=== PATIENT | female | born 1950 | race Caucasian/White ===

== ENCOUNTER 2016-05-31 10:38 | Inpatient (IN) | payer MEDICARE ==
[~2016-05-31] VITALS: Ht 167.6 cm; Wt 62.7 kg
[~2016-05-31 10:38] MED LIST: /ASCO250TA PO; /HALO5TAB PO; /MOM400 PO; /PANT40TA PO; /QUET10TA PO; ACET50TA PO; ATIV2TAB PO; BACT800T5 PO; BENZ1TA PO; CATA0.1T PO; DEPA250T2 PO; HALD5INJ2 IM; INVE6TAB2 PO; IRON325T3 PO; LORA2TA IM; MAAL600C PO; MAALSUS16 PO; MILKSUS5 PO; NO HOME MEDS; RISP4TAB33 PO; RISP4TAB35 PO; SERO200T PO; ZYVO100T PO; no home meds
[2016-05-31 11:05] LABS: MEAN CORPUSCULAR HEMOGLOBIN 31.7 pg (27.0-33.0); MEAN CORPUSCULAR HGB CONC 31.8 g/dl (32.0-36.5); MEAN CORPUSCULAR VOLUME 99.6 fl (80.0-96.0); RED CELL DISTRIBUTION WIDTH 13.7 % (11.5-14.5); WHITE BLOOD COUNT 8.6 K/mm3 (4.0-10.0)
[2016-05-31 11:35] LABS: ALBUMIN 3.2 GM/DL (3.2-5.2); ALBUMIN/GLOBULIN RATIO 0.89 (1.00-1.93); ALKALINE PHOSPHATASE 80 U/L (45-117); ALT/SGPT 18 U/L (12-78); ANION GAP 10 MEQ/L (8-16); AST/SGOT 14 U/L (15-37); BILIRUBIN,DIRECT < 0.1 MG/DL (0.0-0.2); BILIRUBIN,TOTAL 0.2 MG/DL (0.2-1.0); BLOOD UREA NITROGEN 16 MG/DL (7-18); CALCIUM LEVEL 8.1 MG/DL (8.8-10.2); CARBON DIOXIDE LEVEL 27 MEQ/L (21-32); CHLORIDE LEVEL 104 MEQ/L (98-107); CREATININE FOR GFR 0.69 MG/DL (0.55-1.02); GLOMERULAR FILTRATION RATE > 60.0 (>45); GLUCOSE, FASTING 145 MG/DL (80-110); POTASSIUM SERUM 3.8 MEQ/L (3.5-5.1); SODIUM LEVEL 141 MEQ/L (136-145); TOTAL PROTEIN 6.8 GM/DL (6.4-8.2)
[2016-05-31 13:34] LABS: METHADONE URINE NEGATIVE (NEGATIVE)
[2016-05-31 15:14] VITALS: BP 102/55
[2016-05-31] MEDS ORDERED: MOM 30ML SUSPENSION UDC PO PRN (17:00)
[2016-05-31] MEDS ORDERED: traZODone 50 MG TAB PO PRN (17:00)
[2016-05-31] MEDS ORDERED: ACETAMINOPHEN TAB 650MG DOSE (2X325MG) PO PRN (17:00)
[2016-05-31] MEDS ORDERED: MAALOX 30 ML SUSP *UDC PO PRN (17:00)
[2016-06-01 06:41] VITALS: BP 117/61
[2016-06-01] MEDS: PALIPERIDONE 3 MG ER TAB (INVEGA) PO SCH ×2 (09:00→15:01)
[2016-06-01 09:38] LABS: THYROXINE (T4) 8.2 UG/DL (4.5-12.0)
[2016-06-01 18:00] VITALS: BP 126/63
[2016-06-01] MEDS ORDERED: risperiDONE 2 MG TAB PO SCH (21:00)
[2016-06-01 21:07] VITALS: BP 126/63
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
[2016-06-02 06:41] VITALS: BP 123/75
--- NOTE | 2016-06-02 07:12 | HPE ---
DATE OF ADMISSION: 06/01/2016 Please refer to psychiatric history and evaluation for further details on this admission. This examination and history is intended for medical issues, which may need treatment, followup with consult on this 65-year-old female. SOCIAL HISTORY: She is . She has a boyfriend. ETOH none. Smokes, none. Recreational drug use, denies any. ALLERGIES: Latex. PRIMARY CARE PROVIDER: She states she currently does not have one. PAST MEDICAL HISTORY: 1. History of anemia of chronic disease. 2. History of chronic lower extremity leg ulcer. PAST SURGICAL HISTORY: 1. Skin graft to left lower leg ulcer times two. 2. Left breast biopsy, benign per patient. HOME MEDICATIONS: None. Other than her left lower leg wound she had no complaints. OBJECTIVE: VITAL SIGNS: Stable. Height 66 inches, weight 54.5 kg. Blood pressure 126/63, pulse 83, respirations 16, temperature 98.76, Oxygen saturation 98% on room air. GENERAL: The patient is awake, alert and oriented times three. HEENT: Pupils equal, round, reactive to light. Extraocular muscles intact. Cornea and sclerae clear. Conjunctiva is normal. No facial asymmetry. Pharynx, tongue and gum is pink and moist. Tongue is midline. NECK: Neck is supple without lymphadenopathy. No thyromegaly. No goiter. Carotids 2+ without bruit. CHEST: Clear to auscultation without wheeze or retraction. HEART: Heart is regular. ABDOMEN: Benign. Bowel sounds positive. GENITOURINARY ()/Rectal: Not done. EXTREMITIES: No Zyprexa. Pedal pulses palpable bilaterally. Radial pulses palpable bilaterally. Left outer lower leg has a stage II-III chronic ulcer. Venous stasis changes appreciated in the lower legs bilaterally. IMPRESSION AND PLAN: 1. Psychiatric plan per psychiatric. 2. EKG on file. 3. Anemia of chronic illness. 4. Lower left extremity ulcer. Will get wound consult and culture. The patient will need an attempt to establish a primary care physician (PCP) for discharge.
[2016-06-02] MEDS: PALIPERIDONE 3 MG ER TAB (INVEGA) PO SCH (08:50)
--- NOTE | 2016-06-02 13:43 | IPNPDOC ---
Subjective Date Seen The patient was seen on 06/02/16. Subjective Chief Complaint/HPI The patient is a 65-year-old female admitted with a reason for visit of Shizoaffective Disorder. Events since last encounter Requested to evaluate Pt LLE wounds. Pt is unable to provide much history but states they have been there a long time. Reviewing records, they date back to 2013. Pt with h/o 2 prior skin grafts to the LLE. Objective Physical Examination General Exam: Positive: Alert Eye Exam: Positive: PERRLA ENT Exam: Positive: Atraumatic Chest Exam: Positive: Clear to auscultation, Normal air movement Heart Exam: Positive: Normal S1, Normal S2, Rate Normal, Regular Rhythm, Negative: Murmurs, Rubs Skin Exam: Positive: Other skin issue (venous skin changes noted LEs. There are 4 ulcerations, Stage II-III skin ulcerations LLE. ) Assessment /Plan Problems (1) Skin ulceration Status: Chronic Problem Text: * wound culture pending * Request Wound Care Clt. * Pt afebrile, WBC WNL, no increased erythema/warmth. No antibiotics at this time. * Monitor/dressing changes. (2) Venous stasis Status: Chronic Plan/VTE VTE Prophylaxis Ordered?: No (ambulatory) VS, I&O, 24H, Fishbone Vital Signs/I&O Vital Signs Date Time Temp Pulse Resp B/P Pulse Ox O2 Delivery O2 Flow Rate FiO2 06/02/16 06:41 98.2 71 22 123/75 06/01/16 21:07 98 Room Air Laboratory Data Microbiology Microbiology 05/31/16 Urine Culture - Final, Complete 06/02/16 Gram Stain - Final, Resulted 06/02/16 Wound Culture, Resulted Pending Summer Renee Jun 02, 2016 13:43
[2016-06-02 18:00] VITALS: BP 142/76
--- NOTE | 2016-06-02 18:30 | IPNPDOC ---
[facility] Progress Note Progress Note DATE OF SERVICE: 06/02/16 HISTORY: The patient is met with today shortly. She initially was found in her room shaving her legs with electric razor. After introducing this literary writer asked if he could inquire as to how she came to the inpatient [facility]. She appeared to first amenable to answering questions but quickly became quite paranoid. She then accused this literary writer of imprisoning her in the psych [facility]. She then promptly ended interview appearing quite angry and distressed. VITAL SIGNS: See below. NEW TEST RESULTS: None. CURRENT MEDICATIONS: See below. MENTAL STATUS EXAMINATION: Patient is a 65-year old female, who is guarded, suspicious with poor hygiene . Speech: Is pressured and disorganized. Language skills are intact. Thought processes including: Tangential. Thought content: Perseverates on severe paranoia of staff members on the COUNTS INCLUDE 234 BEDS AT THE [facility]. Abstract reasoning, and computation: Impaired. Description of associations: Loose. Description of abnormal or psychotic thoughts: Makes no threats towards herself or others. Does not appear to be overtly responding to internal stimuli. Judgment: Limited. Insight: Limited. Orientation to appears to be alert and orientated 3. Recent and remote memory: Appears grossly intact. Attention span and concentration: Fair. Language: Normal. Fund of knowledge: Adequate. Mood: "You did this to me". Affect: Irritable and angry with a labile affect. DIAGNOSES: 1. Unspecified psychotic disorder. ASSESSMENT: A 65-year-old woman with a long history of schizophrenia who presents in a paranoid and disorganized state. She has been admitted previously in the staff is quite familiar with her previous behavior. She done quite well after an admission in May 2014 where she was treated with some Invega. However , after speaking with social media developer more familiar with her post admission follow -up revealed that she is likely noncompliant with her medications as an outpatient. MANAGEMENT PLAN: 1. Continue Invega 3 mg at night. 2. Continue when necessary agitation medications 3. Continue inpatient stay as the patient so grossly psychotic and paranoid. In her current state she poses a danger to herself as she is gravely disabled from her current condition. She will likely require at least a few more days of inpatient treatment should she continue to consent to taking her in Invega. However, if she continues to refuse her in Invega as she is done on previous admissions her inpatient stay could span quite a bit longer TIME SPENT: 15 minutes. Vital Signs Vital Signs Date Time Temp Pulse Resp B/P Pulse Ox O2 Delivery O2 Flow Rate FiO2 06/02/16 06:41 98.2 71 22 123/75 06/01/16 21:07 98 Room Air Current Medications Current Medications Acetaminophen (Tylenol Tab) 650 mg Q6HP PRN PO HEADACHE or DISCOMFORT; Start at 17:00; Stop 06/30/16 at 16:59 Al Hydrox/Mg Hydrox/Simethicone (Mylanta) 30 ml Q4HP PRN PO HEARTBURN/ INDIGESTION; Start 05/31/16 at 17:00; Stop 06/30/16 at 16:59 Home Med (Med Rec Complete!) ASDIRECTED XX ; Start 05/31/16 at 14:15; Stop at 14:15; Status DC Magnesium Hydroxide (Milk Of Magnesia) 30 ml DAILYPRN PRN PO CONSTIPATION; Start 05/31/16 at 17:00; Stop 06/30/16 at 16:59 Paliperidone (Invega) 3 mg QAM PO Last administered on 06/02/16t 08:50; Start 06/01/16 at 09:00; Stop 07/01/16 at 08:59 Risperidone (RisperDAL) 2 mg QHS PO ; Start 06/01/16 at 21:00; Stop 06/02/16 at 14:10; Status DC Trazodone HCl (Desyrel) 50 mg QHSP PRN PO INSOMNIA; Start 05/31/16 at 17:00; Stop 06/30/16 at 16:59 Allergies Coded Allergies: Latex (Unverified Allergy, Mild, Rash, 05/28/13) GME ATTESTATION My preceptor for this patient encounter was physically present in the building during the encounter and was fully available. As needed, all aspects of the patient interview, examination, medical decision making process, and medical care plan development were reviewed and approved by the preceptor. Preceptor is aware and concurs with the plan as stated in the body of this note and will attest to such by his/her cosignature. MICHAEL LATIF DO Jun 02, 2016 18:30
[2016-06-03 06:35] VITALS: BP 135/65
[2016-06-03] MEDS: PALIPERIDONE 3 MG ER TAB (INVEGA) PO SCH (08:17)
[2016-06-03 18:00] VITALS: BP 133/74
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
[2016-06-04] MEDS: PALIPERIDONE 3 MG ER TAB (INVEGA) PO SCH (08:14)
--- NOTE | 2016-06-04 15:35 | IPNPDOC ---
Subjective Date Seen The patient was seen on 06/04/16. Subjective Chief Complaint/HPI The patient is a 65-year-old female admitted with a reason for visit of Shizoaffective Disorder. Events since last encounter pt with no complaints. Pt states there has been no change with LLE. Objective Physical Examination General Exam: Positive: Alert Eye Exam: Positive: PERRLA ENT Exam: Positive: Atraumatic Chest Exam: Positive: Clear to auscultation, Normal air movement Heart Exam: Positive: Normal S1, Normal S2, Rate Normal, Regular Rhythm, Negative: Murmurs, Rubs Skin Exam: Positive: Other skin issue (venous skin changes noted LEs. There are 4 ulcerations, Stage II-III skin ulcerations LLE. ) Assessment /Plan Problems (1) Skin ulceration Status: Chronic Problem Text: * wound culture pending, discussed preliminary with Dr Stack. * Pt afebrile * no changes in wounds. * WBC WNL. * No abx at this time * Arrange outpt evaluation with wound care- Dr Prakash. * PT Wound Care Clt completed, dressing changes requested. (2) Venous stasis Status: Chronic Plan/VTE VTE Prophylaxis Ordered?: No (ambulatory) VS, I&O, 24H, Fishbone Vital Signs/I&O Vital Signs Date Time Temp Pulse Resp B/P Pulse Ox O2 Delivery O2 Flow Rate FiO2 06/03/16 18:00 98.8 93 16 133/74 06/01/16 21:07 98 Room Air Laboratory Data Microbiology Microbiology 05/31/16 Urine Culture - Final, Complete 06/02/16 Gram Stain - Final, Resulted 06/02/16 Wound Culture - Preliminary, Resulted Enterobacter Cloacae Complex Staphylococcus Aureus Strep Agalactiae Group B Corynebacterium Species Summer Renee Jun 04, 2016 15:35
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
[2016-06-04 18:33] VITALS: BP 138/73
[2016-06-05 06:41] VITALS: BP 143/75
[2016-06-05] MEDS: PALIPERIDONE 3 MG ER TAB (INVEGA) PO SCH (08:14)
[2016-06-05 08:22] LABS: MEAN CORPUSCULAR HEMOGLOBIN 31.2 pg (27.0-33.0); MEAN CORPUSCULAR HGB CONC 32.1 g/dl (32.0-36.5); MEAN CORPUSCULAR VOLUME 97.1 fl (80.0-96.0); RED CELL DISTRIBUTION WIDTH 13.4 % (11.5-14.5); WHITE BLOOD COUNT 7.6 K/mm3 (4.0-10.0)
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
[2016-06-05 18:00] VITALS: BP 130/71
--- NOTE | 2016-06-05 22:01 | ECGEPIP ---
Stationary ECG Study [facility] Test Date: 2016-06-04 Pat Name: KRAIG TRAYLOR Department: Room: [place] [address] Gender: F Suggestion Clerk: GUERA : 1950 Requested By: Summer Renee Order Number: [id number] Reading MD: Sohan Perera Measurements Intervals [place] Rate: 80 P: 66 WI: 141 QRS: 51 QRSD: 89 T: 34 QT: 380 QTc: 439 Interpretive Statements SINUS RHYTHM POSSIBLE LEFT ATRIAL ENLARGEMENT SIMILAR 06/04/14 Electronically Signed On 06-05-2016 22:01:16 EDT by Sohan Perera
[2016-06-06 06:24] VITALS: BP 139/65
[2016-06-06] MEDS: PALIPERIDONE 3 MG ER TAB (INVEGA) PO SCH (08:25)
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
[2016-06-06 18:00] VITALS: BP 122/64
[2016-06-07 06:41] VITALS: BP 141/70
[2016-06-07] MEDS: PALIPERIDONE 3 MG ER TAB (INVEGA) PO SCH (08:53)
[2016-06-07 18:00] VITALS: BP 137/74
[2016-06-08] MEDS: PALIPERIDONE 3 MG ER TAB (INVEGA) PO SCH (08:51)
[2016-06-08 18:00] VITALS: BP 138/71
[2016-06-09 06:20] VITALS: BP 128/64
[2016-06-09] MEDS: PALIPERIDONE 3 MG ER TAB (INVEGA) PO SCH (08:22)
[2016-06-09 18:00] VITALS: BP 113/68
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
[2016-06-10 06:00] VITALS: BP 141/78
[2016-06-10] MEDS: PALIPERIDONE 3 MG ER TAB (INVEGA) PO SCH (08:07)
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
[2016-06-10] MEDS ORDERED: PALI1TAB2 PO (14:27)
[2016-06-10] MEDS ORDERED: PALI1TAB3 PO (16:14)
[2016-06-10] MEDS ORDERED: INVE6TAB2 PO (16:20)
== END 2016-06-10 15:00 | disposition home or self-care (01) | DRG 885 ==
LOC: M ED 11:35 → M ED INP 14:18 → M PSY 15:05
PROVIDERS: ADMIT Psychiatry & Neurology Child & Adolescent Psychiatry; ATTEND Psychiatry & Neurology Child & Adolescent Psychiatry
DX: F25.9 Schizoaffective disorder, unspecified (principal); L97.929 Non-pressure chronic ulcer of unspecified part of left lower leg with unspecified severity; Z79.899 Other long term (current) drug therapy; Z91.040 Latex allergy status; D64.9 Anemia, unspecified; I87.8 Other specified disorders of veins

== ENCOUNTER 2017-03-12 19:12 | Inpatient (IN) | payer OTHER, MEDICARE ==
[2017-03-12 20:24] LABS: MEAN CORPUSCULAR HEMOGLOBIN 18.5 pg (27.0-33.0); MEAN CORPUSCULAR HGB CONC 27.1 g/dl (32.0-36.5); PLATELET COUNT, AUTOMATED 488 10^3/uL (150-450); WHITE BLOOD COUNT 7.4 10^3/uL (4.0-10.0)
[2017-03-12 20:53] LABS: ALBUMIN 3.6 GM/DL (3.2-5.2); ALBUMIN/GLOBULIN RATIO 1.03 (1.00-1.93); ALKALINE PHOSPHATASE 87 U/L (45-117); ALT/SGPT 23 U/L (12-78); ANION GAP 8 MEQ/L (8-16); AST/SGOT 22 U/L (7-37); BILIRUBIN,DIRECT 0.1 MG/DL (0.0-0.2); BILIRUBIN,TOTAL 0.3 MG/DL (0.2-1.0); BLOOD UREA NITROGEN 16 MG/DL (7-18); CALCIUM LEVEL 8.4 MG/DL (8.8-10.2); CARBON DIOXIDE LEVEL 27 MEQ/L (21-32); CHLORIDE LEVEL 104 MEQ/L (98-107); GLOMERULAR FILTRATION RATE > 60.0 (>45); GLUCOSE, FASTING 138 MG/DL (80-110); POTASSIUM SERUM 4.3 MEQ/L (3.5-5.1); SODIUM LEVEL 139 MEQ/L (136-145); TOTAL PROTEIN 7.1 GM/DL (6.4-8.2)
[2017-03-12 21:28] LABS: FERRITIN 5 NG/ML (8-252); PERCENT SATURATION 1.9 % (13.2-45.0); TOTAL IRON BINDING CAPACITY 515 UG/DL (250-450)
[2017-03-12 21:35] LABS: FOLATE 11.2 NG/ML (>5.4); VITAMIN B12 LEVEL 760 PG/ML (247-911)
[2017-03-12 22:56] LABS: METHADONE URINE NEGATIVE (NEGATIVE)
[2017-03-12] MEDS ORDERED: MOM 30ML SUSPENSION UDC PO (23:45)
[2017-03-12] MEDS ORDERED: traZODone 50 MG TAB PO (23:45)
[2017-03-12] MEDS ORDERED: OLANZapine ORAL DISINTEGRATING TAB 5MG PO (23:45)
[2017-03-12] MEDS ORDERED: ACETAMINOPHEN TAB 650MG DOSE (2X325MG) PO (23:45)
[2017-03-12] MEDS ORDERED: MAALOX 30 ML SUSP *UDC PO (23:45)
[2017-03-13 09:19] LABS: BASO # 0.1 10^3/uL (0.0-0.2); BASO % 1.6 % (0.0-1.0); EOS # 0.4 10^3/uL (0.0-0.50); EOS % 5.4 % (0.0-3.0); IMMATURE GRANULOCYTE % 0.4 % (0-0); LYMPH # 1.7 10^3/uL (1.5-4.5); LYMPH % 23.9 % (24.0-44.0); MEAN CORPUSCULAR HEMOGLOBIN 18.5 pg (27.0-33.0); MEAN CORPUSCULAR HGB CONC 26.9 g/dl (32.0-36.5); MEAN CORPUSCULAR VOLUME 68.8 fl (80.0-96.0); MONO # 0.6 10^3/uL (0.0-0.8); NEUTROPHILS # 4.1 10^3/uL (1.8-7.7); NEUTROPHILS % 59.7 % (36.0-66.0); PLATELET COUNT, AUTOMATED 441 10^3/uL (150-450); RED CELL DISTRIBUTION WIDTH 20.9 % (11.5-14.5); WHITE BLOOD COUNT 6.9 10^3/uL (4.0-10.0)
[2017-03-13 09:25] LABS: REASON FOR REVIEW COMPREHENSIVE REVIEW; SOURCE PERIPHERAL SMEAR
[2017-03-13 09:26] LABS: SLIDE REVIEW Report
[2017-03-13 09:42] LABS: ALBUMIN 3.5 GM/DL (3.2-5.2); ALKALINE PHOSPHATASE 80 U/L (45-117); ALT/SGPT 20 U/L (12-78); ANION GAP 7 MEQ/L (8-16); AST/SGOT 19 U/L (7-37); BILIRUBIN,TOTAL 0.4 MG/DL (0.2-1.0); BLOOD UREA NITROGEN 14 MG/DL (7-18); CALCIUM LEVEL 8.7 MG/DL (8.8-10.2); CARBON DIOXIDE LEVEL 29 MEQ/L (21-32); CHLORIDE LEVEL 106 MEQ/L (98-107); CREATININE FOR GFR 0.64 MG/DL (0.55-1.02); FERRITIN 7 NG/ML (8-252); GLOMERULAR FILTRATION RATE > 60.0 (>45); GLUCOSE, FASTING 167 MG/DL (80-110); PERCENT SATURATION 3.6 % (13.2-45.0); POTASSIUM SERUM 4.7 MEQ/L (3.5-5.1); SODIUM LEVEL 142 MEQ/L (136-145); T UPTAKE 31 % (30-39); THYROXINE (T4) 7.8 UG/DL (4.5-12.0); TOTAL IRON BINDING CAPACITY 500 UG/DL (250-450)
[2017-03-13 09:59] LABS: VITAMIN B12 LEVEL 750 PG/ML (247-911)
[2017-03-13 10:24] LABS: FOLATE 9.3 NG/ML (>5.4)
== END 2017-03-13 13:00 | disposition short-term general hospital (02) | DRG 750 ==
LOC: M ED 19:12 → M ED INP 21:56 → M PSY 22:51
DX: F25.0 Schizoaffective disorder, bipolar type (principal); L97.929 Non-pressure chronic ulcer of unspecified part of left lower leg with unspecified severity; Z91.14 Patient's other noncompliance with medication regimen; D64.9 Anemia, unspecified; R94.6 Abnormal results of thyroid function studies; Z91.040 Latex allergy status; Z79.899 Other long term (current) drug therapy

== ENCOUNTER 2017-03-13 13:06 | Observation (INO) | payer MEDICARE, OTHER ==
[2017-03-13] MEDS: FERROUS SULFATE 325MG TAB PO ×4 (09:00→21:49)
[~2017-03-13 13:06] MED LIST changes: -/ASCO250TA PO; -/HALO5TAB PO; -/MOM400 PO; -/PANT40TA PO; -/QUET10TA PO; -ACET50TA PO; -ATIV2TAB PO; -BACT800T5 PO; -BENZ1TA PO; -CATA0.1T PO; -DEPA250T2 PO; -HALD5INJ2 IM; -INVE6TAB2 PO; -IRON325T3 PO; -LORA2TA IM; -MAAL600C PO; -MAALSUS16 PO; -MILKSUS5 PO; -NO HOME MEDS; +ONDANSETRON 4 MG TAB (S0181) PO; -RISP4TAB33 PO; -RISP4TAB35 PO; -SERO200T PO; -ZYVO100T PO; -no home meds
[2017-03-13] MEDS ORDERED: HALOPERIDOL 5 MG TAB PO ×2 (14:15)
[2017-03-13] MEDS ORDERED: diphenhydrAMINE 50 MG CAP PO ×2 (14:15)
[2017-03-13] MEDS: PANTOPRAZOLE 40MG INJ (PROTONIX) (C9113) IV ×2 (16:07)
[2017-03-13] MEDS: ACETAMINOPHEN TAB 650MG DOSE (2X325MG) PO ×2 (17:45)
[2017-03-13] MEDS: PALIPERIDONE 3 MG ER TAB (INVEGA) PO ×4 (21:00→21:49)
[2017-03-13 22:15] LABS: IMMEDIATE SPIN CROSSMATCH 1 2
[2017-03-14 06:06] LABS: ANION GAP 7 MEQ/L (8-16); BLOOD UREA NITROGEN 18 MG/DL (7-18); CALCIUM LEVEL 8.1 MG/DL (8.8-10.2); CARBON DIOXIDE LEVEL 24 MEQ/L (21-32); CHLORIDE LEVEL 109 MEQ/L (98-107); CREATININE FOR GFR 0.53 MG/DL (0.55-1.02); GLOMERULAR FILTRATION RATE > 60.0 (>45); GLUCOSE, FASTING 88 MG/DL (80-110); POTASSIUM SERUM 4.5 MEQ/L (3.5-5.1); SODIUM LEVEL 140 MEQ/L (136-145)
[2017-03-14 06:08] LABS: HEMATOCRIT 27.2 % (36.0-47.0); HEMOGLOBIN 7.9 g/dl (12.0-16.0); MEAN CORPUSCULAR HEMOGLOBIN 20.6 pg (27.0-33.0); PLATELET COUNT, AUTOMATED 360 10^3/uL (150-450); RED BLOOD COUNT 3.83 10^6/uL (4.00-5.40); RED CELL DISTRIBUTION WIDTH 21.3 % (11.5-14.5); WHITE BLOOD COUNT 6.5 10^3/uL (4.0-10.0)
[2017-03-14] MEDS: INFLUENZA QUADRIVALENT PF VACCINE 0.5ML SYRINGE (90686) IM ×2 (09:00)
[2017-03-14] MEDS: FERROUS SULFATE 325MG TAB PO ×4 (10:41→22:27)
[2017-03-14 12:55] LABS: HEMATOCRIT 26.6 % (36.0-47.0); HEMOGLOBIN 7.9 g/dl (12.0-16.0); RETIC HEMOGLOBIN EQUIVALENT 17.4 pg (24-36); RETICULOCYTE # 33.8 10^9/L (17-77); RETICULOCYTE % 0.9 % (0.5-1.5)
[2017-03-14] MEDS: PANTOPRAZOLE 40MG INJ (PROTONIX) (C9113) IV ×2 (13:25)
[2017-03-14] MEDS: LORazepam 2 MG TAB PO ×2 (22:26)
[2017-03-14] MEDS: ACETAMINOPHEN TAB 650MG DOSE (2X325MG) PO ×2 (22:27)
[2017-03-14] MEDS: IRON SUCROSE 500 MG in NS 250 ML IV (22:27)
[2017-03-14] MEDS: PALIPERIDONE 3 MG ER TAB (INVEGA) PO ×2 (22:27)
[2017-03-15 06:08] LABS: HEMATOCRIT 28.4 % (36.0-47.0); HEMOGLOBIN 8.1 g/dl (12.0-16.0); MEAN CORPUSCULAR HEMOGLOBIN 20.5 pg (27.0-33.0); MEAN CORPUSCULAR HGB CONC 28.5 g/dl (32.0-36.5); MEAN CORPUSCULAR VOLUME 71.7 fl (80.0-96.0); PLATELET COUNT, AUTOMATED 317 10^3/uL (150-450); RED BLOOD COUNT 3.96 10^6/uL (4.00-5.40)
[2017-03-15 06:40] LABS: ALBUMIN 2.8 GM/DL (3.2-5.2); ALBUMIN/GLOBULIN RATIO 0.88 (1.00-1.93); ALKALINE PHOSPHATASE 64 U/L (45-117); ALT/SGPT 18 U/L (12-78); ANION GAP 9 MEQ/L (8-16); AST/SGOT 15 U/L (7-37); BILIRUBIN,TOTAL 0.3 MG/DL (0.2-1.0); BLOOD UREA NITROGEN 13 MG/DL (7-18); CARBON DIOXIDE LEVEL 26 MEQ/L (21-32); CHLORIDE LEVEL 109 MEQ/L (98-107); CREATININE FOR GFR 0.51 MG/DL (0.55-1.02); GLOMERULAR FILTRATION RATE > 60.0 (>45); GLUCOSE, FASTING 86 MG/DL (80-110); POTASSIUM SERUM 4.4 MEQ/L (3.5-5.1); SODIUM LEVEL 144 MEQ/L (136-145)
[2017-03-15] MEDS: FERROUS SULFATE 325MG TAB PO ×2 (09:00)
== END 2017-03-15 14:06 ==
LOC: M MSPAV 13:06
DX: D50.9 Iron deficiency anemia, unspecified (principal); F25.0 Schizoaffective disorder, bipolar type; F23 Brief psychotic disorder; L97.928 Non-pressure chronic ulcer of unspecified part of left lower leg with other specified severity; B35.1 Tinea unguium; Z79.899 Other long term (current) drug therapy; M79.671 Pain in right foot; Z91.040 Latex allergy status; M79.672 Pain in left foot
CPT/HCPCS: 90471

== ENCOUNTER 2017-04-03 21:08 | Inpatient (IN) | payer OTHER, MEDICARE ==
[2017-04-03 22:57] LABS: AMPHETAMINES LEVEL URINE NEGATIVE (NEGATIVE); BARBITURATES URINE NEGATIVE (NEGATIVE); BENZODIAZEPINES URINE NEGATIVE (NEGATIVE); CANNABINOIDS URINE NEGATIVE (NEGATIVE); COCAINE METABOLITE URINE NEGATIVE (NEGATIVE); METHADONE URINE NEGATIVE (NEGATIVE); OPIATES URINE NEGATIVE (NEGATIVE); PHENCYCLIDINE URINE NEGATIVE (NEGATIVE)
[2017-04-04 00:46] LABS: HEMATOCRIT 36.8 % (36.0-47.0); HEMOGLOBIN 11.1 g/dl (12.0-16.0); MEAN CORPUSCULAR HEMOGLOBIN 25.8 pg (27.0-33.0); MEAN CORPUSCULAR HGB CONC 30.2 g/dl (32.0-36.5); MEAN CORPUSCULAR VOLUME 85.4 fl (80.0-96.0); PLATELET COUNT, AUTOMATED 274 10^3/uL (150-450); RED BLOOD COUNT 4.31 10^6/uL (4.00-5.40); WHITE BLOOD COUNT 5.6 10^3/uL (4.0-10.0)
[2017-04-04 01:04] LABS: ACETAMINOPHEN LEVEL < 2.0 UG/ML (10.0-30.0); ALBUMIN 3.3 GM/DL (3.2-5.2); ALBUMIN/GLOBULIN RATIO 1.03 (1.00-1.93); ALKALINE PHOSPHATASE 62 U/L (45-117); ALT/SGPT 21 U/L (12-78); ANION GAP 7 MEQ/L (8-16); AST/SGOT 19 U/L (7-37); BILIRUBIN,DIRECT 0.1 MG/DL (0.0-0.2); BILIRUBIN,TOTAL 0.4 MG/DL (0.2-1.0); BLOOD UREA NITROGEN 15 MG/DL (7-18); CALCIUM LEVEL 8.7 MG/DL (8.8-10.2); CARBON DIOXIDE LEVEL 30 MEQ/L (21-32); CHLORIDE LEVEL 105 MEQ/L (98-107); CREATININE FOR GFR 0.64 MG/DL (0.55-1.02); GLOMERULAR FILTRATION RATE > 60.0 (>45); GLUCOSE, FASTING 149 MG/DL (80-110); POTASSIUM SERUM 3.7 MEQ/L (3.5-5.1); SALICYLATE LEVEL < 1.7 MG/DL (5.0-30.0); SODIUM LEVEL 142 MEQ/L (136-145); TOTAL PROTEIN 6.5 GM/DL (6.4-8.2)
[2017-04-04 01:08] LABS: ETHYL ALCOHOL (ETHANOL) < 0.003 % (0.000-0.010)
[2017-04-04 01:25] LABS: POSITIVE MORPH POS FLAG
[2017-04-04] MEDS ORDERED: MOM 30ML SUSPENSION UDC PO (02:15)
[2017-04-04] MEDS ORDERED: MAALOX 30 ML SUSP *UDC PO (02:15)
[2017-04-04] MEDS ORDERED: traZODone 50 MG TAB PO (02:15)
[2017-04-04] MEDS ORDERED: OLANZapine ORAL DISINTEGRATING TAB 5MG PO (02:15)
[2017-04-04] MEDS: ACETAMINOPHEN TAB 650MG DOSE (2X325MG) PO (22:20)
[2017-04-05] MEDS: BACTRIM 80MG/400MG TAB PO (21:00)
[2017-04-05] MEDS: CLINDAMYCIN 150 MG CAP PO (22:09)
[2017-04-05] MEDS: ACETAMINOPHEN TAB 650MG DOSE (2X325MG) PO (22:11)
[2017-04-06] MEDS: BACTRIM 80MG/400MG TAB PO ×2 (08:10→20:58)
[2017-04-06] MEDS: ACETAMINOPHEN TAB 650MG DOSE (2X325MG) PO ×2 (08:11→14:29)
[2017-04-07] MEDS: ACETAMINOPHEN TAB 650MG DOSE (2X325MG) PO ×2 (06:52→13:57)
[2017-04-07] MEDS: BACTRIM 80MG/400MG TAB PO (08:31)
== END 2017-04-07 14:30 | disposition home or self-care (01) | DRG 753 ==
LOC: M ED 21:08 → M ED INP 04-04 02:02 → M PSY 04-04 03:50
DX: F31.2 Bipolar disorder, current episode manic severe with psychotic features (principal); L03.116 Cellulitis of left lower limb; Z91.19 Patient's noncompliance with other medical treatment and regimen; Z59.0 Homelessness; Z91.040 Latex allergy status; Z79.899 Other long term (current) drug therapy

== ENCOUNTER 2017-04-16 15:03 | Observation (INO) | payer MEDICARE, OTHER ==
[2017-04-16] MEDS ORDERED: HALOPERIDOL 5 MG/ML VIAL (J1630) IM ×2 (15:30)
[2017-04-16] MEDS ORDERED: LORazepam 2 MG/ML VIAL (J2060) IM ×2 (15:30)
[2017-04-16] MEDS ORDERED: diphenhydrAMINE INJ 50MG/ML VIAL (J1200) IM ×2 (15:30)
[2017-04-16 15:58] LABS: HEMATOCRIT 42.4 % (36.0-47.0); HEMOGLOBIN 13.2 g/dl (12.0-16.0); MEAN CORPUSCULAR HGB CONC 31.1 g/dl (32.0-36.5); MEAN CORPUSCULAR VOLUME 86.7 fl (80.0-96.0); PLATELET COUNT, AUTOMATED 227 10^3/uL (150-450); RED BLOOD COUNT 4.89 10^6/uL (4.00-5.40); WHITE BLOOD COUNT 6.8 10^3/uL (4.0-10.0)
[2017-04-16 16:27] LABS: ALBUMIN 3.8 GM/DL (3.2-5.2); ALKALINE PHOSPHATASE 76 U/L (45-117); ALT/SGPT 15 U/L (12-78); ANION GAP 8 MEQ/L (8-16); AST/SGOT 14 U/L (7-37); BILIRUBIN,DIRECT 0.1 MG/DL (0.0-0.2); BILIRUBIN,TOTAL 0.4 MG/DL (0.2-1.0); BLOOD UREA NITROGEN 13 MG/DL (7-18); CALCIUM LEVEL 9.1 MG/DL (8.8-10.2); CARBON DIOXIDE LEVEL 28 MEQ/L (21-32); CHLORIDE LEVEL 111 MEQ/L (98-107); CREATININE FOR GFR 0.72 MG/DL (0.55-1.30); GLOMERULAR FILTRATION RATE > 60.0 (>45); GLUCOSE, FASTING 103 MG/DL (70-100); POTASSIUM SERUM 3.9 MEQ/L (3.5-5.1); SALICYLATE LEVEL 2.4 MG/DL (5.0-30.0); SODIUM LEVEL 147 MEQ/L (136-145); TOTAL PROTEIN 7.6 GM/DL (6.4-8.2)
[2017-04-16 16:31] LABS: ACETAMINOPHEN LEVEL < 2.0 UG/ML (10.0-30.0); ETHYL ALCOHOL (ETHANOL) < 0.003 % (0.000-0.010)
[2017-04-16 16:48] LABS: POSITIVE MORPH POS FLAG
[2017-04-16 19:01] LABS: AMPHETAMINES LEVEL URINE NEGATIVE (NEGATIVE); BARBITURATES URINE NEGATIVE (NEGATIVE); BENZODIAZEPINES URINE NEGATIVE (NEGATIVE); CANNABINOIDS URINE NEGATIVE (NEGATIVE); COCAINE METABOLITE URINE NEGATIVE (NEGATIVE); METHADONE URINE NEGATIVE (NEGATIVE); OPIATES URINE NEGATIVE (NEGATIVE); PHENCYCLIDINE URINE NEGATIVE (NEGATIVE)
[2017-04-16] MEDS ORDERED: ACETAMINOPHEN TAB 650MG DOSE (2X325MG) PO ×2 (20:45)
[2017-04-16] MEDS ORDERED: BISACODYL 5 MG TAB PO ×2 (20:45)
[2017-04-17] MEDS: ENOXAPARIN 40 MG/0.4 ML SYRINGE (J1650) SC ×2 (08:58)
== END 2017-04-17 16:34 | disposition home or self-care (01) ==
LOC: M MS4PR 23:50 → M ED 15:03 → M ED INP 15:04
DX: F25.0 Schizoaffective disorder, bipolar type (principal); L97.821 Non-pressure chronic ulcer of other part of left lower leg limited to breakdown of skin; Z59.0 Homelessness; Z91.040 Latex allergy status; F17.210 Nicotine dependence, cigarettes, uncomplicated
CPT/HCPCS: G0480

== ENCOUNTER 2017-09-10 23:33 | Inpatient (IN) | payer MEDICARE ==
[2017-09-11 01:08] LABS: BASO # 0.1 10^3/uL (0.0-0.2); BASO % 0.5 % (0.0-1.0); EOS % 0.2 % (0.0-3.0); HEMATOCRIT 42.3 % (36.0-47.0); HEMOGLOBIN 13.8 g/dl (12.0-15.5); IMMATURE GRANULOCYTE % 0.3 % (0-3.0); LYMPH # 0.6 10^3/uL (1.5-4.5); LYMPH % 6.4 % (24.0-44.0); MEAN CORPUSCULAR HEMOGLOBIN 30.5 pg (27.0-33.0); MEAN CORPUSCULAR HGB CONC 32.6 g/dl (32.0-36.5); MEAN CORPUSCULAR VOLUME 93.6 fl (80.0-96.0); MONO # 0.4 10^3/uL (0.0-0.8); MONO % 4.8 % (0.0-5.0); NEUTROPHILS % 87.8 % (36.0-66.0); PLATELET COUNT, AUTOMATED 367 10^3/uL (150-450); RED BLOOD COUNT 4.52 10^6/uL (4.00-5.40); RED CELL DISTRIBUTION WIDTH 14.3 % (11.5-14.5); WHITE BLOOD COUNT 9.1 10^3/uL (4.0-10.0)
[2017-09-11 01:26] LABS: ERYTHROCYTE SEDIMENTATION RATE 43 mm/hr (0-30)
[2017-09-11 01:40] LABS: ALBUMIN 3.5 GM/DL (3.2-5.2); ALBUMIN/GLOBULIN RATIO 0.78 (1.00-1.93); ALKALINE PHOSPHATASE 91 U/L (45-117); ALT/SGPT 20 U/L (12-78); ANION GAP 9 MEQ/L (8-16); AST/SGOT 25 U/L (7-37); BILIRUBIN,DIRECT 0.1 MG/DL (0.0-0.2); BILIRUBIN,TOTAL 0.6 MG/DL (0.2-1.0); BLOOD UREA NITROGEN 18 MG/DL (7-18); C REACTIVE PROTEIN QUANTITATIV 0.59 MG/DL (0.00-0.30); CALCIUM LEVEL 8.8 MG/DL (8.8-10.2); CARBON DIOXIDE LEVEL 27 MEQ/L (21-32); CHLORIDE LEVEL 102 MEQ/L (98-107); CREATININE FOR GFR 1.08 MG/DL (0.55-1.30); GLOMERULAR FILTRATION RATE 54.2 (>45); GLUCOSE, FASTING 316 MG/DL (70-100); SODIUM LEVEL 138 MEQ/L (136-145)
[2017-09-11 01:49] LABS: LACTIC ACID SEPSIS PROTOCOL 2.1 MMOL/L (0.4-2.0)
[2017-09-11] MEDS: ACETAMINOPHEN TAB 650MG DOSE (2X325MG) PO (02:18)
[2017-09-11] MEDS: NS 1,000 ML IV (02:18)
[2017-09-11] MEDS ORDERED: DEXTROSE 50% 50 ML SYRINGE IV (03:15)
[2017-09-11] MEDS ORDERED: GLUCAGON FOR INJ 1 MG VIAL (J1610) SC (03:15)
[2017-09-11] MEDS ORDERED: GLUCOSE 4 GM CHEW TABLET PO (03:15)
[2017-09-11 04:05] LABS: ESTIMATED AVERAGE GLUCOSE 123 MG/DL (60-110); HEMOGLOBIN A1c 5.9 %
[2017-09-11 07:18] LABS: BEDSIDE GLUCOSE 225 MG/DL (80-115)
[2017-09-11] MEDS: HumaLOG INSULIN (NovoLOG) PER UNIT SC ×4 (07:26→21:00)
[2017-09-11 12:45] LABS: BEDSIDE GLUCOSE 161 MG/DL (80-115)
[2017-09-11 16:27] LABS: BEDSIDE GLUCOSE 177 MG/DL (80-115)
[2017-09-11 20:37] LABS: BEDSIDE GLUCOSE 84 MG/DL (80-115)
[2017-09-12 05:58] LABS: BASO # 0.1 10^3/uL (0.0-0.2); BASO % 0.7 % (0.0-1.0); EOS # 0.4 10^3/uL (0.0-0.50); EOS % 5.2 % (0.0-3.0); HEMATOCRIT 36.6 % (36.0-47.0); HEMOGLOBIN 11.9 g/dl (12.0-15.5); IMMATURE GRANULOCYTE % 0.3 % (0-3.0); LYMPH # 1.7 10^3/uL (1.5-4.5); LYMPH % 25.7 % (24.0-44.0); MEAN CORPUSCULAR HEMOGLOBIN 30.5 pg (27.0-33.0); MEAN CORPUSCULAR HGB CONC 32.5 g/dl (32.0-36.5); MEAN CORPUSCULAR VOLUME 93.8 fl (80.0-96.0); MONO # 0.7 10^3/uL (0.0-0.8); NEUTROPHILS # 3.9 10^3/uL (1.8-7.7); NEUTROPHILS % 57.1 % (36.0-66.0); PLATELET COUNT, AUTOMATED 341 10^3/uL (150-450); RED CELL DISTRIBUTION WIDTH 14.5 % (11.5-14.5); WHITE BLOOD COUNT 6.7 10^3/uL (4.0-10.0)
[2017-09-12 06:16] LABS: ANION GAP 8 MEQ/L (8-16); BLOOD UREA NITROGEN 11 MG/DL (7-18); CALCIUM LEVEL 8.4 MG/DL (8.8-10.2); CARBON DIOXIDE LEVEL 28 MEQ/L (21-32); CHLORIDE LEVEL 109 MEQ/L (98-107); CREATININE FOR GFR 0.65 MG/DL (0.55-1.30); GLOMERULAR FILTRATION RATE > 60.0 (>45); GLUCOSE, FASTING 146 MG/DL (70-100); POTASSIUM SERUM 4.2 MEQ/L (3.5-5.1); SODIUM LEVEL 145 MEQ/L (136-145)
[2017-09-12] MEDS: HumaLOG INSULIN (NovoLOG) PER UNIT SC ×4 (08:37→22:10)
[2017-09-12] MEDS: ACETAMINOPHEN TAB 650MG DOSE (2X325MG) PO (08:38)
[2017-09-12 11:31] LABS: BEDSIDE GLUCOSE 132 MG/DL (80-115)
[2017-09-12] MEDS: VANCOMYCIN HCL 1,000 MG, VIAL MATE ADAPTER 1 EACH in D5W 250 ML IV ×2 (11:59→21:50)
[2017-09-12 12:01] LABS: LACTIC ACID SEPSIS PROTOCOL 1.8 MMOL/L (0.4-2.0)
[2017-09-12 16:54] LABS: BEDSIDE GLUCOSE 101 MG/DL (80-115)
[2017-09-12 21:34] LABS: BEDSIDE GLUCOSE 107 MG/DL (80-115)
[2017-09-13 09:02] LABS: BEDSIDE GLUCOSE 208 MG/DL (80-115)
[2017-09-13] MEDS: VANCOMYCIN HCL 1,000 MG, VIAL MATE ADAPTER 1 EACH in D5W 250 ML IV ×2 (09:13→21:15)
[2017-09-13] MEDS: HumaLOG INSULIN (NovoLOG) PER UNIT SC ×4 (09:14→21:31)
[2017-09-13 11:47] LABS: BEDSIDE GLUCOSE 106 MG/DL (80-115)
[2017-09-13] MEDS: LevoFLOXacin 500 MG TABLET PO (13:03)
[2017-09-13 17:02] LABS: BEDSIDE GLUCOSE 127 MG/DL (80-115)
[2017-09-13 20:15] LABS: BEDSIDE GLUCOSE 115 MG/DL (80-115)
[2017-09-14] MEDS: LevoFLOXacin 500 MG TABLET PO (05:37)
[2017-09-14 06:14] LABS: BASO # 0.1 10^3/uL (0.0-0.2); BASO % 1.6 % (0.0-1.0); EOS # 0.4 10^3/uL (0.0-0.50); EOS % 6.6 % (0.0-3.0); HEMATOCRIT 40.3 % (36.0-47.0); HEMOGLOBIN 12.7 g/dl (12.0-15.5); IMMATURE GRANULOCYTE % 0.4 % (0-3.0); LYMPH # 1.8 10^3/uL (1.5-4.5); LYMPH % 32.1 % (24.0-44.0); MEAN CORPUSCULAR HEMOGLOBIN 30.2 pg (27.0-33.0); MEAN CORPUSCULAR HGB CONC 31.5 g/dl (32.0-36.5); MONO # 0.6 10^3/uL (0.0-0.8); MONO % 10.6 % (0.0-5.0); NEUTROPHILS # 2.7 10^3/uL (1.8-7.7); NEUTROPHILS % 48.7 % (36.0-66.0); PLATELET COUNT, AUTOMATED 296 10^3/uL (150-450); RED CELL DISTRIBUTION WIDTH 14.4 % (11.5-14.5); WHITE BLOOD COUNT 5.5 10^3/uL (4.0-10.0)
[2017-09-14 06:35] LABS: ANION GAP 4 MEQ/L (8-16); BLOOD UREA NITROGEN 12 MG/DL (7-18); CALCIUM LEVEL 8.9 MG/DL (8.8-10.2); CARBON DIOXIDE LEVEL 31 MEQ/L (21-32); CHLORIDE LEVEL 108 MEQ/L (98-107); CREATININE FOR GFR 0.65 MG/DL (0.55-1.30); GLOMERULAR FILTRATION RATE > 60.0 (>45); GLUCOSE, FASTING 89 MG/DL (70-100); POTASSIUM SERUM 4.4 MEQ/L (3.5-5.1); SODIUM LEVEL 143 MEQ/L (136-145)
[2017-09-14] MEDS: HumaLOG INSULIN (NovoLOG) PER UNIT SC ×4 (07:30→20:59)
[2017-09-14 09:10] LABS: VANCOMYCIN LEVEL TROUGH 10.2 UG/ML (10.0-20.0)
[2017-09-14] MEDS: VANCOMYCIN HCL 1,000 MG, VIAL MATE ADAPTER 1 EACH in D5W 250 ML IV (09:17)
[2017-09-14 11:31] LABS: BEDSIDE GLUCOSE 100 MG/DL (80-115)
[2017-09-14 19:52] LABS: BEDSIDE GLUCOSE 142 MG/DL (80-115)
[2017-09-14] MEDS: ACETAMINOPHEN TAB 650MG DOSE (2X325MG) PO (21:12)
[2017-09-15] MEDS: ACETAMINOPHEN TAB 650MG DOSE (2X325MG) PO (02:26)
[2017-09-15] MEDS: LevoFLOXacin 500 MG TABLET PO (06:00)
[2017-09-15 06:21] LABS: BASO # 0.1 10^3/uL (0.0-0.2); BASO % 0.9 % (0.0-1.0); EOS # 0.4 10^3/uL (0.0-0.50); EOS % 7.6 % (0.0-3.0); HEMATOCRIT 36.4 % (36.0-47.0); HEMOGLOBIN 11.7 g/dl (12.0-15.5); IMMATURE GRANULOCYTE % 0.4 % (0-3.0); LYMPH # 1.9 10^3/uL (1.5-4.5); MEAN CORPUSCULAR HEMOGLOBIN 30.5 pg (27.0-33.0); MEAN CORPUSCULAR HGB CONC 32.1 g/dl (32.0-36.5); MONO # 0.5 10^3/uL (0.0-0.8); MONO % 8.3 % (0.0-5.0); NEUTROPHILS # 2.6 10^3/uL (1.8-7.7); NEUTROPHILS % 47.8 % (36.0-66.0); PLATELET COUNT, AUTOMATED 283 10^3/uL (150-450); RED BLOOD COUNT 3.83 10^6/uL (4.00-5.40); RED CELL DISTRIBUTION WIDTH 14.3 % (11.5-14.5); WHITE BLOOD COUNT 5.5 10^3/uL (4.0-10.0)
[2017-09-15 06:38] LABS: ANION GAP 8 MEQ/L (8-16); BLOOD UREA NITROGEN 15 MG/DL (7-18); CALCIUM LEVEL 8.3 MG/DL (8.8-10.2); CARBON DIOXIDE LEVEL 28 MEQ/L (21-32); CHLORIDE LEVEL 107 MEQ/L (98-107); CREATININE FOR GFR 0.56 MG/DL (0.55-1.30); GLOMERULAR FILTRATION RATE > 60.0 (>45); GLUCOSE, FASTING 87 MG/DL (70-100); POTASSIUM SERUM 4.2 MEQ/L (3.5-5.1); SODIUM LEVEL 143 MEQ/L (136-145)
[2017-09-15] MEDS: HumaLOG INSULIN (NovoLOG) PER UNIT SC ×2 (07:44→12:17)
[2017-09-15 11:26] LABS: BEDSIDE GLUCOSE 117 MG/DL (80-115)
[2017-09-17 12:28] LABS: BEDSIDE GLUCOSE 112 MG/DL (80-115)
== END 2017-09-15 13:46 | disposition home or self-care (01) | DRG 300 ==
LOC: M ED 23:33 → M ED INP 23:34 → M MSPAV 09-11 13:06
DX: I87.2 Venous insufficiency (chronic) (peripheral) (principal); L03.116 Cellulitis of left lower limb; F31.9 Bipolar disorder, unspecified; B96.5 Pseudomonas (aeruginosa) (mallei) (pseudomallei) as the cause of diseases classified elsewhere; B95.7 Other staphylococcus as the cause of diseases classified elsewhere; F17.210 Nicotine dependence, cigarettes, uncomplicated

== ENCOUNTER 2017-09-27 22:55 | Emergency (ER) | payer MEDICARE ==
[2017-09-28] MEDS: ONDANSETRON 4 MG ORAL DISINTEGRATING TAB (Q0162 PER 1MG) PO (01:56)
== END 2017-09-28 04:45 | disposition home or self-care (01) ==
LOC: M ED 22:55
DX: R11.0 Nausea (principal); F99 Mental disorder, not otherwise specified; F17.210 Nicotine dependence, cigarettes, uncomplicated; Z91.040 Latex allergy status
CPT/HCPCS: Q0162

== ENCOUNTER 2017-10-07 13:01 | Inpatient (IN) | payer MEDICARE ==
[2017-10-07 15:26] LABS: HEMATOCRIT 41.5 % (36.0-47.0); HEMOGLOBIN 13.1 g/dl (12.0-15.5); MEAN CORPUSCULAR HEMOGLOBIN 29.9 pg (27.0-33.0); MEAN CORPUSCULAR HGB CONC 31.6 g/dl (32.0-36.5); MEAN CORPUSCULAR VOLUME 94.7 fl (80.0-96.0); PLATELET COUNT, AUTOMATED 289 10^3/uL (150-450); RED BLOOD COUNT 4.38 10^6/uL (4.00-5.40); RED CELL DISTRIBUTION WIDTH 14.6 % (11.5-14.5); WHITE BLOOD COUNT 6.1 10^3/uL (4.0-10.0)
[2017-10-07 15:55] LABS: ALBUMIN 3.3 GM/DL (3.2-5.2); ALBUMIN/GLOBULIN RATIO 0.92 (1.00-1.93); ALKALINE PHOSPHATASE 83 U/L (45-117); ALT/SGPT 20 U/L (12-78); ANION GAP 7 MEQ/L (8-16); AST/SGOT 19 U/L (7-37); BILIRUBIN,DIRECT < 0.1 MG/DL (0.0-0.2); BILIRUBIN,TOTAL 0.2 MG/DL (0.2-1.0); BLOOD UREA NITROGEN 8 MG/DL (7-18); CALCIUM LEVEL 8.4 MG/DL (8.8-10.2); CARBON DIOXIDE LEVEL 31 MEQ/L (21-32); CHLORIDE LEVEL 109 MEQ/L (98-107); CREATININE FOR GFR 0.86 MG/DL (0.55-1.30); ETHYL ALCOHOL (ETHANOL) < 0.003 % (0.000-0.010); GLOMERULAR FILTRATION RATE > 60.0 (>45); GLUCOSE, FASTING 88 MG/DL (70-100); POTASSIUM SERUM 3.2 MEQ/L (3.5-5.1); SODIUM LEVEL 147 MEQ/L (136-145); TOTAL PROTEIN 6.9 GM/DL (6.4-8.2)
[2017-10-07 15:56] LABS: ACETAMINOPHEN LEVEL < 2.0 UG/ML (10.0-30.0)
[2017-10-07 18:17] LABS: AMPHETAMINES LEVEL URINE NEGATIVE (NEGATIVE); BARBITURATES URINE NEGATIVE (NEGATIVE); BENZODIAZEPINES URINE NEGATIVE (NEGATIVE); CANNABINOIDS URINE NEGATIVE (NEGATIVE); COCAINE METABOLITE URINE NEGATIVE (NEGATIVE); METHADONE URINE NEGATIVE (NEGATIVE); OPIATES URINE NEGATIVE (NEGATIVE); PHENCYCLIDINE URINE NEGATIVE (NEGATIVE)
[2017-10-07] MEDS: POTASSIUM CHLORIDE 10 MEQ SR TABLET PO ×2 (18:30→18:35)
[2017-10-07] MEDS ORDERED: OLANZapine ORAL DISINTEGRATING TAB 5MG PO (19:15)
[2017-10-07] MEDS ORDERED: traZODone 50 MG TAB PO (19:15)
[2017-10-07] MEDS ORDERED: MOM 30ML SUSPENSION UDC PO (19:15)
[2017-10-07] MEDS ORDERED: diphenhydrAMINE 25 MG CAP PO (19:15)
[2017-10-07] MEDS ORDERED: LORazepam 1 MG TAB PO (19:15)
[2017-10-07] MEDS ORDERED: MAALOX 30 ML SUSP *UDC PO (19:15)
[2017-10-08] MEDS: risperiDONE 1 MG M-TAB PO ×2 (09:00→21:00)
[2017-10-08 10:05] LABS: KETONE, URINE AUTO RFX NEGATIVE (NEGATIVE); LEUKOCYTE ESTERASE UR AUTO RFX NEGATIVE (NEGATIVE); NITRITE, URINE AUTO RFX NEGATIVE (NEGATIVE); RBC, URINE AUTO RFX 0 /HPF (0-3); SPECIFIC GRAVITY UR AUTO RFX 1.001 (1.002-1.035); SQUAM EPITHELIAL CELL UR AURFX 0 /HPF (0-6); WBC, URINE AUTO RFX 1 /HPF (0-3)
[2017-10-08 11:17] LABS: BASO # 0.1 10^3/uL (0.0-0.2); BASO % 0.7 % (0.0-1.0); EOS # 0.4 10^3/uL (0.0-0.50); HEMATOCRIT 36.3 % (36.0-47.0); HEMOGLOBIN 11.6 g/dl (12.0-15.5); IMMATURE GRANULOCYTE % 0.4 % (0-3.0); LYMPH # 1.4 10^3/uL (1.5-4.5); MEAN CORPUSCULAR HEMOGLOBIN 30.3 pg (27.0-33.0); MEAN CORPUSCULAR VOLUME 94.8 fl (80.0-96.0); MONO # 0.6 10^3/uL (0.0-0.8); NEUTROPHILS # 4.5 10^3/uL (1.8-7.7); NEUTROPHILS % 64.9 % (36.0-66.0); PLATELET COUNT, AUTOMATED 269 10^3/uL (150-450); RED BLOOD COUNT 3.83 10^6/uL (4.00-5.40); RED CELL DISTRIBUTION WIDTH 14.7 % (11.5-14.5)
[2017-10-08] MEDS: LevoFLOXacin 500 MG TABLET PO (11:30)
[2017-10-08 11:41] LABS: ERYTHROCYTE SEDIMENTATION RATE 37 mm/hr (0-30)
[2017-10-08 11:56] LABS: ALBUMIN 3.3 GM/DL (3.2-5.2); ALBUMIN/GLOBULIN RATIO 0.97 (1.00-1.93); ALKALINE PHOSPHATASE 78 U/L (45-117); ALT/SGPT 20 U/L (12-78); ANION GAP 6 MEQ/L (8-16); AST/SGOT 18 U/L (7-37); BILIRUBIN,TOTAL 0.3 MG/DL (0.2-1.0); BLOOD UREA NITROGEN 10 MG/DL (7-18); C REACTIVE PROTEIN QUANTITATIV < 0.30 MG/DL (0.00-0.30); CALCIUM LEVEL 8.8 MG/DL (8.8-10.2); CARBON DIOXIDE LEVEL 32 MEQ/L (21-32); CHLORIDE LEVEL 104 MEQ/L (98-107); CREATININE FOR GFR 0.92 MG/DL (0.55-1.30); GLOMERULAR FILTRATION RATE > 60.0 (>45); GLUCOSE, FASTING 95 MG/DL (70-100); POTASSIUM SERUM 4.3 MEQ/L (3.5-5.1); SODIUM LEVEL 142 MEQ/L (136-145); TOTAL PROTEIN 6.7 GM/DL (6.4-8.2)
[2017-10-09] MEDS: LevoFLOXacin 500 MG TABLET PO (06:07)
[2017-10-09] MEDS: risperiDONE 1 MG M-TAB PO ×2 (08:15→21:00)
[2017-10-10] MEDS: LevoFLOXacin 500 MG TABLET PO (05:11)
[2017-10-10] MEDS: risperiDONE 1 MG M-TAB PO ×2 (09:00→20:52)
[2017-10-11] MEDS: LevoFLOXacin 500 MG TABLET PO (06:01)
[2017-10-11] MEDS: risperiDONE 1 MG M-TAB PO ×2 (08:54→21:00)
[2017-10-11] MEDS: ACETAMINOPHEN TAB 650MG DOSE (2X325MG) PO ×2 (11:05→23:03)
[2017-10-12] MEDS: LevoFLOXacin 500 MG TABLET PO (06:03)
[2017-10-12] MEDS: risperiDONE 1 MG M-TAB PO (08:35)
[2017-10-12] MEDS: LACTOBACILLUS ACIDOPHILUS CAP (BACID) PO (09:29)
[2017-10-12] MEDS: DOXYCYCLINE HYCLATE 100 MG TAB PO (09:37)
== END 2017-10-12 11:20 | disposition home or self-care (01) | DRG 885 ==
LOC: M ED 13:01 → M ED INP 19:11 → M PSY 20:00
DX: F25.0 Schizoaffective disorder, bipolar type (principal); L97.929 Non-pressure chronic ulcer of unspecified part of left lower leg with unspecified severity; E87.0 Hyperosmolality and hypernatremia; Z91.14 Patient's other noncompliance with medication regimen; D50.9 Iron deficiency anemia, unspecified; E87.6 Hypokalemia; Z91.040 Latex allergy status; B95.61 Methicillin susceptible Staphylococcus aureus infection as the cause of diseases classified elsewhere; B96.5 Pseudomonas (aeruginosa) (mallei) (pseudomallei) as the cause of diseases classified elsewhere

== ENCOUNTER → 2017-10-27 | Outpatient (CLI) | payer MEDICARE | LOC: M RAD 09:22 | DX: Z12.31 Encounter for screening mammogram for malignant neoplasm of breast (principal) | CPT/HCPCS: 77067 ==

== ENCOUNTER 2017-12-21 11:36 | Emergency (ER) | payer MEDICARE | END 2017-12-21 14:32 | disposition home or self-care (01) | LOC: M ED 11:36 | DX: S20.229A Contusion of unspecified back wall of thorax, initial encounter (principal); S80.12XA Contusion of left lower leg, initial encounter; W19.XXXA Unspecified fall, initial encounter; Y92.89 Other specified places as the place of occurrence of the external cause; R45.5 Hostility; F25.9 Schizoaffective disorder, unspecified; F39 Unspecified mood [affective] disorder; L97.909 Non-pressure chronic ulcer of unspecified part of unspecified lower leg with unspecified severity; F17.200 Nicotine dependence, unspecified, uncomplicated; Z91.040 Latex allergy status | CPT/HCPCS: 72072 ==

== ENCOUNTER 2018-01-12 14:41 | Emergency (ER) | payer MEDICARE ==
[2018-01-12 15:32] LABS: HEMATOCRIT 36.9 % (36.0-47.0); HEMOGLOBIN 11.4 g/dl (12.0-15.5); MEAN CORPUSCULAR HEMOGLOBIN 28.4 pg (27.0-33.0); MEAN CORPUSCULAR HGB CONC 30.9 g/dl (32.0-36.5); MEAN CORPUSCULAR VOLUME 91.8 fl (80.0-96.0); PLATELET COUNT, AUTOMATED 260 10^3/uL (150-450); RED BLOOD COUNT 4.02 10^6/uL (4.00-5.40); RED CELL DISTRIBUTION WIDTH 18.7 % (11.5-14.5); WHITE BLOOD COUNT 8.5 10^3/uL (4.0-10.0)
[2018-01-12 16:09] LABS: ACETAMINOPHEN LEVEL < 2.0 UG/ML (10.0-30.0); ALBUMIN 3.1 GM/DL (3.2-5.2); ALBUMIN/GLOBULIN RATIO 0.86 (1.00-1.93); ALKALINE PHOSPHATASE 81 U/L (45-117); ALT/SGPT 16 U/L (12-78); ANION GAP 9 MEQ/L (8-16); AST/SGOT 15 U/L (7-37); BILIRUBIN,DIRECT < 0.1 MG/DL (0.0-0.2); BILIRUBIN,TOTAL 0.4 MG/DL (0.2-1.0); BLOOD UREA NITROGEN 16 MG/DL (7-18); CALCIUM LEVEL 8.3 MG/DL (8.8-10.2); CARBON DIOXIDE LEVEL 26 MEQ/L (21-32); CHLORIDE LEVEL 107 MEQ/L (98-107); CREATININE FOR GFR 0.74 MG/DL (0.55-1.30); ETHYL ALCOHOL (ETHANOL) < 0.003 % (0.000-0.010); GLOMERULAR FILTRATION RATE > 60.0 (>45); GLUCOSE, FASTING 140 MG/DL (70-100); POTASSIUM SERUM 3.9 MEQ/L (3.5-5.1); SALICYLATE LEVEL 3.9 MG/DL (5.0-30.0); SODIUM LEVEL 142 MEQ/L (136-145); TOTAL PROTEIN 6.7 GM/DL (6.4-8.2)
[2018-01-12 18:45] LABS: AMPHETAMINES LEVEL URINE NEGATIVE (NEGATIVE); BARBITURATES URINE NEGATIVE (NEGATIVE); BENZODIAZEPINES URINE NEGATIVE (NEGATIVE); CANNABINOIDS URINE NEGATIVE (NEGATIVE); COCAINE METABOLITE URINE NEGATIVE (NEGATIVE); METHADONE URINE NEGATIVE (NEGATIVE); OPIATES URINE NEGATIVE (NEGATIVE); PHENCYCLIDINE URINE NEGATIVE (NEGATIVE)
== END 2018-01-13 00:19 ==
LOC: M ED 01-13 00:19
DX: F20.3 Undifferentiated schizophrenia (principal); L97.909 Non-pressure chronic ulcer of unspecified part of unspecified lower leg with unspecified severity; Z91.040 Latex allergy status; F17.200 Nicotine dependence, unspecified, uncomplicated
CPT/HCPCS: 93005

== ENCOUNTER 2018-03-05 21:33 | Emergency (ER) | payer MEDICARE ==
[~2018-03-05] VITALS: Ht 167.6 cm; Wt 55.0 kg
[~2018-03-05 21:33] MED LIST changes: +/ASCO250TA PO; +/HALO5TAB PO; +/MOM400 PO; +/PANT40TA PO; +/QUET10TA PO; +ACET50TA PO; +ATIV2TAB PO; +BACT800T5 PO; +BENZ1TA PO; +CATA0.1T PO; +DEPA250T2 PO; +FERR1TAB8 PO; +FERR325T3 PO; +HALD5INJ2 IM; +INVE6TAB3 PO; +IRON325T3 PO; +LEVA1TAB2 PO; +LORA2TA IM; +MAAL600C PO; +MAALSUS16 PO; +MILKSUS5 PO; +NO HOME MEDS; -ONDANSETRON 4 MG TAB (S0181) PO; +PALI1TAB2 PO; +PALI1TAB3 PO; +RISP4TAB33 PO; +RISP4TAB35 PO; +SERO200T PO; +SULF1TAB72 PO; +ZYVO1TAB PO; +no home meds
[2018-03-05] MEDS ORDERED: KETOROLAC 30 MG/ML VIAL (J1885) IV ONE (22:00)
[2018-03-05] MEDS ORDERED: ONDANSETRON 4MG/2ML VIAL (J2405) IV ONE (22:00)
[2018-03-05 22:30] LABS: BASO # 0.1 10^3/uL (0.0-0.2); BASO % 0.8 % (0.0-1.0); EOS # 0.3 10^3/uL (0.0-0.50); EOS % 4.8 % (0.0-3.0); HEMATOCRIT 38.8 % (36.0-47.0); HEMOGLOBIN 12.3 g/dl (12.0-15.5); LYMPH # 1.3 10^3/uL (1.5-4.5); LYMPH % 19.3 % (24.0-44.0); MEAN CORPUSCULAR HEMOGLOBIN 29.1 pg (27.0-33.0); MEAN CORPUSCULAR HGB CONC 31.7 g/dl (32.0-36.5); MEAN CORPUSCULAR VOLUME 91.7 fl (80.0-96.0); MONO # 0.7 10^3/uL (0.0-0.8); NEUTROPHILS # 4.3 10^3/uL (1.8-7.7); NEUTROPHILS % 64.9 % (36.0-66.0); PLATELET COUNT, AUTOMATED 301 10^3/uL (150-450); RED BLOOD COUNT 4.23 10^6/uL (4.00-5.40); WHITE BLOOD COUNT 6.6 10^3/uL (4.0-10.0)
[2018-03-05 22:49] LABS: INR 0.97
[2018-03-05 22:50] LABS: PARTIAL THROMBOPLASTIN TIME 43.9 SECONDS (25.4-37.6)
[2018-03-05 23:03] LABS: ALBUMIN 3.1 GM/DL (3.2-5.2); ALT/SGPT 21 U/L (12-78); BILIRUBIN,DIRECT < 0.1 MG/DL (0.0-0.2); BILIRUBIN,TOTAL 0.2 MG/DL (0.2-1.0); BLOOD UREA NITROGEN 18 MG/DL (7-18); CALCIUM LEVEL 8.2 MG/DL (8.8-10.2); CARBON DIOXIDE LEVEL 30 MEQ/L (21-32); CHLORIDE LEVEL 104 MEQ/L (98-107); CREATININE FOR GFR 0.75 MG/DL (0.55-1.30); GLOMERULAR FILTRATION RATE > 60.0 (>45); GLUCOSE, FASTING 77 MG/DL (70-100); LIPASE 178 U/L (73-393); POTASSIUM SERUM 3.7 MEQ/L (3.5-5.1); SODIUM LEVEL 143 MEQ/L (136-145); TOTAL PROTEIN 6.9 GM/DL (6.4-8.2)
[2018-03-06 00:24] VITALS: BP 106/60
== END 2018-03-06 00:26 | disposition home or self-care (01) ==
LOC: M ED 21:33
DX: A05.9 Bacterial foodborne intoxication, unspecified (principal); F20.9 Schizophrenia, unspecified; Z72.0 Tobacco use; Z91.040 Latex allergy status
CPT/HCPCS: 80048; 80076; 83690; 85025; 85610; 85730; 96374; 96375; 99284; J1885; J2405

== ENCOUNTER 2018-04-09 10:28 | Emergency (ER) | payer MEDICARE ==
[2018-04-09 13:01] VITALS: BP 131/69
== END 2018-04-09 13:04 | disposition home or self-care (01) ==
LOC: M ED 10:28 → EDBD 10:28 → M ED 13:04
DX: F20.9 Schizophrenia, unspecified (principal); R68.83 Chills (without fever); X31.XXXA Exposure to excessive natural cold, initial encounter; Y92.89 Other specified places as the place of occurrence of the external cause; Z91.040 Latex allergy status

== ENCOUNTER 2018-04-15 11:55 | Inpatient (IN) | payer MEDICARE ==
[~2018-04-15] VITALS: Ht 165.1 cm; Wt 59.1 kg
[2018-04-15] MEDS ORDERED: PIPERACILLIN/TAZOBACTAM SOD 3.375 GM in D5W MINI-BAG PLUS 50 ML IV ONE (15:30)
[2018-04-15] MEDS ORDERED: UNIS50CA PO (16:03)
[2018-04-15] MEDS ORDERED: ALEV220T26 PO (16:03)
[2018-04-15] MEDS ORDERED: VITACHTA PO (16:03)
[2018-04-15] MEDS ORDERED: [UNRECOGNIZED DRUG - CODE] TOP (16:03)
[2018-04-15] MEDS ORDERED: VISI0.054 OU (16:03)
--- NOTE | 2018-04-15 16:04 | REP ---
Left tibia-fibula four views: Comparison is 09/11/2017. There is diffuse demineralization. This is unchanged. There are surgical clips adjacent to the mid shaft of the tibia medially/posteriorly, this is unchanged. There is no fracture or dislocation. There are no lytic, blastic or destructive skeletal changes. There are calcaneal Achilles and plantar spurs. These are unchanged. Impression: There is no interval change. Electronically Signed by Mikael Mcfarland MD 04/15/2018 03:56 P
[2018-04-15 16:31] LABS: BASO % 0.5 % (0.0-1.0); EOS # 0.1 10^3/uL (0.0-0.50); HEMATOCRIT 40.7 % (36.0-47.0); HEMOGLOBIN 13.3 g/dl (12.0-15.5); LYMPH % 12.9 % (24.0-44.0); MEAN CORPUSCULAR HEMOGLOBIN 29.4 pg (27.0-33.0); MEAN CORPUSCULAR HGB CONC 32.7 g/dl (32.0-36.5); MEAN CORPUSCULAR VOLUME 89.8 fl (80.0-96.0); MONO # 0.5 10^3/uL (0.0-0.8); MONO % 6.1 % (0.0-5.0); NEUTROPHILS # 6.1 10^3/uL (1.8-7.7); NEUTROPHILS % 79.2 % (36.0-66.0); PLATELET COUNT, AUTOMATED 327 10^3/uL (150-450); RED BLOOD COUNT 4.53 10^6/uL (4.00-5.40); WHITE BLOOD COUNT 7.7 10^3/uL (4.0-10.0)
[2018-04-15 16:44] LABS: C REACTIVE PROTEIN QUANTITATIV 1.11 MG/DL (0.00-0.30); CALCIUM LEVEL 8.9 MG/DL (8.8-10.2); GLOMERULAR FILTRATION RATE 59.2 (>45); POTASSIUM SERUM 3.7 MEQ/L (3.5-5.1)
[2018-04-15] MEDS ORDERED: NS 1,000 ML IV ONE (17:15)
[2018-04-15] MEDS ORDERED: NS 500 ML IV ONE (17:15)
[2018-04-15] MEDS ORDERED: TETRAHYDROZOLINE OPHTH 0.05% 15 ML BTL OU PRN (17:30)
[2018-04-15 18:05] LABS: ERYTHROCYTE SEDIMENTATION RATE 49 mm/hr (0-30)
--- NOTE | 2018-04-15 18:16 | HPE ---
DATE OF ADMISSION: 04/15/2018 A 67-year-old female with a past medical history of chronic left leg ulceration with venous stasis, history of schizophrenia with psychosis, presents to the emergency room due to her heater not working and a fear of frostbite. When she came to the fast track, the patient was incidentally found to have what appeared to be infected leg ulcers. She said that those hurt her, and she does not do any wound changes with it. She is noncompliant to her medications. She did agree for admission for intravenous (IV) antibiotics and treatment of her infected left leg ulcer. She denies any subjective feeling of fever, aches, or chills. She will be admitted for further management. PAST MEDICAL HISTORY: Schizophrenia with psychosis. History of chronic left leg ulceration with venous stasis. Iron deficiency anemia. PAST SURGICAL HISTORY: Skin graft to the left lower leg ulcer times two. History of left breast biopsy. ALLERGIES: No known drug allergies. FAMILY HISTORY: Noncontributory. SOCIAL HISTORY: The patient smokes a pack a day for many years. Denies alcohol or illicit drugs. MEDICATIONS: She takes at home are as follows: - multivitamin one tablet orally daily - naproxen 220 mg orally as needed - tetrahydrozoline one drop to both eyes as needed - Unisom 50 mg orally at bedtime as needed REVIEW OF SYSTEMS: Negative all ten major systems except what is mentioned in the history of the present illness. Vital Signs: Blood pressure is 129/72, heart rate is 71, regular, respiratory rate 14, temperature 98.4, oxygen saturation is 97% on room air. Head is atraumatic, normocephalic. Neck supple. No jugular venous distention (JVD). Lungs are clear to auscultation. S1, S2 audible, No murmurs appreciated. Abdomen: Soft, positive bowel sounds. No pedal edema. Skin Examination: Three large left lower extremity ulcers noted. No evidence of necrosis but definitely evidence of cellulitic changes around the borders of the ulcers. Dorsalis pedis (DP) pulses are present. Neurologic Examination: Patient awake, alert, oriented times three. LABORATORY: WBC is 7.7, hemoglobin 13.3, hematocrit 40.7, platelets are 327,000. Sodium 140, potassium 3.7, chloride 103, CO2 29, BUN 23, creatinine 1, glucose 174, lactic acid 5.8, C-reactive protein is 1.11. X-ray of the left leg shows no evidence of osteomyelitis. IMPRESSION: Cellulitis of the left leg. PLAN: The patient will be admitted to medical-surgical floor. Will start the patient on IV Zosyn and do wet-to-dry dressings to those affected wounds. I will continue her preadmission medications and continue her care on the medical-surgical floor.
[2018-04-15] MEDS: NS 1,000 ML IV SCH (21:22)
[2018-04-15] MEDS: ENOXAPARIN 40 MG/0.4 ML SYRINGE (J1650) SC SCH (21:22)
[2018-04-15 22:00] VITALS: BP 109/61
[2018-04-15] MEDS: PIPERACILLIN/TAZOBACTAM SOD 3.375 GM in D5W MINI-BAG PLUS 50 ML IV SCH (22:58)
[2018-04-16] MEDS: MORPHINE 4 MG/ML 1ML VIAL/SYRINGE (J2270) IV PRN ×2 (00:43→20:35)
[2018-04-16] MEDS: NS 1,000 ML IV SCH ×3 (04:36→21:20)
[2018-04-16] MEDS: PIPERACILLIN/TAZOBACTAM SOD 3.375 GM in D5W MINI-BAG PLUS 50 ML IV SCH ×4 (04:36→23:42)
[2018-04-16 06:00] VITALS: BP 93/52
[2018-04-16 06:02] LABS: BASO # 0.1 10^3/uL (0.0-0.2); BASO % 0.6 % (0.0-1.0); EOS # 0.3 10^3/uL (0.0-0.50); EOS % 3.2 % (0.0-3.0); HEMATOCRIT 36.7 % (36.0-47.0); HEMOGLOBIN 11.4 g/dl (12.0-15.5); LYMPH # 2.1 10^3/uL (1.5-4.5); LYMPH % 25.3 % (24.0-44.0); MEAN CORPUSCULAR HEMOGLOBIN 29.4 pg (27.0-33.0); MEAN CORPUSCULAR HGB CONC 31.1 g/dl (32.0-36.5); MEAN CORPUSCULAR VOLUME 94.6 fl (80.0-96.0); MONO # 0.8 10^3/uL (0.0-0.8); MONO % 10.1 % (0.0-5.0); NEUTROPHILS # 4.9 10^3/uL (1.8-7.7); NEUTROPHILS % 60.3 % (36.0-66.0); PLATELET COUNT, AUTOMATED 287 10^3/uL (150-450); RED BLOOD COUNT 3.88 10^6/uL (4.00-5.40); WHITE BLOOD COUNT 8.2 10^3/uL (4.0-10.0)
[2018-04-16 06:21] LABS: BLOOD UREA NITROGEN 17 MG/DL (7-18); CARBON DIOXIDE LEVEL 29 MEQ/L (21-32); CHLORIDE LEVEL 106 MEQ/L (98-107); CREATININE FOR GFR 0.63 MG/DL (0.55-1.30); GLOMERULAR FILTRATION RATE > 60.0 (>45); GLUCOSE, FASTING 87 MG/DL (70-100); POTASSIUM SERUM 4.2 MEQ/L (3.5-5.1); SODIUM LEVEL 142 MEQ/L (136-145)
[2018-04-16] MEDS: MULTIVITAMINS CHILDREN'S CHEWABLE TABLET PO SCH (09:33)
[2018-04-16] MEDS: DIAPER RELIEF PASTE (DESITIN) 60GM TOP SCH (11:00)
[2018-04-16 14:00] VITALS: BP 124/63
--- NOTE | 2018-04-16 15:02 | MHCRPDOC ---
[facility] Consultation Consultation DATE OF CONSULTATION: 04/16/18 CONSULTATION REQUESTED BY: Dr. Solis REASON FOR CONSULTATION: AH RELEVANT HISTORY: A 67-year-old female with a past medical history of chronic left leg ulceration with venous stasis, history of schizophrenia with psychosis, presents to the emergency room due to her heater not working and a fear of frostbite and found to have infected leg ulcer so she was admitted to medical floor for IV antibiotic treatment. She on her outpatient noncompliant to her medications. Consulted for pt experiencing AH and not on a current antipsychotic. Pt seen today and told me she wasn't talking b/c "you're bring up the past and I don't want to talk about it" when I asked her if she was hearing voices or talking to herself. Pt angry and refusing to speak. Per nurse pt, endorsing AH told her she was talking with a boy in the room. Pt known to me and this is her normal status and behavior. She denies SI/HI. She doesn't appear overtly psychotic. PAST PSYCHIATRIC HISTORY: admitted [facility] in October 2017 for paranoia and AH and discharged on no antipsychotic medication (never been on antipsychotic medication as she has a history of refusing and is not known to be delusional or overtly psychotic) Has a history of baseline AH that are noncommand in nature. No other psychotic symptoms. She has a history of emotional reactivity and irritability. She has no history of violence or SI/SA. She is same in the community w/o medication. PAST MEDICAL HISTORY: cellulitis chronic left leg ulceration with venous stasis FAMILY HISTORY: noncontributory PERSONAL AND SOCIAL HISTORY: The patient was born and raised in [place]. 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 MENTAL STATUS EXAMINATION: Patient is a 65-year old female, who is in bed resting having IV replaced, angry after I introduced to myself Speech is reg rate/rhythm/volume Language skills are good. Thought processes including: linear, concret Thought content: unable to assess Abstract reasoning, and computation: unable to assess Description of associations:unable to assess Description of abnormal or psychotic thoughts:non-command AH; per nurse talking to a boy Judgment: limited Insight: limited. Orientation to x3 Recent and remote memory: unable to assess Attention span and concentration: limited Language: good Fund of knowledge: unable to assess Mood: euthymic, reactive, irritable Affect: "I'm not talking to you." DIAGNOSIS: 1. Schizophrenia PLAN: 1. Pt at baseline status and not overtly psychotic, never on antipsychotic medication in the past so therefor would not recommend starting antipsychotic medication now. Pt safe to go home once medically stable. Vital Signs Vital Signs Date Time Temp Pulse Resp B/P (MAP) Pulse Ox O2 Delivery O2 Flow Rate FiO2 04/16/18 06:00 99.7 64 20 93/52 (66) 96 04/15/18 20:47 Room Air Laboratory Data 24H Labs Laboratory Tests 2 04/15/18 16:16: Immature Granulocyte % (Auto) 0.3, White Blood Count 7.7, Red Blood Count 4.53, Hemoglobin 13.3, Hematocrit 40.7, Mean Corpuscular Volume 89.8, Mean Corpuscular Hemoglobin 29.4, Mean Corpuscular Hemoglobin Concent 32.7, Red Cell Distribution Width 16.3H, Platelet Count 327, Neutrophils (%) (Auto) 79.2H, Lymphocytes (%) (Auto) 12.9L, Monocytes (%) (Auto) 6.1H, Eosinophils (%) (Auto) 1.0, Basophils (%) (Auto) 0.5, Neutrophils # (Auto) 6.1, Lymphocytes # (Auto) 1.0L, Monocytes # (Auto) 0.5, Eosinophils # (Auto) 0.1, Basophils # (Auto) 0.0, Nucleated Red Blood Cells % (auto) 0.0, Erythrocyte Sedimentation Rate 49H, Lactic Acid Level 5.8*H 04/15/18 16:17: Anion Gap 8, Glomerular Filtration Rate 59.2, Blood Urea Nitrogen 23H, Creatinine 1.00, Sodium Level 140, Potassium Level 3.7, Chloride Level 103, Carbon Dioxide Level 29, Calcium Level 8.9, C-Reactive Protein, Quantitative 1.11H 04/15/18 20:33: Lactic Acid Followup at 4 Hours 4.2*H 04/16/18 05:36: Immature Granulocyte % (Auto) 0.5, White Blood Count 8.2, Red Blood Count 3.88L, Hemoglobin 11.4L, Hematocrit 36.7, Mean Corpuscular Volume 94.6, Mean Corpuscular Hemoglobin 29.4, Mean Corpuscular Hemoglobin Concent 31.1L, Red Cell Distribution Width 16.4H, Platelet Count 287, Neutrophils (%) (Auto) 60.3, Lymphocytes (%) (Auto) 25.3, Monocytes (%) (Auto) 10.1H, Eosinophils (%) (Auto) 3.2H, Basophils (%) (Auto) 0.6, Neutrophils # (Auto) 4.9, Lymphocytes # (Auto) 2.1, Monocytes # (Auto) 0.8, Eosinophils # (Auto) 0.3, Basophils # (Auto) 0.1, Nucleated Red Blood Cells % (auto) 0.0, Anion Gap 7L, Glomerular Filtration Rate > 60.0, Blood Urea Nitrogen 17, Creatinine 0.63, Sodium Level 142, Potassium Level 4.2, Chloride Level 106, Carbon Dioxide Level 29, Calcium Level 8.0L Home Medications Current Medications Current Medications Cod Liver Oil/ Zinc Oxide (Desitin) 1 dose Q2D TOP Last administered on 04/16/18 11:00; Start 04/16/18 at 09:00 Enoxaparin Sodium (Lovenox) 40 mg DAILY@2100 SC Last administered on 04/15/18at 21:22; Start 04/15/18 at 21:00 Home Med (Med Rec Complete!) ASDIRECTED XX ; Start 04/15/18 at 16:15; Stop at 16:15; Status DC Morphine Sulfate (Morphine Sulfate Inj) 2 mg Q2HP PRN IV SEVERE PAIN (PS 8-10) Last administered on 04/16/18at 00:43; Start 04/15/18 at 17:30 Multivitamins (Fruity Chews-Children'S) 1 tab DAILY PO Last administered on 04/16/18at 09:33; Start 04/16/18 at 09:00 Piperacillin Sod/ Tazobactam Sod 3.375 gm/Dextrose 50 ml @ 50 mls/hr Q6H IV Last administered on 04/16/18at 11:33; Start 04/15/18 at 23:00 Sodium Chloride 1,000 ml @ 100 mls/hr Q10H IV Last administered on 04/16/18at 13:07; Start 04/15/18 at 17:45 Tetrahydrozoline HCl (Visine) 1 drop Q6HP PRN OU REDNESS/IRRITATION; Start 04/15/18 at 17:30 Scheduled Multivitamins Chewable *[facility] STOCKED* (Animal Shapes with C & FA *[facility] STOCKED*) 1 Tab Chew, 1 TAB PO DAILY, (Reported) Scheduled PRN (Unisom Sleepgels) 50 Mg Cap, 50 MG PO QHS PRN for SLEEP, (Reported) (Gold Mejias Extra Strength) 1 Pow Pow, 1 POW TOP for ITCHING, (Reported) APPLY TO FEET/LEGS Naproxen Sodium (Aleve) 220 Mg Tab, 220 MG PO for HEADACHE, (Reported) Tetrahydrozoline Hcl (Visine) 0.05 % Louise, 1 DROP OU for REDNESS/IRRITATION, (Reported) Allergies Coded Allergies: Latex (Unverified Allergy, Mild, Rash, 04/09/18) KT NORIEGA DO Apr 16, 2018 2:01 pm
--- NOTE | 2018-04-16 15:10 | IPN ---
DATE: 04/16/2018 SUBJECTIVE: Patient is seen and examined in the room today. Patient stated she has a chronic wound, but she has not followed up with any wound care clinic in the past. Patient admits to a history of hearing voices. At the time of encounter patient denies presence of the voices; however, per nursing staff patient demonstrates significant paranoia. Patient also behaved as though talking to someone in the room while no one was present. OBJECTIVE: VITAL SIGNS: Temperature 99.7, pulse 64, respirations 20, blood pressure 93/52, pulse oximetry 96% on room air. GENERAL: Patient is alert and awake. No sign of distress. HEENT: Normocephalic, atraumatic. Extraocular motor grossly intact. CARDIOVASCULAR: Positive S1, S2, regular rate. LUNGS: Clear to auscultation bilaterally. ABDOMEN: Soft and nontender. Bowel sounds present. EXTREMITIES: There are three large left lower extremity ulcers with no active discharge noted. NO active bleeding noted. There is some discomfort to palpation around the ulcers. Mild erythema around the ulcer borders. LABORATORY DATA: WBC 8.2, hemoglobin 11.4, hematocrit is 36.7, platelet count is 287. Sodium is 142, potassium 4.2, chloride 106, carbon dioxide 29, BUN 17, creatinine 0.63, GFR greater than 60, fasting glucose 87, calcium 8. ASSESSMENT AND PLAN: 1. Left lower extremity ulcerative wound. Wound care consulted. Culture obtained. Wound culture reviewed. Patient on empiric antibiotics. Patient would benefit from outpatient wound care followup. 2. Schizoaffective disorder, bipolar type. Per staff, patient continues to demonstrate paranoia and auditory hallucinations. Previously patient had inpatient mental health unit (IMHU) admission. Patient is not taking any medications. Psychiatry, Dr. Card, consulted. 3. History of iron deficiency anemia. Continue to monitor hemoglobin and hematocrit. 4. Deep vein thrombosis (DVT) prophylaxis. Lovenox.
[2018-04-16] MEDS: ENOXAPARIN 40 MG/0.4 ML SYRINGE (J1650) SC SCH (20:18)
[2018-04-16 22:00] VITALS: BP 98/55
[2018-04-17] MEDS: PIPERACILLIN/TAZOBACTAM SOD 3.375 GM in D5W MINI-BAG PLUS 50 ML IV SCH ×4 (04:42→23:24)
[2018-04-17 06:00] VITALS: BP 99/50
[2018-04-17] MEDS: MULTIVITAMINS CHILDREN'S CHEWABLE TABLET PO SCH (08:07)
[2018-04-17] MEDS: NS 1,000 ML IV SCH (08:08)
[2018-04-17] MEDS: MORPHINE 4 MG/ML 1ML VIAL/SYRINGE (J2270) IV PRN ×2 (08:08→20:23)
[2018-04-17 08:15] LABS: BASO # 0.1 10^3/uL (0.0-0.2); BASO % 0.9 % (0.0-1.0); EOS # 0.3 10^3/uL (0.0-0.50); EOS % 4.6 % (0.0-3.0); HEMOGLOBIN 10.8 g/dl (12.0-15.5); LYMPH # 1.5 10^3/uL (1.5-4.5); LYMPH % 25.5 % (24.0-44.0); MEAN CORPUSCULAR HEMOGLOBIN 30.3 pg (27.0-33.0); MEAN CORPUSCULAR HGB CONC 31.8 g/dl (32.0-36.5); MEAN CORPUSCULAR VOLUME 95.5 fl (80.0-96.0); MONO # 0.7 10^3/uL (0.0-0.8); MONO % 12.3 % (0.0-5.0); NEUTROPHILS # 3.2 10^3/uL (1.8-7.7); NEUTROPHILS % 56.3 % (36.0-66.0); PLATELET COUNT, AUTOMATED 237 10^3/uL (150-450); RED BLOOD COUNT 3.56 10^6/uL (4.00-5.40); WHITE BLOOD COUNT 5.7 10^3/uL (4.0-10.0)
[2018-04-17 08:40] LABS: BLOOD UREA NITROGEN 13 MG/DL (7-18); C REACTIVE PROTEIN QUANTITATIV 0.67 MG/DL (0.00-0.30); CALCIUM LEVEL 7.6 MG/DL (8.8-10.2); CARBON DIOXIDE LEVEL 25 MEQ/L (21-32); CHLORIDE LEVEL 112 MEQ/L (98-107); GLOMERULAR FILTRATION RATE > 60.0 (>45); GLUCOSE, FASTING 103 MG/DL (70-100); MAGNESIUM LEVEL 1.8 MG/DL (1.8-2.4); POTASSIUM SERUM 4.1 MEQ/L (3.5-5.1); SODIUM LEVEL 142 MEQ/L (136-145)
[2018-04-17 14:00] VITALS: BP 119/64
--- NOTE | 2018-04-17 16:29 | IPNPDOC ---
Text Note Date of Service The patient was seen on 04/17/18. NOTE SUBJECTIVE: Patient is seen and examined in the room today. Patient denies fever or chill. Patient has good oral intake. No acute complaint. OBJECTIVE: VITAL SIGNS: Listed below. GENERAL: Patient is alert and awake. No sign of distress. HEENT: Normocephalic, atraumatic. Extraocular motor grossly intact. CARDIOVASCULAR: Positive S1, S2, regular rate. LUNGS: Clear to auscultation bilaterally. ABDOMEN: Soft and nontender. Bowel sounds present. EXTREMITIES: There are three large left lower extremity ulcers with no active discharge noted. NO active bleeding noted. There is some discomfort to palpation around the ulcers. Mild erythema around the ulcer borders. LABORATORY DATA: Listed below. ASSESSMENT AND PLAN: #. Left lower extremity ulcerative wound. - Wound culture demonstrates pseudomonas and staph aures. Sensitivity reviewed. On zosyn. - Continue wound care. - Need to establish with wound care in the outpatient setting. #. Schizoaffective disorder, bipolar type. - Patient has paranoia and auditory hallucinations. - Psychiatry, Dr. Card, consulted. #. History of iron deficiency anemia. Continue to monitor hemoglobin and hematocrit. #. Deep vein thrombosis (DVT) prophylaxis. Lovenox. VS,Fishbone, I+O VS, Fishbone, I+O Laboratory Tests 04/17/18 08:03 Red Blood Count 3.56 L, Mean Corpuscular Volume 95.5, Mean Corpuscular Hemoglobin 30.3, Mean Corpuscular Hemoglobin Concent 31.8 L, Red Cell Distributi on Width 16.5 H, Neutrophils (%) (Auto) 56.3, Lymphocytes (%) (Auto) 25.5, Monocytes (%) (Auto) 12.3 H, Eosinophils (%) (Auto) 4.6 H, Basophils (%) (Auto) 0.9, Neutrophils # (Auto) 3.2, Lymphocytes # (Auto) 1.5, Monocytes # (Auto) 0.7, Eosinophils # (Auto) 0.3, Basophils # (Auto) 0.1, Calcium Level 7.6 L Vital Signs Date Time Temp Pulse Resp B/P (MAP) Pulse Ox O2 Delivery O2 Flow Rate FiO2 04/17/18 14:00 98.4 64 18 119/64 (82) 97 04/15/18 20:47 Room Air I&O- Last 24 Hours up to 6 AM 04/17/18 06:00 Intake Total 2140 ml Output Total 200 ml Balance 1940 ml DIOGO DODSON DO Apr 17, 2018 16:29
[2018-04-17] MEDS: ENOXAPARIN 40 MG/0.4 ML SYRINGE (J1650) SC SCH (20:23)
[2018-04-17 22:00] VITALS: BP 134/78
[2018-04-18] MEDS: PIPERACILLIN/TAZOBACTAM SOD 3.375 GM in D5W MINI-BAG PLUS 50 ML IV SCH ×4 (04:24→23:12)
[2018-04-18 06:00] VITALS: BP 124/60
[2018-04-18 06:38] LABS: HEMATOCRIT 33.1 % (36.0-47.0); HEMOGLOBIN 10.5 g/dl (12.0-15.5); MEAN CORPUSCULAR HEMOGLOBIN 29.3 pg (27.0-33.0); MEAN CORPUSCULAR HGB CONC 31.7 g/dl (32.0-36.5); MEAN CORPUSCULAR VOLUME 92.5 fl (80.0-96.0); PLATELET COUNT, AUTOMATED 236 10^3/uL (150-450); RED BLOOD COUNT 3.58 10^6/uL (4.00-5.40); WHITE BLOOD COUNT 5.6 10^3/uL (4.0-10.0)
[2018-04-18 07:06] LABS: BLOOD UREA NITROGEN 11 MG/DL (7-18); CALCIUM LEVEL 8.3 MG/DL (8.8-10.2); CARBON DIOXIDE LEVEL 27 MEQ/L (21-32); CHLORIDE LEVEL 108 MEQ/L (98-107); CREATININE FOR GFR 0.56 MG/DL (0.55-1.30); GLOMERULAR FILTRATION RATE > 60.0 (>45); GLUCOSE, FASTING 76 MG/DL (70-100); MAGNESIUM LEVEL 1.8 MG/DL (1.8-2.4); POTASSIUM SERUM 4.1 MEQ/L (3.5-5.1); SODIUM LEVEL 141 MEQ/L (136-145)
[2018-04-18] MEDS: DIAPER RELIEF PASTE (DESITIN) 60GM TOP SCH (09:00)
[2018-04-18] MEDS: MULTIVITAMINS CHILDREN'S CHEWABLE TABLET PO SCH (10:30)
[2018-04-18 14:00] VITALS: BP 123/62
--- NOTE | 2018-04-18 17:32 | IPNPDOC ---
Text Note Date of Service The patient was seen on 04/18/18. NOTE SUBJECTIVE: Patient is seen and examined in the room today. Patient denies fever or chill. Patient complains mild discomfort at left lower extremity. Patient has good oral intake. No acute complaint. OBJECTIVE: VITAL SIGNS: Listed below. GENERAL: Patient is alert and awake. No sign of distress. HEENT: Normocephalic, atraumatic. Extraocular motor grossly intact. CARDIOVASCULAR: Positive S1, S2, regular rate. LUNGS: Clear to auscultation bilaterally. ABDOMEN: Soft and nontender. Bowel sounds present. EXTREMITIES: Left lower extremity is wrapped with dressing. No lower extremity edema. LABORATORY DATA: Listed below. ASSESSMENT AND PLAN: #. Left lower extremity ulcerative wound. - Wound culture demonstrates pseudomonas and staph aures. Sensitivity reviewed. On zosyn. - Continue wound care. - Need to establish with wound care in the outpatient setting. #. Schizoaffective disorder, bipolar type. - Patient has paranoia and auditory hallucinations. - Psychiatry, Dr. Card, consulted. #. History of iron deficiency anemia. Continue to monitor hemoglobin and h ematocrit. Will follow up anemia workup. #. Deep vein thrombosis (DVT) prophylaxis. Lovenox. VS,Fishbone, I+O VS, Fishbone, I+O Laboratory Tests 04/18/18 05:57 Red Blood Count 3.58 L, Mean Corpuscular Volume 92.5, Mean Corpuscular Hemoglobin 29.3, Mean Corpuscular Hemoglobin Concent 31.7 L, Red Cell Distribution Width 16.5 H, Calcium Level 8.3 L Vital Signs Date Time Temp Pulse Resp B/P (MAP) Pulse Ox O2 Delivery O2 Flow Rate FiO2 04/18/18 14:00 98.0 57 20 123/62 (82) 99 04/15/18 20:47 Room Air I&O- Last 24 Hours up to 6 AM 04/18/18 06:00 Intake Total 3940 ml Output Total 0 ml Balance 3940 ml DIOGO DODSON DO Apr 18, 2018 17:32
[2018-04-18] MEDS: ENOXAPARIN 40 MG/0.4 ML SYRINGE (J1650) SC SCH ×2 (20:45→20:46)
[2018-04-18 22:00] VITALS: BP 112/64
[2018-04-19] MEDS: PIPERACILLIN/TAZOBACTAM SOD 3.375 GM in D5W MINI-BAG PLUS 50 ML IV SCH ×2 (05:00→05:23)
[2018-04-19 06:00] VITALS: BP 118/63
[2018-04-19] MEDS ORDERED: LEVA750T7 PO (07:50)
[2018-04-19] MEDS ORDERED: AUGM875T28 PO (07:50)
[2018-04-19] MEDS: MULTIVITAMINS CHILDREN'S CHEWABLE TABLET PO SCH (09:00)
--- NOTE | 2018-04-19 18:16 | DSES ---
DATE OF ADMISSION: 04/17/2018 DATE OF DISCHARGE: 04/19/2018 PRIMARY CARE PROVIDER: [facility] CONSULTANTS: Psychiatry. DISCHARGE DIAGNOSES: Left lower extremity ulcerative wounds. Schizoaffective disorder, bipolar type. History of iron deficiency anemia. HOSPITALIZATION COURSE: The patient is a 67-year-old female, presented to [facility] on 04/15/2018 with a complaint of nonfunctional heater and a fear of mendoza damage. When the patient was examined in the emergency room, the patient was found to have infected chronic wound ulcers. Patient admitted under the hospitalist service, wound culture obtained, started on empiric antibiotics. Answering Service Telephone Operator was called for the home situation. Wound care was also consulted. Patient's wound . Later, the patient's social situation was discussed with the supporting staff. On 04/19/2018, the patient was determined stable for discharge and prior to discharge, we have already established the patient with the outpatient wound clinic and also made a followup appointment for the primary care provider visit. The patient was recommended to establish with outpatient psychiatrist. OBJECTIVE: Vital signs on the day of discharge: Temperature of 97.6, pulse 62, respirations 19, blood pressure 118/63, pulse oximetry 98% in room air. LABORATORY DATA: Showed WBC 5.6, hemoglobin 10.5, hematocrit 33.1, platelet count is 236. Sodium is 141, potassium 4.1, chloride 108, carbon dioxide 27, BUN 11, creatinine 0.56, GFR greater than 60, fasting glucose 76, calcium 8.3, magnesium 1.8. Microbiology: Blood culture from 04/15/2018 is negative after 72 hours. Left lower leg wound culture from 04/15/2018 is positive for Pseudomonas aeruginosa, Staphylococcus aureus. IMAGING STUDIES: Left tibia/fibula lower extremity x-ray on 04/15/2018 showed no interval changes. DISCHARGE MEDICATIONS: - Augmentin 875-125 one tablet by mouth twice a day - Levaquin 750 mg by mouth daily - multivitamin one tablet by mouth daily - naproxen 220 mg by mouth as needed for headache DISCHARGE INSTRUCTIONS: Discontinue line. Discharge home. Activity as tolerated. Diet as tolerated. Course of antibiotics given to the patient for patient's left lower extremity wound. Patient also established with the wound care clinic, appointment on 04/29/2018. Patient was recommended to followup with her primary care provider in 1 week.
== END 2018-04-19 10:20 | disposition home health service (06) | DRG 594 ==
LOC: M ED 11:55 → M ED INP 17:27 → M MS5PR 21:05 → INTOOBSV 04-17 16:23 → OBSVTOIN 04-17 16:23
PROVIDERS: ADMIT Internal Medicine; ATTEND Internal Medicine
DX: L97.921 Non-pressure chronic ulcer of unspecified part of left lower leg limited to breakdown of skin (principal); F25.0 Schizoaffective disorder, bipolar type; D50.9 Iron deficiency anemia, unspecified; I87.2 Venous insufficiency (chronic) (peripheral); F17.200 Nicotine dependence, unspecified, uncomplicated; Z79.899 Other long term (current) drug therapy; Z91.040 Latex allergy status; B96.5 Pseudomonas (aeruginosa) (mallei) (pseudomallei) as the cause of diseases classified elsewhere; B95.8 Unspecified staphylococcus as the cause of diseases classified elsewhere

== ENCOUNTER 2018-04-25 21:30 | Emergency (ER) | payer MEDICARE ==
[~2018-04-25] VITALS: Ht 167.6 cm; Wt 63.6 kg
[~2018-04-25 21:30] MED LIST changes: +ALEV220T26 PO; +AUGM875T28 PO; +LEVA750T7 PO; +UNIS50CA PO; +VISI0.054 OU; +VITACHTA PO; +[UNRECOGNIZED DRUG - CODE] TOP
[2018-04-25] MEDS ORDERED: diphenhydrAMINE INJ 50MG/ML VIAL (J1200) IM ONE (22:00)
[2018-04-25] MEDS ORDERED: HALOPERIDOL 5 MG/ML VIAL (J1630) IM ONE (22:00)
[2018-04-25 23:08] LABS: HEMATOCRIT 39.3 % (36.0-47.0); HEMOGLOBIN 12.5 g/dl (12.0-15.5); MEAN CORPUSCULAR HEMOGLOBIN 29.5 pg (27.0-33.0); MEAN CORPUSCULAR HGB CONC 31.8 g/dl (32.0-36.5); MEAN CORPUSCULAR VOLUME 92.7 fl (80.0-96.0); PLATELET COUNT, AUTOMATED 388 10^3/uL (150-450); RED BLOOD COUNT 4.24 10^6/uL (4.00-5.40); WHITE BLOOD COUNT 8.1 10^3/uL (4.0-10.0)
[2018-04-26 00:02] LABS: ACETAMINOPHEN LEVEL < 2.0 UG/ML (10.0-30.0); ALBUMIN 3.2 GM/DL (3.2-5.2); ALT/SGPT 24 U/L (12-78); BILIRUBIN,DIRECT < 0.1 MG/DL (0.0-0.2); BILIRUBIN,TOTAL 0.3 MG/DL (0.2-1.0); BLOOD UREA NITROGEN 19 MG/DL (7-18); CALCIUM LEVEL 8.4 MG/DL (8.8-10.2); CARBON DIOXIDE LEVEL 28 MEQ/L (21-32); CHLORIDE LEVEL 111 MEQ/L (98-107); CREATININE FOR GFR 0.59 MG/DL (0.55-1.30); ETHYL ALCOHOL (ETHANOL) < 0.003 % (0.000-0.010); GLOMERULAR FILTRATION RATE > 60.0 (>45); GLUCOSE, FASTING 98 MG/DL (70-100); POTASSIUM SERUM 4.1 MEQ/L (3.5-5.1); SALICYLATE LEVEL 2.3 MG/DL (5.0-30.0); SODIUM LEVEL 145 MEQ/L (136-145)
[2018-04-26 00:06] LABS: AMPHETAMINES LEVEL URINE NEGATIVE (NEGATIVE); BARBITURATES URINE NEGATIVE (NEGATIVE); BENZODIAZEPINES URINE NEGATIVE (NEGATIVE); CANNABINOIDS URINE NEGATIVE (NEGATIVE); COCAINE METABOLITE URINE NEGATIVE (NEGATIVE); METHADONE URINE NEGATIVE (NEGATIVE); OPIATES URINE NEGATIVE (NEGATIVE); PHENCYCLIDINE URINE NEGATIVE (NEGATIVE)
[2018-04-26] MEDS ORDERED: SILVER SULFADIAZINE 1% CR 50 GM JAR TOP ONE (00:45)
[2018-04-26 00:49] VITALS: BP 143/68
--- NOTE | 2018-04-27 18:40 | ECGEPIP ---
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
== END 2018-04-26 03:00 | disposition home or self-care (01) ==
LOC: M ED 21:30 → EDBD 21:30 → M ED 04-26 03:00
DX: F20.89 Other schizophrenia (principal); Z91.14 Patient's other noncompliance with medication regimen; L97.909 Non-pressure chronic ulcer of unspecified part of unspecified lower leg with unspecified severity; R94.31 Abnormal electrocardiogram [ECG] [EKG]
CPT/HCPCS: 80048; 80076; 80307; 84443; 85027; 93005; 96372; 99285; G0480; J1200; J1630

== ENCOUNTER 2018-05-08 19:32 | Emergency (ER) | payer MEDICARE ==
[~2018-05-08] VITALS: Ht 162.6 cm; Wt 54.1 kg
[2018-05-08] MEDS ORDERED: ASPI1TAB PO (19:38)
[2018-05-08] MEDS ORDERED: NS 1,000 ML IV SCH (20:09)
[2018-05-08] MEDS ORDERED: PANTOPRAZOLE 40MG INJ (PROTONIX) (C9113) IV ONE (20:15)
[2018-05-08 20:45] VITALS: BP 118/67
== END 2018-05-08 20:59 | disposition home or self-care (01) ==
LOC: M ED 19:32
DX: F20.89 Other schizophrenia (principal); Z91.14 Patient's other noncompliance with medication regimen; R11.0 Nausea; Z72.0 Tobacco use; Z79.82 Long term (current) use of aspirin; Z91.040 Latex allergy status

== ENCOUNTER 2018-05-21 08:33 | Emergency (ER) | payer MEDICARE ==
[~2018-05-21 08:33] MED LIST changes: +ASPI1TAB PO
[2018-05-21 08:38] VITALS: BP 129/75
[2018-05-21 09:23] LABS: HEMATOCRIT 38.1 % (36.0-47.0); HEMOGLOBIN 11.8 g/dl (12.0-15.5); MEAN CORPUSCULAR HEMOGLOBIN 29.7 pg (27.0-33.0); PLATELET COUNT, AUTOMATED 411 10^3/uL (150-450); RED BLOOD COUNT 3.97 10^6/uL (4.00-5.40); WHITE BLOOD COUNT 7.6 10^3/uL (4.0-10.0)
[2018-05-21 10:02] LABS: ACETAMINOPHEN LEVEL < 2.0 UG/ML (10.0-30.0); ALBUMIN 3.1 GM/DL (3.2-5.2); ALT/SGPT 13 U/L (12-78); BILIRUBIN,DIRECT < 0.1 MG/DL (0.0-0.2); BILIRUBIN,TOTAL 0.2 MG/DL (0.2-1.0); BLOOD UREA NITROGEN 20 MG/DL (7-18); CARBON DIOXIDE LEVEL 26 MEQ/L (21-32); CHLORIDE LEVEL 110 MEQ/L (98-107); CREATININE FOR GFR 0.49 MG/DL (0.55-1.30); ETHYL ALCOHOL (ETHANOL) < 0.003 % (0.000-0.010); GLOMERULAR FILTRATION RATE > 60.0 (>45); GLUCOSE, FASTING 108 MG/DL (70-100); POTASSIUM SERUM 4.3 MEQ/L (3.5-5.1); SALICYLATE LEVEL 9.2 MG/DL (5.0-30.0); SODIUM LEVEL 145 MEQ/L (136-145); TOTAL PROTEIN 6.6 GM/DL (6.4-8.2)
[2018-05-21 14:18] LABS: AMPHETAMINES LEVEL URINE NEGATIVE (NEGATIVE); BARBITURATES URINE NEGATIVE (NEGATIVE); BENZODIAZEPINES URINE NEGATIVE (NEGATIVE); CANNABINOIDS URINE NEGATIVE (NEGATIVE); COCAINE METABOLITE URINE NEGATIVE (NEGATIVE); METHADONE URINE NEGATIVE (NEGATIVE); OPIATES URINE NEGATIVE (NEGATIVE); PHENCYCLIDINE URINE NEGATIVE (NEGATIVE)
[2018-05-21] MEDS ORDERED: BACT800T5 PO (14:20)
--- NOTE | 2018-05-21 18:45 | ECGEPIP ---
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
== END 2018-05-21 15:16 | disposition home or self-care (01) ==
LOC: EDBD 08:33 → M ED 08:33
DX: F20.89 Other schizophrenia (principal); L97.929 Non-pressure chronic ulcer of unspecified part of left lower leg with unspecified severity; Z91.14 Patient's other noncompliance with medication regimen; R00.1 Bradycardia, unspecified; D50.9 Iron deficiency anemia, unspecified; Z72.0 Tobacco use; Z79.82 Long term (current) use of aspirin; Z91.040 Latex allergy status
CPT/HCPCS: 80048; 80076; 80307; 84443; 85027; 93005; 99284; G0480

== ENCOUNTER 2018-05-30 16:44 | Emergency (ER) | payer MEDICARE ==
[~2018-05-30] VITALS: Ht 167.6 cm; Wt 56.8 kg
[2018-05-30 17:03] VITALS: BP 138/63
[2018-05-30 19:54] LABS: HEMATOCRIT 34.8 % (36.0-47.0); HEMOGLOBIN 10.9 g/dl (12.0-15.5); MEAN CORPUSCULAR HEMOGLOBIN 29.5 pg (27.0-33.0); MEAN CORPUSCULAR HGB CONC 31.3 g/dl (32.0-36.5); MEAN CORPUSCULAR VOLUME 94.3 fl (80.0-96.0); PLATELET COUNT, AUTOMATED 382 10^3/uL (150-450); RED BLOOD COUNT 3.69 10^6/uL (4.00-5.40); WHITE BLOOD COUNT 10.4 10^3/uL (4.0-10.0)
[2018-05-30 20:23] LABS: AMPHETAMINES LEVEL URINE NEGATIVE (NEGATIVE); BARBITURATES URINE NEGATIVE (NEGATIVE); BENZODIAZEPINES URINE NEGATIVE (NEGATIVE); CANNABINOIDS URINE NEGATIVE (NEGATIVE); COCAINE METABOLITE URINE NEGATIVE (NEGATIVE); METHADONE URINE NEGATIVE (NEGATIVE); OPIATES URINE NEGATIVE (NEGATIVE); PHENCYCLIDINE URINE NEGATIVE (NEGATIVE)
[2018-05-30 20:26] LABS: ACETAMINOPHEN LEVEL < 2.0 UG/ML (10.0-30.0); ALBUMIN 2.9 GM/DL (3.2-5.2); ALT/SGPT 17 U/L (12-78); BILIRUBIN,DIRECT 0.2 MG/DL (0.0-0.2); BILIRUBIN,TOTAL 0.8 MG/DL (0.2-1.0); BLOOD UREA NITROGEN 6 MG/DL (7-18); CALCIUM LEVEL 8.3 MG/DL (8.8-10.2); CARBON DIOXIDE LEVEL 30 MEQ/L (21-32); CHLORIDE LEVEL 99 MEQ/L (98-107); CREATININE FOR GFR 0.58 MG/DL (0.55-1.30); ETHYL ALCOHOL (ETHANOL) < 0.003 % (0.000-0.010); GLOMERULAR FILTRATION RATE > 60.0 (>45); GLUCOSE, FASTING 153 MG/DL (70-100); POTASSIUM SERUM 3.7 MEQ/L (3.5-5.1); SALICYLATE LEVEL 1.8 MG/DL (5.0-30.0); SODIUM LEVEL 136 MEQ/L (136-145)
== END 2018-05-30 22:08 | disposition home or self-care (01) ==
LOC: M ED 16:44
DX: F20.5 Residual schizophrenia (principal); Z91.19 Patient's noncompliance with other medical treatment and regimen; D50.9 Iron deficiency anemia, unspecified; L97.919 Non-pressure chronic ulcer of unspecified part of right lower leg with unspecified severity; L97.929 Non-pressure chronic ulcer of unspecified part of left lower leg with unspecified severity; Z91.040 Latex allergy status; Z79.82 Long term (current) use of aspirin
CPT/HCPCS: 36415; 80048; 80076; 80307; 84443; 85027; 99284; G0480

== ENCOUNTER 2018-06-07 07:30 | Inpatient (IN) | payer MEDICARE ==
[~2018-06-07] VITALS: Ht 160 cm; Wt 50.6 kg
[2018-06-07 09:52] LABS: HEMOGLOBIN 11.3 g/dl (12.0-15.5); MEAN CORPUSCULAR HGB CONC 30.5 g/dl (32.0-36.5); MEAN CORPUSCULAR VOLUME 94.9 fl (80.0-96.0); PLATELET COUNT, AUTOMATED 548 10^3/uL (150-450); WHITE BLOOD COUNT 10.3 10^3/uL (4.0-10.0)
[2018-06-07 10:29] LABS: ACETAMINOPHEN LEVEL < 2.0 UG/ML (10.0-30.0); ALBUMIN 2.9 GM/DL (3.2-5.2); ALT/SGPT 14 U/L (12-78); BILIRUBIN,DIRECT < 0.1 MG/DL (0.0-0.2); BILIRUBIN,TOTAL 0.2 MG/DL (0.2-1.0); BLOOD UREA NITROGEN 19 MG/DL (7-18); CARBON DIOXIDE LEVEL 32 MEQ/L (21-32); CHLORIDE LEVEL 103 MEQ/L (98-107); CREATININE FOR GFR 0.56 MG/DL (0.55-1.30); ETHYL ALCOHOL (ETHANOL) < 0.003 % (0.000-0.010); GLOMERULAR FILTRATION RATE > 60.0 (>45); GLUCOSE, FASTING 83 MG/DL (70-100); POTASSIUM SERUM 4.8 MEQ/L (3.5-5.1); SALICYLATE LEVEL 2.5 MG/DL (5.0-30.0); SODIUM LEVEL 140 MEQ/L (136-145); TOTAL PROTEIN 6.8 GM/DL (6.4-8.2)
[2018-06-07 14:02] LABS: AMPHETAMINES LEVEL URINE NEGATIVE (NEGATIVE); BARBITURATES URINE NEGATIVE (NEGATIVE); BENZODIAZEPINES URINE NEGATIVE (NEGATIVE); CANNABINOIDS URINE NEGATIVE (NEGATIVE); COCAINE METABOLITE URINE NEGATIVE (NEGATIVE); METHADONE URINE NEGATIVE (NEGATIVE); OPIATES URINE NEGATIVE (NEGATIVE); PHENCYCLIDINE URINE NEGATIVE (NEGATIVE)
[2018-06-07] MEDS: OLANZapine 5 MG TAB PO SCH ×2 (16:00→21:00)
[2018-06-07] MEDS ORDERED: ACETAMINOPHEN TAB 650MG DOSE (2X325MG) PO PRN (16:00)
[2018-06-07] MEDS ORDERED: MAALOX 30 ML SUSP *UDC PO PRN (16:00)
[2018-06-07] MEDS ORDERED: MOM 30ML SUSPENSION UDC PO PRN (16:00)
[2018-06-07 18:23] VITALS: BP 139/75
[2018-06-08 06:51] VITALS: BP 114/55
[2018-06-08] MEDS: OLANZapine 5 MG TAB PO SCH ×3 (08:48→21:00)
--- NOTE | 2018-06-08 08:59 | HPEPDOC ---
[facility] Medical History & Physical Date of Admission Jun 07, 2018 History and Physical PCP: [facility] ATTENDING: Dr. Kady Stack HPI: 67yoF admitted to [facility] for unspecified psychotic disorder, being medically examined today. The pt answers few questions, repeatedly stating someone is taking her food stamps. The emergency room documentation the Police Department was contacted as the patient was harassing and assaulting customers at [employer]. The patient was noted to be uncooperative and agitated. According to the patient she has continued to have drainage and erythema surrounding the wound. She states she missed her appt scheduled with Dr Prakash related to transportation. She denies any fevers or chills. The patient has no other voiced concerns at this time. Denies any fevers, chills, weakness, fatigue, MEDINA, CP, SOB, cough, palpitations, abdominal pain, N/V/D or changes in bowel or bladder habits. PMHx: History of psychosis History of schizophrenia History of bipolar disorder History of Noncompliance with medications Chronic left lower extremity wound/ulceration Iron deficiency anemia/chronic anemia PSHX: Skin graft left lower extremity ulcer 2. Left breast biopsy benign per patient. Colonoscopy x 2. [facility] 2011. SOCHX: Resides in: [facility] Marital Status: Tobacco use: Denies ETOH: Denies Illicit Drugs: Denies IV Drug Use: Denies Tattoos done unprofessionally: Denies FAMHX: Unable to obtain at this time. ROS: As noted in HPI, otherwise 11pt ROS of systems reviewed and unremarkable. PE: GEN: 66 yo F, appears stated age. Thin appearing. No acute distress. Provides limited history. HEENT: Normocephalic, atraumatic. Sclera are nonicteric. Conjunctiva without injection. Nose midline. No facial asymmetry. Moist appearing mucous membranes. Cardiac S1 and S2 regular rate and rhythm. Lungs clear to auscultation. EXT: No lower extremity edema appreciated. SKIN: Dry dressing is applied to left lower extremity wound. Dressing is removed. The area was cleansed with Vashe. Approximate 6 cm x 3 cm ulceration is noted on the lateral aspect of the pretibial area left lower extremity with surrounding erythema of the LLE. Additional circular approximately 2 cm diameter ulceration noted. chronic venous stasis changes noted. No streaking, no warmth with palpation of LLE. Foam dressing is applied. NEURO: No focal deficits appreciated. EKG: SINUS BRADYCARDIA POSSIBLE LEFT ATRIAL ENLARGEMENT BASELINE ARTIFACT AFFECTS INTERPRETATION Electronically Signed On 05-21-2018 18:45:21 EST by Hiram Alicia A&P: 67yoF admitted to [facility] for unspecified psychotic disorder 1. Psych. Plan per Psychiatry. EKG on file. 2. Chronic left lower extremity ulceration/wound. Pt is afebrile. WBC 10.3 Update CBC/ESR/CRP. Wound culture is pending. Request opinion from Dr. Prakash, advanced wound care. Continue with foam dressing for now. Keep area clean and dry. Ensure outpatient follow-up appointment scheduled with wound management. 3. Chronic anemia/history of iron deficiency anemia. Admission hemoglobin is noted to be 11.3 Baseline appears to be 11-13. 4. Follow up with PCP on discharge. 5. Staff member Paty ALARCON present throughout exam. Vital Signs Vital Signs Date Time Temp Pulse Resp B/P (MAP) Pulse Ox O2 Delivery O2 Flow Rate FiO2 06/08/18 06:51 98.3 69 12 114/55 (74) 06/07/18 18:23 96 06/07/18 16:58 Room Air Laboratory Data Labs 24H Laboratory Tests 2 06/07/18 09:44: Nucleated Red Blood Cells % (auto) 0.0, Anion Gap 5L, Glomerular Filtration Rate > 60.0, Calcium Level 9.0, Aspartate Amino Transf (AST/SGOT) 11, Alanine Aminotransferase (ALT/SGPT) 14, Alkaline Phosphatase 88, Total Bilirubin 0.2, Direct Bilirubin < 0.1, Total Protein 6.8, Albumin 2.9L, Albumin/Globulin Ratio 0.74L, Thyroid Stimulating Hormone (TSH) 2.340, Salicylates Level 2.5L, Acetaminophen Level < 2.0L, Ethyl Alcohol Level < 0.003 06/07/18 13:23: Urine Amphetamines Screen NEGATIVE, Urine Benzodiazepines Screen NEGATIVE, Urine Opiates Screen NEGATIVE, Urine Methadone Screen NEGATIVE, Urine Barbiturates Screen NEGATIVE, Urine Phencyclidine Screen NEGATIVE, Urine Cocaine Metabolite Screen NEGATIVE, Urine Cannabinoids Screen NEGATIVE CBC/BMP Laboratory Tests 06/07/18 09:44 Red Blood Count 3.90 L, Mean Corpuscular Volume 94.9, Mean Corpuscular Hemoglobin 29.0, Mean Corpuscular Hemoglobin Concent 30.5 L, Red Cell Distribution Width 16.3 H Microbiology Microbiology 06/07/18 Wound Culture, Received Pending Home Medications Scheduled Aspirin (Aspirin 81) 81 Mg Tab, 81 MG PO DAILY Allergies Coded Allergies: latex (Verified Allergy, Mild, Rash, 06/09/18) Summer Renee Jun 08, 2018 08:59
--- NOTE | 2018-06-08 11:49 | MHHPEPDOC ---
General Date Of Admission: Jun 07, 2018 Legal Status: 9.39 Chief Complaint "There's no running water where I live and my landlord and CM wont' help me." History of Present Illness HISTORY OF THE PRESENT ILLNESS: Patient is a 67 -year-old , female, with a history of schizoaffective d/o, noncompliance on psychartic meds for several years, well known to [facility] who brought to ED by [employer] for harassing and verbally assaulting customers and checker cashier at [employer]." Pt reportedly paranoid and insisting that she was being monitored and "tracked down" by those at [facility]. Once in ED pt reportedly uncooperative and agitated, yelling at some unknown entity in her room with the lights out to "get out of my apt" and conversing with unknown entity until she finally calmed down w/o intervention. She has a history of baseline paranoia. Pt also has a chronic left lower leg ulcer that was assessed in ED and undressed, sticking to clothing and boots and appeared to be bordering on becoming gangrenous. She is frequently admitted for cellulitis due to poor care of left leg ulcer and has been seen on consult multiple times in the past when receiving medical treatment here at [facility]. Pt is a very poor historian so history gathered from previous records. Psychiatric Review of Systems Depression (2 or more weeks): denies Nancy (4 or more days of): irritable/elevated mood, expansive mood, grandiosity, talkativity, pressured, flight of ideas, distractibility Psychosis: auditory hallucination, paranoia, disorganization PTSD: denies Anxiety: denies Past Psychiatric History Previous Psychiatric Diagnosis: schizoaffective d/o Previous Psychiatric Admissions: multiple, last in September 2017 for paranoia and psychosis Suicide Attempts: none known. Psychiatric Follow-up: noncompliant multiple years Psychiatric medications: noncompliant multiple years Past Medical History Medical Problems chronic left lower leg ulcer with frequent cellulitis hx DVT hx pneumonia Surgeries: Yes (cryo cervical sx, 5th toe nail sx, lt leg ulcer sx) Family Medical/Psychiatric HX Medical Problems noncontributory Psychiatric Disorders: No Addiction: No Suicide Attemps/Completions: No Addiction History nicotine Social History Per Previous Records Childhood: born and raised [place] Abuse/Trauma:denies Current Living Situation: lives alone Education: high school grad and 3yrs college Employment: disability currently, 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 and 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 but only sold 1 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 then license was stolen, claims to have last worked in 1991 for [employer] Social Support: has a disease case manager rnassistant front end manager: none known Marital: claims x2, no kids Mental Status Examination General Appearance: unkempt, disheveled, ds/not appear stated age (older), hospital scubs/clothing, other (odd hair clip placement in hair) Build: thin Demeanor: hostile, mistrustful, guarded (very) Eye Contact: average Activity: agitated, anxious, hostile Behavior: uncooperative, resistant, agitated, hyperactive Speech: clear, rapid, other (loud) Mood: angry, irritable Mood "I know their taking my food stamps" Affect: labile, anxious, hostile, disorganized Thought Process: tangential, associative, flight of ideas, racing, derailment Thought Content (Delusions): grandiose, paranoia, delusions, other (AH, converses w/unknown entity when alone (easily heard yelling)) Thought Content (Other): preoccupied (food stamps, water consumption), guarded, ideas of reference, internal-stimuli, appears paranoid Thought Content (Aggressive): none reported Perception (Hallucinations): auditory Perception (Other): none reported Cognition (Impairment of): attention/concentration Cognition(Intelligence Est.): average Oriented: Awake, Alert, Oriented times three Insight: poor Judgment: Poor Psychosis: Associations, Abstract Thinking, Psychotic Perceptions Diagnoses schizoaffective d/o Assessment Pt seen and states that the people at [employer] are "taking my food stamps and the checker cashier has something against me b/c she's always on my case!" Pt states "I know their taking them b/c there's no way I'm consuming that much... I only spent $40." Pt states she going to open an investigation into her food stamps being taken but won't tell me who by. Pt also preoccupied with not wasting water and using too much water to shower. Pt is demanding to be discharged to go to the wound clinic, screaming at me for no reason, refusing medicine except trazodone b/c it helps her sleep. Pt was a poor historian during interview with paranoia that is often chronic. She denies SI/HI. Pt also responding to internal stimuli as reported in the ED. Insight and judgement are poor. Initial Treatment Plan 1. Patient was admitted on a 9.39 status. 2. Complete history was obtained. 3. With patients permission, family will be contacted and database will be expanded. 4. Patients medication regimen will be reviewed and changed accordingly. 5. Patient will be provided with protected environment. 6. Patient will be treated with individual, group, and milieu therapies. 7. Patient will receive supportive psych-education. 8. Discharge planning will commence immediately. 9. Outpatient follow-up treatment will be strongly recommended. 10. The initial treatment plan will focus initially on: * Depression. * Risk for suicide. * Substance abuse. 11. trazodone 50mg qhs prn insomnia, refuses any other meds (history of refusing/noncompliance), will provide prn meds for agitation ESTIMATED LENGTH OF STAY: 5-7 DAYS. TIME SPENT COUNSELING AND COORDINATING INITIAL CARE: 60 minutes. Vital Signs Vital Signs Date Time Temp Pulse Resp B/P (MAP) Pulse Ox O2 Delivery O2 Flow Rate FiO2 06/08/18 06:51 98.3 69 12 114/55 (74) 06/07/18 18:23 96 06/07/18 16:58 Room Air Laboratory Data 24H Labs Laboratory Tests 2 06/07/18 13:23: Urine Amphetamines Screen NEGATIVE, Urine Benzodiazepines Screen NEGATIVE, Urine Opiates Screen NEGATIVE, Urine Methadone Screen NEGATIVE, Urine Barbiturates Screen NEGATIVE, Urine Phencyclidine Screen NEGATIVE, Urine Cocaine Metabolite Screen NEGATIVE, Urine Cannabinoids Screen NEGATIVE Medications Scheduled Aspirin (Aspirin 81) 81 Mg Tab, 81 MG PO DAILY, (Reported) Allergies Coded Allergies: MS - Latex (Unverified Allergy, Mild, Rash, 05/30/18) KT NORIEGA DO Jun 08, 2018 11:27 am
[2018-06-08] MEDS ORDERED: HALOPERIDOL 10 MG TAB PO SCH (12:00)
[2018-06-08] MEDS ORDERED: HALOPERIDOL 10 MG TAB PO PRN (15:45)
[2018-06-08 18:00] VITALS: BP 155/85
[2018-06-08] MEDS: traZODone 50 MG TAB PO PRN (22:27)
[2018-06-09 06:45] VITALS: BP 129/71
[2018-06-09] MEDS: OLANZapine 5 MG TAB PO SCH ×3 (09:00→21:00)
--- NOTE | 2018-06-09 10:57 | MHIPNPDOC ---
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 Once in ED pt reportedly uncooperative and agitated, yelling at some unknown entity in her room with the lights out to "get out of my apt" and conversing wi th unknown entity until she finally calmed down w/o intervention. She has a history of baseline paranoia. Pt also has a chronic left lower leg ulcer that was assessed in ED and undressed, sticking to clothing and boots and appeared to be bordering on becoming gangrenous. She is frequently admitted for cellulitis due to poor care of left leg ulcer and has been seen on consult multiple times in the past when receiving medical treatment here at [facility]. Pt is a very poor historian so history gathered from previous records. VITAL SIGNS: See below. NEW TEST RESULTS: refusing labs CURRENT MEDICATIONS: See below. MENTAL STATUS EXAMINATION: General Appearance: unkempt, disheveled, ds/not appear stated age (older), h ospital scubs/clothing, other (odd hair clip placement in hair) Build: thin Demeanor: hostile, mistrustful, guarded (very) Eye Contact: average Activity: agitated, anxious, hostile Behavior: uncooperative, resistant, agitated, hyperactive Speech: clear, rapid, other (loud) Mood: angry, irritable Mood "Something's jabbing me in my room and I"m not eating in there!!" Affect: labile, anxious, hostile, disorganized Thought Process: tangential, associative, flight of ideas, racing, derailment Thought Content (Delusions): grandiose, paranoia, delusions, other (AH, converses w/unknown entity when alone (easily heard yelling)) Thought Content (Other): preoccupied (food stamps, water consumption), guarded, ideas of reference, internal-stimuli, appears paranoid Thought Content (Aggressive): none reported Perception (Hallucinations): auditory Perception (Other): none reported Cognition (Impairment of): attention/concentration Cognition(Intelligence Est.): average Oriented: Awake, Alert, Oriented times three Insight: poor Judgment: Poor Psychosis: Associations, Abstract Thinking, Psychotic Perceptions DIAGNOSES: 1. schizoaffective d/o ASSESSMENT:Pt seen in office and stated screaming at me that "there's no place for me to sit and eat my snack to heal myself b/c the lounge is closed, I got kicked out of the activity room, and something is jabbing me in my room." Pt then went on to say "I want to be discharge... I will not be controlled by you... I will not let you take my food stamps... I have wound care on my own and will not let you control that... the hospital is involved... I want to go home!!!" She then left irritably. She is paranoid, delusional, and psychotic but know pt well and this is her baseline norm behavior. She is refusing blood work and medical treatment for her let and wound care supposed to see her today but may be difficult due to her refusal of blood work. She's preoccupied with her food stamps being stolen and some unknown conspiracy that everyone is trying to take them from her. Insight and judgement are poor. MANAGEMENT PLAN: refuses any other meds (history of refusing/noncompliance) Medications: trazodone 50mg qhs prn insomnia haldol 10mg q6hr prn agitation TIME SPENT: 30 minutes. Vital Signs Vital Signs Date Time Temp Pulse Resp B/P (MAP) Pulse Ox O2 Delivery O2 Flow Rate FiO2 06/09/18 08:04 Room Air 06/09/18 06:45 97.7 97 16 129/71 (90) 06/07/18 18:23 96 Current Medications Current Medications Acetaminophen (Tylenol Tab) 650 mg Q6HP PRN PO HEADACHE or DISCOMFORT; Start 06/07/18 at 16:00 Al Hydrox/Mg Hydrox/Simethicone (Mylanta) 30 ml Q4HP PRN PO HEARTBURN/INDIGESTION; Start 06/07/18 at 16:00 Haloperidol (Haldol) 10 mg Q6HP PO ; Start 06/08/18 at 12:00; Stop 06/08/18 at 15:37; Status DC Haloperidol (Haldol) 10 mg Q6HP PRN PO agitation; Start 06/08/18 at 15:45 Home Med (Med Rec Complete!) ASDIRECTED XX ; Start 06/07/18 at 16:00; Stop 06/07/18 at 16:00; Status DC Magnesium Hydroxide (Milk Of Magnesia) 30 ml DAILYPRN PRN PO CONSTIPATION; Start 06/07/18 at 16:00 Miscellaneous (Unresolved Clarification Entry) SEE LABEL COMMENTS DAILY XX ; Start 06/08/18 at 09:00; Stop 06/08/18 at 15:42; Status DC Olanzapine (ZyPREXA) 5 mg TID PO ; Start 06/07/18 at 16:00 Trazodone HCl (Desyrel) 50 mg QHSP PRN PO INSOMNIA Last administered on 06/08/18at 22:27; Start 06/07/18 at 16:00 Allergies Coded Allergies: latex (Verified Allergy, Mild, Rash, 06/09/18) KT NORIEGA DO Jun 09, 2018 10:57 am
--- NOTE | 2018-06-09 14:12 | IPNPDOC ---
Date Seen The patient was seen on 06/09/18. Progress Note HPI: 67yoF admitted to [facility] for unspecified psychotic disorder, being medically examined today. The pt answers few questions, repeatedly stating someone is taking her food stamps. The emergency room documentation the Police Department was contacted as the patient was harassing and assaulting customers at [employer]. The patient was noted to be uncooperative and agitated. According to the patient she has continued to have drainage and erythema surrounding the wound. She states she missed her appt scheduled with Dr Prakash related to transportation. She denies any fevers or chills. Denies any fevers, chills, weakness, fatigue, MEDINA, CP, SOB, cough, palpitations, abdominal pain, N/V/D or changes in bowel or bladder habits. PMHx: History of psychosis History of schizophrenia History of bipolar disorder History of Noncompliance with medications Chronic left lower extremity wound/ulceration Iron deficiency anemia/chronic anemia PSHX: Skin graft left lower extremity ulcer 2. Left breast biopsy benign per patient. Colonoscopy x 2. [facility] 2011. PE: GEN: 66 yo F, appears stated age. Thin appearing. No acute distress. Provides limited history. HEENT: Normocephalic, atraumatic. Sclera are nonicteric. Conjunctiva without injection. Nose midline. No facial asymmetry. Moist mucous membranes. Cardiac S1 and S2 regular rate and rhythm. Lungs clear to auscultation. EXT: No lower extremity edema appreciated. SKIN: Chronic wound LLE unchanged, No warmth, streaking with palpation of LLE. Foam dressing is applied. NEURO: No focal deficits appreciated. EKG: SINUS BRADYCARDIA POSSIBLE LEFT ATRIAL ENLARGEMENT BASELINE ARTIFACT AFFECTS INTERPRETATION Electronically Signed On 05-21-2018 18:45:21 EST by Hiram Alicia A&P: 67yoF admitted to [facility] for unspecified psychotic disorder 1. Psych. Plan per Psychiatry. EKG on file. 2. Chronic left lower extremity ulceration/wound. Pt has been afebrile. WBC 10.3 on admission Pt has refused CBC/ESR/CRP 06/08 and 06/09. Wound culture indicates heavy MSSA and pseudomonas which is c/w last culture. Possible colonization. Await opinion from Dr. Prakash, advanced wound care. Continue with foam dressing for now. Keep area clean and dry. Ensure outpatient follow-up appointment scheduled with wound management. Discussed with Dr Solis, hold off antibiotics and surgical clt pending recommendations from Dr Prakash. Request labs in AM. 3. Chronic anemia/history of iron deficiency anemia. Admission hemoglobin is noted to be 11.3 Baseline appears to be 11-13. 4. Follow up with PCP on discharge. VS, I&O, 24H, Fishbone Vital Signs/I&O Vital Signs Date Time Temp Pulse Resp B/P (MAP) Pulse Ox O2 Delivery O2 Flow Rate FiO2 06/09/18 08:04 Room Air 06/09/18 06:45 97.7 97 16 129/71 (90) 06/07/18 18:23 96 Laboratory Data Microbiology Microbiology 06/07/18 Wound Culture - Final, Complete Pseudomonas Aeruginosa Staphylococcus Aureus Summer Renee Jun 09, 2018 14:12
[2018-06-09 18:00] VITALS: BP 143/78
[2018-06-09] MEDS: traZODone 50 MG TAB PO PRN (20:37)
[2018-06-10] MEDS: SANTYL OINT 30GM TOP SCH (09:00)
[2018-06-10] MEDS: OLANZapine 5 MG TAB PO SCH ×3 (09:00→21:00)
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
[2018-06-10] MEDS: AUGMENTIN 875 MG TAB PO SCH ×2 (10:03→21:00)
[2018-06-10 10:10] LABS: HEMATOCRIT 31.4 % (36.0-47.0); HEMOGLOBIN 9.8 g/dl (12.0-15.5); MEAN CORPUSCULAR HEMOGLOBIN 28.5 pg (27.0-33.0); MEAN CORPUSCULAR HGB CONC 31.2 g/dl (32.0-36.5); MEAN CORPUSCULAR VOLUME 91.3 fl (80.0-96.0); PLATELET COUNT, AUTOMATED 465 10^3/uL (150-450); RED BLOOD COUNT 3.44 10^6/uL (4.00-5.40); WHITE BLOOD COUNT 8.4 10^3/uL (4.0-10.0)
[2018-06-10 10:28] LABS: ALBUMIN 2.6 GM/DL (3.2-5.2); ALT/SGPT 11 U/L (12-78); BILIRUBIN,TOTAL 0.2 MG/DL (0.2-1.0); BLOOD UREA NITROGEN 11 MG/DL (7-18); C REACTIVE PROTEIN QUANTITATIV 0.98 MG/DL (0.00-0.30); CALCIUM LEVEL 8.3 MG/DL (8.8-10.2); CARBON DIOXIDE LEVEL 30 MEQ/L (21-32); CHLORIDE LEVEL 103 MEQ/L (98-107); CREATININE FOR GFR 0.55 MG/DL (0.55-1.30); GLOMERULAR FILTRATION RATE > 60.0 (>45); GLUCOSE, FASTING 129 MG/DL (70-100); POTASSIUM SERUM 4.1 MEQ/L (3.5-5.1); SODIUM LEVEL 139 MEQ/L (136-145); TOTAL PROTEIN 5.9 GM/DL (6.4-8.2)
[2018-06-10 10:35] LABS: ERYTHROCYTE SEDIMENTATION RATE 56 mm/hr (0-30)
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
[2018-06-10] MEDS: LevoFLOXacin 750 MG TABLET PO SCH (12:16)
[2018-06-11] MEDS: LevoFLOXacin 750 MG TABLET PO SCH (06:03)
[2018-06-11 06:49] VITALS: BP 133/78
[2018-06-11] MEDS: SANTYL OINT 30GM TOP SCH (09:00)
[2018-06-11] MEDS: OLANZapine 5 MG TAB PO SCH (09:00)
[2018-06-11] MEDS: AUGMENTIN 875 MG TAB PO SCH (09:00)
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
[2018-06-11] MEDS ORDERED: AMOX875T2 PO (09:03)
== END 2018-06-11 11:00 | disposition home or self-care (01) | DRG 885 ==
LOC: M ED 07:30 → M ED INP 15:59 → M PSY 17:11
PROVIDERS: ADMIT Psychiatry & Neurology Psychiatry; ATTEND Psychiatry & Neurology Psychiatry
DX: F25.9 Schizoaffective disorder, unspecified (principal); L97.929 Non-pressure chronic ulcer of unspecified part of left lower leg with unspecified severity; Z91.14 Patient's other noncompliance with medication regimen; Z91.040 Latex allergy status; D50.9 Iron deficiency anemia, unspecified; Z79.82 Long term (current) use of aspirin

== ENCOUNTER 2018-07-04 10:07 | Emergency (ER) | payer MEDICARE ==
[~2018-07-04 10:07] MED LIST changes: -/HALO5TAB PO; -/MOM400 PO; -/PANT40TA PO; -/QUET10TA PO; -ACET50TA PO; +AMOX875T2 PO; -ASPI1TAB PO; +ASPI81TA26 PO; -BENZ1TA PO; +BENZ1TAB42 PO; +HALO1TAB21 PO; +MAPA500T17 PO; +MILK10SU PO; +PROT1TAB2 PO; +SERO1TAB PO
[2018-07-04 10:08] VITALS: BP 156/79
[2018-07-04] MEDS ORDERED: ADACEL/BOOSTRIX VACCINE (DIPHTH/PERTUSS/ACELL/TETANUS)0.5ML SYR (90715) IM ONE (10:45)
--- NOTE | 2018-07-04 11:34 | REP ---
REASON: Head pain. COMPARISON: 05/28/2013. There is no change from the prior exam. No acute intracranial hemorrhagic or nonhemorrhagic event has developed. The ventricles and sulci are stable. There is no shift in the midline structures. There are no extra-axial fluid collections. There in no change in the deep white matter. There is no skull fracture. IMPRESSION: No acute disease. Electronically Signed by Elbert Rivera DO 07/04/2018 02:32 P
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
--- NOTE | 2018-07-04 11:39 | REP ---
Pain after trauma. PRIORS: None. FINDINGS: Three views of the right shoulder were performed. The acromioclavicular and glenohumeral relationships are within normal limits. There is no acute fracture or destructive osseous lesion. Electronically Signed by Elbert Rivera DO 07/04/2018 02:33 P
== END 2018-07-04 12:30 | disposition home or self-care (01) ==
LOC: M ED 10:07
DX: S80.211A Abrasion, right knee, initial encounter (principal); S40.011A Contusion of right shoulder, initial encounter; Y04.8XXA Assault by other bodily force, initial encounter; Y92.89 Other specified places as the place of occurrence of the external cause; Y93.9 Activity, unspecified; Y99.9 Unspecified external cause status; R94.8 Abnormal results of function studies of other organs and systems; I10 Essential (primary) hypertension; M47.812 Spondylosis without myelopathy or radiculopathy, cervical region; F29 Unspecified psychosis not due to a substance or known physiological condition; K21.9 Gastro-esophageal reflux disease without esophagitis; Z86.718 Personal history of other venous thrombosis and embolism; F25.9 Schizoaffective disorder, unspecified; M50.30 Other cervical disc degeneration, unspecified cervical region; M25.78 Osteophyte, vertebrae; Z72.0 Tobacco use; Z91.040 Latex allergy status

== ENCOUNTER 2018-07-16 10:16 | Emergency (ER) | payer MEDICARE ==
[~2018-07-16] VITALS: Ht 165.1 cm; Wt 49.9 kg
--- NOTE | 2018-07-16 12:06 | REP ---
LEFT LOWER LEG, AP AND LATERAL: AP and lateral views of the left lower leg performed. There is no acute fracture or dislocation. There is again smooth periosteal reaction of the fibular shaft compatible with chronic osteomyelitis. No acute changes are seen compared to the prior study of 04/15/2018. There are metallic clips in the mid to lower leg soft tissues. A soft tissue ulceration is seen distally laterally. IMPRESSION: Stable chronic periosteal reaction of the fibular shaft compatible with chronic osteomyelitis. No change since the prior study of 04/15/2018. Electronically Signed by Mikael Wing MD 07/16/2018 01:34 P
[2018-07-16] MEDS ORDERED: diphenhydrAMINE INJ 50MG/ML VIAL (J1200) IM ONE (15:30)
[2018-07-16] MEDS ORDERED: HALOPERIDOL 5 MG/ML VIAL (J1630) IM ONE (15:30)
[2018-07-16] MEDS ORDERED: LORazepam 2 MG/ML VIAL (J2060) IM ONE (15:30)
[2018-07-16 16:32] LABS: BASO # 0.1 10^3/uL (0.0-0.2); BASO % 0.7 % (0.0-1.0); EOS # 0.1 10^3/uL (0.0-0.50); EOS % 1.9 % (0.0-3.0); HEMATOCRIT 37.5 % (36.0-47.0); HEMOGLOBIN 11.3 g/dl (12.0-15.5); LYMPH # 1.9 10^3/uL (1.5-4.5); LYMPH % 27.8 % (24.0-44.0); MEAN CORPUSCULAR HEMOGLOBIN 27.1 pg (27.0-33.0); MEAN CORPUSCULAR HGB CONC 30.1 g/dl (32.0-36.5); MEAN CORPUSCULAR VOLUME 89.9 fl (80.0-96.0); MONO # 0.7 10^3/uL (0.0-0.8); MONO % 10.8 % (0.0-5.0); NEUTROPHILS % 58.4 % (36.0-66.0); PLATELET COUNT, AUTOMATED 378 10^3/uL (150-450); RED BLOOD COUNT 4.17 10^6/uL (4.00-5.40); WHITE BLOOD COUNT 6.8 10^3/uL (4.0-10.0)
[2018-07-16 17:06] LABS: ACETAMINOPHEN LEVEL < 2.0 UG/ML (10.0-30.0); ALBUMIN 3.2 GM/DL (3.2-5.2); ALT/SGPT 18 U/L (12-78); BILIRUBIN,DIRECT < 0.1 MG/DL (0.0-0.2); BILIRUBIN,TOTAL 0.2 MG/DL (0.2-1.0); BLOOD UREA NITROGEN 7 MG/DL (7-18); C REACTIVE PROTEIN QUANTITATIV 1.21 MG/DL (0.00-0.30); CALCIUM LEVEL 8.4 MG/DL (8.8-10.2); CARBON DIOXIDE LEVEL 29 MEQ/L (21-32); CHLORIDE LEVEL 106 MEQ/L (98-107); ERYTHROCYTE SEDIMENTATION RATE 58 mm/hr (0-30); ETHYL ALCOHOL (ETHANOL) < 0.003 % (0.000-0.010); GLOMERULAR FILTRATION RATE > 60.0 (>45); GLUCOSE, FASTING 81 MG/DL (70-100); POTASSIUM SERUM 3.9 MEQ/L (3.5-5.1); SALICYLATE LEVEL 3.1 MG/DL (5.0-30.0); SODIUM LEVEL 139 MEQ/L (136-145); TOTAL PROTEIN 6.8 GM/DL (6.4-8.2)
[2018-07-16] MEDS ORDERED: NS 1,000 ML IV ONE (17:15)
[2018-07-16 19:21] LABS: AMPHETAMINES LEVEL URINE NEGATIVE (NEGATIVE); BARBITURATES URINE NEGATIVE (NEGATIVE); BENZODIAZEPINES URINE NEGATIVE (NEGATIVE); CANNABINOIDS URINE NEGATIVE (NEGATIVE); COCAINE METABOLITE URINE NEGATIVE (NEGATIVE); METHADONE URINE NEGATIVE (NEGATIVE); OPIATES URINE NEGATIVE (NEGATIVE); PHENCYCLIDINE URINE NEGATIVE (NEGATIVE)
--- NOTE | 2018-07-16 20:18 | CR.PDOC ---
General Date of Consultation: July 16, 2018 Consultation REASON FOR CONSULTATION/CHIEF COMPLAINT: . HISTORY OF PRESENT ILLNESS: . ALLERGIES: Please see below. HOME MEDICATIONS: Please see below. PAST MEDICAL HISTORY: 1. . 2. . PAST SURGICAL HISTORY: 1. 2. FAMILY HISTORY: Father: Mother: Siblings: Children: Hereditary Diseases: Unexpected deaths due to medical reasons: SOCIAL HISTORY: Marital status and/or living arrangements: Children: Employment: Tobacco use: ETOH: Illicit drug use: IV drug use: Other relevant social factors: REVIEW OF SYSTEMS: CONSTITUTIONAL: . HEENT: . CARDIOVASCULAR: . RESPIRATORY: . GENITOURINARY: . MUSCULOSKELETAL: . GASTROINTESTINAL: . SKIN: . NEUROLOGICAL: . PSYCHIATRIC: . ENDOCRINE: . HEMATOLOGIC/LYMPHATIC: . ALLERGIC/IMMUNOLOGIC: . PHYSICAL EXAMINATION: VITAL SIGNS: Please see below. GENERAL APPEARANCE: . HEENT: . RESPIRATORY: . CARDIOVASCULAR: . ABDOMEN: . EXTREMITIES: . NEUROLOGICAL: . PSYCHIATRIC: . LABORATORY DATA: Please see below. ASSESSMENT/PLAN: 1. . 2. . Vital Signs/I&O Vital Signs Date Time Temp Pulse Resp B/P (MAP) Pulse Ox O2 Delivery O2 Flow Rate FiO2 07/16/18 18:45 79 17 115/58 (77) 96 Room Air 07/16/18 10:17 96.2 Laboratory Data Labs 24H Laboratory Tests 2 07/16/18 16:21: Urine Color COLORLESS, Urine Appearance CLEAR, Urine pH 7.0, Urine Specific Gardner 1.000L, Urine Protein NEGATIVE, Urine Glucose (UA) NEGATIVE, Urine Ketones NEGATIVE, Urine Blood NEGATIVE, Urine Nitrite NEGATIVE, Urine Bilirubin NEGATIVE, Urine Urobilinogen 0.2, Urine Leukocyte Esterase NEGATIVE, Urine WBC (Auto) 0, Urine RBC (Auto) 0, Urine Hyaline Casts (Auto) 0, Urine Bacteria (Auto) NEGATIVE, Urine Squamous Epithelial Cells 0, Urine Sperm (Auto) , Urine Amphetamines Screen NEGATIVE, Urine Benzodiazepines Screen NEGATIVE, Urine Opiates Screen NEGATIVE, Urine Methadone Screen NEGATIVE, Urine Barbiturates Screen NEGATIVE, Urine Phencyclidine Screen NEGATIVE, Urine Cocaine Metabolite Screen NEGATIVE, Urine Cannabinoids Screen NEGATIVE 07/16/18 16:22: Immature Granulocyte % (Auto) 0.4, White Blood Count 6.8, Red Blood Count 4.17, Hemoglobin 11.3L, Hematocrit 37.5, Mean Corpuscular Volume 89.9, Mean Corpuscular Hemoglobin 27.1, Mean Corpuscular Hemoglobin Concent 30.1L, Red Cell Distribution Width 17.3H, Platelet Count 378, Neutrophils (%) (Auto) 58.4, Lymphocytes (%) (Auto) 27.8, Monocytes (%) (Auto) 10.8H, Eosinophils (%) (Auto) 1.9, Basophils (%) (Auto) 0.7, Neutrophils # (Auto) 4.0, Lymphocytes # (Auto) 1.9, Monocytes # (Auto) 0.7, Eosinophils # (Auto) 0.1, Basophils # (Auto) 0.1, Nucleated Red Blood Cells % (auto) 0.0, Erythrocyte Sedimentation Rate 58H, Anion Gap 4L, Glomerular Filtration Rate > 60.0, Lactic Acid Level 2.6*H, Calcium Level 8.4L, Aspartate Amino Transf (AST/SGOT) 17, Alanine Aminotransferase (ALT/SGPT) 18, Alkaline Phosphatase 86, Total Bilirubin 0.2, Direct Bilirubin < 0.1, C-Reactive Protein, Quantitative 1.21H, Total Protein 6.8, Albumin 3.2, Albumin/Globulin Ratio 0.89L, Thyroid Stimulating Hormone (TSH) 2.720, Salicylates Level 3.1L, Acetaminophen Level < 2.0L, Ethyl Alcohol Level < 0.003 CBC/BMP Laboratory Tests 07/16/18 16:22 Red Blood Count 4.17, Mean Corpuscular Volume 89.9, Mean Corpuscular Hemoglobin 27.1, Mean Corpuscular Hemoglobin Concent 30.1 L, Red Cell Distribution Width 17.3 H, Neutrophils (%) (Auto) 58.4, Lymphocytes (%) (Auto) 27.8, Monocytes (%) (Auto) 10.8 H, Eosinophils (%) (Auto) 1.9, Basophils (%) (Auto) 0.7, Neutrophils # (Auto) 4.0, Lymphocytes # (Auto) 1.9, Monocytes # (Auto) 0.7, Eosinophils # (Auto) 0.1, Basophils # (Auto) 0.1 Microbiology Microbiology 07/16/18 Blood Culture, Received Pending Allergies Coded Allergies: latex (Verified Allergy, Mild, Rash, 06/09/18) Home Medications No Active Prescriptions or Reported Meds Attending Note Attending Note I was asked by ER physician to see this 68 years old woman or chronic wound of the eft leg. The patient is being admitted to [facility] for psychiatric disorder. Pt appears anxious and unable to provide any meaningful information. It appears that pt has vascular issues and has chronic wound. Wound is dry with small tiny white base, with no discharge. Vitals are good, no fever; labs are normal, no leucocytosis. There is no cellulitis changes around the wound. Pt denies pain. HEENT: PEERLA LUNGS: CTA b/l CVS: regular rate and rhythm ABD: soft, NT EXT: last chronic wound on left leg, description as above Impression: Chronic Left Leg Wound, with suspected infection, no systemic signs of sepsis -Probably minor infection; start on Keflex 500 mg po bid x 5 days -Wound care consult -I think Pt can safely be admitted to [facility] -Please call us back if the wound is looking worse DORA SHARMA MD July 16, 2018 20:18
[2018-07-17 10:51] VITALS: BP 111/62
--- NOTE | 2018-07-19 15:13 | ED PDOC ---
Post-Departure Follow-Up sarah [facility] faxed formal report of left leg film for fu Emelia Adams MD July 19, 2018 15:13
== END 2018-07-17 11:08 | disposition home or self-care (01) ==
LOC: M ED 10:16
DX: L97.929 Non-pressure chronic ulcer of unspecified part of left lower leg with unspecified severity (principal); F25.9 Schizoaffective disorder, unspecified; F17.210 Nicotine dependence, cigarettes, uncomplicated; Z91.040 Latex allergy status; Z79.899 Other long term (current) drug therapy; Z87.01 Personal history of pneumonia (recurrent); Z86.718 Personal history of other venous thrombosis and embolism
CPT/HCPCS: 73590; 80048; 80076; 80307; 81001; 83605; 84443; 85025; 85652; 86140; 87040; 93041; 94760; 96372; 99285; G0480; J1200; J1630; J2060

== ENCOUNTER 2018-07-25 18:01 | Emergency (ER) | payer MEDICARE ==
[2018-07-25] MEDS ORDERED: BACITRACIN OINT 30GM TOP ONE (18:30)
== END 2018-07-25 19:33 | disposition home or self-care (01) ==
LOC: M ED 18:01
DX: I83.028 Varicose veins of left lower extremity with ulcer other part of lower leg (principal); F31.9 Bipolar disorder, unspecified; F20.9 Schizophrenia, unspecified; Z91.040 Latex allergy status

== ENCOUNTER 2019-01-06 15:51 | Inpatient (IN) | payer MEDICARE ==
[~2019-01-06] VITALS: Ht 165.1 cm; Wt 45.4 kg
[2019-01-06] MEDS ORDERED: OLANZapine INTRAMUSCULAR 10 MG VIAL (S0166) IM ONE (22:00)
[2019-01-06 22:30] LABS: HEMATOCRIT 41.8 % (36.0-47.0); MEAN CORPUSCULAR HEMOGLOBIN 29.5 pg (27.0-33.0); MEAN CORPUSCULAR HGB CONC 31.1 g/dl (32.0-36.5); PLATELET COUNT, AUTOMATED 442 10^3/uL (150-450); WHITE BLOOD COUNT 7.9 10^3/uL (4.0-10.0)
[2019-01-06 23:00] LABS: ACETAMINOPHEN LEVEL < 2.0 UG/ML (10.0-30.0); ALBUMIN 2.7 GM/DL (3.2-5.2); ALT/SGPT 17 U/L (12-78); BILIRUBIN,DIRECT < 0.1 MG/DL (0.0-0.2); BILIRUBIN,TOTAL 0.2 MG/DL (0.2-1.0); BLOOD UREA NITROGEN 13 MG/DL (7-18); CALCIUM LEVEL 8.8 MG/DL (8.8-10.2); CARBON DIOXIDE LEVEL 30 MEQ/L (21-32); CHLORIDE LEVEL 104 MEQ/L (98-107); CREATININE FOR GFR 0.75 MG/DL (0.55-1.30); ETHYL ALCOHOL (ETHANOL) < 0.003 % (0.000-0.010); GLOMERULAR FILTRATION RATE > 60.0 (>45); GLUCOSE, FASTING 178 MG/DL (70-100); POTASSIUM SERUM 4.5 MEQ/L (3.5-5.1); SALICYLATE LEVEL 2.5 MG/DL (5.0-30.0); SODIUM LEVEL 141 MEQ/L (136-145); TOTAL PROTEIN 6.9 GM/DL (6.4-8.2)
[2019-01-07] MEDS ORDERED: MAALOX 30 ML SUSP *UDC PO PRN
[2019-01-07] MEDS ORDERED: MOM 30ML SUSPENSION UDC PO PRN
[2019-01-07] MEDS ORDERED: traZODone 50 MG TAB PO PRN
[2019-01-07 01:00] VITALS: BP 145/66
[2019-01-07 06:11] VITALS: BP 126/74
[2019-01-07] MEDS ORDERED: FLUBLOK(EGG FREE)(QUAD)INFLUENZA VACC 0.5ML SYRINGE (90682)18YRS&OLDER IM ONE (09:00)
[2019-01-07] MEDS ORDERED: PREVNAR 13 VACCINE SYRINGE (CPT CODE:90670) IM ONE (09:00)
--- NOTE | 2019-01-07 10:01 | MHHPEPDOC ---
[facility] History & Physical History and Physical DATE OF ADMISSION: Jan 06, 2019 at 23:51 Psychiatric admission Note Chief Complaint: "I'm not Eliane" History of Present Illness: The patient a 68-year-old woman with a long history of psychosis presents after being brought into the ER as she was severely disabled from accommodation a foot ulcer and unable to attend to her needs, struggling to find food and skilled nursing. The patient has a long history of psychosis that has been difficult to treat. The patient was unable to be met with for an extensive period of time, as she was fairly psychotic and unable to answer any meaningful questions, beyond paranoid thoughts there is not much that can be discerned from her at this time. The majority information below is extracted from previous admissions. The majority of her admissions have been acknowledging of a chronic psychosis but previous providers have believed that the patient was impaired enough in order to get treatment of her objection but believe that she does suffer from schizoaffective disorder Review of Psychiatric Systems: Unable to determine due to patient mental status Past Psychiatric History: Current Diagnoses: schizoaffective Current Outpatient: none Current Medication regiment: none more has refused medicines of previous admissions Past Psychiatric Admissions: multiple last time in May 2018 Suicide Attempts: unknown Past Family Psychiatric History: Reportedly has some family members that have mental health problems but unclear from previous psychosocial Social History and Family of Origin: Early Family/family of Origin: group in local area, no notations of any major traumas Education: bachelors degree Occupation: unemployed Social supports: none Current housing: lives alone Social activities/hobbies: unknown Marital/romantic: twice with no children Addiction History: Negative toxicology on this mission, however she has had times where she is present positive for cannabis Medical Problems: Chronic nonhealing ulcer iron deficiency anemia Mental Status Exam: Vitals: reviewed General: poor hygiene Behavior: uncooperative Mood:" I'm not Eliane dude" Affect: irritable Thought process: tangential Assoications: loose Thought content: denies any suicidal or homicidal ideation dose in the auditory visual hallucinations Perception: appears to respond to internal stimuli at times Cognition: alert and oriented to surroundings Psychomotor: some psychomotor agitation the form pacing Insight: limited Judgement: limited Assessment: 68-year-old woman with a history of schizoaffective disorder present psychotic, it appears that baseline she does have severe psychosis, however, her psychosis is impaired or to the point where her leg has begun to become gangrenous and she will need to be engaged in treatment or she could from her extreme poor self -care. Diagnostics by DSMV: Schizoaffective disorder, Recommendations/Rational Medications: start Haldol 5 milligrams at night Informed Consent: unable to discuss with patient due to patient's mental status Disposition: further inpatient admission likely lasting longer than two midnights INITIAL TREATMENT PLAN: 1. Patient was admitted on a . 2. Complete history was obtained. 3. With patients permission, family will be contacted and database will be expanded. 4. Patients medication regimen will be reviewed and changed accordingly. 5. Patient will be provided with protected environment. 6. Patient will be treated with individual, group, and milieu therapies. 7. Patient will receive supportive psych-education. 8. Discharge planning will commence immediately. 9. Outpatient follow-up treatment will be strongly recommended. 10. The initial treatment plan will focus initially on: * Depression. * Risk for suicide. * Substance abuse. ESTIMATED LENGTH OF STAY: 5-6 DAYS. TIME SPENT COUNSELING AND COORDINATING INITIAL CARE: 40 minutes. Vital Signs Vital Signs Date Time Temp Pulse Resp B/P (MAP) Pulse Ox O2 Delivery O2 Flow Rate FiO2 01/07/19 08:55 Room Air 01/07/19 06:11 98.3 65 16 126/74 (91) 01/07/19 00:29 97 Laboratory Data 24H Labs Laboratory Tests 2 01/06/19 22:18: Nucleated Red Blood Cells % (auto) 0.0, Anion Gap 7L, Glomerular Filtration Rate > 60.0, Calcium Level 8.8, Total Bilirubin 0.2, Direct Bilirubin < 0.1, Aspartate Amino Transf (AST/SGOT) 16, Alanine Aminotransferase (ALT/SGPT) 17, Alkaline Phosphatase 86, Total Protein 6.9, Albumin 2.7L, Albumin/Globulin Ratio 0.64L, Thyroid Stimulating Hormone (TSH) 1.810, Salicylates Level 2.5L, Acetaminophen Level < 2.0L, Ethyl Alcohol Level < 0.003 CBC/BMP Laboratory Tests 01/06/19 22:18 Medications No Active Prescriptions or Reported Meds Allergies Coded Allergies: latex (Verified Allergy, Mild, Rash, 06/09/18) MICHAEL LATIF DO Jan 07, 2019 10:01
[2019-01-07] MEDS: ACETAMINOPHEN TAB 650MG DOSE (2X325MG) PO PRN (10:04)
[2019-01-07] MEDS ORDERED: GLUCAGON FOR INJ 1 MG VIAL (J1610) SC PRN (12:00)
[2019-01-07] MEDS ORDERED: GLUCOSE 4 GM CHEW TABLET PO PRN (12:00)
[2019-01-07] MEDS ORDERED: DEXTROSE 50% 50 ML SYRINGE IV PRN (12:00)
[2019-01-07] MEDS: HumaLOG INSULIN (NovoLOG) PER UNIT SC SCH ×3 (12:00→21:00)
--- NOTE | 2019-01-07 12:14 | HPEPDOC ---
General Date of Admission Jan 06, 2019 at 23:51 Date of Service: Jan 07, 2019 Attending Physician: JUWAN BAEZA MD Chief Complaint The patient is a 68-year-old female admitted with a reason for visit of [facility]. Source: Patient, RN/MD Exam Limitations: Other (Psychosis) Timing/Duration: Getting worse, Changing over time Severity: Moderate Associated Symptoms: Weakness, Increased agitation, Other (pain left leg, wound drainage, home unfit to live in) History of Present Illness Consultation patient referred by inpatient mental health unit for medical clearance. 68-year-old elderly female seen today by medical hospitalist nurse practitioner, in inpatient mental health unit, in shower room for her physical exam with her nurse present. She presents with, left lower leg venous stasis ulcer, draining purulent and greenish discharge, with moderate throbbing pain. She reports that the ulcer has been there for several months and has refused home health to come to her home to dress her wound. She has significant medical history of uncontrolled diabetes mellitus type 2, psychosis for which she is admitted to inpatient mental health on 01/06/2019, essential hypertension, schizophrenia, anemia of chronic disease and lactic acidosis with current level 4.2 and platelet count 464 with today's lab, WBC 8.2, trending up. Home Medications No Active Prescriptions or Reported Meds Allergies Coded Allergies: latex (Verified Allergy, Mild, Rash, 06/09/18) A-FIB/CHADSVASC A-FIB History Current/History of A-Fib/PAF?: No Review of Systems Constitutional: Reports: Malaise Eyes: Reports: Pain; Denies: Vision change, Conjunctivae inflammation, Eyelid inflammation, Redness, Other ENT: Reports: Head Aches Skin: Reports: Dry, Breakdown Pulmonary: Reports: Cough Cardiovascular: Denies: Chest Pain, Palpitations, Orthopnea, Paroxysmal Noc. Dyspnea, Edema, Lt Headedness, Other Symptoms Gastrointestinal: Reports: Constipation Genitourinary: Denies: Dysuria, Frequency, Incontinence, Hematuria, Retention, Other Symptoms Hematologic: Reports: Bleeding Excessively Endocrine: Denies: Polydipsia, Polyphagia, Polyuria, Heat Intolerance, Cold Intolerance, Other Endocrine Sx Musculoskeletal: Reports: Leg Pain (left); Denies: Neck Pain, Back Pain, Shoulder Pain, Arm Pain, Hand Pain, Foot Pain, Joint Pain, Muscle Pain, Spasms, Other Symptoms Psych: Reports: Anxiety, Depression, Anger Physical Examination General Exam: Positive: Alert, Moderate Distress, Other (very thin) Eye Exam: Positive: PERRLA, Conjunctiva & lids normal ENT Exam: Positive: Atraumatic, Pharynx Normal, Other ENT (clear nasal drainage) Neck Exam: Positive: Supple, +2 carotid pulse wo bruit Chest Exam: Positive: Normal air movement Heart Exam: Positive: Rate Normal, Normal S1, Normal S2 Abdomen Exam: Positive: Normal bowel sounds, Soft Extremity Exam: Positive: Edema, Tenderness, Swelling Skin Exam: Positive: Breakdown, Other skin issue (varicose veins, bilateral lower legs, purulent drainage from venous stasis ulcer that is yellowish tissue seen surrounding red tissue hardening on the outside layer with mild odorous smell possibly gangrene or pseudomonas bacteria growing, moderate blood drainage along with purulent drain. Wound irregular shaped left outer leg.) Neuro Exam: Positive: Normal Speech, Cranial Nerves 3-12 NL, Other (walk with limp) Psych Exam: Positive: Anxiety Vital Signs Vital Signs Date Time Temp Pulse Resp B/P (MAP) Pulse Ox O2 Delivery O2 Flow Rate FiO2 01/07/19 08:55 Room Air 01/07/19 06:11 98.3 65 16 126/74 (91) 01/07/19 00:29 97 Laboratory Data Labs 24H Laboratory Tests 2 01/06/19 22:18: Nucleated Red Blood Cells % (auto) 0.0, Anion Gap 7L, Glomerular Filtration Rate > 60.0, Calcium Level 8.8, Total Bilirubin 0.2, Direct Bilirubin < 0.1, Aspartate Amino Transf (AST/SGOT) 16, Alanine Aminotransferase (ALT/SGPT) 17, Alkaline Phosphatase 86, Total Protein 6.9, Albumin 2.7L, Albumin/Globulin Ratio 0.64L, Thyroid Stimulating Hormone (TSH) 1.810, Salicylates Level 2.5L, Acetaminophen Level < 2.0L, Ethyl Alcohol Level < 0.003 CBC/BMP Laboratory Tests 01/06/19 22:18 Problems (1) Psychosis Status: Acute Response to Treatment: Worse Discussed With: Patient Problem Specific Plan: Monitor Clinically Problem Text: 68-year-old elderly female seen today by medical hospitalist nurse practitioner, in inpatient mental health unit, in shower room for her physical exam with her nurse present. She presents with, left lower leg venous stasis ulcer, draining purulent and greenish discharge, with moderate throbbing pain. She reports that the ulcer has been there for several months and has refused home health to come to her home to dress her wound. Psychosisacute Schizophrenia acute episode. Plan Continue inpatient mental health unit program/treatment. Infected stasis ulcerchronic Wound care consult/manage placed Wound culture 2, left leg; blood cultures 2, stat. (Blood culture 1 set pending) Monitor CBC with differential, lactic acid Consult with Dr. Baeza will start patient on doxycycline 100 mg by mouth twice a day. Manage patient's pain. We'll begin Ultram 50 mg by mouth every 4 hours as needed pain. 410; acetaminophen 650 mg by mouth every 6 hours as needed for pain 13 or fever. Zofran 4 mg by mouth every 6 hours as needed for nausea as doxycycline causes nausea. Keep wound covered with Collagen dressing after cleansing with sterile normal saline, (or . Sterile 4 x 4. Will probably need debridement, and compression therapy after infection is improving, no presence of DVT. Diabetes mellitus type 2, uncontrolledchronic POC glucose before meals and at bedtime Check CMP, A1c 6.1, LDH Initiate hypoglycemia protocol per [facility] guidelines. Initiate sliding scale insulin before meals and in at bedtime per [facility] guidelines Lactacidosis 4.2 WBC-8.2 Absolute neutrophil 72.6; lymphocytes, absolute 17.6 Dry eyes acute Artificial tears 2 drops both eyes 3 times a day scheduled; 2 drops both eyes 4 times a day as needed PPT prophylaxis: Protonix DR 40 mg by mouth twice a day DVT prophylaxis: will risk, patient constantly ambulatory Discharge: Pending Plan / VTE VTE Prophylaxis Ordered?: No VTE Exclusion Mechanical Proph: Low Risk for VTE VTE Exclusion Pharmacological: At Low Risk for VTE Plan Diet: Continue Current Activity: Continue Current Medications: Start Antibiotics TASIA ONTIVEROS Jan 07, 2019 12:14
[2019-01-07 12:38] LABS: BASO # 0.1 10^3/uL (0.0-0.2); BASO % 0.7 % (0.0-1.0); EOS # 0.1 10^3/uL (0.0-0.5); EOS % 1.6 % (0.0-3.0); HEMATOCRIT 43.2 % (36.0-47.0); HEMOGLOBIN 13.5 g/dl (12.0-15.5); LYMPH # 1.5 10^3/uL (1.5-5.0); LYMPH % 17.9 % (24.0-44.0); MEAN CORPUSCULAR HEMOGLOBIN 30.1 pg (27.0-33.0); MEAN CORPUSCULAR HGB CONC 31.3 g/dl (32.0-36.5); MEAN CORPUSCULAR VOLUME 96.2 fl (80.0-96.0); MONO # 0.5 10^3/uL (0.0-0.8); MONO % 6.2 % (0.0-5.0); NEUTROPHILS % 72.6 % (36.0-66.0); PLATELET COUNT, AUTOMATED 464 10^3/uL (150-450); RED BLOOD COUNT 4.49 10^6/uL (4.00-5.40); WHITE BLOOD COUNT 8.2 10^3/uL (4.0-10.0)
[2019-01-07] MEDS ORDERED: ONDANSETRON 4 MG TAB (S0181) PO PRN (12:45)
[2019-01-07] MEDS ORDERED: traMADol 50 MG TAB PO PRN (12:45)
[2019-01-07] MEDS ORDERED: TETRAHYDROZOLINE OPHTH 0.05% 15 ML BTL OU PRN (13:00)
[2019-01-07 13:18] LABS: HEMOGLOBIN A1c 6.1 %
[2019-01-07] MEDS: DOXYCYCLINE HYCLATE 100 MG TAB PO SCH ×2 (13:28→21:00)
--- NOTE | 2019-01-07 15:04 | REP ---
LEFT LOWER LEG, AP AND LATERAL: AP and lateral views of the left lower leg performed and compared to prior study of 07/16/2018. There is no acute fracture or dislocation. Once again, there is chronic smooth periosteal thickening involving the shaft of the fibula predominantly in the mid aspect. Findings are compatible with chronic osteomyelitis. There does appear to be an overlying skin ulceration. Metallic clips are seen in the medial soft tissues somewhat posteriorly. There are no new findings. IMPRESSION: Findings involving the mid fibula as discussed above most consistent with chronic osteomyelitis with no significant change compared to the prior study of 07/16/2018. Electronically Signed by Mikael Wing MD 01/08/2019 11:17 A
[2019-01-07] MEDS ORDERED: POLYVINYL ALCOHOL OPHTH SOLN 15 ML(LIQUITEARS) OU PRN (17:00)
[2019-01-07 18:00] VITALS: BP 156/74
[2019-01-07] MEDS: POLYVINYL ALCOHOL OPHTH SOLN 15 ML(LIQUITEARS) OU SCH (21:00)
[2019-01-07] MEDS: HALOPERIDOL 5 MG TAB PO SCH (21:00)
[2019-01-07] MEDS: PANTOPRAZOLE 40MG TAB (PROTONIX) PO SCH (21:00)
[2019-01-08 06:31] VITALS: BP 116/61
[2019-01-08] MEDS: HumaLOG INSULIN (NovoLOG) PER UNIT SC SCH ×4 (07:04→22:23)
[2019-01-08] MEDS: PANTOPRAZOLE 40MG TAB (PROTONIX) PO SCH ×2 (09:00→09:40)
[2019-01-08] MEDS: DOXYCYCLINE HYCLATE 100 MG TAB PO SCH ×2 (09:33→22:26)
[2019-01-08] MEDS: ACETAMINOPHEN TAB 650MG DOSE (2X325MG) PO PRN (09:38)
[2019-01-08] MEDS: POLYVINYL ALCOHOL OPHTH SOLN 15 ML(LIQUITEARS) OU SCH ×3 (09:39→22:26)
--- NOTE | 2019-01-08 13:44 | IPNPDOC ---
Text Note Date of Service The patient was seen on 01/08/19. NOTE Subjective: Patient is a 68 year old female with a PMHx of Poorly controlled DM2, HTN, Schizophrenia / Psychosis, AOCD who presented to [facility] ER with psychosis symptoms and was admitted to the [facility]. Hospitalist service was consulted for m edical screening evaluation. Patient was found to have a RLE ulcer and was started on oral antibiotic therapy. Patient was seen and examined at the bedside. Currently patient reports mild pain of her RLE. She has not experienced any fever, chills, dizziness or light- headedness. She denies any CP, SOB or palpitations. Objective: Vitals (See below) General: Lying in bed, no acute distress, comfortable, AAOx3 HEENT: NC, AT CVS: RRR, +S1S2 Lungs: Fair air entry b/l, no appreciable wheezing / rhonchi / rales Abdomen: Soft, non-distended, non-tender Extremities: - Edema, - Calf tenderness Skin: LLE with venous stasis ulcers - open / draining / mild surrounding erythema; largest of which is approximately 5 cm x 4 cm Assessment and plan: Psychosis / Schizophrenia - Admitted to [facility] and is currently under the care of psychiatry - c/w [facility] program and treatment plan Venous stasis ulcer; likely with infection - Currently patient reports that she has had this for a long time; patient is a poor historian - Remains hemodynamically stable and afebrile - Does not appear to have any specific areas that require debridement - No leukocytosis; will repeat lab work today - Blood / Wound cultures remain pending - c/w Doxycycline (Day #2) - will continue with coverage for MRSA - c/w Dressing changes - wound care evaluation has been placed - c/w Tramadol and Tylenol for pain control Thrombocytosis - likely 2/2 reactive etiology - Will continue to follow counts Lactic acidosis - however unlikely 2/2 infection - Patient is afebrile / hemodynamically stable - LE wound does not appear to show significant signs of infection - will repeat lactic acid level Poorly controlled DM2; with hyperglycemia - A1c of 6.1 - Patient is poorly compliant with dietary restrictions; has noted that she needs to have candy everyday - c/w ISS Dry eyes acute - c/w artificial eye drops DVT prophylaxis - c/w early ambulation Disposition: - Awaiting lab work - Awaiting culture results from wound VS,Fishbone, I+O VS, Fishbone, I+O Vital Signs Date Time Temp Pulse Resp B/P (MAP) Pulse Ox O2 Delivery O2 Flow Rate FiO2 01/08/19 06:31 98.0 73 14 116/61 (79) 01/07/19 18:00 Room Air 01/07/19 00:29 97 JUWAN BAEZA MD Jan 08, 2019 13:44
--- NOTE | 2019-01-08 15:54 | MHIPN ---
DATE: 01/08/2019 The patient today tells me, "I am doing very well." She tells me she slept good, and then she says that she woke up on and off. This patient apparently has a history of being psychotic even at baseline and chronic noncompliance with treatment. Apparently they had her psychotics to the degree where she is not caring for herself, struggling find food and long-term. Today she seemed to be focused on wanting to get her clothes and take a shower, and it was very difficult to get much more information from her. MENTAL STATUS EXAMINATION: She seemed to be more cooperative today, but again it was very difficult to do a full mental status exam in this patient, as she was only focused on what she wanted to talk about. She did deny any suicidal or homicidal ideations. She appears to be responding to internal stimuli, but she denied it. She was alert, and she was oriented, at least to person and place. She was verbally spontaneous, but, again, only focused on what she wanted to talk about. She said that her mood was good, but she actually appears to be irritable. Affect appears to be somewhat labile. Insight and judgment are poor. DIAGNOSIS: Schizoaffective disorder. TREATMENT PLAN: At this point, we will continue to monitor the patient for what appears to be worsening of chronic psychotic symptoms, and we will recommend that she take medications. She is on Haldol, but so far she has been refusing it.
[2019-01-08 16:04] VITALS: BP 135/62
[2019-01-08] MEDS: HALOPERIDOL 5 MG TAB PO SCH (22:27)
[2019-01-09 06:17] VITALS: BP 148/72
[2019-01-09] MEDS: HumaLOG INSULIN (NovoLOG) PER UNIT SC SCH ×4 (07:30→21:00)
[2019-01-09] MEDS: DOXYCYCLINE HYCLATE 100 MG TAB PO SCH ×2 (09:00→21:00)
[2019-01-09] MEDS: POLYVINYL ALCOHOL OPHTH SOLN 15 ML(LIQUITEARS) OU SCH ×3 (09:13→21:00)
--- NOTE | 2019-01-09 11:47 | IPNPDOC ---
Text Note Date of Service The patient was seen on 01/09/19. NOTE Subjective: Patient is a 68 year old female with a PMHx of Poorly controlled DM2, HTN, Schizophrenia / Psychosis, AOCD who presented to [facility] ER with psychosis symptoms and was admitted to the [facility]. Hospitalist service was consulted for m edical screening evaluation. Patient was found to have a RLE ulcer and was started on oral antibiotic therapy. Patient was seen and examined while sitting in the lounge. Patient refused to be examined this morning. She notes that she will continue taking the antibiotics, but does not want wound cultures or blood work. She has actively refused other psychiatric medications and blood work while at [facility]. She denies any problems overnight. Reports that she has problems with other patients at [facility]. Objective: Vitals (See below) General: Sitting up in chair, no acute distress, comfortable, Awake / Alert Refused to be examined Assessment and plan: Psychosis / Schizophrenia - Admitted to [facility] and is currently under the care of psychiatry - c/w [facility] program and treatment plan Venous stasis ulcer / Chronic Osteomyelitis - likely 2/2 chronic venous stasis - Currently patient reports that she has had this for a long time; patient is a poor historian - Remains hemodynamically stable and afebrile - Does not appear to have any specific areas that require debridement - No leukocytosis; will repeat lab work today - Blood / Wound cultures remain pending - XR LLE: Findings involving the mid fibula as discussed above most consistent with chronic osteomyelitis with no significant change compared to the prior study of 07/16/2018. - c/w Doxycycline (Day #3) - will continue with coverage for MRSA - c/w Dressing changes - wound care evaluation has been placed - Discussed with Psychiatrist - Dr. Jacobo; will consult infectious disease for input - c/w Tramadol and Tylenol for pain control Thrombocytosis - likely 2/2 reactive etiology - Refused repeat lab work Lactic acidosis - however unlikely 2/2 infection - Patient is afebrile / hemodynamically stable - LE wound does not appear to show significant signs of acute infection - Refused repeat lab work Poorly controlled DM2; with hyperglycemia - A1c of 6.1 - Patient is poorly compliant with dietary restrictions; has noted that she needs to have candy everyday - c/w ISS Dry eyes acute - c/w artificial eye drops DVT prophylaxis - c/w early ambulation Disposition: - Will consult infectious disease VS,Becki, I+O VS, Becki, I+O Vital Signs Date Time Temp Pulse Resp B/P (MAP) Pulse Ox O2 Delivery O2 Flow Rate FiO2 01/09/19 06:17 97.6 57 16 148/72 (97) 01/07/19 18:00 Room Air 01/07/19 00:29 97 JUWAN BAEZA MD Jan 09, 2019 11:47
[2019-01-09 16:15] VITALS: BP 147/64
--- NOTE | 2019-01-09 16:38 | MHIPN ---
DATE: 01/09/2019 Today the patient was noted to be fast asleep and I attempted without much success to wake her up and at that point I felt that it was more appropriate to let her sleep, since this patient is actually psychotic and tends to get easily agitated. She has continued to refuse medications. I did receive a phone call from the hospitalist today indicating that they did want to continue antibiotics for this lady for her problems with her leg and apparently she is taking the antibiotic and he was going to consult Dr. Galdamez to evaluate the patient for this also. MENTAL STATUS EXAMINATION: Unable to do a mental status examination as this patient was fast asleep. DIAGNOSIS: 1. Schizoaffective disorder. TREATMENT PLAN: At this point, we will continue to recommend to the patient that she take medications and it is possible that Treatment Over Objection may need to be pursued.
[2019-01-09] MEDS: HALOPERIDOL 5 MG TAB PO SCH (21:00)
[2019-01-10] MEDS: HumaLOG INSULIN (NovoLOG) PER UNIT SC SCH ×4 (06:45→20:55)
[2019-01-10 06:48] VITALS: BP 144/74
[2019-01-10] MEDS: DOXYCYCLINE HYCLATE 100 MG TAB PO SCH ×2 (09:00→20:55)
[2019-01-10] MEDS: POLYVINYL ALCOHOL OPHTH SOLN 15 ML(LIQUITEARS) OU SCH ×3 (09:00→20:55)
[2019-01-10 16:00] VITALS: BP 142/68
--- NOTE | 2019-01-10 19:24 | MHIPNPDOC ---
[facility] Progress Note Progress Note Elizabeth Travis Inpatient Progress Note Elizabeth Travis Select Gender MRN: N/A Date of : MM/DD/YYYY Date of Service: 01/10/2019 History of Present Illness 68-year-old woman with a history of schizoaffective disorder presents unable to care for herself with a unhealing wound ulcer that has become severely infected. She has become increasingly more psychotic and bizarre, unable to care for herself to the point where she has placed herself in danger. Interval History The patient is attempted to be met with today as she has refused medications over the weekend and continues to refuse medical medications, putting herself in danger. The patient became highly agitated when we spoke about this, screaming and yelling. She was handed the treatment of objection letter and promptly grabbed it and tore it up, screaming that she would "not take any medications than referring to all males on that day as "dickhead." unable to tell the difference between this provider and other males. Review Of Systems Declines to answer. Psychotherapy None on this visit. Vital Signs Reviewed. Mental Status Examination General: Poor hygiene Speech: Tangential, pressured Thought processes: Unorganized MSK: Smooth and coordinated gait, no signs of tremors or involuntary orofacial movements Thought content: Agitated Abstract reasoning, and computation: Impaired Description of associations: Impaired Description of abnormal or psychotic thoughts: Unknown Judgment: Impaired Insight: Impaired Orientation: Alert and orientated 3 Cognition: Grossly normal Recent and remote memory: Intact Attention span and concentration: Intact Fund of knowledge: Adequate Mood: "go away" Affect: Irritable and agitated Diagnoses Schizoaffective disorder. Assessment and Plan Schizoaffective disorder: Continue to offer Haldol treatment over injection will be pursued. Disposition Patient will need another inpatient admission in order to address her severe psychotic symptoms and inability to care for herself. Time Spent 15 minutes. Vital Signs Vital Signs Date Time Temp Pulse Resp B/P (MAP) Pulse Ox O2 Delivery O2 Flow Rate FiO2 01/10/19 16:00 98.5 89 20 142/68 (92) 01/07/19 18:00 Room Air 01/07/19 00:29 97 Laboratory Data 24H Labs Laboratory Tests 2 01/10/19 06:44: Bedside Glucose (Misc Panel) 131H 01/10/19 12:02: Bedside Glucose (Misc Panel) 93 01/10/19 17:28: Bedside Glucose (Misc Panel) 113 Current Medications Current Medications Medications (Trade) Dose Ordered Sig/Beth Route PRN Reason Start Time Stop Time Status Last Admin Dose Admin Acetaminophen (Tylenol Tab) 650 mg Q6HP PRN PO HEADACHE or DISCOMFORT 01/07/19 00:00 01/08/19 09:38 Al Hydrox/Mg Hydrox/Simethicone (Mylanta) 30 ml Q4HP PRN PO HEARTBURN/INDIGESTION 01/07/19 00:00 Artificial Tears (Akwa Tears) 2 drop QIDP PRN OU DRY EYES 01/07/19 17:00 Artificial Tears (Akwa Tears) 2 drop TID OU 01/07/19 21:00 01/10/19 15:59 Dextrose (Dextrose 50%) 25 ml ASDIRECTED PRN IV SEE LABEL COMMENTS 01/07/19 12:00 Doxycycline Hyclate (Vibramycin) 100 mg BID PO 01/07/19 12:00 01/08/19 22:26 Glucagon (Glucagon) 1 mg ASDIRECTED PRN SC SEE LABEL COMMENTS 01/07/19 12:00 Glucose (Glucose) 16 GM ASDIRECTED PRN PO SEE LABEL COMMENTS 01/07/19 12:00 Haloperidol (Haldol) 5 mg QHS PO 01/07/19 21:00 Home Med (Med Rec Complete!) ASDIRECTED XX 01/06/19 23:30 01/06/19 23:27 DC Insulin Human Lispro (HumaLOG INSULIN) See Protocol Table AC SC 01/07/19 12:00 Insulin Human Lispro (HumaLOG INSULIN) See Protocol Table QHS SC 01/07/19 21:00 Magnesium Hydroxide (Milk Of Magnesia) 30 ml DAILYPRN PRN PO CONSTIPATION 01/07/19 00:00 Ondansetron HCl (Zofran) 4 mg Q6HP PRN PO NAUSEA OR VOMITING 01/07/19 12:45 Pantoprazole Sodium (Protonix) 40 mg BID PO 01/07/19 21:00 01/08/19 13:46 DC 01/08/19 09:40 Tetrahydrozoline HCl (Visine) 1 drop TIDP PRN OU REDNESS/IRRITATION 01/07/19 13:00 Tramadol HCl (Ultram) 50 mg Q4H PRN PO PAIN 01/07/19 12:45 Trazodone HCl (Desyrel) 50 mg QHSP PRN PO INSOMNIA 01/07/19 00:00 Allergies Coded Allergies: latex (Verified Allergy, Mild, Rash, 06/09/18) MICHAEL LATIF DO Jan 10, 2019 19:23
--- NOTE | 2019-01-10 19:29 | IPNPDOC ---
Text Note Date of Service The patient was seen on 01/10/19. NOTE ADMIT DATE: 01/06/19 TREATMENT OVER OBJECTION DATE OF SERVICE: 01/10/19 ATTENDING DOCTOR: Michael Pat DO FAMILY CONTACTS: SECTION I: CLINICAL SUMMARY: 68-year-old woman with a history of schizoaffective disorder presents to [facility] after failing to be able to take care of her medical needs, with a on healing infected wound ulcer poor hygiene and an inability to feed herself. The patient was fairly psychotic and disorganized unable to attend to her basic needs and was admitted to the inpatient unit. Since she has arrived she is been paranoid unable to participate in any extensive interview, she rem ains easily irritable, asserting that she is "not Oriental Orthodox or Sikhism" and has been refusing any and all medical and psychiatric medications despite the danger to herself. She has not followed up with psychiatry or outpatient medicine over multiple admissions, she continues to demonstrate no understanding of the danger she's putting herself in by refusing medical treatment. DIAGNOSIS: Schizoaffective disorder SECTION II: Proposed Treatment. 1. Course of treatment recommended by treating physician: To prescribe an antipsychotic - Invega 3 mg twice a day with the option of increasing this dose progressively up to 6 or 9 mg twice a day as tolerated for signs and symptoms of psychosis. Initiate Invega Sustenna 234mg loading dose IM injection and then, pending medication tolerance, up to Invega Sustenna 234mg maintenance dose IM injection for medication compliance 3 days later. If the patient refuses treatment by mouth, the patient should receive Zyprexa IM 10 mg at various doses up to a total of 30 mg per day. The patient will then be maintained on Invega Sustenna monthly injection with doses up to 234 mg IM every month once he is discharged - Cogentin 0.5 to 1mg daily up to a total of 4 mg per day in divided doses if Parkinsonian symptoms are evident. 2. Reasonable alternatives if any are: Haldol 5 to 20mg PO vs IM (if refused), with long acting Haldol deaconate as equal to oral tolerated dose Has the patient been tried on the proposed treatment: yes, with positive effects, in 2013 after several TOO's the patient has been able to have stability and even fair insight. 4. Anticipated benefits to proposed treatment: This treatment will allow the patient to gain control over symptoms so that she will be able to comply with medical treatment to avert serious disability, injury or even due to his paranoid refusal of basic medical treatment for her unhealing ulcer. 5. Reasonable foreseeable adverse side effects: Parkinsonian symptoms, weight gain, sedation, side effects of neuroleptics. In rare cases, neuroleptic malignant syndrome and tardive dyskinesia may develop. 6. Prognosis without treatment:The patient's prognosis of the treatment is very grim, she will likely due to refusal based on paranoid psychotic thinking SECTION III: Patient's capacity. 1. Explained to the patient: A. Condition: No B. Proposed treatment: No C. Anticipated benefits of treatment: No D. Risks of adverse side effects of treatment: No E. Availability of other treatments and comparison of benefits and risks: No F. Risk of no treatment: No Becomes irate and spouts paranoid statements about her treatment team, completely unable to engage in any meaningful interview due to her psychosis 2. State the nature of the patient's objections to treatment: feels she has no medical or psychiatric problems, becomes irate whenever questioned. 3. The patient's capacity: Lacks any capacity to understand him condition or the danger that he places herself in by her behavior or lack of compliance with treatment. SECTION IV: LIKELIHOOD FOR DANGEROUS BEHAVIOR: 1. The patient is believed to be dangerous to others at the hospital unless treated: Yes. 2. Is the patient believed to be likely dangerous to self if not treated: Yes. SECTION V: ANY OTHER INFORMATION:N/A NOTE ADMIT DATE: 01/06/19 TREATMENT OVER OBJECTION DATE OF SERVICE: 01/10/19 ATTENDING DOCTOR: Michael Coates DO FAMILY CONTACTS: SECTION I: CLINICAL SUMMARY: 68-year-old woman with a history of schizoaffective disorder presents to [facility] after failing to be able to take care of her medical needs, with a on healing infected wound ulcer poor hygiene and an inability to feed herself. The patient was fairly psychotic and disorganized unable to attend to her basic needs and was admitted to the inpatient unit. Since she has arrived she is been paranoid unable to participate in any extensive interview, she remains easily irritable, asserting that she is "not Oriental Orthodox or Sikhism" and has been refusing any and all medical and psychiatric medications despite the danger to herself. She has not followed up with psychiatry or outpatient medicine over multiple admissions, she continues to demonstrate no understanding of the danger she's putting herself in by refusing medical treatment. DIAGNOSIS: Schizoaffective disorder SECTION II: Proposed Treatment. 1. Course of treatment recommended by treating physician: To prescribe an antipsychotic - Invega 3 mg twice a day with the option of increasing this dose progressively up to 6 or 9 mg twice a day as tolerated for signs and symptoms of psychosis. Initiate Invega Sustenna 234mg loading dose IM injection and then, pending medication tolerance, up to Invega Sustenna 234mg maintenance dose IM injection for medication compliance 3 days later. If the patient refuses treatment by mouth, the patient should receive Zyprexa IM 10 mg at various doses up to a total of 30 mg per day. The patient will then be maintained on Invega Sustenna monthly injection with doses up to 234 mg IM every month once he is discharged - Cogentin 0.5 to 1mg daily up to a total of 4 mg per day in divided doses if Parkinsonian symptoms are evident. 2. Reasonable alternatives if any are: Haldol 5 to 20mg PO vs IM (if refused), with long acting Haldol deaconate as equal to oral tolerated dose Has the patient been tried on the proposed treatment: yes, with positive effects, in 2013 after several TOO's the patient has been able to have stability and even fair insight. 4. Anticipated benefits to proposed treatment: This treatment will allow the patient to gain control over symptoms so that she will be able to comply with medical treatment to avert serious disability, injury or even due to his paranoid refusal of basic medical treatment for her unhealing ulcer. 5. Reasonable foreseeable adverse side effects: Parkinsonian symptoms, weight gain, sedation, side effects of neuroleptics. In rare cases, neuroleptic malignant syndrome and tardive dyskinesia may develop. 6. Prognosis without treatment:The patient's prognosis of the treatment is very grim, she will likely due to refusal based on paranoid psychotic thinking SECTION III: Patient's capacity. 1. Explained to the patient: A. Condition: No B. Proposed treatment: No C. Anticipated benefits of treatment: No D. Risks of adverse side effects of treatment: No E. Availability of other treatments and comparison of benefits and risks: No F. Risk of no treatment: No Becomes irate and spouts paranoid statements about her treatment team, completely unable to engage in any meaningful interview due to her psychosis 2. State the nature of the patient's objections to treatment: feels she has no medical or psychiatric problems, becomes irate whenever questioned. 3. The patient's capacity: Lacks any capacity to understand him condition or the danger that he places herself in by her behavior or lack of compliance with treatment. SECTION IV: LIKELIHOOD FOR DANGEROUS BEHAVIOR: 1. The patient is believed to be dangerous to others at the hospital unless treated: Yes. 2. Is the patient believed to be likely dangerous to self if not treated: Yes. SECTION V: ANY OTHER INFORMATION:N/A MICHAEL COATES DO Jan 10, 2019 19:29 KT NORIEGA DO Jan 11, 2019 10:53
[2019-01-10] MEDS: HALOPERIDOL 5 MG TAB PO SCH (20:55)
[2019-01-11 06:25] VITALS: BP 136/73
[2019-01-11] MEDS: HumaLOG INSULIN (NovoLOG) PER UNIT SC SCH ×4 (06:56→20:37)
[2019-01-11 08:04] LABS: HEMATOCRIT 42.6 % (36.0-47.0); HEMOGLOBIN 13.2 g/dl (12.0-15.5); MEAN CORPUSCULAR HEMOGLOBIN 29.9 pg (27.0-33.0); MEAN CORPUSCULAR VOLUME 96.4 fl (80.0-96.0); PLATELET COUNT, AUTOMATED 410 10^3/uL (150-450); RED BLOOD COUNT 4.42 10^6/uL (4.00-5.40); WHITE BLOOD COUNT 5.5 10^3/uL (4.0-10.0)
[2019-01-11 08:33] LABS: ERYTHROCYTE SEDIMENTATION RATE 58 mm/hr (0-30)
[2019-01-11] MEDS: DOXYCYCLINE HYCLATE 100 MG TAB PO SCH ×2 (09:00→20:37)
[2019-01-11] MEDS: POLYVINYL ALCOHOL OPHTH SOLN 15 ML(LIQUITEARS) OU SCH ×3 (09:00→20:38)
--- NOTE | 2019-01-11 11:28 | MHIPNPDOC ---
[facility] Progress Note Progress Note Elizabeth Travis Inpatient Progress Note Elizabeth Travis Select Gender MRN: N/A Date of : MM/DD/YYYY Date of Service: 01/11/2019 History of Present Illness 68-year-old woman with a history of schizoaffective disorder presents unable to care for herself with a unhealing wound ulcer that has become severely infected. She has become increasingly more psychotic and bizarre, unable to care for herself to the point where she has placed herself in danger. Interval History The patient is met with today very briefly as she becomes highly agitated when she is approached. She continues to yell and scream that she does not want to deal with any providers, demanding discharge. She's still bizarre and psychotic, she had had the second opinion done today for the treatment over objection. Review Of Systems Declines to answer. Psychotherapy None on this visit. Vital Signs Reviewed. Mental Status Examination General: Poor hygiene Speech: Tangential, pressured Thought processes: Unorganized MSK: Smooth and coordinated gait, no signs of tremors or involuntary orofacial movements Thought content: Agitated Abstract reasoning, and computation: Impaired Description of associations: Impaired Description of abnormal or psychotic thoughts: Unknown Judgment: Impaired Insight: Impaired Orientation: Alert and orientated 3 Cognition: Grossly normal Recent and remote memory: Intact Attention span and concentration: Intact Fund of knowledge: Adequate Mood: "go away" Affect: Irritable and agitated Diagnoses Schizoaffective disorder. Assessment and Plan Schizoaffective disorder: Continue to offer Haldol treatment over injection will be pursued. Disposition Patient will need another inpatient admission in order to address her severe psychotic symptoms and inability to care for herself. Time Spent 10 minutes [id number]. Vital Signs Vital Signs Date Time Temp Pulse Resp B/P (MAP) Pulse Ox O2 Delivery O2 Flow Rate FiO2 01/11/19 06:25 98.8 84 14 136/73 (94) Room Air 01/07/19 00:29 97 Laboratory Data 24H Labs Laboratory Tests 2 01/10/19 12:02: Bedside Glucose (Misc Panel) 93 01/10/19 17:28: Bedside Glucose (Misc Panel) 113 01/11/19 07:51: Nucleated Red Blood Cells % (auto) 0.0, Erythrocyte Sedimentation Rate 58H, C- Reactive Protein, Quantitative 0.86H CBC/BMP Laboratory Tests 10/29/19 07:51 Current Medications Current Medications Medications (Trade) Dose Ordered Sig/Beth Route PRN Reason Start Time Stop Time Status Last Admin Dose Admin Acetaminophen (Tylenol Tab) 650 mg Q6HP PRN PO HEADACHE or DISCOMFORT 01/07/19 00:00 01/08/19 09:38 Al Hydrox/Mg Hydrox/Simethicone (Mylanta) 30 ml Q4HP PRN PO HEARTBURN/INDIGESTION 01/07/19 00:00 Artificial Tears (Akwa Tears) 2 drop QIDP PRN OU DRY EYES 01/07/19 17:00 Artificial Tears (Akwa Tears) 2 drop TID OU 01/07/19 21:00 01/10/19 15:59 Dextrose (Dextrose 50%) 25 ml ASDIRECTED PRN IV SEE LABEL COMMENTS 01/07/19 12:00 Doxycycline Hyclate (Vibramycin) 100 mg BID PO 01/07/19 12:00 01/08/19 22:26 Glucagon (Glucagon) 1 mg ASDIRECTED PRN SC SEE LABEL COMMENTS 01/07/19 12:00 Glucose (Glucose) 16 GM ASDIRECTED PRN PO SEE LABEL COMMENTS 01/07/19 12:00 Haloperidol (Haldol) 5 mg QHS PO 01/07/19 21:00 Home Med (Med Rec Complete!) ASDIRECTED XX 01/06/19 23:30 01/06/19 23:27 DC Insulin Human Lispro (HumaLOG INSULIN) See Protocol Table AC SC 01/07/19 12:00 Insulin Human Lispro (HumaLOG INSULIN) See Protocol Table QHS SC 01/07/19 21:00 Magnesium Hydroxide (Milk Of Magnesia) 30 ml DAILYPRN PRN PO CONSTIPATION 01/07/19 00:00 Ondansetron HCl (Zofran) 4 mg Q6HP PRN PO NAUSEA OR VOMITING 01/07/19 12:45 Pantoprazole Sodium (Protonix) 40 mg BID PO 01/07/19 21:00 01/08/19 13:46 DC 01/08/19 09:40 Tetrahydrozoline HCl (Visine) 1 drop TIDP PRN OU REDNESS/IRRITATION 01/07/19 13:00 Tramadol HCl (Ultram) 50 mg Q4H PRN PO PAIN 01/07/19 12:45 Trazodone HCl (Desyrel) 50 mg QHSP PRN PO INSOMNIA 01/07/19 00:00 Allergies Coded Allergies: latex (Verified Allergy, Mild, Rash, 06/09/18) MICHAEL LATIF DO Jan 11, 2019 11:28
--- NOTE | 2019-01-11 11:48 | MHIPNPDOC ---
[facility] Progress Note Progress Note DATE OF SERVICE: 01/11/19 The patient was seen on 01/11/19. NOTE ADMIT DATE: 01/06/19 TREATMENT OVER OBJECTION DATE OF SERVICE: 01/10/19 ATTENDING DOCTOR: Sruthi Card DO FAMILY CONTACTS: SECTION I: CLINICAL SUMMARY: 68-year-old woman with a history of schizoaffective disorder presents to [facility] after failing to be able to take care of her medical needs, with a on healing infected wound ulcer poor hygiene and an inability to feed herself. The patient was fairly psychotic and disorganized unable to attend to her basic needs and was admitted to the inpatient unit. Since she has arrived she is been paranoid unable to participate in any extensive interview, she remains easily irritable, asserting that she is "not Ep[employer] or [employer]" and has been refusing any and all medical and psychiatric medications despite the danger to herself. She has not followed up with psychiatry or outpatient medicine over multiple admissions, she continues to demonstrate no understanding of the danger she's putting herself in by refusing medical treatment. DIAGNOSIS: Schizoaffective disorder SECTION II: Proposed Treatment. 1. Course of treatment recommended by treating physician: To prescribe an antipsychotic - Invega 3 mg twice a day with the option of increasing this dose progressively up to 6 or 9 mg twice a day as tolerated for signs and symptoms of psychosis. Initiate Invega Sustenna 234mg loading dose IM injection and then, pending medication tolerance, up to Invega Sustenna 234mg maintenance dose IM injection for medication compliance 3 days later. If the patient refuses treatment by mouth, the patient should receive Zyprexa IM 10 mg at various doses up to a total of 30 mg per day. The patient will then be maintained on Invega Sustenna monthly injection with doses up to 234 mg IM every month once he is discharged - Cogentin 0.5 to 1mg daily up to a total of 4 mg per day in divided doses if Parkinsonian symptoms are evident. 2. Reasonable alternatives if any are: Haldol 5 to 20mg PO vs IM (if refused), with long acting Haldol deaconate as equal to oral tolerated dose Has the patient been tried on the proposed treatment: yes, with positive effects, in 2013 after several TOO's the patient has been able to have stability and even fair insight. 4. Anticipated benefits to proposed treatment: This treatment will allow the patient to gain control over symptoms so that she will be able to comply with medical treatment to avert serious disability, injury or even due to his paranoid refusal of basic medical treatment for her unhealing ulcer. 5. Reasonable foreseeable adverse side effects: Parkinsonian symptoms, weight gain, sedation, side effects of neuroleptics. In rare cases, neuroleptic malignant syndrome and tardive dyskinesia may develop. 6. Prognosis without treatment:The patient's prognosis of the treatment is very grim, she will likely due to refusal based on paranoid psychotic thinking SECTION III: Patient's capacity. 1. Explained to the patient: A. Condition: No B. Proposed treatment: No C. Anticipated benefits of treatment: No D. Risks of adverse side effects of treatment: No E. Availability of other treatments and comparison of benefits and risks: No F. Risk of no treatment: No Becomes irate and spouts paranoid statements about her treatment team, completely unable to engage in any meaningful interview due to her psychosis 2. State the nature of the patient's objections to treatment: feels she has no medical or psychiatric problems, becomes irate whenever questioned. 3. The patient's capacity: Lacks any capacity to understand him condition or the danger that he places herself in by her behavior or lack of compliance with treatment. SECTION IV: LIKELIHOOD FOR DANGEROUS BEHAVIOR: 1. The patient is believed to be dangerous to others at the hospital unless treated: Yes. 2. Is the patient believed to be likely dangerous to self if not treated: Yes. SECTION V: ANY OTHER INFORMATION:N/A NOTE ADMIT DATE: 01/06/19 TREATMENT OVER OBJECTION DATE OF SERVICE: 01/10/19 ATTENDING DOCTOR: Earle Coates DO FAMILY CONTACTS: SECTION I: CLINICAL SUMMARY: 68-year-old woman with a history of schizoaffective disorder presents to [facility] after failing to be able to take care of her medical needs, with a on healing infected wound ulcer poor hygiene and an inability to feed herself. The patient was fairly psychotic and disorganized unable to attend to her basic needs and was admitted to the inpatient unit. Since she has arrived she is been paranoid unable to participate in any extensive interview, she remains easily irritable, asserting that she is "not Episcopal or [employer]" and has been refusing any and all medical and psychiatric medications despite the danger to herself. She has not followed up with psychiatry or outpatient medicine over multiple admissions, she continues to demonstrate no understanding of the danger she's putting herself in by refusing medical treatment. DIAGNOSIS: Schizoaffective disorder SECTION II: Proposed Treatment. 1. Course of treatment recommended by treating physician: To prescribe an antipsychotic - Invega 3 mg twice a day with the option of increasing this dose progressively up to 6 or 9 mg twice a day as tolerated for signs and symptoms of psychosis. Initiate Invega Sustenna 234mg loading dose IM injection and then, pending medication tolerance, up to Invega Sustenna 234mg maintenance dose IM injection for medication compliance 3 days later. If the patient refuses treatment by mouth, the patient should receive Zyprexa IM 10 mg at various doses up to a total of 30 mg per day. The patient will then be maintained on Invega Sustenna monthly injection with doses up to 234 mg IM every month once he is discharged - Cogentin 0.5 to 1mg daily up to a total of 4 mg per day in divided doses if Parkinsonian symptoms are evident. 2. Reasonable alternatives if any are: Haldol 5 to 20mg PO vs IM (if refused), with long acting Haldol deaconate as equal to oral tolerated dose Has the patient been tried on the proposed treatment: yes, with positive effects, in 2013 after several TOO's the patient has been able to have stability and even fair insight. 4. Anticipated benefits to proposed treatment: This treatment will allow the patient to gain control over symptoms so that she will be able to comply with medical treatment to avert serious disability, injury or even due to his paranoid refusal of basic medical treatment for her unhealing ulcer. 5. Reasonable foreseeable adverse side effects: Parkinsonian symptoms, weight gain, sedation, side effects of neuroleptics. In rare cases, neuroleptic malignant syndrome and tardive dyskinesia may develop. 6. Prognosis without treatment:The patient's prognosis of the treatment is very grim, she will likely due to refusal based on paranoid psychotic thinking SECTION III: Patient's capacity. 1. Explained to the patient: A. Condition: No B. Proposed treatment: No C. Anticipated benefits of treatment: No D. Risks of adverse side effects of treatment: No E. Availability of other treatments and comparison of benefits and risks: No F. Risk of no treatment: No Becomes irate and spouts paranoid statements about her treatment team, completely unable to engage in any meaningful interview due to her psychosis 2. State the nature of the patient's objections to treatment: feels she has no medical or psychiatric problems, becomes irate whenever questioned. 3. The patient's capacity: Lacks any capacity to understand him condition or the danger that he places herself in by her behavior or lack of compliance with treatment. SECTION IV: LIKELIHOOD FOR DANGEROUS BEHAVIOR: 1. The patient is believed to be dangerous to others at the hospital unless treated: Yes. 2. Is the patient believed to be likely dangerous to self if not treated: Yes. SECTION V: ANY OTHER INFORMATION:N/A Vital Signs Vital Signs Date Time Temp Pulse Resp B/P (MAP) Pulse Ox O2 Delivery O2 Flow Rate FiO2 01/11/19 06:25 98.8 84 14 136/73 (94) Room Air 01/07/19 00:29 97 Laboratory Data 24H Labs Laboratory Tests 2 01/10/19 12:02: Bedside Glucose (Misc Panel) 93 01/10/19 17:28: Bedside Glucose (Misc Panel) 113 01/11/19 07:51: Nucleated Red Blood Cells % (auto) 0.0, Erythrocyte Sedimentation Rate 58H, C- Reactive Protein, Quantitative 0.86H CBC/BMP Laboratory Tests 01/11/19 07:51 Current Medications Current Medications Medications (Trade) Dose Ordered Sig/Beth Route PRN Reason Start Time Stop Time Status Last Admin Dose Admin Acetaminophen (Tylenol Tab) 650 mg Q6HP PRN PO HEADACHE or DISCOMFORT 01/07/19 00:00 01/08/19 09:38 Al Hydrox/Mg Hydrox/Simethicone (Mylanta) 30 ml Q4HP PRN PO HEARTBURN/INDIGESTION 01/07/19 00:00 Artificial Tears (Akwa Tears) 2 drop QIDP PRN OU DRY EYES 01/07/19 17:00 Artificial Tears (Akwa Tears) 2 drop TID OU 01/07/19 21:00 01/10/19 15:59 Dextrose (Dextrose 50%) 25 ml ASDIRECTED PRN IV SEE LABEL COMMENTS 01/07/19 12:00 Doxycycline Hyclate (Vibramycin) 100 mg BID PO 01/07/19 12:00 01/08/19 22:26 Glucagon (Glucagon) 1 mg ASDIRECTED PRN SC SEE LABEL COMMENTS 01/07/19 12:00 Glucose (Glucose) 16 GM ASDIRECTED PRN PO SEE LABEL COMMENTS 01/07/19 12:00 Haloperidol (Haldol) 5 mg QHS PO 01/07/19 21:00 Home Med (Med Rec Complete!) ASDIRECTED XX 01/06/19 23:30 01/06/19 23:27 DC Insulin Human Lispro (HumaLOG INSULIN) See Protocol Table AC SC 01/07/19 12:00 Insulin Human Lispro (HumaLOG INSULIN) See Protocol Table QHS SC 01/07/19 21:00 Magnesium Hydroxide (Milk Of Magnesia) 30 ml DAILYPRN PRN PO CONSTIPATION 01/07/19 00:00 Ondansetron HCl (Zofran) 4 mg Q6HP PRN PO NAUSEA OR VOMITING 01/07/19 12:45 Pantoprazole Sodium (Protonix) 40 mg BID PO 01/07/19 21:00 01/08/19 13:46 DC 01/08/19 09:40 Tetrahydrozoline HCl (Visine) 1 drop TIDP PRN OU REDNESS/IRRITATION 01/07/19 13:00 Tramadol HCl (Ultram) 50 mg Q4H PRN PO PAIN 01/07/19 12:45 Trazodone HCl (Desyrel) 50 mg QHSP PRN PO INSOMNIA 01/07/19 00:00 Allergies Coded Allergies: latex (Verified Allergy, Mild, Rash, 06/09/18) SRUTHI CARD DO Jan 11, 2019 11:48
[2019-01-11 16:05] VITALS: BP 136/63
--- NOTE | 2019-01-11 16:34 | CR ---
DATE OF CONSULTATION: 01/10/2019 Asked to consult by hospitalist for evaluation of chronic osteomyelitis. HISTORY OF PRESENT ILLNESS: Elizabeth is a 68-year-old female with a history of schizophrenia with multiple admissions to [facility]. The patient was admitted again with psychosis. She has a left lower extremity venous ulcer for the past 20 years. She is a very poor historian and cannot give us a reliable history, except that she had two skin grafts. The patient had chronically draining wound on the left leg laterally. She has bilateral varicose veins; she does not k now why. She never had children, never was , did not standup jobs. When she came to the inpatient [facility], she had significant discharge and was started on doxycycline without doing a culture and currently the patient has no complaint except her back. She denies any fever or chills. No nausea, vomiting or diarrhea. PAST MEDICAL HISTORY: Significant for essential hypertension, confusion from schizophrenia. No fever or chills. No nausea, vomiting or diarrhea, dysuria or hematuria or abdominal pain. ALLERGIES: LATEX. REVIEW OF SYSTEMS: Negative, except for drainage of the left leg and back pain. LABORATORY: White count 8.2, hemoglobin 13.5, hematocrit 43.2, platelets 464, 18% lymphocytes, 6% monocytes. Sodium 141, potassium 4.5, chloride 104,bicarbonate 30, BUN 37, creatinine 0.75, glucose 178, A1c 6.1, lactic acid 4.2, calcium 8.8, bilirubin 0.2, AST 16, ALT 18, albumin 2.7. PHYSICAL EXAMINATION: She is a frail looking female, mildly agitated, somewhat psychotic, in no acute distress. Temperature is 98.5, pulse 89, respirations 20, blood pressure 142/68. HEART: Normal S1, S2, no murmurs, rubs or gallops. LUNG EXAM: No wheezes, rales or rhonchi. Severe kyphoscoliosis. ABDOMEN: Soft, nontender, no hepatosplenomegaly. EXTREMITIES: No edema. She has multiple prominent varicose veins left leg, has two ulcerations, one measuring 5.5 x 4 cm, the second one measuring 3 x 2 cm. There are contiguous to each other by a small amount of skin. IMPRESSION: This is a 68-year-old female with a history of chronic osteomyelitis for over 20 years. She was admitted with persistent open ulcer. X-ray shows chronic osteomyelitis of the fibula, which is unchanged from x-ray done in July of 2018. Wound cultures have been positive for Methicillin-Susceptible Staphylococcus aureus (MSSA) and pseudomonas on many different admissions. X-ray of the left lower leg on 01/07 shows osteomyelitis of the mid fibula, chronic. No significant changes. MEDICATIONS: - Haldol 5 mg by mouth at bedtime (q.h.s.) - insulin sliding scale. - Artificial Tears - tetrahydrozoline as needed - Zofran 4 mg every 6 hours as needed - doxycycline 100 mg by mouth twice a day The patient refuses a lot of her medications and she refused at least 4 out of 6 doses of doxycycline. PLAN: Obtain complete blood count (CBC), C-reactive protein (CRP), sedimentation rate in the morning. Obtain wound culture to document what kind of pathogen, but on review of cultures from 2011 to today, more pathogens had Methicillin-Susceptible Staphylococcus aureus (MSSA) and pseudomonas and then sometimes there were other gram negatives. Continue doxycycline if the patient resume taking the medication until results of cultures are available. Last wound culture was done on 06/07/2018, which had pseudomonas susceptible to (cut off) ; and as far as Staphylococcus aureus, doxycycline or Keflex would be appropriate. Will also check on quinolone susceptibility for Staphylococcus aureus to see if that would be another option to use one single drug for both pathogens.
[2019-01-11] MEDS ORDERED: LOPERAMIDE 2 MG CAPLET PO PRN (16:45)
[2019-01-11] MEDS ORDERED: LOPERAMIDE 2 MG CAPLET PO ONE (16:45)
[2019-01-11] MEDS: HALOPERIDOL 5 MG TAB PO SCH (20:37)
[2019-01-12 06:27] VITALS: BP 125/62
[2019-01-12] MEDS: HumaLOG INSULIN (NovoLOG) PER UNIT SC SCH ×4 (06:45→22:01)
[2019-01-12] MEDS: POLYVINYL ALCOHOL OPHTH SOLN 15 ML(LIQUITEARS) OU SCH ×3 (09:00→22:00)
[2019-01-12] MEDS: DOXYCYCLINE HYCLATE 100 MG TAB PO SCH ×2 (09:00→22:00)
--- NOTE | 2019-01-12 11:52 | MHIPNPDOC ---
[facility] Progress Note Progress Note Inpatient Progress Note Elizabeth Travis MRN: N/A Date of : N/A Date of Service: 01/12/2019 History of Present Illness 68-year-old woman with a history of schizoaffective disorder presents unable to care for herself with a unhealing wound ulcer that has become severely infected. She has become increasingly more psychotic and bizarre, unable to care for herself to the point where she has placed herself in danger. Interval History Attempted to meet with patient; however, she was told too agitated and yelled at this provider. She continues to be difficult to interview; however, at times she does become more soothed. However, it's noted that her home is filled with feces and she has been unable to care for herself. Her significant other does come to visit her and she is amenable at times when he is around; however, she has been notably more mean and behavior changed per his reports. The patient has had multiple agitation episodes, although she has not needed to be coded. She still is unable to understand the danger she is placing herself and by refusing medical and psychiatric treatment. Treatment over objection continues. Review Of Systems Declines to answer. Psychotherapy None on this visit. Vital Signs Reviewed. Mental Status Examination General: Poor hygiene Speech: Tangential, pressured Thought processes: Unorganized MSK: Smooth and coordinated gait, no signs of tremors or involuntary orofacial movements Thought content: Agitated Abstract reasoning, and computation: Impaired Description of associations: Impaired Description of abnormal or psychotic thoughts: Unknown Judgment: Impaired Insight: Impaired Orientation: Alert and orientated 3 Cognition: Grossly normal Recent and remote memory: Intact Attention span and concentration: Intact Fund of knowledge: Adequate Mood: "go away" Affect: Irritable and agitated Diagnoses Schizoaffective disorder. Assessment and Plan Schizoaffective disorder: Continue to offer Haldol, treatment over objection will be continued to be pursued. Disposition Patient will need another inpatient admission in order to address her severe psychotic symptoms and inability to care for herself. Time Spent 10 minutes [id number]. Thursday Vital Signs Vital Signs Date Time Temp Pulse Resp B/P (MAP) Pulse Ox O2 Delivery O2 Flow Rate FiO2 01/12/19 06:27 97.7 63 18 125/62 (83) 01/11/19 06:25 Room Air 01/07/19 00:29 97 Current Medications Current Medications Medications (Trade) Dose Ordered Sig/Beth Route PRN Reason Start Time Stop Time Status Last Admin Dose Admin Acetaminophen (Tylenol Tab) 650 mg Q6HP PRN PO HEADACHE or DISCOMFORT 01/07/19 00:00 01/08/19 09:38 Al Hydrox/Mg Hydrox/Simethicone (Mylanta) 30 ml Q4HP PRN PO HEARTBURN/INDIGESTION 01/07/19 00:00 Artificial Tears (Akwa Tears) 2 drop QIDP PRN OU DRY EYES 01/07/19 17:00 Artificial Tears (Akwa Tears) 2 drop TID OU 01/07/19 21:00 01/10/19 15:59 Dextrose (Dextrose 50%) 25 ml ASDIRECTED PRN IV SEE LABEL COMMENTS 01/07/19 12:00 Doxycycline Hyclate (Vibramycin) 100 mg BID PO 01/07/19 12:00 01/08/19 22:26 Glucagon (Glucagon) 1 mg ASDIRECTED PRN SC SEE LABEL COMMENTS 01/07/19 12:00 Glucose (Glucose) 16 GM ASDIRECTED PRN PO SEE LABEL COMMENTS 01/07/19 12:00 Haloperidol (Haldol) 5 mg QHS PO 01/07/19 21:00 Home Med (Med Rec Complete!) ASDIRECTED XX 01/06/19 23:30 01/06/19 23:27 DC Insulin Human Lispro (HumaLOG INSULIN) See Protocol Table AC SC 01/07/19 12:00 Insulin Human Lispro (HumaLOG INSULIN) See Protocol Table QHS SC 01/07/19 21:00 Loperamide HCl (Imodium) 2 mg ASDIRECTED PRN PO DIARRHEA 01/11/19 16:45 Magnesium Hydroxide (Milk Of Magnesia) 30 ml DAILYPRN PRN PO CONSTIPATION 01/07/19 00:00 Ondansetron HCl (Zofran) 4 mg Q6HP PRN PO NAUSEA OR VOMITING 01/07/19 12:45 Pantoprazole Sodium (Protonix) 40 mg BID PO 01/07/19 21:00 01/08/19 13:46 DC 01/08/19 09:40 Tetrahydrozoline HCl (Visine) 1 drop TIDP PRN OU REDNESS/IRRITATION 01/07/19 13:00 Tramadol HCl (Ultram) 50 mg Q4H PRN PO PAIN 01/07/19 12:45 Trazodone HCl (Desyrel) 50 mg QHSP PRN PO INSOMNIA 01/07/19 00:00 Allergies Coded Allergies: latex (Verified Allergy, Mild, Rash, 06/09/18) MICHAEL LATIF DO Jan 12, 2019 11:52
[2019-01-12 16:49] VITALS: BP 131/66
[2019-01-12] MEDS: HALOPERIDOL 5 MG TAB PO SCH (22:01)
[2019-01-13] MEDS: HumaLOG INSULIN (NovoLOG) PER UNIT SC SCH ×4 (05:55→20:29)
[2019-01-13] MEDS: DOXYCYCLINE HYCLATE 100 MG TAB PO SCH ×2 (09:00→20:29)
[2019-01-13] MEDS: POLYVINYL ALCOHOL OPHTH SOLN 15 ML(LIQUITEARS) OU SCH ×4 (10:24→20:29)
--- NOTE | 2019-01-13 11:29 | MHIPNPDOC ---
[facility] Progress Note Progress Note Elizabeth Travis Inpatient Progress Note Elizabeth Travis Select Gender MRN: N/A Date of : MM/DD/YYYY Date of Service: 01/13/2019 History of Present Illness 68-year-old woman with a history of schizoaffective disorder presents unable to care for herself with a unhealing wound ulcer that has become severely infected. She has become increasingly more psychotic and bizarre, unable to care for herself to the point where she has placed herself in danger. Interval History The patient was attempted to be met with today, however, she still remains fairly agitated today and it is initially deferred. However on attempting to meet with her the second time later in the day, she was asleep in her room, very irritated with staff. The patient has generally been very irritated and lashes out verbally towards any and all providers. She has been refusing any psychiatric medications or medical medications and I believe she by nursing staff report has "no problems." She has had her visitor who generally calms her down and makes her more amenable, but she still feels that she has no psychiatric issues. She is reportedly seen yelling in her room and answering others, still bizarre and paranoid that others are out to get her. She has had no major coating or aggressive outbursts other than being verbally aggressive and refusing to cooperate with any interviews. Review Of Systems Refuses to cooperate. Psychotherapy None on this visit. Vital Signs Reviewed. Mental Status Examination General: Poor hygiene Speech: Tangential, pressured Thought processes: Unorganized MSK: Smooth and coordinated gait, no signs of tremors or involuntary orofacial movements Thought content: Agitated Abstract reasoning, and computation: Impaired Description of associations: Impaired Description of abnormal or psychotic thoughts: Unknown Judgment: Impaired Insight: Impaired Orientation: Alert and orientated 3 Cognition: Grossly normal Recent and remote memory: Intact Attention span and concentration: Intact Fund of knowledge: Adequate Mood: "go away, I don't want anything to do with you!" Affect: Irritable and agitated Diagnoses Schizoaffective disorder. Assessment and Plan Schizoaffective disorder: Continue to offer Haldol, treatment over objection will be continued to be pursued. Disposition Patient will need another inpatient admission in order to address her severe psychotic symptoms and inability to care for herself. Time Spent 5 minutes with 20 minutes of coordination of care time. Vital Signs Vital Signs Date Time Temp Pulse Resp B/P (MAP) Pulse Ox O2 Delivery O2 Flow Rate FiO2 01/12/19 16:49 98.9 85 17 131/66 (87) 01/11/19 06:25 Room Air 01/07/19 00:29 97 Laboratory Data 24H Labs Laboratory Tests 2 01/12/19 12:16: Bedside Glucose (Misc Panel) 68L 01/13/19 05:52: Bedside Glucose (Misc Panel) 84 Current Medications Current Medications Medications (Trade) Dose Ordered Sig/Beth Route PRN Reason Start Time Stop Time Status Last Admin Dose Admin Acetaminophen (Tylenol Tab) 650 mg Q6HP PRN PO HEADACHE or DISCOMFORT 01/07/19 00:00 01/08/19 09:38 Al Hydrox/Mg Hydrox/Simethicone (Mylanta) 30 ml Q4HP PRN PO HEARTBURN/INDIGESTION 01/07/19 00:00 Artificial Tears (Akwa Tears) 2 drop QIDP PRN OU DRY EYES 01/07/19 17:00 Artificial Tears (Akwa Tears) 2 drop TID OU 01/07/19 21:00 01/13/19 10:24 Dextrose (Dextrose 50%) 25 ml ASDIRECTED PRN IV SEE LABEL COMMENTS 01/07/19 12:00 Doxycycline Hyclate (Vibramycin) 100 mg BID PO 01/07/19 12:00 01/12/19 22:00 Glucagon (Glucagon) 1 mg ASDIRECTED PRN SC SEE LABEL COMMENTS 01/07/19 12:00 Glucose (Glucose) 16 GM ASDIRECTED PRN PO SEE LABEL COMMENTS 01/07/19 12:00 Haloperidol (Haldol) 5 mg QHS PO 01/07/19 21:00 Home Med (Med Rec Complete!) ASDIRECTED XX 01/06/19 23:30 01/06/19 23:27 DC Insulin Human Lispro (HumaLOG INSULIN) See Protocol Table AC SC 01/07/19 12:00 Insulin Human Lispro (HumaLOG INSULIN) See Protocol Table QHS SC 01/07/19 21:00 Loperamide HCl (Imodium) 2 mg ASDIRECTED PRN PO DIARRHEA 01/11/19 16:45 Magnesium Hydroxide (Milk Of Magnesia) 30 ml DAILYPRN PRN PO CONSTIPATION 01/07/19 00:00 Ondansetron HCl (Zofran) 4 mg Q6HP PRN PO NAUSEA OR VOMITING 01/07/19 12:45 Pantoprazole Sodium (Protonix) 40 mg BID PO 01/07/19 21:00 01/08/19 13:46 DC 01/08/19 09:40 Tetrahydrozoline HCl (Visine) 1 drop TIDP PRN OU REDNESS/IRRITATION 01/07/19 13:00 Tramadol HCl (Ultram) 50 mg Q4H PRN PO PAIN 01/07/19 12:45 Trazodone HCl (Desyrel) 50 mg QHSP PRN PO INSOMNIA 01/07/19 00:00 Allergies Coded Allergies: latex (Verified Allergy, Mild, Rash, 06/09/18) MICHAEL LATIF DO Jan 13, 2019 11:29
[2019-01-13] MEDS: HALOPERIDOL 5 MG TAB PO SCH (20:29)
[2019-01-13] MEDS: ACETAMINOPHEN TAB 650MG DOSE (2X325MG) PO PRN (21:01)
[2019-01-14] MEDS: HumaLOG INSULIN (NovoLOG) PER UNIT SC SCH ×4 (06:08→21:00)
[2019-01-14 06:56] VITALS: BP 101/50
[2019-01-14] MEDS: POLYVINYL ALCOHOL OPHTH SOLN 15 ML(LIQUITEARS) OU SCH ×3 (09:00→21:17)
[2019-01-14] MEDS: DOXYCYCLINE HYCLATE 100 MG TAB PO SCH ×2 (09:00→21:18)
--- NOTE | 2019-01-14 09:05 | MHIPNPDOC ---
[facility] Progress Note Progress Note Elizabeth Travis Inpatient Progress Note Elizabeth Travis Select Gender MRN: N/A Date of : MM/DD/YYYY Date of Service: 01/14/2019 History of Present Illness 68-year-old woman with a history of schizoaffective disorder presents unable to care for herself with a unhealing wound ulcer that has become severely infected. She has become increasingly more psychotic and bizarre, unable to care for herself to the point where she has placed herself in danger. Interval History The patient was attempted to be met with today. I went to her room with one of her nurses. She refused to meet with me stating "why would I want to talk to you." She still remains verbally agitated, but not physically so. She still is noted to be bizarre, screaming at others. She declines any interviews and is uncooperative with her treatment. She has no abuse of psychiatric and medical medications, per nursing staff, she still is unable to appreciate the severity of her conditions, both psychiatrically and medically. Review Of Systems Declines to answer. Psychotherapy None on this visit. Vital Signs Reviewed. Mental Status Examination General: Poor hygiene Speech: Limited Thought processes: Unknown MSK: Smooth and coordinated gait, no signs of tremors or involuntary orofacial movements Thought content: Irritable and angry Abstract reasoning, and computation: Impaired Description of associations: Impaired Description of abnormal or psychotic thoughts: Unknown Judgment: Impaired Insight: Impaired Orientation: Alert and orientated 3 Cognition: Grossly normal Recent and remote memory: Intact Attention span and concentration: Intact Fund of knowledge: Adequate Mood: "Get out of my room" Affect: Irritable and angry Diagnoses Schizoaffective disorder. Assessment and Plan Schizoaffective disorder: Continue to offer Haldol, treatment over objection will be continued to be pursued. Disposition Patient will need another inpatient admission in order to address her severe psychotic symptoms and inability to care for herself. Time Spent 5 minutes [id number], 20 minutes coordinating care. Vital Signs Vital Signs Date Time Temp Pulse Resp B/P (MAP) Pulse Ox O2 Delivery O2 Flow Rate FiO2 01/14/19 06:56 98.7 54 14 101/50 (67) 01/11/19 06:25 Room Air Current Medications Current Medications Medications (Trade) Dose Ordered Sig/Beth Route PRN Reason Start Time Stop Time Status Last Admin Dose Admin Acetaminophen (Tylenol Tab) 650 mg Q6HP PRN PO HEADACHE or DISCOMFORT 01/07/19 00:00 01/13/19 21:01 Al Hydrox/Mg Hydrox/Simethicone (Mylanta) 30 ml Q4HP PRN PO HEARTBURN/INDIGESTION 01/07/19 00:00 Artificial Tears (Akwa Tears) 2 drop QIDP PRN OU DRY EYES 01/07/19 17:00 Artificial Tears (Akwa Tears) 2 drop TID OU 01/07/19 21:00 01/13/19 16:53 Dextrose (Dextrose 50%) 25 ml ASDIRECTED PRN IV SEE LABEL COMMENTS 01/07/19 12:00 Doxycycline Hyclate (Vibramycin) 100 mg BID PO 01/07/19 12:00 01/12/19 22:00 Glucagon (Glucagon) 1 mg ASDIRECTED PRN SC SEE LABEL COMMENTS 01/07/19 12:00 Glucose (Glucose) 16 GM ASDIRECTED PRN PO SEE LABEL COMMENTS 01/07/19 12:00 Haloperidol (Haldol) 5 mg QHS PO 01/07/19 21:00 Home Med (Med Rec Complete!) ASDIRECTED XX 01/06/19 23:30 01/06/19 23:27 DC Insulin Human Lispro (HumaLOG INSULIN) See Protocol Table AC SC 01/07/19 12:00 Insulin Human Lispro (HumaLOG INSULIN) See Protocol Table QHS SC 01/07/19 21:00 Loperamide HCl (Imodium) 2 mg ASDIRECTED PRN PO DIARRHEA 01/11/19 16:45 Magnesium Hydroxide (Milk Of Magnesia) 30 ml DAILYPRN PRN PO CONSTIPATION 01/07/19 00:00 Miscellaneous (Unresolved Clarification Entry) SEE LABEL COMMENTS DAILY XX 01/13/19 09:00 Ondansetron HCl (Zofran) 4 mg Q6HP PRN PO NAUSEA OR VOMITING 01/07/19 12:45 Pantoprazole Sodium (Protonix) 40 mg BID PO 01/07/19 21:00 01/08/19 13:46 DC 01/08/19 09:40 Tetrahydrozoline HCl (Visine) 1 drop TIDP PRN OU REDNESS/IRRITATION 01/07/19 13:00 Tramadol HCl (Ultram) 50 mg Q4H PRN PO PAIN 01/07/19 12:45 Trazodone HCl (Desyrel) 50 mg QHSP PRN PO INSOMNIA 01/07/19 00:00 Allergies Coded Allergies: latex (Verified Allergy, Mild, Rash, 06/09/18) MICHAEL LATIF DO Jan 14, 2019 09:05
[2019-01-14] MEDS ORDERED: traMADol 50 MG TAB PO PRN (13:00)
[2019-01-14 16:04] VITALS: BP 140/67
[2019-01-14] MEDS: HALOPERIDOL 5 MG TAB PO SCH (21:00)
[2019-01-15] MEDS: HumaLOG INSULIN (NovoLOG) PER UNIT SC SCH ×4 (06:32→20:41)
[2019-01-15 06:51] VITALS: BP 94/55
[2019-01-15] MEDS: DOXYCYCLINE HYCLATE 100 MG TAB PO SCH ×2 (08:27→20:41)
[2019-01-15] MEDS: POLYVINYL ALCOHOL OPHTH SOLN 15 ML(LIQUITEARS) OU SCH ×3 (08:27→20:41)
[2019-01-15] MEDS: ACETAMINOPHEN TAB 650MG DOSE (2X325MG) PO PRN (10:11)
[2019-01-15 16:06] VITALS: BP 117/58
[2019-01-15] MEDS: HALOPERIDOL 5 MG TAB PO SCH (20:41)
[2019-01-16 06:33] VITALS: BP 129/80
[2019-01-16] MEDS: HumaLOG INSULIN (NovoLOG) PER UNIT SC SCH ×3 (06:36→16:45)
[2019-01-16] MEDS: DOXYCYCLINE HYCLATE 100 MG TAB PO SCH ×2 (09:04→22:10)
[2019-01-16] MEDS: POLYVINYL ALCOHOL OPHTH SOLN 15 ML(LIQUITEARS) OU SCH ×3 (09:04→22:10)
[2019-01-16] MEDS: HALOPERIDOL 5 MG TAB PO SCH (21:00)
[2019-01-17 06:23] VITALS: BP 140/73
[2019-01-17] MEDS: DOXYCYCLINE HYCLATE 100 MG TAB PO SCH ×2 (08:00→22:37)
[2019-01-17] MEDS: POLYVINYL ALCOHOL OPHTH SOLN 15 ML(LIQUITEARS) OU SCH ×3 (08:00→22:37)
--- NOTE | 2019-01-17 10:13 | MHIPNPDOC ---
[facility] Progress Note Progress Note Elizabeth Travis Inpatient Progress Note Elizabeth Travis Select Gender MRN: N/A Date of : MM/DD/YYYY Date of Service: 01/17/2019 History of Present Illness 68-year-old woman with a history of schizoaffective disorder presents unable to care for herself with a unhealing wound ulcer that has become severely infected. She has become increasingly more psychotic and bizarre, unable to care for herself to the point where she has placed herself in danger. Interval History The patient is interviewed today. She is more amenable to speaking. She does have multiple complaints mostly about the food reporting that she is taking her medications and requesting to leave. We are still pending a court hearing however it appears that the patient is taking her medications for her medical condition frequently but has not been taking her psychiatric medications. She has still been somewhat bizarre but has had no major agitation episodes and her leg appears to be improving with the consistent medical treatment. She appears to be benefiting from the controlled setting with her blood sugars reasonable not needing insulin. Interview is somewhat difficult as the patient perseverates on complaints and is on no current psychiatric medications. Review Of Systems Declines any physical concerns at this time. Psychotherapy None on this visit. Vital Signs Reviewed. Mental Status Examination General: Fair hygiene Speech: Fluid Thought processes: Linear, tangential at times MSK: Smooth and coordinated gait, no signs of tremors or involuntary or facial movements Thought content: Perseverative complaints Abstract reasoning, and computation: Impaired Description of associations: Impaired Description of abnormal or psychotic thoughts: Denies any suicidal or homicidal ideations. Denies any auditory or visual hallucinations. Judgment: Chronically impaired Insight: Chronically impaired Orientation: Alert and orientated 3 Cognition: Grossly normal Recent and remote memory: Intact Attention span and concentration: Intact Fund of knowledge: Adequate Mood: "I don't like that croat[place] toast" Affect: Irritable and angry Diagnoses Schizoaffective disorder. Assessment and Plan Schizoaffective disorder: Will continue to offer Haldol, however if she continues to be compliant with medical medications she would likely not be retained or treated over her objection and thus would be released. Further observation will determine if it is appropriate to continue with pursuing the treatment of her objection. Disposition Assessing whether patient will meet full involuntary criteria for treatment of her objection. Time Spent 15 minutes [id number] Vital Signs Vital Signs Date Time Temp Pulse Resp B/P (MAP) Pulse Ox O2 Delivery O2 Flow Rate FiO2 01/17/19 06:23 98.6 76 16 140/73 (95) 01/16/19 06:33 Room Air Current Medications Current Medications Medications (Trade) Dose Ordered Sig/Beth Route PRN Reason Start Time Stop Time Status Last Admin Dose Admin Acetaminophen (Tylenol Tab) 650 mg Q6HP PRN PO HEADACHE or DISCOMFORT 01/07/19 00:00 01/15/19 10:11 Al Hydrox/Mg Hydrox/Simethicone (Mylanta) 30 ml Q4HP PRN PO HEARTBURN/INDIGESTION 01/07/19 00:00 Artificial Tears (Akwa Tears) 2 drop QIDP PRN OU DRY EYES 01/07/19 17:00 01/17/19 10:12 Artificial Tears (Akwa Tears) 2 drop TID OU 01/07/19 21:00 01/17/19 08:00 Dextrose (Dextrose 50%) 25 ml ASDIRECTED PRN IV SEE LABEL COMMENTS 01/07/19 12:00 Cancel Doxycycline Hyclate (Vibramycin) 100 mg BID PO 01/07/19 12:00 01/14/19 11:59 DC 01/12/19 22:00 Doxycycline Hyclate (Vibramycin) 100 mg BID PO 01/14/19 21:00 01/17/19 08:00 Glucagon (Glucagon) 1 mg ASDIRECTED PRN SC SEE LABEL COMMENTS 01/07/19 12:00 Cancel Glucose (Glucose) 16 GM ASDIRECTED PRN PO SEE LABEL COMMENTS 01/07/19 12:00 Cancel Haloperidol (Haldol) 5 mg QHS PO 01/07/19 21:00 Home Med (Med Rec Complete!) ASDIRECTED XX 01/06/19 23:30 01/06/19 23:27 DC Insulin Human Lispro (HumaLOG INSULIN) See Protocol Table AC SC 01/07/19 12:00 01/16/19 16:54 DC Insulin Human Lispro (HumaLOG INSULIN) See Protocol Table QHS SC 01/07/19 21:00 01/16/19 16:54 DC Loperamide HCl (Imodium) 2 mg ASDIRECTED PRN PO DIARRHEA 01/11/19 16:45 Magnesium Hydroxide (Milk Of Magnesia) 30 ml DAILYPRN PRN PO CONSTIPATION 01/07/19 00:00 Miscellaneous (Unresolved Clarification Entry) SEE LABEL COMMENTS DAILY XX 01/13/19 09:00 01/14/19 13:07 DC Ondansetron HCl (Zofran) 4 mg Q6HP PRN PO NAUSEA OR VOMITING 01/07/19 12:45 Pantoprazole Sodium (Protonix) 40 mg BID PO 01/07/19 21:00 01/08/19 13:46 DC 01/08/19 09:40 Tetrahydrozoline HCl (Visine) 1 drop TIDP PRN OU REDNESS/IRRITATION 01/07/19 13:00 Tramadol HCl (Ultram) 50 mg Q4H PRN PO PAIN 01/07/19 12:45 01/14/19 12:44 DC Tramadol HCl (Ultram) 50 mg Q4HP PRN PO MODERATE PAIN (PS 5-7) 01/14/19 13:00 Trazodone HCl (Desyrel) 50 mg QHSP PRN PO INSOMNIA 01/07/19 00:00 01/17/19 00:16 Allergies Coded Allergies: latex (Verified Allergy, Mild, Rash, 06/09/18) MICHAEL LATIF DO Jan 17, 2019 10:13
[2019-01-17 16:18] VITALS: BP 123/66
[2019-01-17] MEDS: HALOPERIDOL 5 MG TAB PO SCH (21:00)
[2019-01-18 06:15] VITALS: BP 128/75
[2019-01-18] MEDS: DOXYCYCLINE HYCLATE 100 MG TAB PO SCH ×2 (08:46→21:22)
[2019-01-18] MEDS: POLYVINYL ALCOHOL OPHTH SOLN 15 ML(LIQUITEARS) OU SCH ×3 (08:47→21:23)
--- NOTE | 2019-01-18 10:16 | MHIPNPDOC ---
[facility] Progress Note Progress Note Elizabeth Travis Inpatient Progress Note Elizabeth Travis Select Gender MRN: N/A Date of : MM/DD/YYYY Date of Service: 01/18/2019 History of Present Illness 68-year-old woman with a history of schizoaffective disorder presents unable to care for herself with a unhealing wound ulcer that has become severely infected. She has become increasingly more psychotic and bizarre, unable to care for herself to the point where she has placed herself in danger. Interval History The patient was met with today. She is more amenable. It has been noticed by the treatment team, the patient is taking her doxycycline quite frequently and that she has been compliant with the medical treatment . After consideration, it appears unlikely be treated over objection as she has not had any major behavioral problems, although chronically paranoid and with a low-grade psychosis, she continues to request discharge. After discussing with the patient, she is amenable to taking her outpatient medical treatments, although she still perceives that she has no "psych problems" and has declined the Haldol constantly. After review of the treatment team's nurse, it appears that the patient has been amenable with outpatient recommendations for her continued antibiotic treatment. Review Of Systems Patient has no physical concerns. Psychotherapy None on this visit. Vital Signs Reviewed. Mental Status Examination General: Fair hygiene Speech: Fluid Thought processes: Linear, tangential at times MSK: Smooth and coordinated gait, no signs of tremors or involuntary or facial movements Thought content: Perseverative complaints Abstract reasoning, and computation: Impaired Description of associations: Impaired Description of abnormal or psychotic thoughts: Denies any suicidal or homicidal ideations. Denies any auditory or visual hallucinations. Judgment: Chronically impaired Insight: Chronically impaired Orientation: Alert and orientated 3 Cognition: Grossly normal Recent and remote memory: Intact Attention span and concentration: Intact Fund of knowledge: Adequate Mood: "I am fine going home" Affect: Less irritable Diagnoses Schizoaffective disorder. Assessment and Plan Schizoaffective disorder. We will discharge tomorrow. Patient is unlikely to be treated over her objection, due to compliance with medical treatment as she does not appear to be posing a risk to herself or others and has been compliant with medical treatments reducing the risk of self harm due to gravely disabled. Disposition discharge tomorrow. Time Spent 15 minutes. Vital Signs Vital Signs Date Time Temp Pulse Resp B/P (MAP) Pulse Ox O2 Delivery O2 Flow Rate FiO2 01/18/19 06:15 98.7 68 16 128/75 (92) Room Air 01/17/19 16:18 98 Current Medications Current Medications Medications (Trade) Dose Ordered Sig/Beth Route PRN Reason Start Time Stop Time Status Last Admin Dose Admin Acetaminophen (Tylenol Tab) 650 mg Q6HP PRN PO HEADACHE or DISCOMFORT 01/07/19 00:00 01/15/19 10:11 Al Hydrox/Mg Hydrox/Simethicone (Mylanta) 30 ml Q4HP PRN PO HEARTBURN/INDIGESTION 01/07/19 00:00 Artificial Tears (Akwa Tears) 2 drop QIDP PRN OU DRY EYES 01/07/19 17:00 01/17/19 10:12 Artificial Tears (Akwa Tears) 2 drop TID OU 01/07/19 21:00 01/18/19 08:47 Dextrose (Dextrose 50%) 25 ml ASDIRECTED PRN IV SEE LABEL COMMENTS 01/07/19 12:00 Cancel Doxycycline Hyclate (Vibramycin) 100 mg BID PO 01/07/19 12:00 01/14/19 11:59 DC 01/12/19 22:00 Doxycycline Hyclate (Vibramycin) 100 mg BID PO 01/14/19 21:00 01/18/19 08:46 Glucagon (Glucagon) 1 mg ASDIRECTED PRN SC SEE LABEL COMMENTS 01/07/19 12:00 Cancel Glucose (Glucose) 16 GM ASDIRECTED PRN PO SEE LABEL COMMENTS 01/07/19 12:00 Cancel Haloperidol (Haldol) 5 mg QHS PO 01/07/19 21:00 Home Med (Med Rec Complete!) ASDIRECTED XX 01/06/19 23:30 01/06/19 23:27 DC Insulin Human Lispro (HumaLOG INSULIN) See Protocol Table AC SC 01/07/19 12:00 01/16/19 16:54 DC Insulin Human Lispro (HumaLOG INSULIN) See Protocol Table QHS SC 01/07/19 21:00 01/16/19 16:54 DC Loperamide HCl (Imodium) 2 mg ASDIRECTED PRN PO DIARRHEA 01/11/19 16:45 Magnesium Hydroxide (Milk Of Magnesia) 30 ml DAILYPRN PRN PO CONSTIPATION 01/07/19 00:00 Miscellaneous (Unresolved Clarification Entry) SEE LABEL COMMENTS DAILY XX 01/13/19 09:00 01/14/19 13:07 DC Ondansetron HCl (Zofran) 4 mg Q6HP PRN PO NAUSEA OR VOMITING 01/07/19 12:45 Pantoprazole Sodium (Protonix) 40 mg BID PO 01/07/19 21:00 01/08/19 13:46 DC 01/08/19 09:40 Tetrahydrozoline HCl (Visine) 1 drop TIDP PRN OU REDNESS/IRRITATION 01/07/19 13:00 Tramadol HCl (Ultram) 50 mg Q4H PRN PO PAIN 01/07/19 12:45 01/14/19 12:44 DC Tramadol HCl (Ultram) 50 mg Q4HP PRN PO MODERATE PAIN (PS 5-7) 01/14/19 13:00 Trazodone HCl (Desyrel) 50 mg QHSP PRN PO INSOMNIA 01/07/19 00:00 01/17/19 00:16 Allergies Coded Allergies: latex (Verified Allergy, Mild, Rash, 06/09/18) MICHAEL LATIF DO Jan 18, 2019 10:16
[2019-01-18 15:14] VITALS: BP 136/63
[2019-01-18] MEDS: HALOPERIDOL 5 MG TAB PO SCH (21:00)
[2019-01-19 06:39] VITALS: BP 133/79
[2019-01-19] MEDS: DOXYCYCLINE HYCLATE 100 MG TAB PO SCH (08:42)
[2019-01-19] MEDS: POLYVINYL ALCOHOL OPHTH SOLN 15 ML(LIQUITEARS) OU SCH (08:43)
--- NOTE | 2019-01-19 10:13 | MHDSPDOC ---
[facility] Discharge Summary Discharge Summary DATE OF ADMISSION: Jan 06, 2019 at 23:51 DATE OF DISCHARGE: 01/19/19 Discharge Elizabeth Travis MRN: N/A Date of : N/A Date of Service: 01/19/2019 Diagnoses Schizoaffective disorder. History of Present Illness 68-year-old woman with a history of schizoaffective disorder presents unable to care for herself with a unhealing wound ulcer that has become severely infected. She has become increasingly more psychotic and bizarre, unable to care for herself to the point where she has placed herself in danger. Consultants Involved Hospitalist/PCP screening Infectious disease, doxycycline recommended. Treatment and Progress On The Unit The patient was admitted to the inpatient unit, offered Haldol, however, she refused she was paranoid and psychotic. However, she initially refused medical treatment. After pursuing treatment of her objection, the patient eventually, after a week, began to take her doxycycline consistently. She continued to be irritated and chronically psychotic. The patient eventually complied with her medical treatment enough so that it was believed by the treatment team that she would not meet criteria for treatment over her objection as she was attending to her needs and to her chronic ulcer. The patient continued to request discharge and on the day of discharge, did not meet involuntary criteria as she was cooperating with medical treatment, although to a very basic sense, preventing herself from being in imminent danger from her psychosis. She had a safe place to return to and was denying suicidal or homicidal ideation throughout her stay. Her chronic psychosis remains unchanged. She continues to decline that she has a mental health problem. She declined a further voluntary admission and was discharged to [facility]. Discharge Assessment 68-year-old woman who has chronic psychosis, however, her psychosis at times will impair her ability to care for herself, however, despite having no treatment, she did eventually come to agree with the treatment team that she needs to take the prescribed antibiotics for her chronic ulcer. She is prescribed a 2-week supply in order to get her to her outpatient primary care who will then continue to decide whether she will use it. Mental Status Examination General: Fair hygiene Speech: Fluid Thought processes: Linear, tangential at times MSK: Smooth and coordinated gait, no signs of tremors or involuntary or facial movements Thought content: Perseverative complaints Abstract reasoning, and computation: Impaired Description of associations: Impaired Description of abnormal or psychotic thoughts: Denies any suicidal or homicidal ideations. Denies any auditory or visual hallucinations. Judgment: Chronically impaired Insight: Chronically impaired Orientation: Alert and orientated 3 Cognition: Grossly normal Recent and remote memory: Intact Attention span and concentration: Intact Fund of knowledge: Adequate Mood: "I am fine going home" Affect: Less irritable Follow Up The social work team worked during the predischarge meeting in order to evaluate for further issues of lethality address them fully before discharge. They worked on safety planning with the patient's family members in order to ensure that the patient will have a safe and effective discharge. Time Spent The amount of time spent in the coordination of care for this patient was approximately 30 minutes. Thursday Vital Signs/I&Os Vital Signs Date Time Temp Pulse Resp B/P (MAP) Pulse Ox O2 Delivery O2 Flow Rate FiO2 01/19/19 06:39 97.4 63 16 133/79 (97) 01/18/19 06:15 Room Air 01/17/19 16:18 98 Laboratory Data Microbiology Microbiology 01/10/19 Gram Stain - Final, Complete 01/10/19 Wound Culture - Final, Complete Pseudomonas Aeruginosa Proteus Mirabilis Staphylococcus Aureus Medications Scheduled Doxycycline Hyclate (Doxycycline Hyclate) 100 Mg Tablet, 100 MG PO BID for infection for 14 Days, #28 Allergies Coded Allergies: latex (Verified Allergy, Mild, Rash, 06/09/18) MICHAEL LATIF DO Jan 19, 2019 10:13
[2019-01-19] MEDS ORDERED: DOXY100T PO (10:55)
== END 2019-01-19 11:15 | disposition home or self-care (01) | DRG 885 ==
LOC: M ED 15:51 → M ED INP 23:51 → M PSY 01-07 00:34
PROVIDERS: ADMIT Psychiatry & Neurology Psychiatry; ATTEND Psychiatry & Neurology Addiction Medicine
DX: F25.9 Schizoaffective disorder, unspecified (principal); L97.928 Non-pressure chronic ulcer of unspecified part of left lower leg with other specified severity; E87.2 Acidosis; M86.662 Other chronic osteomyelitis, left tibia and fibula; Z91.040 Latex allergy status; I87.2 Venous insufficiency (chronic) (peripheral); E11.65 Type 2 diabetes mellitus with hyperglycemia; I10 Essential (primary) hypertension; D63.8 Anemia in other chronic diseases classified elsewhere; H04.123 Dry eye syndrome of bilateral lacrimal glands; B95.61 Methicillin susceptible Staphylococcus aureus infection as the cause of diseases classified elsewhere

== ENCOUNTER 2020-03-24 23:09 | Emergency (ER) | payer MEDICARE, MEDICAID, OTHER ==
[~2020-03-24 23:09] MED LIST changes: +DOXY100T PO; -SULF1TAB72 PO; +SULF400T14 PO
[2020-03-24] MEDS ORDERED: ACETAMINOPHEN TAB 650MG DOSE (2X325MG) PO ONE (23:45)
[2020-03-25 01:21] VITALS: BP 139/81
== END 2020-03-25 01:24 | disposition home or self-care (01) ==
LOC: M ED 23:09
DX: Z60.9 Problem related to social environment, unspecified (principal); D64.9 Anemia, unspecified; F06.30 Mood disorder due to known physiological condition, unspecified; L97.909 Non-pressure chronic ulcer of unspecified part of unspecified lower leg with unspecified severity; F17.200 Nicotine dependence, unspecified, uncomplicated

== ENCOUNTER 2020-03-26 02:39 | Emergency (ER) | payer MEDICARE, MEDICAID, OTHER | END 2020-03-26 03:29 | disposition left against medical advice (07) | LOC: M ED 02:39 | DX: Z53.21 Procedure and treatment not carried out due to patient leaving prior to being seen by health care provider (principal) ==

== ENCOUNTER 2020-06-22 00:17 | Emergency (ER) | payer MEDICARE, MEDICAID, OTHER ==
[~2020-06-22] VITALS: Ht 165.1 cm; Wt 56.5 kg
[2020-06-22 00:18] VITALS: BP 127/63
[2020-06-22] MEDS ORDERED: ASPI-1 PO (01:38)
== END 2020-06-22 06:16 | disposition left against medical advice (07) ==
LOC: M ED 00:17
DX: Z60.9 Problem related to social environment, unspecified (principal); Z53.8 Procedure and treatment not carried out for other reasons; F20.9 Schizophrenia, unspecified; Z79.82 Long term (current) use of aspirin; Z91.040 Latex allergy status

== ENCOUNTER 2020-07-02 17:16 | Emergency (ER) | payer MEDICARE, MEDICAID, OTHER ==
[~2020-07-02] VITALS: Ht 157.5 cm; Wt 60.6 kg
[~2020-07-02 17:16] MED LIST changes: +ASPI-1 PO
[2020-07-02 17:17] VITALS: BP 144/96
== END 2020-07-02 20:07 | disposition left against medical advice (07) ==
LOC: M ED 17:16
DX: Z53.21 Procedure and treatment not carried out due to patient leaving prior to being seen by health care provider (principal)

== ENCOUNTER 2020-08-16 19:23 | Inpatient (IN) | payer MEDICARE, MEDICAID, OTHER ==
[~2020-08-16] VITALS: Ht 165.1 cm; Wt 69.2 kg
[2020-08-16] MEDS ORDERED: VANCOMYCIN HCL 1,250 MG in IV FLUID PLACE HOLDER 1 EA IV ONE (21:25)
[2020-08-16] MEDS ORDERED: VANCOMYCIN HCL 500 MG in D5W MINI-BAG PLUS 100 ML IV ONE (21:35)
[2020-08-16] MEDS ORDERED: VANCOMYCIN HCL 750 MG, VIAL MATE ADAPTER 1 EACH in NS 250 ML IV ONE (21:35)
[2020-08-16 22:38] LABS: BASO # 0.1 10^3/uL (0.0-0.2); BASO % 0.7 % (0.0-1.0); EOS # 0.1 10^3/uL (0.0-0.5); EOS % 0.9 % (0.0-3.0); HEMATOCRIT 31.6 % (36.0-47.0); LYMPH # 1.3 10^3/uL (1.5-5.0); LYMPH % 16.4 % (24.0-44.0); MEAN CORPUSCULAR HEMOGLOBIN 22.2 pg (27.0-33.0); MEAN CORPUSCULAR HGB CONC 28.5 g/dl (32.0-36.5); MEAN CORPUSCULAR VOLUME 77.8 fl (80.0-96.0); MONO % 12.7 % (2.0-8.0); NEUTROPHILS # 5.5 10^3/uL (1.5-8.5); NEUTROPHILS % 68.8 % (36.0-66.0); PLATELET COUNT, AUTOMATED 378 10^3/uL (150-450); RED BLOOD COUNT 4.06 10^6/uL (4.00-5.40)
[2020-08-16 22:56] LABS: ERYTHROCYTE SEDIMENTATION RATE 57 mm/hr (0-30)
--- NOTE | 2020-08-16 23:06 | REPVR ---
PROCEDURE INFORMATION: Exam: XR Left Ankle Exam date and time: 08/16/20 (9:50pm) Age: 70 years old Clinical indication: Wounds all over. Possible osteomyelitis. TECHNIQUE: Imaging protocol: XR Left ankle Views: 3 or more views COMPARISON: US Duplex, Ext, LOWER veins, unilat of 03/19/17 FINDINGS: No acute fracture nor dislocation. Diffuse osteopenia. Soft tissue swelling anteriorly and laterally at the left ankle. Soft tissue lucency adjacent to the distal left fibula and posterior to the left ankle and at the distal left calf -- cannot exclude soft tissue air. No bone destruction nor erosive changes. IMPRESSION: Soft tissue swelling at the left ankle. Diffuse osteopenia. No bone destruction nor erosive changes. Possible faint soft tissue air (see comments above). Cannot totally exclude osteomyelitis. Further evaluation with nuclear medicine bone scan and/or MRI scan can be considered, as felt warranted. Electronically signed by: Denia Holder On 08/16/2020 23:06:25 PM
--- NOTE | 2020-08-16 23:11 | REPVR ---
PROCEDURE INFORMATION: Exam: XR Left Foot Exam date and time: 08/16/20 (9:53pm) Age: 70 years old Clinical indication: Wounds all over. Possible osteomyelitis. TECHNIQUE: Imaging protocol: XR Left foot Views: 3 or more views COMPARISON: US Duplex, Ext, LOWER veins, unilat of 03/19/17 FINDINGS: No acute fracture nor dislocation. Plantar calcaneal spur (1 cm length). Diffuse bony demineralization. No definite bone destruction nor erosive changes. No abnormal soft tissue air collections. Four (4) metallic clips or sutures project over the soft tissues of the distal left calf. IMPRESSION: Diffuse bony demineralization. No definite bone destruction nor erosive changes. No definite plain film evidence of osteomyelitis. Electronically signed by: Denia Holder On 08/16/2020 23:11:15 PM
[2020-08-17 00:31] LABS: RSV AMPLIFICATION NEGATIVE (NEGATIVE)
[2020-08-17] MEDS ORDERED: ASPI325T42 PO (01:51)
[2020-08-17] MEDS ORDERED: VANCOMYCIN HCL 500 MG in D5W MINI-BAG PLUS 100 ML IV SCH (02:00)
[2020-08-17] MEDS ORDERED: MAALOX 30 ML SUSP *UDC PO PRN (02:00)
[2020-08-17] MEDS ORDERED: MOM 30ML SUSPENSION UDC PO PRN (02:00)
[2020-08-17] MEDS ORDERED: ACETAMINOPHEN TAB 650MG DOSE (2X325MG) PO PRN (02:00)
[2020-08-17] MEDS ORDERED: GLUCOSE 4GM CHEW TABLET PO PRN (02:45)
[2020-08-17] MEDS ORDERED: DEXTROSE 50% 50 ML SYRINGE IV PRN (02:45)
[2020-08-17] MEDS ORDERED: GLUCAGON INJ 1MG VIAL SC PRN (02:45)
[2020-08-17] MEDS ORDERED: ULTRACET TAB PO PRN (02:50)
[2020-08-17] MEDS ORDERED: PERCOCET 5MG/325MG TAB PO PRN (02:50)
--- NOTE | 2020-08-17 04:56 | HPEPDOC ---
General Date of Admission 08/17/20 Date of Service: Aug 17, 2020 Chief Complaint The patient is a 70-year-old female admitted with a reason for visit of WOUND. Source: Patient, RN/MD, Old records Exam Limitations: Other (behavior) Timing/Duration: Unsure, Getting worse Severity: Severe Associated Symptoms: Other (Pain) History of Present Illness Ms. Perry Hinson, is a 70 year-old female admitted to [facility] with non-healing ulcerated left diabetic foot ulcer (stasis), acute exacerbation Schizophrenia, and lactic acidosis, non-compliant with medical regimen presents to [facility] ER with severe left foot pain. She reports she did not follow up with outpatient wound clinic nor with podiatry after she was discharged from [facility] approximately 9 months prior to this visit. During her previous hospitalization her left ankle and foot chronic,non-healing diabetic stasis ulcer was cultured and tested positive for moderate gram negative rods with few gram positive cocci, Pseudomonas Aeruginosa with heavy growth, Proteus Mirabilis with heavy growth and Staphylococcus aureus with heavy growth as well December. Patient will be admitted to Inpatient Medical-Surgical Unit with IV Vancomycin (pharmacy to dose) antibiotics and Zosyn IV 3.375 mg q 8 hours. Proj Engineer will follow up with patient in the morning. Home Medications Scheduled PRN Aspirin (Aspirin EC) 325 Mg Tablet.dr, 650 MG PO Q6H PRN for HEADACHE OR PAIN, (Reported) Allergies Coded Allergies: latex (Verified Allergy, Mild, Rash, 08/16/20) A-FIB/CHADSVASC A-FIB History Current/History of A-Fib/PAF?: No Review of Systems Constitutional: Reports: Malaise, Weakness, Fatigue, Weight Loss, Lethargy, Other; Denies: Chills, Fever, Night Sweats Eyes: Denies: Pain, Vision change ENT: Denies: Head Aches, Ear Pain, Dysphagia Skin: Reports: Breakdown; Denies: Rash, Lesions Pulmonary: Denies: Dyspnea, Cough Cardiovascular: Denies: Chest Pain, Palpitations, Orthopnea, Paroxysmal Noc. Dyspnea, Lt Headedness Gastrointestinal: Denies: Nausea, Vomiting, Abdominal Pain, Diarrhea Genitourinary: Denies: Dysuria, Frequency, Incontinence, Retention Hematologic: Denies: Bruising, Bleeding Excessively Musculoskeletal: Reports: Foot Pain, Joint Pain (patient uncooperative for full assessment) Neurological: Denies: Weakness, Numbness, Change in speech, Confusion Psych: Reports: Anxiety, Other Psych (Schizophrenia (chart review)) Physical Examination General Exam: Positive: Alert, No Acute Distress Eye Exam: Positive: Conjunctiva & lids normal ENT Exam: Positive: Atraumatic, Mucous membr. moist/pink Chest Exam: Positive: Clear to auscultation, Normal air movement Heart Exam: Positive: Normal S1, Normal S2 Extremity Exam: Positive: Edema (Left ankle and foot), Tenderness (Left ankle and foot), Swelling (Left ankle and foot with fat layer exposed from ulcer (nonhealing)) Skin Exam: Positive: Rash, Breakdown, Other skin issue (Left ankle and foot erythematous, painful to mild touch, multiple white to yellow scabs present, skin scaling and peeling) Neuro Exam: Positive: Normal Speech Psych Exam: Positive: Anxiety, Other (Angry and uncooperative) Vital Signs Vital Signs Date Time Temp Pulse Resp B/P (MAP) Pulse Ox O2 Delivery O2 Flow Rate FiO2 08/16/20 19:52 98.2 92 18 127/57 96 Room Air Laboratory Data Labs 24H Laboratory Tests 2 08/16/20 22:17: Immature Granulocyte % (Auto) 0.5, Neutrophils (%) (Auto) 68.8H, Lymphocytes (%) (Auto) 16.4L, Monocytes (%) (Auto) 12.7H, Eosinophils (%) (Auto) 0.9, Basophils (%) (Auto) 0.7, Neutrophils # (Auto) 5.5, Lymphocytes # (Auto) 1.3L, Monocytes # (Auto) 1.0H, Eosinophils # (Auto) 0.1, Basophils # (Auto) 0.1, Nucleated Red Blood Cells % (auto) 0.0, Erythrocyte Sedimentation Rate 57H, Lactic Acid Level 2.4*H, C-Reactive Protein, Quantitative 3.00H 08/16/20 22:28: POC Glucose (Misc Panel) 101, POC Sodium (Misc Panel) 138, POC Potassium (Misc Panel) 3.9, POC Chloride (Misc Panel) 100, POC Total CO2 (Misc Panel) 27.0, POC Blood Urea Nitrogen (Misc Panel 15, POC Ionized Calcium (Misc Panel) 4.8, POC Creatinine (Misc Panel) 0.9, POC Hematocrit (Misc Panel) 30.0L 08/16/20 23:43: Coronavirus (COVID-19)(PCR) NEGATIVE, Influenza Type A (RT-PCR) NEGATIVE, Influenza Type B (RT-PCR) NEGATIVE, Respiratory Syncytial Virus (PCR) NEGATIVE CBC/BMP Laboratory Tests 08/16/20 22:17 Microbiology Microbiology 08/16/20 Blood Culture, Received Pending 08/16/20 Blood Culture, Received Pending Problems (1) Diabetic foot ulcer associated with type 2 diabetes mellitus, with fat layer exposed Status: Chronic Response to Treatment: Worse Discussed With: Patient Problem Specific Plan: Consult Specialist, Monitor Clinically, Repeat Labs Problem Text: Ms. Perry Hinson, is a 70 year-old female admitted to [facility] with non-healing ulcerated left diabetic foot ulcer (stasis), acute exacerbation Schizophrenia, and lactic acidosis. Plan Admit to Inpatient Medical-Surgical unit (telemetry if she allows monitoring) IV antibiotics: Will continue Vancomycin with pharmacy to dose and add Zosyn 3. 375 mg IV q 8 hours Podiatry consulted and will see patient in the morning Bedrest tonight and may ambulate as tolerated tomorrow morning Diabetic diet Wound care consult will be necessary if Podiatry recommend it Check AM labs, monitor renal function creatinine; Procalcitonin, Mag, CBC w differential and CMP, blood culture ordered and pending. Sliding Scale insulin AC &HS POC glucose check AC & HS Initiate hypoglycemia protocol Initiate bowel regimen Pain management: Percocet 5-325 mg po q 6 hours prn severe pain; Tramadol/Apap 37.5325 mg 1 po q 4 hours moderate pain 5-7 and Acetaminophen 650 mg po [id number] prn mild pain 1-3 and or fever Acute Exacerbation of Schizophrenia-Acute on Chronic Psychiatry to evaluate patient if morning provider determines necessary reports she does not take any medications at home Acute lactic acidosis-Acute IV Fluid resuscitation Re-check Lactic Acid level Essential Hypertension-chronic does not take medication at home Full Code PFS-may need placement or nurse for wound care at home PPI Prophylaxis: not warranted DVT Prophylaxis: Lovenox 40 mg SQ TID Discharge: pending may need to be transferred over to Psychiatry services once medically cleared/stable (2) Chronic ulcer of left ankle with fat layer exposed Status: Chronic Response to Treatment: Worse Problem Specific Plan: Monitor Clinically (3) Schizophrenia, undifferentiated, acute episode Status: Acute (4) Venous stasis Status: Chronic Response to Treatment: Worse Problem Specific Plan: Repeat Labs (5) Lactic acid acidosis Status: Acute (6) Schizoaffective disorder, bipolar type Status: Chronic Response to Treatment: Uncontrolled Problem Specific Plan: Monitor Clinically (7) Cellulitis of left leg Status: Chronic Response to Treatment: Worse (8) Uncontrolled diabetes mellitus Status: Chronic Problem Specific Plan: Monitor Clinically, Repeat Labs (9) Noncompliance with medication regimen Status: Chronic Problem Specific Plan: Monitor Clinically, Repeat Labs Plan / VTE VTE Prophylaxis Ordered?: Yes Plan IVF: Continue Activity: Encourage Ambulation Therapy: Home Safety Eval, Wound Consult Pt and Family Services: Home Care, Other PFS (patient unable to take care of wound herself, needs possible placement long-term) Medications: Bowel Regimen, Start Antibiotics Diagnostics: Check Labs, Repeat Labs in AM, Obtain Cultures TASIA ONTIVEROSP Aug 17, 2020 03:51
[2020-08-17] MEDS ORDERED: PIPERACILLIN/TAZOBACTAM SOD 3.375 GM in D5W MINI-BAG PLUS 50 ML IV SCH (05:00)
[2020-08-17] MEDS: PIPERACILLIN/TAZOBACTAM SOD 3.375 GM in D5W MINI-BAG PLUS 50 ML IV SCH ×3 (05:48→17:47)
[2020-08-17 06:00] VITALS: BP 151/88
[2020-08-17 06:03] LABS: BASO # 0.1 10^3/uL (0.0-0.2); BASO % 0.8 % (0.0-1.0); EOS # 0.2 10^3/uL (0.0-0.5); EOS % 2.4 % (0.0-3.0); HEMATOCRIT 33.2 % (36.0-47.0); HEMOGLOBIN 9.3 g/dl (12.0-15.5); LYMPH # 1.4 10^3/uL (1.5-5.0); MEAN CORPUSCULAR VOLUME 78.5 fl (80.0-96.0); MONO # 0.9 10^3/uL (0.0-0.8); MONO % 12.3 % (2.0-8.0); NEUTROPHILS # 4.6 10^3/uL (1.5-8.5); NEUTROPHILS % 64.1 % (36.0-66.0); PLATELET COUNT, AUTOMATED 376 10^3/uL (150-450); RED BLOOD COUNT 4.23 10^6/uL (4.00-5.40); WHITE BLOOD COUNT 7.2 10^3/uL (4.0-10.0)
[2020-08-17] MEDS: HumaLOG INSULIN (NovoLOG) PER UNIT SC SCH ×3 (07:30→17:30)
[2020-08-17] MEDS: DOCUSATE SODIUM 100MG CAPSULE PO SCH ×2 (08:13→20:34)
[2020-08-17] MEDS ORDERED: ENOXAPARIN 40MG/0.4ML SYRINGE (J1650 PER 10MG) SC SCH (09:00)
[2020-08-17] MEDS ORDERED: VANCOMYCIN HCL 1,000 MG, VIAL MATE ADAPTER 1 EACH in NS 250 ML IV SCH (12:00)
[2020-08-17 14:29] VITALS: BP 134/56
[2020-08-17] MEDS ORDERED: LevoFLOXacin 750 MG TABLET PO SCH (18:00)
--- NOTE | 2020-08-17 20:07 | CR ---
INFECTIOUS DISEASE CONSULTATION DATE: 08/17/2020 REASON FOR CONSULTATION: Chronic venous ulcers left leg. HISTORY OF PRESENT ILLNESS: Mrs. Perry Hinson is a 70-year-old female with a history of schizophrenia, who came in yesterday with complaints of increasing pain in her left foot. The patient has had a history of non-healing venous ulcer of the left leg for about 20 years. She presented to the Emergency Room complaining of severe left foot pain. She denied having any fever or chills. She has not been seen at the wound clinic for over a year or by podiatry. The patient was seen by myself in consultation in 2019 for a similar complaint and cultures in the past have grown pseudomonas aeruginosa, Proteus mirabilis and Staph Aureus. The patient was started on I.V. Vancomycin and Zosyn. She is wondering when she is able to go home because she does not want to be in the hospital anymore. She states pain has markedly improved since she got wound care and I.V. antibiotics. When I ask her what triggered this worsening pain, she stated that rats in the motel bit her in March. She denies any nausea, vomiting, diarrhea, cough, shortness of breath or other complaints. MEDICATIONS: Aspirin 325 mg daily. ALLERGIES: Latex. REVIEW OF SYSTEMS: She has had no fever, chills, nausea, vomiting, diarrhea, abdominal pain. No upper or lower extremity weakness. She has complaints of left foot pain. PHYSICAL EXAMINATION: GENERAL: She is paranoid, has some anger issues, in no acute distress. VITAL SIGNS: Temperature 98.4, pulse 76, respirations 20, blood pressure 134/56, O2 sat 95% on room air. HEART: Normal S1, S2. No murmurs, rubs or gallops. LUNGS: Clear. No wheezes, rales or rhonchi. ABDOMEN: Soft, nontender. No hepatosplenomegaly. EXTREMITIES: No cyanosis, clubbing or edema. Left leg has multiple varicose veins. Multiple ulcerations of her leg; the largest one is laterally above the lateral malleolus measuring about 8 x 4 cm, mostly with granulation tissue. Below it there is another ulcer measuring about 3 x 2 cm with some purulent discharge. At the mid upper part of the foot, there is an oval shape ulceration measuring 4 x 2 cm that has minimal purulent discharge as well. Right leg with no ulcerations. LABORATORY DATA: White count 7.2, hemoglobin 9.3, hematocrit 33.2, platelets 376,000, 64% neutrophils, 20% lymphocytes, 12% monocytes. ESR 57. Sodium 138, potassium 3.9, chloride 100, bicarb 27, BUN 15, creatinine 0.9. Hematocrit 30. Glucose has been between 97 and 158. The patient states that she would like some more fluid, they have not been giving her enough carbs. SARS-CoV2, Influenza A, B and RSV negative. Wound cultures and blood cultures are pending. Lactic acid was 2.4 down to 1.7 and CRP 3. IMAGING STUDIES: X-ray of the foot and the ankle show diffuse bony mineralization with no definite bone destruction and no definite osteomyelitis. IMPRESSION: This is a 70-year-old female with a history of chronic venous stasis ulcers for at least 20 years with varicose veins of the left leg, history of noncompliance, schizophrenia, does not like the wound clinic as it costs her too much money to take the bus to go to the wound clinic every week and has not been seen since July of 2019. The patient is admitted for increasing foot pain, but it seems to me it is be more of a social admission. She states that the hotel she is in is very dirty, that there have been rats biting her. I do not see any acute indication for infection at this point. The wound is probably chronically colonized with pseudomonas, Staph Aureus, gram negative and I do not see any indication for I.V. antibiotics such as Vancomycin and Zosyn. PLAN: Discontinue I.V. Vancomycin and I.V. Zosyn, switch to Levofloxacin 750 mg p.o. daily. Refer back to the wound clinic, possibly arrange for transportation. Advance diet to regular. Patient does not want to be on a consistent carb diet. Her glucose has been fairly controlled. The patient would benefit from VAshe washe, cleaning and wound care. Possibly a consultation with Dr. Prakash if she is still present on Thursday, otherwise this could be arranged as an outpatient as long as she has transportation. RONEN
[2020-08-17] MEDS ORDERED: HumaLOG INSULIN (NovoLOG) PER UNIT SC SCH (21:00)
[2020-08-17 22:00] VITALS: BP 138/75
--- NOTE | 2020-08-17 23:32 | REPVR ---
PROCEDURE INFORMATION: Exam: MR Left Lower Extremity Without Contrast, Tibia Fibula Exam date and time: 08/17/2020 10:25 PM Age: 70 years old Clinical indication: Condition or disease; Other: Chronic ulcer with HX of osteo; Additional info: Om, chronic ulcer TECHNIQUE: Imaging protocol: MR of the Left lower extremity without contrast. Exam focused on the tibia and fibula. COMPARISON: XA Tibia, Fibula lower leg LEFT 01/07/2019 12:24 PM FINDINGS: Subcutaneous varices are present, and there is subcutaneous edema over the anterolateral and anterior leg, with multiple skin defects and bandage material. There may have been a fasciotomy over the lateral compartment of the leg. No organized fluid collection. Normal muscle signal and morphology. No evidence of myositis, abscess or hematoma. Chronic appearing mature periostitis involving the fibula. No cortical erosion or subperiosteal abscess. No marrow edema/replacement to suggest osteomyelitis. Tibia demonstrates normal cortical contours and marrow signal overall, with mild residual hematopoietic elements in the proximal tibia. IMPRESSION: Soft tissue defects and edema over the anterior, medial and lateral aspects of the leg without evidence of abscess osteomyelitis or muscular compartment infection Electronically signed by: Obed Jackson On 08/17/2020 23:31:53 PM
[2020-08-18 05:40] LABS: BASO # 0.1 10^3/uL (0.0-0.2); BASO % 1.4 % (0.0-1.0); EOS # 0.2 10^3/uL (0.0-0.5); EOS % 4.1 % (0.0-3.0); HEMATOCRIT 32.1 % (36.0-47.0); HEMOGLOBIN 8.9 g/dl (12.0-15.5); LYMPH # 1.2 10^3/uL (1.5-5.0); LYMPH % 23.4 % (24.0-44.0); MEAN CORPUSCULAR HEMOGLOBIN 22.1 pg (27.0-33.0); MEAN CORPUSCULAR HGB CONC 27.7 g/dl (32.0-36.5); MEAN CORPUSCULAR VOLUME 79.7 fl (80.0-96.0); MONO # 0.7 10^3/uL (0.0-0.8); MONO % 12.9 % (2.0-8.0); PLATELET COUNT, AUTOMATED 342 10^3/uL (150-450); RED BLOOD COUNT 4.03 10^6/uL (4.00-5.40); WHITE BLOOD COUNT 5.1 10^3/uL (4.0-10.0)
[2020-08-18 05:58] LABS: BLOOD UREA NITROGEN 13 MG/DL (7-18); CALCIUM LEVEL 8.5 MG/DL (8.8-10.2); CARBON DIOXIDE LEVEL 27 MEQ/L (21-32); CHLORIDE LEVEL 109 MEQ/L (98-107); CREATININE FOR GFR 0.62 MG/DL (0.55-1.30); GLOMERULAR FILTRATION RATE > 60.0 (>45); GLUCOSE, FASTING 109 MG/DL (70-100); POTASSIUM SERUM 4.6 MEQ/L (3.5-5.1); SODIUM LEVEL 139 MEQ/L (136-145)
[2020-08-18 06:00] VITALS: BP 143/77
[2020-08-18] MEDS: DOCUSATE SODIUM 100MG CAPSULE PO SCH (09:00)
--- NOTE | 2020-08-18 10:57 | IPNPDOC ---
Subjective Date Seen The patient was seen on 08/18/20. Subjective Chief Complaint/HPI Complains of pain in the left leg, ankle and foot causing difficulty in bearing weight. She says in the house she uses a cane but does not use it outside and does not want anyone to see her using a cane. She was hallucinating at night as per nurses and gets easily aggravated but again calms down quickly. Objective Physical Examination General Exam: Positive: Alert, Cooperative, No Acute Distress Eye Exam: Positive: Conjunctiva & lids normal ENT Exam: Positive: Atraumatic, Mucous membr. moist/pink Neck Exam: Positive: Supple; Negative: JVD Chest Exam: Positive: Clear to auscultation, Normal air movement Heart Exam: Positive: Rate Normal, Regular Rhythm, Normal S1, Normal S2; Negative: Murmurs, Rubs Abdomen Exam: Positive: Normal bowel sounds, Soft; Negative: Tenderness Extremity Exam: Positive: Edema (Left ankle and foot), Tenderness (left leg and ankle), Swelling (left ankle) Skin Exam: Positive: Rash, Breakdown (there are 2 superficial ulcers on the left leg on the lateral aspect and the front. ), Other skin issue (Left ankle and foot swollen, painful to mild touch, multiple white to yellow scabs present, skin scaling and peeling) Neuro Exam: Positive: Normal Speech Psych Exam: Positive: Anxiety, Other (Angry and uncooperative) Assessment /Plan Assessment This is a 68-year-old female with a history of schizophrenia with multiple admissions to [facility], bilateral varicose veins, impaired glucose tolerance, chronic left leg venous ulcer for at least 20 years with 2 skin grafts there in the past. Over the last several weeks the ulcer has become worse with more drainage and more pain in the leg causing her to have difficulty walking so she came to the emergency room for evaluation. She was found to have left her leg cellulitis with chronic ulcer. Left leg chronic Venous stasis ulcer with cellulitis MRI of the left leg negative for osteomyelitis. wound culture Blood cultures neg till date Appreciate ID consult. Antibiotic changed to levofloxacin . Schizophrenia Untreated. As per nurses she was hallucinating at night , talking to people not there but was not agitated or combative. this causes compliance issues. Does want to follow up with physicians, does not want to take medications Plan/VTE VTE Prophylaxis Ordered?: Yes Plan IVF: Continue Activity: Encourage Ambulation Therapy: Home Safety Eval, Wound Consult Pt and Family Services: Home Care, Other PFS (patient unable to take care of wound herself, needs possible placement long-term) Medications: Bowel Regimen, Start Antibiotics Diagnostics: Check Labs, Repeat Labs in AM, Obtain Cultures VS, I&O, 24H, Fishbone Vital Signs/I&O Vital Signs Date Time Temp Pulse Resp B/P (MAP) Pulse Ox O2 Delivery O2 Flow Rate FiO2 08/17/20 22:00 97.9 79 17 138/75 (96) 97 Room Air I&O- Last 24 Hours up to 6 AM 08/18/20 07:00 Intake Total 1890 ml Output Total 500 ml Balance 1390 ml Laboratory Data 24H LABS Laboratory Tests 2 08/17/20 07:27: Bedside Glucose (Misc Panel) 158H 08/17/20 11:51: Bedside Glucose (Misc Panel) 97 08/17/20 17:32: Bedside Glucose (Misc Panel) 124H 08/17/20 19:51: Bedside Glucose (Misc Panel) 130H 08/18/20 05:07: Immature Granulocyte % (Auto) 0.2, Neutrophils (%) (Auto) 58.0, Lymphocytes (%) (Auto) 23.4L, Monocytes (%) (Auto) 12.9H, Eosinophils (%) (Auto) 4.1H, Basophils (%) (Auto) 1.4H, Neutrophils # (Auto) 3.0, Lymphocytes # (Auto) 1.2L, Monocytes # (Auto) 0.7, Eosinophils # (Auto) 0.2, Basophils # (Auto) 0.1, Nucleated Red Blood Cells % (auto) 0.0, Anion Gap 3L, Glomerular Filtration Rate > 60.0, Calcium Level 8.5L, Magnesium Level 2.0 CBC/BMP Laboratory Tests 08/18/20 05:07 Microbiology Microbiology 08/17/20 Gram Stain, Received Pending 08/17/20 Wound Culture, Received Pending 08/16/20 Blood Culture - Preliminary, Resulted No growth after 24 hours . All specim... 08/16/20 Blood Culture - Preliminary, Resulted No growth after 24 hours . All specim... ROSEMARY MERCHANT MD Aug 18, 2020 06:31
--- NOTE | 2020-08-18 11:19 | CR ---
CONSULTATION DATE: 08/18/2020 REASON FOR CONSULTATION: Left leg ulceration. HISTORY OF PRESENT ILLNESS: Miss Hinson is a patient who was admitted through the ER with worsening pain of her left foot and leg. She has chronic ulcerations. She is unsure how long but estimates greater than 20 years. She had previously been seen at the wound care center but has not gone in quite some time due to transportation concerns. PAST MEDICAL HISTORY: Significant for schizophrenia. PAST SURGICAL HISTORY: None. ALLERGIES: LATEX. REVIEW OF SYSTEMS: She denies nausea, vomiting, fever or chills. Vitals are reviewed. She has remained afebrile. LABORATORY DATA: Reviewed. White blood cell count is 5.1, ESR on admission 57. CRP is 3. Wound culture grew gram positive cocci in clusters and positive rods. Final report is pending. IMAGING STUDIES: Negative for osteomyelitis or abscess. Lower extremity examination: There is a circumferential wound with some superificial slough around the left leg. No purulence or necrotic tissue. ASSESSMENT: A 70-year-old female with left leg chronic ulceration. PLAN: Recommend Vashe, dressing changes and an Optilock to be performed daily. Infectious disease has been consulted who recommend Levaquin. I agree. She does not need further debridement or long-term IV antibiotics. The patient can be discharged. She should have followup with Dr. Prakash.
[2020-08-18] MEDS ORDERED: LEVO750T13 PO (14:45)
[2020-08-18] MEDS ORDERED: LevoFLOXacin 750 MG TABLET PO SCH (14:50)
[2020-08-18 15:07] LABS: FERRITIN 8 NG/ML (8-252)
--- NOTE | 2020-08-19 12:17 | DS.PDOC ---
Discharge Summary General Date of Admission Aug 17, 2020 at 01:59 Date of Discharge 08/18/20 Discharge Summary PROCEDURES PERFORMED DURING STAY: [None]. DISCHARGE DIAGNOSES: Left leg chronic Venous stasis ulcer with cellulitis Schizophrenia Noncompliance COMPLICATIONS/CHIEF COMPLAINT: Chronic Ulcer Of Left Ankle With Fat Layer Exposed. HOSPITAL COURSE: This is a 68-year-old female with a history of schizophrenia with multiple admissions to [facility], bilateral varicose veins, impaired glucose tolerance, chronic left leg venous ulcer for at least 20 years with 2 skin grafts there in the past. Over the last several weeks the ulcer has become worse with more drainage and more pain in the leg causing her to have difficulty walking so she came to the emergency room for evaluation. She was found to have left her leg cellulitis with chronic ulcer. Left leg chronic Venous stasis ulcer with cellulitis MRI of the left leg negative for osteomyelitis. wound culture Blood cultures neg till date Appreciate ID consult. Antibiotic changed to levofloxacin Wound culture with MSSA and corynebacterium Dressing with Vashe x 10 mins then optilock and kerlex. Some Supplies given to patient. Follow up with [facility]. I doubt patient is going to follow up with wound center. Schizophrenia Untreated. As per nurses she was hallucinating at night , talking to people not there but was not agitated or combative. this causes compliance issues. Does want to follow up with physicians, does not want to take medications DISCHARGE MEDICATIONS: Please see below. ALLERGIES: Please see below. PHYSICAL EXAMINATION ON DISCHARGE: VITAL SIGNS: Please see below. General Exam: Positive: Alert, Cooperative, No Acute Distress Eye Exam: Positive: Conjunctiva & lids normal ENT Exam: Positive: Atraumatic, Mucous membr. moist/pink Neck Exam: Positive: Supple; Negative: JVD Chest Exam: Positive: Clear to auscultation, Normal air movement Heart Exam: Positive: Rate Normal, Regular Rhythm, Normal S1, Normal S2; Negative: Murmurs, Rubs Abdomen Exam: Positive: Normal bowel sounds, Soft; Negative: Tenderness Extremity Exam: Positive: Edema (Left ankle and foot), Tenderness (left leg and ankle), Swelling (left ankle) Skin Exam: Positive: Rash, Breakdown (there are 2 superficial ulcers on the left leg on the lateral aspect and the front. ), Other skin issue (Left ankle and foot swollen, painful to mild touch, multiple white to yellow scabs present, skin scaling and peeling) Neuro Exam: Positive: Normal Speech Psych Exam: Positive: Anxiety, Other (Angry and uncooperative) LABORATORY DATA: Please see below. IMAGING: MRI Left leg: FINDINGS: Subcutaneous varices are present, and there is subcutaneous edema over the anterolateral and anterior leg, with multiple skin defects and bandage material. There may have been a fasciotomy over the lateral compartment of the leg. No organized fluid collection. Normal muscle signal and morphology. No evidence of myositis, abscess or hematoma. Chronic appearing mature periostitis involving the fibula. No cortical erosion or subperiosteal abscess. No marrow edema/replacement to suggest osteomyelitis. Tibia demonstrates normal cortical contours and marrow signal overall, with mild residual hematopoietic elements in the proximal tibia. IMPRESSION: Soft tissue defects and edema over the anterior, medial and lateral aspects of the leg without evidence of abscess osteomyelitis or muscular compartment infection ACTIVITY: [As tolerated]. DIET: regular DISPOSITION: 01 Home, Self-Care. DISCHARGE INSTRUCTIONS: Follow up PMD in [address] Prakash in [address] Galdamez in 2 to 3 weeks. DISCHARGE CONDITION: [Stable]. TIME SPENT ON DISCHARGE: 35 minutes. Vital Signs/I&Os Vital Signs Date Time Temp Pulse Resp B/P (MAP) Pulse Ox O2 Delivery O2 Flow Rate FiO2 08/18/20 06:00 98.0 71 18 143/77 (99) 97 Room Air I&O- Last 24 Hours up to 6 AM 08/19/20 06:00 Intake Total 1110 ml Output Total 0 ml Balance 1110 ml Microbiology Microbiology 08/17/20 Gram Stain - Final, Complete 08/17/20 Wound Culture - Final, Complete Staphylococcus Aureus Corynebacterium Species 08/16/20 Blood Culture - Preliminary, Resulted No Growth after 48 hours. All Specime... 08/16/20 Blood Culture - Preliminary, Resulted No Growth after 48 hours. All Specime... Discharge Medications Scheduled Levofloxacin (Levofloxacin) 750 Mg Tablet, 750 MG PO DAILY@1800 Scheduled PRN Aspirin (Aspirin EC) 325 Mg Tablet.dr, 650 MG PO Q6H PRN for HEADACHE OR PAIN, (Reported) Allergies Coded Allergies: latex (Verified Allergy, Mild, Rash, 08/16/20) ROSEMARY MERCHANT MD Aug 19, 2020 12:17
== END 2020-08-18 18:34 | disposition home or self-care (01) | DRG 638 ==
LOC: M ED 19:23 → M ED INP 08-17 01:59 → ENRESERV 08-17 03:25 → M MSPAV 08-17 03:56
PROVIDERS: ADMIT Family Medicine; ATTEND Internal Medicine Nephrology
DX: E11.621 Type 2 diabetes mellitus with foot ulcer (principal); L97.322 Non-pressure chronic ulcer of left ankle with fat layer exposed; E87.2 Acidosis; L03.116 Cellulitis of left lower limb; F23 Brief psychotic disorder; Z91.14 Patient's other noncompliance with medication regimen; B95.61 Methicillin susceptible Staphylococcus aureus infection as the cause of diseases classified elsewhere; Z91.040 Latex allergy status

== ENCOUNTER 2020-12-11 14:48 | Emergency (ER) | payer MEDICAID, MEDICARE, OTHER ==
[~2020-12-11 14:48] MED LIST changes: +ASPI325T42 PO; +LEVO750T13 PO
[2020-12-11 15:20] VITALS: BP 165/86
== END 2020-12-11 15:56 | disposition home or self-care (01) ==
LOC: EDBD 14:48 → M ED 14:48
DX: S81.801S Unspecified open wound, right lower leg, sequela (principal); X58.XXXA Exposure to other specified factors, initial encounter; Y92.9 Unspecified place or not applicable; Y93.9 Activity, unspecified; Y99.9 Unspecified external cause status; F20.9 Schizophrenia, unspecified; Z91.19 Patient's noncompliance with other medical treatment and regimen; Z91.040 Latex allergy status

== ENCOUNTER 2020-12-28 15:43 | Emergency (ER) | payer OTHER ==
--- OUTSIDE RECORDS SUMMARY | 2020-12-28 15:48 | CCD ---
Author Author [facility] Organization [facility] Address Unknown Phone Unavailable Care Team Providers Care Transplant Case Manager Name Role Phone Guanaco AVENDANO MD Unavailable Unavailable Guanaco AVENDANO MD Unavailable Unavailable Guanaco AVENDANO MD Unavailable Unavailable Guanaco AVENDANO MD Unavailable Unavailable Guanaco AVENDANO MD Unavailable Unavailable Guanaco AVENDANO MD Unavailable Unavailable Guanaco AVENDANO MD Unavailable Unavailable Guanaco AVENDANO MD Unavailable Unavailable Guanaco AVENDANO MD Unavailable Unavailable Guanaco AVENDANO MD Unavailable Unavailable Guanaco AVENDANO MD Unavailable Unavailable Guanaco AVENDANO MD Unavailable Unavailable Guanaco AVENDANO MD Unavailable Unavailable Guanaco AVENDANO MD Unavailable Unavailable Guanaco AVENDANO MD Unavailable Unavailable Guanaco AVENDANO MD Unavailable Unavailable Guanaco AVENDANO MD Unavailable Unavailable Guanaco AVENDANO MD Unavailable Unavailable Guanaco AVENDANO MD Unavailable Unavailable Guanaco AVENDANO MD Unavailable Unavailable Guanaco AVENDANO MD Unavailable Unavailable Guanaco AVENDANO MD Unavailable Unavailable Guanaco AVENDANO MD Unavailable Unavailable Guanaco AVENDANO MD Unavailable Unavailable Guanaco AVENDANO MD Unavailable Unavailable Gaunaco AVENDANO MD Unavailable Unavailable Guanaco AVENDANO MD Unavailable Unavailable Guanaco AVENDANO MD Unavailable Unavailable Guanaco AVENDANO MD Unavailable Unavailable Guanaco AVENDANO MD Unavailable Unavailable Guanaco AVENDANO MD Unavailable Unavailable Guanaco AVENDANO MD Unavailable Unavailable Guanaco AVENDANO MD Unavailable Unavailable Guanaco AVENDANO MD Unavailable Unavailable Guanaco AVENDANO MD Unavailable Unavailable Guanaco AVENDANO MD Unavailable Unavailable Guanaco AVENDANO MD Unavailable Unavailable Guanaco AVENDANO MD Unavailable Unavailable Guanaco AVENDANO MD Unavailable Unavailable Guanaco AVENDANO MD Unavailable Unavailable Guaanco AVENDANO MD Unavailable Unavailable Guanaco AVENDANO MD Unavailable Unavailable Guanaco AVENDANO MD Unavailable Unavailable Guanaco AVENDANO MD Unavailable Unavailable Guanaco AVENDANO MD Unavailable Unavailable Guanaco AVENDANO MD Unavailable Unavailable Guanaco AVENDANO MD Unavailable Unavailable Guanaco AVENDANO MD Unavailable Unavailable Guanaco AVENDANO MD Unavailable Unavailable Guanaco AVENDANO MD Unavailable Unavailable Guanaco AVENDANO MD Unavailable Unavailable Guanaco AVENDANO MD Unavailable Unavailable Guanaco AVENDANO MD Unavailable Unavailable Guanaco AVENDANO MD Unavailable Unavailable Guanaco AVENDANO MD Unavailable Unavailable Guanaco AVENDANO MD Unavailable Unavailable Guanaco AVENDANO MD Unavailable Unavailable Guanaco AVENDANO MD Unavailable Unavailable Guanaco AVENDANO MD Unavailable Unavailable Guanaco AVENDANO MD Unavailable Unavailable Guanaco AVENDANO MD Unavailable Unavailable Guanaco AVENDANO MD Unavailable Unavailable Guanaco AVENDANO MD Unavailable Unavailable Guanaco AVENDANO MD Unavailable Unavailable Guanaco AVENDANO MD Unavailable Unavailable Guanaco AVENDANO MD Unavailable Unavailable Guanaco AVENDANO MD Unavailable Unavailable Guanaco AVENDANO MD Unavailable Unavailable Guanaco AVENDANO MD Unavailable Unavailable Guanaco AVENDANO MD Unavailable Unavailable Guanaco AVENDANO MD Unavailable Unavailable Guanaco AVENDANO MD Unavailable Unavailable Guanaco AVENDANO MD Unavailable Unavailable Guanaco AVENDANO MD Unavailable Unavailable Guanaco AVENDANO MD Unavailable Unavailable Guanaco AVENDANO MD Unavailable Unavailable Guanaco AVENDANO MD Unavailable Unavailable Guanaco AVENDANO MD Unavailable Unavailable Guanaco AVENDANO MD Unavailable Unavailable Guanaco AVENDANO MD Unavailable Unavailable Guanaco AVENDANO MD Unavailable Unavailable Guanaco AVENDANO MD Unavailable Unavailable Guanaco AVENDANO MD Unavailable Unavailable Guanaco AVENDANO MD Unavailable Unavailable JUAN ALBERTO, Guanaco FLEMING MD Unavailable Unavailable JUAN ALBERTO, Guanaco FLEMING MD Unavailable Unavailable JUAN ALBERTO, Guanaco FLEMING MD Unavailable Unavailable JUAN ALBERTO, Guanaco FLEMING MD Unavailable Unavailable JUAN ALBERTO, Guanaco FLEMING MD Unavailable Unavailable DEFAULT, PROVIDER Unavailable Unavailable Re-disclosure Warning The records that you are about to access may contain information from federally-assisted alcohol or drug abuse programs. If such information is present, then the following federally mandated warning applies: This information has been disclosed to you from records protected by federal confidentiality rules (42 CFR part 2). The federal rules prohibit you from making any further disclosure of this information unless further disclosure is expressly permitted by the written consent of the person to whom it pertains or as otherwise permitted by 42 CFR part 2. A general authorization for the release of medical or other information is NOT sufficient for this purpose. The Federal rules restrict any use of the information to criminally investigate or prosecute any alcohol or drug abuse patient.The records that you are about to access may contain highly sensitive health information, the redisclosure of which is protected by Article 27-F of the [facility] Public Health law. If you continue you may have access to information: Regarding HIV / AIDS; Provided by facilities licensed or operated by the [facility] Office of Mental Health; or Provided by the [facility] Office for People With Developmental Disabilities. If such information is present, then the following [facility] mandated warning applies: This information has been disclosed to you from confidential records which are protected by state law. State law prohibits you from making any further disclosure of this information without the specific written consent of the person to whom it pertains, or as otherwise permitted by law. Any unauthorized further disclosure in violation of state law may result in a fine or residential sentence or both. A general authorization for the release of medical or other information is NOT sufficient authorization for further disc losure. Encounters Encounter Providers Location Date Indications Data Source(s ) Outpatient Attender: PROVIDER DEFAULT 10/22/2020 08:27:44 AM EDT [facility] Outpatient Attender: LONNIE AVENDANO MD 12/09/2019 08:01:14 P M EDT [facility] Medications No Information Insurance Providers Payer name Policy type / Coverage type Policy ID Covered democrat ID Covered democrat's relationship to gonzalez Policy Gonzalez Plan Information [facility] [id number] S [id number] Medicare P [id number] S [id number] MEDICARE COMPLETE [id number] SP [id number] [employer] Plans P [id number] S [id number] Medicare P [id number] S [id number] MEDICARE COMPLETE [id number] SP [id number] MEDICARE BLUE PPO 306 [id number] SP [id number] [place] [id number] SP [id number] [facility] [id number] SP [id number] [employer] Plans P [id number] S [id number] Self Pay P none S none [facility] Secure Horizons P [id number] S [id number] MEDICARE COMPLETE[facility] O [id number] S [id number] UHC MEDICARE MCR [id number] A [id number] MEDICARE [id number] SP [id number] MEDICARE COMPLETE [id number] SP [id number] ANSI-Medicare Part B [id number] Self Pay P UNAVAILABLE S UNAVAILA BLE Medicare P UNAVAILABLE S UNAVAILA BLE ANSI-Medicare Part B [id number] ANSI-Medicare Part B [id number] ANSI-Medicare Part B [id number] [facility] [id number] SP [id number] ANSI-Medicare Part B [id number] ANSI-Medicare Part B [id number] ANSI-Medicare Part B [id number] HU[employer] GOLD [id number] SP [id number] ANSI-Medicare Part B [id number] ANSI-Medicare Part B [id number] ANSI-Medicare Part B [id number] MEDICARE COMPLETE [id number] SP [id number] MEDICARE [id number] SP [id number] A [facility] [id number] SP [id number] [facility] [id number] SP [id number] [facility] OFFICE OF MENTAL HEALTH [id number] S [id number] [facility] OFFICE OF MENTAL HEALTH [id number] S [id number] MEDICARE [id number] SP [id number] A [employer] P [id number] S [id number] MCRB [id number] S [id number] A MEDICARE [id number] S [id number] A MCRB [id number] S [id number] A MEDICARE [id number] S [id number] A MEDICAID [id number] S [id number] ANSI-Medicare Part B [id number] HUMA[employer] GOLD [id number] SP [id number] [id number] SP [id number] M MEDICARE [id number] SP [id number] MEDICARE COMPLETE [id number] SP [id number] [employer] GOLD [id number] SP [id number] Problems, Conditions, and Diagnoses No Information Surgeries/Procedures No Information Results ID Date Data Source [id number] 08/16/2020 11:43:00 PM EDT [facility] Name Value Range Interpretation Code Description Data Charlene rce(s) Supporting Document(s) SARS coronavirus 2 RNA [Presence] in Res piratory specimen by ANGIE with probe detection NEGATIVE [facility] This lab was ordered by [facility] a nd reported by [facility]. Procedure Social History No Information
--- OUTSIDE RECORDS SUMMARY | 2020-12-28 16:15 | CCD ---
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 If you continue you may have access to information: Regarding HIV / AIDS; Provided by facilities licensed or operated by the [facility] Office of Mental Health; or Provided by the [facility] Office for People With Developmental Disabilities. If such information is present, then the following [facility] mandated warning applies: This information has been [...] law may result in a fine or halfway sentence or both. A general authorization for the release of medical or other information is NOT sufficient authorization for further disc losure. Encounters Encounter Providers Location Date Indications Data Source(s ) Outpatient Attender: PROVIDER DEFAULT 10/22/2020 08:27:44 AM EDT [facility] Outpatient Attender: LONNIE AVENDANO MD 12/09/2019 08:01:14 P M EDT [facility] Medications No Information Insurance Providers Payer name Policy type / Coverage type Policy ID Covered alliance party ID Covered alliance party's relationship to gonzalez Policy Gonzalez Plan Information [facility] [id number] S [id number] Medicare P [id number] S [id number] MEDICARE COMPLETE [id number] SP [id number] [employer] Plans P [id number] S [id number] Medicare P [id number] S [id number] R27 MEDICARE COMPLETE [id number] SP [id number] MEDICARE BLUE PPO 306 [id number] SP [id number] [place] [id number] SP [id number] [facility] [id number] SP [id number] Hum[employer] Plans P [id number] S [id number] Self Pay P none S none [facility] Secure Horizons P [id number] S [id number] MEDICARE COMPLETE[facility] O [id number] S [id number] UHC MEDICARE MCR [id number] A [id number] MEDICARE [id number] SP [id number] MEDICARE COMPLETE [id number] SP [id number] ANSI-Medicare Part B [id number] Self Pay P UNAVAILABLE S UNAVAILA BLE Medicare P UNAVAILABLE S UNAVAILA BLE ANSI-Medicare Part B [id number] ANSI-Medicare Part B [id number] ANSI-Medicare Part B [id number] [facility] [id number] SP [id number] ANSI-Medicare Part B [id number] ANSI-Medicare Part B [id number] ANSI-Medicare Part B [id number] HUMANA GOLD [id number] SP [id number] ANSI-Medicare Part B [id number] ANSI-Medicare Part B [id number] ANSI-Medicare Part B [id number] MEDICARE COMPLETE [id number] SP [id number] MEDICARE [id number] SP [id number] A [facility] [id number] SP [id number] [facility] [id number] SP [id number] [facility] OFFICE OF MENTAL HEALTH [id number] S [id number] [facility] OFFICE OF MENTAL HEALTH [id number] S [id number] MEDICARE [id number] SP [id number] A [employer] P [id number] S [id number] [id number] MCRB [id number] S [id number] A MEDICARE [id number] S [id number] A MCRB [id number] S [id number] A MEDICARE [id number] S [id number] A MEDICAID [id number] S [id number] ANSI-Medicare Part B [id number] HUMANA GOLD [id number] SP [id number] [place] [id number] SP [id number] M MEDICARE [id number] SP [id number] MEDICARE COMPLETE [id number] SP [id number] [employer] GOLD [id number] SP [id number] Problems, Conditions, and Diagnoses No Information Surgeries/Procedures No Information Results ID Date Data Source [id number] 08/16/2020 11:43:00 PM EDT [facility] Name Value Range Interpretation Code Description Data Charlene rce(s) Supporting Document(s) SARS coronavirus 2 RNA [Presence] in Res piratory specimen by ANGIE with probe detection NEGATIVE [facility] This lab was ordered by [facility] a nd reported by [facility]. Procedure Social History No Information
--- NOTE | 2020-12-28 17:01 | REP ---
INDICATION: wound. COMPARISON: 07/16/2018 TECHNIQUE: AP and lateral FINDINGS: The bones are demineralized status quo. 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 There is no evidence of an acute fracture. Plantar and retrocalcaneal heel spurs are again identified status quo. IMPRESSION: No acute osseous abnormality or significant change compared to the prior exam. <Electronically signed by Elbert Rivera > 12/28/20 [id number]
[2020-12-28 17:33] LABS: BASO # 0.1 10^3/uL (0.0-0.2); BASO % 1.3 % (0.0-1.0); EOS # 0.2 10^3/uL (0.0-0.5); EOS % 3.4 % (0.0-3.0); HEMATOCRIT 33.5 % (36.0-47.0); HEMOGLOBIN 9.7 g/dl (12.0-15.5); LYMPH # 1.1 10^3/uL (1.5-5.0); MEAN CORPUSCULAR HEMOGLOBIN 23.8 pg (27.0-33.0); MEAN CORPUSCULAR VOLUME 82.1 fl (80.0-96.0); MONO # 0.5 10^3/uL (0.0-0.8); MONO % 9.6 % (2.0-8.0); NEUTROPHILS # 3.4 10^3/uL (1.5-8.5); NEUTROPHILS % 64.1 % (36.0-66.0); PLATELET COUNT, AUTOMATED 328 10^3/uL (150-450); RED BLOOD COUNT 4.08 10^6/uL (4.00-5.40); WHITE BLOOD COUNT 5.3 10^3/uL (4.0-10.0)
[2020-12-28 17:53] LABS: ERYTHROCYTE SEDIMENTATION RATE 56 mm/hr (0-30)
[2020-12-28 18:03] LABS: ALBUMIN 2.6 GM/DL (3.2-5.2); ALT/SGPT 13 U/L (12-78); BILIRUBIN,DIRECT < 0.1 MG/DL (0.0-0.2); BILIRUBIN,TOTAL 0.2 MG/DL (0.2-1.0); BLOOD UREA NITROGEN 12 MG/DL (7-18); C REACTIVE PROTEIN QUANTITATIV 1.32 MG/DL (0.00-0.30); CALCIUM LEVEL 8.3 MG/DL (8.8-10.2); CARBON DIOXIDE LEVEL 27 MEQ/L (21-32); CHLORIDE LEVEL 113 MEQ/L (98-107); CREATININE FOR GFR 0.73 MG/DL (0.55-1.30); GLOMERULAR FILTRATION RATE > 60.0 (>45); GLUCOSE, FASTING 90 MG/DL (70-100); POTASSIUM SERUM 4.2 MEQ/L (3.5-5.1); SODIUM LEVEL 143 MEQ/L (136-145); TOTAL PROTEIN 6.4 GM/DL (6.4-8.2)
[2020-12-28] MEDS ORDERED: OLANZapine INTRAMUSCULAR 10MG VIAL IM ONE (19:00)
[2020-12-29] MEDS ORDERED: HOME MED LIST COMPLETE! XX SCH (00:10)
[2020-12-29 06:59] VITALS: BP 138/73
[2020-12-29 11:38] LABS: APPEARANCE, URINE CLEAR (CLEAR); BACTERIA, URINE AUTO NEGATIVE (NEGATIVE); BILIRUBIN, URINE AUTO NEGATIVE (NEGATIVE); BLOOD, URINE BLOOD NEGATIVE (NEGATIVE); COLOR, URINE STRAW (YELLOW); GLUCOSE, URINE (UA) AUTO NEGATIVE (NEGATIVE); KETONE, URINE AUTO NEGATIVE (NEGATIVE); LEUKOCYTE ESTERASE, URINE AUTO NEGATIVE (NEGATIVE); MUCUS, URINE SMALL (NEGATIVE); NITRITE, URINE AUTO NEGATIVE (NEGATIVE); PROTEIN, URINE AUTO NEGATIVE (NEGATIVE); RBC, URINE AUTO 1 /HPF (0-3); SPECIFIC GRAVITY URINE AUTO 1.012 (1.002-1.035); SQUAMOUS EPITHELIAL CELL UR AU 0 /HPF (0-6); UROBILINOGEN, URINE AUTO 0.2 mg/dL (0.0-2.0); WBC, URINE AUTO 0 /HPF (0-3)
== END 2020-12-29 12:36 | disposition home or self-care (01) ==
LOC: M ED 15:43
DX: F20.9 Schizophrenia, unspecified (principal); L97.909 Non-pressure chronic ulcer of unspecified part of unspecified lower leg with unspecified severity; Z91.040 Latex allergy status

== ENCOUNTER 2021-05-27 13:51 | Emergency (ER) | payer OTHER ==
[2021-05-27] MEDS ORDERED: BACITRACIN OINTMENT 30GM TUBE TOP ONE (18:05)
[2021-05-27 18:21] VITALS: BP 143/76
== END 2021-05-27 19:18 | disposition home or self-care (01) ==
LOC: M ED 13:51
DX: L97.329 Non-pressure chronic ulcer of left ankle with unspecified severity (principal); Z91.19 Patient's noncompliance with other medical treatment and regimen; F17.200 Nicotine dependence, unspecified, uncomplicated; Z91.040 Latex allergy status

== ENCOUNTER 2021-05-30 14:30 | Emergency (ER) | payer OTHER ==
[~2021-05-30] VITALS: Ht 167.6 cm; Wt 50.0 kg
[2021-05-30 22:54] VITALS: BP 152/76
== END 2021-05-30 22:56 | disposition home or self-care (01) ==
LOC: M ED 14:30
DX: L97.329 Non-pressure chronic ulcer of left ankle with unspecified severity (principal); Z86.718 Personal history of other venous thrombosis and embolism; K57.92 Diverticulitis of intestine, part unspecified, without perforation or abscess without bleeding; K21.9 Gastro-esophageal reflux disease without esophagitis; E03.9 Hypothyroidism, unspecified; Z91.040 Latex allergy status

== ENCOUNTER 2021-08-15 09:11 | Emergency (ER) | payer OTHER ==
[~2021-08-15] VITALS: Ht 165.1 cm; Wt 44.0 kg
[2021-08-15 09:29] VITALS: BP 118/60
[2021-08-15 14:23] LABS: BASO % 0.4 % (0.0-1.0); HEMATOCRIT 38.7 % (36.0-47.0); HEMOGLOBIN 11.6 g/dl (12.0-15.5); LYMPH # 0.8 10^3/uL (1.5-5.0); LYMPH % 10.8 % (24.0-44.0); MEAN CORPUSCULAR HEMOGLOBIN 25.7 pg (27.0-33.0); MEAN CORPUSCULAR VOLUME 85.8 fl (80.0-96.0); MONO # 0.7 10^3/uL (0.0-0.8); MONO % 9.5 % (2.0-8.0); NEUTROPHILS # 5.6 10^3/uL (1.5-8.5); NEUTROPHILS % 78.9 % (36.0-66.0); PLATELET COUNT, AUTOMATED 361 10^3/uL (150-450); RED BLOOD COUNT 4.51 10^6/uL (4.00-5.40); WHITE BLOOD COUNT 7.1 10^3/uL (4.0-10.0)
[2021-08-15 14:45] LABS: ERYTHROCYTE SEDIMENTATION RATE 80 mm/hr (0-30)
[2021-08-15 14:46] LABS: BLOOD UREA NITROGEN 10 MG/DL (7-18); C REACTIVE PROTEIN QUANTITATIV 7.62 MG/DL (0.00-0.30); CALCIUM LEVEL 8.6 MG/DL (8.8-10.2); CARBON DIOXIDE LEVEL 28 MEQ/L (21-32); CHLORIDE LEVEL 100 MEQ/L (98-107); CREATININE FOR GFR 0.78 MG/DL (0.55-1.30); GLOMERULAR FILTRATION RATE > 60.0 (>45); GLUCOSE, FASTING 101 MG/DL (70-100); POTASSIUM SERUM 4.1 MEQ/L (3.5-5.1); SODIUM LEVEL 133 MEQ/L (136-145)
[2021-08-15] MEDS ORDERED: NS 1,320 ML in IV 1 EA IV ONE (15:00)
== END 2021-08-15 15:09 | disposition left against medical advice (07) ==
LOC: M ED 09:11
DX: M54.9 Dorsalgia, unspecified (principal); F17.210 Nicotine dependence, cigarettes, uncomplicated

== ENCOUNTER 2021-08-26 13:25 | Emergency (ER) | payer OTHER ==
[~2021-08-26] VITALS: Ht 165.1 cm; Wt 47.6 kg
[2021-08-26] MEDS ORDERED: DOXY-443 PO (14:51)
[2021-08-26 15:30] VITALS: BP 182/86
== END 2021-08-26 15:31 | disposition home or self-care (01) ==
LOC: M ED 13:25
DX: L03.116 Cellulitis of left lower limb (principal); L97.822 Non-pressure chronic ulcer of other part of left lower leg with fat layer exposed; K21.9 Gastro-esophageal reflux disease without esophagitis; E03.9 Hypothyroidism, unspecified; F41.9 Anxiety disorder, unspecified; F32.9 Major depressive disorder, single episode, unspecified; F29 Unspecified psychosis not due to a substance or known physiological condition; F25.9 Schizoaffective disorder, unspecified; F17.200 Nicotine dependence, unspecified, uncomplicated; Z91.040 Latex allergy status

== ENCOUNTER 2021-08-30 11:45 | Inpatient (IN) | payer OTHER ==
[~2021-08-30] VITALS: Ht 165.1 cm; Wt 46.6 kg
[~2021-08-30 11:45] MED LIST changes: +DOXY-443 PO
[2021-08-30] MEDS ORDERED: HALOPERIDOL 5MG/ML VIAL (J1630 PER 1) IM ONE (14:10)
[2021-08-30] MEDS ORDERED: LORazepam 2 MG/ML VIAL IM ONE (14:10)
[2021-08-30] MEDS ORDERED: LORazepam 2 MG/ML VIAL As Ordered ONE (14:23)
[2021-08-30 16:34] LABS: BASO # 0.1 10^3/uL (0.0-0.2); BASO % 1.3 % (0.0-1.0); EOS % 0.6 % (0.0-3.0); HEMATOCRIT 36.7 % (36.0-47.0); HEMOGLOBIN 10.7 g/dl (12.0-15.5); LYMPH # 1.2 10^3/uL (1.5-5.0); LYMPH % 25.3 % (24.0-44.0); MEAN CORPUSCULAR HEMOGLOBIN 25.3 pg (27.0-33.0); MEAN CORPUSCULAR HGB CONC 29.2 g/dl (32.0-36.5); MEAN CORPUSCULAR VOLUME 86.8 fl (80.0-96.0); MONO # 0.5 10^3/uL (0.0-0.8); MONO % 9.6 % (2.0-8.0); NEUTROPHILS # 2.9 10^3/uL (1.5-8.5); PLATELET COUNT, AUTOMATED 425 10^3/uL (150-450); RED BLOOD COUNT 4.23 10^6/uL (4.00-5.40); WHITE BLOOD COUNT 4.7 10^3/uL (4.0-10.0)
[2021-08-30] MEDS ORDERED: DOXY-350 PO (17:12)
[2021-08-30] MEDS ORDERED: HOME MED LIST COMPLETE! XX SCH (17:15)
[2021-08-30 17:17] LABS: ACETAMINOPHEN LEVEL < 2.0 UG/ML (10.0-30.0); ALBUMIN 2.5 GM/DL (3.2-5.2); ALT/SGPT 14 U/L (12-78); BILIRUBIN,DIRECT 0.1 MG/DL (0.0-0.2); BILIRUBIN,TOTAL 0.6 MG/DL (0.2-1.0); BLOOD UREA NITROGEN 12 MG/DL (7-18); CALCIUM LEVEL 9.2 MG/DL (8.8-10.2); CARBON DIOXIDE LEVEL 22 MEQ/L (21-32); CHLORIDE LEVEL 113 MEQ/L (98-107); CREATININE FOR GFR 0.57 MG/DL (0.55-1.30); ETHYL ALCOHOL (ETHANOL) < 0.003 % (0.000-0.010); GLOMERULAR FILTRATION RATE > 60.0 (>45); GLUCOSE, FASTING 97 MG/DL (70-100); POTASSIUM SERUM 4.3 MEQ/L (3.5-5.1); SALICYLATE LEVEL 3.2 MG/DL (5.0-30.0); SODIUM LEVEL 144 MEQ/L (136-145); TOTAL PROTEIN 7.6 GM/DL (6.4-8.2)
[2021-08-30] MEDS ORDERED: ceFAZolin SOD 1 GM in D5W MINI-BAG PLUS 50 ML IV ONE (17:50)
[2021-08-30 18:35] LABS: RSV AMPLIFICATION NEGATIVE (NEGATIVE)
[2021-08-30] MEDS ORDERED: OLANZapine INTRAMUSCULAR 10MG VIAL IM PRN (19:05)
[2021-08-30] MEDS ORDERED: LevoFLOXacin IV 750 MG in IV 1 EA IV SCH (20:00)
[2021-08-30 20:39] LABS: AMPHETAMINES LEVEL URINE NEGATIVE (NEGATIVE); BARBITURATES URINE NEGATIVE (NEGATIVE); BENZODIAZEPINES URINE NEGATIVE (NEGATIVE); CANNABINOIDS URINE NEGATIVE (NEGATIVE); COCAINE METABOLITE URINE NEGATIVE (NEGATIVE); METHADONE URINE NEGATIVE (NEGATIVE); OPIATES URINE NEGATIVE (NEGATIVE); PHENCYCLIDINE URINE NEGATIVE (NEGATIVE)
[2021-08-30 21:57] VITALS: BP 143/77
[2021-08-31] MEDS ORDERED: CEFUROXIME 500 MG TAB PO ONE (01:40)
[2021-08-31 05:19] VITALS: BP 160/90
[2021-08-31] MEDS ORDERED: DOXYCYCLINE HYCLATE 100MG TABLET PO ONE (06:00)
[2021-08-31] MEDS ORDERED: CEFTAROLINE FOSAMIL 600 MG in D5W MINI-BAG PLUS 50 ML IV SCH (06:00)
[2021-08-31 06:39] LABS: HEMATOCRIT 34.3 % (36.0-47.0); HEMOGLOBIN 10.1 g/dl (12.0-15.5); MEAN CORPUSCULAR HEMOGLOBIN 25.7 pg (27.0-33.0); MEAN CORPUSCULAR HGB CONC 29.4 g/dl (32.0-36.5); MEAN CORPUSCULAR VOLUME 87.3 fl (80.0-96.0); PLATELET COUNT, AUTOMATED 415 10^3/uL (150-450); RED BLOOD COUNT 3.93 10^6/uL (4.00-5.40); WHITE BLOOD COUNT 5.1 10^3/uL (4.0-10.0)
[2021-08-31 07:17] LABS: BLOOD UREA NITROGEN 10 MG/DL (7-18); CALCIUM LEVEL 8.8 MG/DL (8.8-10.2); CARBON DIOXIDE LEVEL 24 MEQ/L (21-32); CHLORIDE LEVEL 106 MEQ/L (98-107); CREATININE FOR GFR 0.67 MG/DL (0.55-1.30); FREE T4 0.98 NG/DL (0.76-1.46); GLOMERULAR FILTRATION RATE > 60.0 (>45); GLUCOSE, FASTING 178 MG/DL (70-100); POTASSIUM SERUM 4.2 MEQ/L (3.5-5.1); SODIUM LEVEL 139 MEQ/L (136-145)
[2021-08-31] MEDS: ENOXAPARIN 40MG/0.4ML SYRINGE (J1650 PER 10MG) SC SCH (09:00)
[2021-08-31] MEDS: DOXYCYCLINE HYCLATE 100MG TABLET PO SCH ×2 (09:04→20:03)
[2021-08-31 14:00] VITALS: BP 118/59
[2021-08-31] MEDS: LevoFLOXacin 750 MG TABLET PO SCH (20:03)
[2021-08-31 20:55] VITALS: BP 132/61
[2021-09-01] MEDS: ACETAMINOPHEN TAB 650MG DOSE (2X325MG) PO PRN ×3 (00:45→20:26)
[2021-09-01 07:08] LABS: HEMATOCRIT 32.2 % (36.0-47.0); HEMOGLOBIN 9.5 g/dl (12.0-15.5); MEAN CORPUSCULAR HEMOGLOBIN 25.1 pg (27.0-33.0); MEAN CORPUSCULAR HGB CONC 29.5 g/dl (32.0-36.5); PLATELET COUNT, AUTOMATED 389 10^3/uL (150-450); RED BLOOD COUNT 3.79 10^6/uL (4.00-5.40); WHITE BLOOD COUNT 5.1 10^3/uL (4.0-10.0)
[2021-09-01 07:12] LABS: BLOOD UREA NITROGEN 13 MG/DL (7-18); CALCIUM LEVEL 8.7 MG/DL (8.8-10.2); CARBON DIOXIDE LEVEL 27 MEQ/L (21-32); CHLORIDE LEVEL 110 MEQ/L (98-107); CREATININE FOR GFR 0.54 MG/DL (0.55-1.30); GLOMERULAR FILTRATION RATE > 60.0 (>45); GLUCOSE, FASTING 114 MG/DL (70-100); POTASSIUM SERUM 4.2 MEQ/L (3.5-5.1); SODIUM LEVEL 143 MEQ/L (136-145)
[2021-09-01] MEDS: ENOXAPARIN 40MG/0.4ML SYRINGE (J1650 PER 10MG) SC SCH (08:38)
[2021-09-01] MEDS: DOXYCYCLINE HYCLATE 100MG TABLET PO SCH ×2 (08:38→20:26)
[2021-09-01 14:00] VITALS: BP 135/69
[2021-09-01] MEDS: LevoFLOXacin 750 MG TABLET PO SCH ×2 (20:00→20:26)
[2021-09-01 22:00] VITALS: BP 132/68
[2021-09-02 05:32] VITALS: BP 135/65
[2021-09-02 06:00] VITALS: BP 135/65
[2021-09-02] MEDS: DOXYCYCLINE HYCLATE 100MG TABLET PO SCH (07:49)
[2021-09-02] MEDS: ACETAMINOPHEN TAB 650MG DOSE (2X325MG) PO PRN (07:49)
== END 2021-09-02 08:42 | disposition left against medical advice (07) | DRG 602 ==
LOC: EDBD 11:45 → M ED 11:45 → M ED INP 18:21 → ENRESERV 20:05 → M MSPAV 22:00
PROVIDERS: ADMIT Internal Medicine; ATTEND Internal Medicine
DX: L03.116 Cellulitis of left lower limb (principal); G93.41 Metabolic encephalopathy; E43 Unspecified severe protein-calorie malnutrition; L97.929 Non-pressure chronic ulcer of unspecified part of left lower leg with unspecified severity; Z68.1 Body mass index [BMI] 19.9 or less, adult; F20.9 Schizophrenia, unspecified; Z91.19 Patient's noncompliance with other medical treatment and regimen; Z20.822 Contact with and (suspected) exposure to COVID-19; Z79.899 Other long term (current) drug therapy; Z91.040 Latex allergy status; E74.39 Other disorders of intestinal carbohydrate absorption; F17.200 Nicotine dependence, unspecified, uncomplicated

== ENCOUNTER 2021-09-17 11:37 | Inpatient (IN) | payer OTHER ==
[~2021-09-17] VITALS: Ht 165.1 cm; Wt 46.0 kg
[~2021-09-17 11:37] MED LIST changes: +DOXY-350 PO
[2021-09-17] MEDS ORDERED: OLANZapine INTRAMUSCULAR 10MG VIAL IM ONE (13:00)
[2021-09-17 17:06] LABS: BASO # 0.1 10^3/uL (0.0-0.2); BASO % 0.7 % (0.0-1.0); EOS # 0.1 10^3/uL (0.0-0.5); EOS % 1.2 % (0.0-3.0); HEMATOCRIT 34.5 % (36.0-47.0); HEMOGLOBIN 10.4 g/dl (12.0-15.5); LYMPH # 1.5 10^3/uL (1.5-5.0); LYMPH % 20.4 % (24.0-44.0); MEAN CORPUSCULAR HEMOGLOBIN 25.8 pg (27.0-33.0); MEAN CORPUSCULAR HGB CONC 30.1 g/dl (32.0-36.5); MEAN CORPUSCULAR VOLUME 85.6 fl (80.0-96.0); MONO # 0.5 10^3/uL (0.0-0.8); MONO % 7.3 % (2.0-8.0); NEUTROPHILS # 5.1 10^3/uL (1.5-8.5); PLATELET COUNT, AUTOMATED 429 10^3/uL (150-450); RED BLOOD COUNT 4.03 10^6/uL (4.00-5.40); WHITE BLOOD COUNT 7.3 10^3/uL (4.0-10.0)
[2021-09-17 17:23] LABS: ERYTHROCYTE SEDIMENTATION RATE 65 mm/hr (0-30)
[2021-09-17 17:32] LABS: ACETAMINOPHEN LEVEL < 2.0 UG/ML (10.0-30.0); ALBUMIN 2.9 GM/DL (3.2-5.2); ALT/SGPT 12 U/L (12-78); BILIRUBIN,DIRECT 0.2 MG/DL (0.0-0.2); BILIRUBIN,TOTAL 0.2 MG/DL (0.2-1.0); BLOOD UREA NITROGEN 14 MG/DL (7-18); C REACTIVE PROTEIN QUANTITATIV 0.88 MG/DL (0.00-0.30); CALCIUM LEVEL 8.7 MG/DL (8.8-10.2); CARBON DIOXIDE LEVEL 28 MEQ/L (21-32); CHLORIDE LEVEL 107 MEQ/L (98-107); CREATININE FOR GFR 0.65 MG/DL (0.55-1.30); ETHYL ALCOHOL (ETHANOL) < 0.003 % (0.000-0.010); GLOMERULAR FILTRATION RATE > 60.0 (>45); GLUCOSE, FASTING 163 MG/DL (70-100); POTASSIUM SERUM 3.8 MEQ/L (3.5-5.1); SALICYLATE LEVEL 2.6 MG/DL (5.0-30.0); SODIUM LEVEL 142 MEQ/L (136-145); TOTAL PROTEIN 7.8 GM/DL (6.4-8.2)
[2021-09-17] MEDS ORDERED: DOXYCYCLINE HYCLATE 100MG TABLET PO ONE (18:50)
[2021-09-17 19:24] LABS: RSV AMPLIFICATION NEGATIVE (NEGATIVE)
[2021-09-17 23:16] LABS: BASO # 0.1 10^3/uL (0.0-0.2); BASO % 0.9 % (0.0-1.0); EOS # 0.1 10^3/uL (0.0-0.5); EOS % 2.4 % (0.0-3.0); HEMATOCRIT 32.5 % (36.0-47.0); HEMOGLOBIN 9.7 g/dl (12.0-15.5); LYMPH # 1.2 10^3/uL (1.5-5.0); LYMPH % 21.3 % (24.0-44.0); MEAN CORPUSCULAR HEMOGLOBIN 25.6 pg (27.0-33.0); MEAN CORPUSCULAR HGB CONC 29.8 g/dl (32.0-36.5); MEAN CORPUSCULAR VOLUME 85.8 fl (80.0-96.0); MONO # 0.8 10^3/uL (0.0-0.8); MONO % 13.1 % (2.0-8.0); NEUTROPHILS # 3.6 10^3/uL (1.5-8.5); NEUTROPHILS % 61.8 % (36.0-66.0); PLATELET COUNT, AUTOMATED 359 10^3/uL (150-450); RED BLOOD COUNT 3.79 10^6/uL (4.00-5.40); WHITE BLOOD COUNT 5.8 10^3/uL (4.0-10.0)
[2021-09-17 23:46] LABS: BLOOD UREA NITROGEN 15 MG/DL (7-18); CALCIUM LEVEL 8.7 MG/DL (8.8-10.2); CARBON DIOXIDE LEVEL 31 MEQ/L (21-32); CHLORIDE LEVEL 107 MEQ/L (98-107); CREATININE FOR GFR 0.49 MG/DL (0.55-1.30); GLOMERULAR FILTRATION RATE > 60.0 (>45); GLUCOSE, FASTING 144 MG/DL (70-100); POTASSIUM SERUM 4.1 MEQ/L (3.5-5.1); SODIUM LEVEL 142 MEQ/L (136-145)
[2021-09-18] MEDS: DOXYCYCLINE HYCLATE 100MG TABLET PO SCH ×2 (09:53→21:00)
[2021-09-18 10:37] LABS: AMPHETAMINES LEVEL URINE NEGATIVE (NEGATIVE); BARBITURATES URINE NEGATIVE (NEGATIVE); BENZODIAZEPINES URINE NEGATIVE (NEGATIVE); CANNABINOIDS URINE NEGATIVE (NEGATIVE); COCAINE METABOLITE URINE NEGATIVE (NEGATIVE); METHADONE URINE NEGATIVE (NEGATIVE); OPIATES URINE NEGATIVE (NEGATIVE); PHENCYCLIDINE URINE NEGATIVE (NEGATIVE)
[2021-09-19] MEDS: DOXYCYCLINE HYCLATE 100MG TABLET PO SCH ×2 (10:25→21:02)
[2021-09-20] MEDS: NICOTINE 21MG/24HR 1 EA TRANSDERMAL TD SCH (09:00)
[2021-09-20] MEDS: DOXYCYCLINE HYCLATE 100MG TABLET PO SCH ×2 (09:04→23:14)
[2021-09-20] MEDS ORDERED: LORazepam 1 MG TAB PO PRN (14:15)
[2021-09-20] MEDS ORDERED: HOME MED LIST COMPLETE! XX SCH (15:55)
[2021-09-21 06:00] VITALS: BP 138/63
[2021-09-21] MEDS: DOXYCYCLINE HYCLATE 100MG TABLET PO SCH ×2 (10:07→22:17)
[2021-09-21] MEDS: NICOTINE 21MG/24HR 1 EA TRANSDERMAL TD SCH (10:08)
[2021-09-21] MEDS: CEPHALEXIN 500 MG CAP PO SCH ×2 (14:27→22:17)
[2021-09-22] MEDS: CEPHALEXIN 500 MG CAP PO SCH ×3 (05:35→22:54)
[2021-09-22 06:40] VITALS: BP 107/58
[2021-09-22] MEDS: NICOTINE 21MG/24HR 1 EA TRANSDERMAL TD SCH (10:08)
[2021-09-22] MEDS: DOXYCYCLINE HYCLATE 100MG TABLET PO SCH (10:08)
[2021-09-22] MEDS: ACETAMINOPHEN TAB 650MG DOSE (2X325MG) PO PRN (12:15)
[2021-09-22 17:27] VITALS: BP 124/59
[2021-09-23] MEDS: CEPHALEXIN 500 MG CAP PO SCH ×3 (05:59→20:42)
[2021-09-23 06:00] VITALS: BP 129/77
[2021-09-23] MEDS: NICOTINE 21MG/24HR 1 EA TRANSDERMAL TD SCH (10:01)
[2021-09-23] MEDS: risperiDONE 1 MG TAB PO SCH ×4 (10:02→20:42)
[2021-09-23 18:14] VITALS: BP 118/56
[2021-09-24] MEDS: CEPHALEXIN 500 MG CAP PO SCH ×3 (05:23→21:01)
[2021-09-24 06:33] VITALS: BP 129/74
[2021-09-24] MEDS: NICOTINE 21MG/24HR 1 EA TRANSDERMAL TD SCH (09:00)
[2021-09-24] MEDS: risperiDONE 1 MG TAB PO SCH ×2 (09:00→20:59)
[2021-09-24 18:08] VITALS: BP 125/81
[2021-09-25] MEDS: CEPHALEXIN 500 MG CAP PO SCH ×3 (05:37→21:16)
[2021-09-25 06:42] VITALS: BP 123/74
[2021-09-25] MEDS: NICOTINE 21MG/24HR 1 EA TRANSDERMAL TD SCH (09:00)
[2021-09-25] MEDS: risperiDONE 1 MG TAB PO SCH ×2 (09:00→21:00)
[2021-09-26] MEDS: CEPHALEXIN 500 MG CAP PO SCH ×3 (06:11→21:14)
[2021-09-26 06:49] VITALS: BP 154/63
[2021-09-26] MEDS: risperiDONE 1 MG TAB PO SCH ×2 (08:34→21:00)
[2021-09-27] MEDS: CEPHALEXIN 500 MG CAP PO SCH ×3 (05:44→22:21)
[2021-09-27 06:37] VITALS: BP 138/73
[2021-09-27] MEDS: risperiDONE 1 MG TAB PO SCH ×2 (09:00→21:00)
[2021-09-27 17:51] VITALS: BP 136/70
[2021-09-27] MEDS: ACETAMINOPHEN TAB 650MG DOSE (2X325MG) PO PRN (22:21)
[2021-09-28] MEDS: CEPHALEXIN 500 MG CAP PO SCH ×3 (05:50→23:11)
[2021-09-28 06:47] VITALS: BP 138/77
[2021-09-28] MEDS: risperiDONE 1 MG TAB PO SCH ×2 (08:47→21:00)
[2021-09-28 17:22] VITALS: BP 123/63
[2021-09-28] MEDS ORDERED: PERCOCET 5MG/325MG TAB PO PRN (23:25)
[2021-09-29] MEDS: CEPHALEXIN 500 MG CAP PO SCH ×3 (05:16→20:58)
[2021-09-29 06:37] VITALS: BP 135/63
[2021-09-29] MEDS: risperiDONE 1 MG TAB PO SCH ×2 (07:54→20:58)
[2021-09-29 08:05] LABS: BASO # 0.1 10^3/uL (0.0-0.2); BASO % 1.4 % (0.0-1.0); EOS # 0.2 10^3/uL (0.0-0.5); EOS % 2.4 % (0.0-3.0); HEMATOCRIT 37.5 % (36.0-47.0); HEMOGLOBIN 10.7 g/dl (12.0-15.5); LYMPH # 1.3 10^3/uL (1.5-5.0); MEAN CORPUSCULAR HEMOGLOBIN 24.5 pg (27.0-33.0); MEAN CORPUSCULAR HGB CONC 28.5 g/dl (32.0-36.5); MONO # 0.7 10^3/uL (0.0-0.8); MONO % 9.9 % (2.0-8.0); NEUTROPHILS # 4.4 10^3/uL (1.5-8.5); NEUTROPHILS % 65.7 % (36.0-66.0); PLATELET COUNT, AUTOMATED 355 10^3/uL (150-450); RED BLOOD COUNT 4.36 10^6/uL (4.00-5.40); WHITE BLOOD COUNT 6.6 10^3/uL (4.0-10.0)
[2021-09-29 08:23] LABS: ERYTHROCYTE SEDIMENTATION RATE 66 mm/hr (0-30)
[2021-09-29 08:24] LABS: BLOOD UREA NITROGEN 17 MG/DL (7-18); CALCIUM LEVEL 9.2 MG/DL (8.8-10.2); CARBON DIOXIDE LEVEL 29 MEQ/L (21-32); CHLORIDE LEVEL 108 MEQ/L (98-107); GLOMERULAR FILTRATION RATE > 60.0 (>45); GLUCOSE, FASTING 102 MG/DL (70-100); POTASSIUM SERUM 4.6 MEQ/L (3.5-5.1); SODIUM LEVEL 140 MEQ/L (136-145)
[2021-09-29 18:40] VITALS: BP 127/59
[2021-09-30] MEDS: CEPHALEXIN 500 MG CAP PO SCH (05:53)
[2021-09-30 07:11] VITALS: BP 116/58
[2021-09-30] MEDS: risperiDONE 1 MG TAB PO SCH (07:42)
[2021-09-30] MEDS ORDERED: CEPH500C PO (10:26)
== END 2021-09-30 12:16 | disposition home or self-care (01) | DRG 885 ==
LOC: EDBD 11:37 → M ED 11:37 → M ED INP 09-20 14:14 → M PSY 09-20 16:21
PROVIDERS: ADMIT Student in an Organized Health Care Education/Training Program; ATTEND Student in an Organized Health Care Education/Training Program
DX: F20.9 Schizophrenia, unspecified (principal); L03.116 Cellulitis of left lower limb; L97.529 Non-pressure chronic ulcer of other part of left foot with unspecified severity; Z91.14 Patient's other noncompliance with medication regimen; E74.39 Other disorders of intestinal carbohydrate absorption; Z91.040 Latex allergy status; Z20.822 Contact with and (suspected) exposure to COVID-19; Z91.19 Patient's noncompliance with other medical treatment and regimen

== ENCOUNTER 2021-12-06 08:48 | Inpatient (IN) | payer OTHER ==
[~2021-12-06] VITALS: Ht 162.6 cm; Wt 49.0 kg
[~2021-12-06 08:48] MED LIST changes: +CEPH500C PO; +LEVO1TAB40 PO; -LEVO750T13 PO
[2021-12-06] MEDS: MORPHINE 2 MG/ML 1ML VIAL SC ONE ×2 (09:28→10:35)
[2021-12-06] MEDS ORDERED: OLANZapine INTRAMUSCULAR 10MG VIAL IM ONE (09:35)
[2021-12-06] MEDS ORDERED: MIDAZOLAM INJ 2MG/2ML VIAL (J2250 PER 1MG) IM ONE (09:35)
[2021-12-06] MEDS ORDERED: NS 1,000 ML IV SCH (12:30)
[2021-12-06 12:55] LABS: BASO % 0.5 % (0.0-1.0); EOS % 0.1 % (0.0-3.0); HEMATOCRIT 37.7 % (36.0-47.0); HEMOGLOBIN 11.2 g/dl (12.0-15.5); LYMPH # 0.4 10^3/uL (1.5-5.0); LYMPH % 4.5 % (24.0-44.0); MEAN CORPUSCULAR HEMOGLOBIN 25.2 pg (27.0-33.0); MEAN CORPUSCULAR HGB CONC 29.7 g/dl (32.0-36.5); MEAN CORPUSCULAR VOLUME 84.9 fl (80.0-96.0); MONO # 0.4 10^3/uL (0.0-0.8); MONO % 5.1 % (2.0-8.0); NEUTROPHILS # 7.2 10^3/uL (1.5-8.5); NEUTROPHILS % 89.2 % (36.0-66.0); PLATELET COUNT, AUTOMATED 444 10^3/uL (150-450); RED BLOOD COUNT 4.44 10^6/uL (4.00-5.40); WHITE BLOOD COUNT 8.1 10^3/uL (4.0-10.0)
[2021-12-06 13:13] LABS: INR 0.99; PROTHROMBIN TIME 13.5 SECONDS (12.7-14.5)
[2021-12-06 13:14] LABS: PARTIAL THROMBOPLASTIN TIME 39.7 SECONDS (25.9-37.0)
[2021-12-06 13:30] LABS: RSV AMPLIFICATION NEGATIVE (NEGATIVE)
[2021-12-06 13:32] LABS: BLOOD UREA NITROGEN 6 MG/DL (7-18); CALCIUM LEVEL 8.9 MG/DL (8.8-10.2); CARBON DIOXIDE LEVEL 29 MEQ/L (21-32); CHLORIDE LEVEL 104 MEQ/L (98-107); CREATININE FOR GFR 0.41 MG/DL (0.55-1.30); GLOMERULAR FILTRATION RATE > 60.0 (>45); GLUCOSE, FASTING 102 MG/DL (70-100); POTASSIUM SERUM 3.9 MEQ/L (3.5-5.1); SODIUM LEVEL 137 MEQ/L (136-145)
[2021-12-06] MEDS ORDERED: HOME MED LIST COMPLETE! XX SCH (13:55)
[2021-12-06] MEDS: NS 1,000 ML IV SCH ×2 (14:25→23:41)
[2021-12-06] MEDS ORDERED: GLUCOSE 4GM CHEW TABLET PO PRN (14:45)
[2021-12-06] MEDS ORDERED: GLUCAGON INJ 1MG VIAL SC PRN (14:45)
[2021-12-06] MEDS ORDERED: DEXTROSE 50% 50 ML SYRINGE IV PRN (14:45)
[2021-12-06 15:39] VITALS: BP 132/56
[2021-12-06] MEDS: ceFAZolin SOD 2 GM in IV 1 EA IV SCH ×2 (15:50→22:52)
[2021-12-06 21:30] VITALS: BP 123/65
[2021-12-06] MEDS ORDERED: HEPARIN SOD (PORCINE) 5000UNITS/ML 1ML VIAL/SYRINGE SQ SCH (22:00)
[2021-12-07] MEDS: ceFAZolin SOD 2 GM in IV 1 EA IV SCH (06:11)
[2021-12-07] MEDS ORDERED: MIDAZOLAM INJ 2MG/2ML VIAL (J2250 PER 1MG) As Ordered ONE (07:29)
[2021-12-07] MEDS ORDERED: LIDOCAINE 2% 100MG/5ML SDV (FOR ANES.) As Ordered ONE (07:29)
[2021-12-07] MEDS ORDERED: propofoL 200 MG/20 ML VIAL As Ordered ONE (07:29)
[2021-12-07] MEDS ORDERED: fentaNYL 100 MCG/2 ML INJECTION As Ordered ONE ×2 (07:29→10:32)
[2021-12-07] MEDS ORDERED: ceFAZolin 2 GM/D5W 50 ML IV BAG (J0690 PER 500MG) As Ordered ONE (08:09)
[2021-12-07] MEDS ORDERED: ROCURONIUM BROMIDE 50 MG/5 ML VIAL As Ordered ONE (08:18)
[2021-12-07] MEDS ORDERED: ceFAZolin 1GM VIAL (J0690 PER 500MG) As Ordered ONE (08:30)
[2021-12-07] MEDS ORDERED: BUPIVACAINE HCL 0.5% 30ML VIAL As Ordered ONE (08:31)
[2021-12-07] MEDS ORDERED: PHENYLephrine 500MCG 5ML (100MCG/ML) SYRINGE As Ordered ONE (09:10)
[2021-12-07] MEDS ORDERED: ePHEDrine SULFATE 25 MG/5 ML(5MG/ML) SYRINGE As Ordered ONE (09:12)
[2021-12-07] MEDS ORDERED: dexameTHASONE 4 MG/ML 1ML VIAL (J1100 PER 1MG) As Ordered ONE (09:28)
[2021-12-07] MEDS ORDERED: TRANEXAMIC ACID 100 MG/ML 10ML VIAL As Ordered ONE (09:32)
[2021-12-07] MEDS ORDERED: oxyCODONE 5MG TAB PO PRN (09:50)
[2021-12-07] MEDS ORDERED: fentaNYL 100 MCG/2 ML INJECTION IV PRN (09:50)
[2021-12-07] MEDS ORDERED: LR 1,000 ML IV SCH (09:50)
[2021-12-07] MEDS ORDERED: MORPHINE 2 MG/ML 1ML VIAL IV PRN (09:50)
[2021-12-07] MEDS ORDERED: ONDANSETRON 4MG 2ML VIAL IV PRN (09:50)
[2021-12-07] MEDS ORDERED: ACETAMINOPHEN 1000MG 100ML IV BTL (OFIRMEV) (J0131 PER 10MG) As Ordered ONE (09:59)
[2021-12-07] MEDS ORDERED: ONDANSETRON 4MG 2ML VIAL As Ordered ONE (09:59)
[2021-12-07] MEDS ORDERED: SUGAMMADEX SODIUM 500 MG/5 ML VIAL (BRIDION) As Ordered ONE (09:59)
[2021-12-07 12:20] VITALS: BP 127/68
[2021-12-07 12:48] LABS: HEMOGLOBIN 11.2 g/dl (12.0-15.5); MEAN CORPUSCULAR HGB CONC 30.3 g/dl (32.0-36.5); PLATELET COUNT, AUTOMATED 412 10^3/uL (150-450); WHITE BLOOD COUNT 10.7 10^3/uL (4.0-10.0)
[2021-12-07 13:20] LABS: BLOOD UREA NITROGEN 8 MG/DL (7-18); CALCIUM LEVEL 8.4 MG/DL (8.8-10.2); CARBON DIOXIDE LEVEL 30 MEQ/L (21-32); CHLORIDE LEVEL 106 MEQ/L (98-107); CREATININE FOR GFR 0.55 MG/DL (0.55-1.30); GLOMERULAR FILTRATION RATE > 60.0 (>45); GLUCOSE, FASTING 145 MG/DL (70-100); MAGNESIUM LEVEL 2.1 MG/DL (1.8-2.4); SODIUM LEVEL 139 MEQ/L (136-145)
[2021-12-07 13:30] VITALS: BP 119/48
[2021-12-07 14:30] VITALS: BP 110/54
[2021-12-07 15:30] VITALS: BP 121/67
[2021-12-07 16:30] VITALS: BP 118/63
[2021-12-07] MEDS: ceFAZolin SOD 1 GM in D5W MINI-BAG PLUS 50 ML IV SCH ×2 (16:39→22:35)
[2021-12-07] MEDS ORDERED: ONDANSETRON 4MG 2ML VIAL IV ONE (16:40)
[2021-12-07] MEDS: ACETAMINOPHEN TAB 650MG DOSE (2X325MG) PO PRN (16:52)
[2021-12-07] MEDS: IBUPROFEN 600MG TAB PO PRN (21:21)
[2021-12-07 22:00] VITALS: BP 108/50
[2021-12-08] MEDS: ceFAZolin SOD 1 GM in D5W MINI-BAG PLUS 50 ML IV SCH (05:16)
[2021-12-08 06:00] VITALS: BP 114/53
[2021-12-08 07:02] LABS: MEAN CORPUSCULAR HEMOGLOBIN 26.2 pg (27.0-33.0); MEAN CORPUSCULAR HGB CONC 30.3 g/dl (32.0-36.5); MEAN CORPUSCULAR VOLUME 86.5 fl (80.0-96.0); PLATELET COUNT, AUTOMATED 347 10^3/uL (150-450); RED BLOOD COUNT 3.47 10^6/uL (4.00-5.40); WHITE BLOOD COUNT 8.6 10^3/uL (4.0-10.0)
[2021-12-08 07:04] LABS: HEMOGLOBIN 9.1 g/dl (12.0-15.5)
[2021-12-08 08:04] LABS: BLOOD UREA NITROGEN 12 MG/DL (7-18); CARBON DIOXIDE LEVEL 30 MEQ/L (21-32); CHLORIDE LEVEL 108 MEQ/L (98-107); CREATININE FOR GFR 0.49 MG/DL (0.55-1.30); GLOMERULAR FILTRATION RATE > 60.0 (>45); GLUCOSE, FASTING 124 MG/DL (70-100); MAGNESIUM LEVEL 1.8 MG/DL (1.8-2.4); PHOSPHORUS LEVEL 2.2 MG/DL (2.5-4.9); POTASSIUM SERUM 4.1 MEQ/L (3.5-5.1); SODIUM LEVEL 142 MEQ/L (136-145)
[2021-12-08 10:00] VITALS: BP 113/63
[2021-12-08] MEDS: ENOXAPARIN 40MG/0.4ML SYRINGE (J1650 PER 10MG) SC SCH (11:00)
[2021-12-08] MEDS: oxyCODONE 5MG TAB PO PRN ×2 (11:18→18:08)
[2021-12-08] MEDS ORDERED: OLANZapine INTRAMUSCULAR 10MG VIAL IM ONE (13:45)
[2021-12-08] MEDS ORDERED: OLANZapine 5 MG TAB PO ONE (14:50)
[2021-12-08] MEDS ORDERED: OLANZapine 5 MG TAB PO SCH (15:00)
[2021-12-08] MEDS: ACETAMINOPHEN TAB 650MG DOSE (2X325MG) PO PRN (15:23)
[2021-12-08] MEDS: IBUPROFEN 600MG TAB PO PRN (22:36)
[2021-12-09] MEDS: ACETAMINOPHEN TAB 650MG DOSE (2X325MG) PO PRN ×2 (01:23→19:36)
[2021-12-09] MEDS: ENOXAPARIN 40MG/0.4ML SYRINGE (J1650 PER 10MG) SC SCH (09:00)
[2021-12-09 10:47] LABS: HEMATOCRIT 30.1 % (36.0-47.0); HEMOGLOBIN 8.8 g/dl (12.0-15.5); MEAN CORPUSCULAR HEMOGLOBIN 25.4 pg (27.0-33.0); MEAN CORPUSCULAR HGB CONC 29.2 g/dl (32.0-36.5); PLATELET COUNT, AUTOMATED 341 10^3/uL (150-450); RED BLOOD COUNT 3.46 10^6/uL (4.00-5.40)
[2021-12-10] MEDS: ACETAMINOPHEN TAB 650MG DOSE (2X325MG) PO PRN (03:21)
[2021-12-10 06:00] VITALS: BP 133/70
[2021-12-10 06:18] LABS: HEMATOCRIT 27.7 % (36.0-47.0); HEMOGLOBIN 8.3 g/dl (12.0-15.5); MEAN CORPUSCULAR HEMOGLOBIN 25.8 pg (27.0-33.0); PLATELET COUNT, AUTOMATED 333 10^3/uL (150-450); RED BLOOD COUNT 3.22 10^6/uL (4.00-5.40); WHITE BLOOD COUNT 7.5 10^3/uL (4.0-10.0)
[2021-12-10 06:49] LABS: BLOOD UREA NITROGEN 15 MG/DL (7-18); CALCIUM LEVEL 8.3 MG/DL (8.8-10.2); CARBON DIOXIDE LEVEL 30 MEQ/L (21-32); CHLORIDE LEVEL 106 MEQ/L (98-107); CREATININE FOR GFR 0.45 MG/DL (0.55-1.30); GLOMERULAR FILTRATION RATE > 60.0 (>45); GLUCOSE, FASTING 199 MG/DL (70-100); POTASSIUM SERUM 3.7 MEQ/L (3.5-5.1); SODIUM LEVEL 140 MEQ/L (136-145)
[2021-12-10] MEDS: ENOXAPARIN 40MG/0.4ML SYRINGE (J1650 PER 10MG) SC SCH (08:23)
[2021-12-11] MEDS: ENOXAPARIN 40MG/0.4ML SYRINGE (J1650 PER 10MG) SC SCH (10:38)
[2021-12-11] MEDS: oxyCODONE 5MG TAB PO PRN (22:48)
[2021-12-12] MEDS: ENOXAPARIN 40MG/0.4ML SYRINGE (J1650 PER 10MG) SC SCH (08:41)
[2021-12-12] MEDS: oxyCODONE 5MG TAB PO PRN ×2 (08:45→14:49)
[2021-12-12 09:05] LABS: BLOOD UREA NITROGEN 14 MG/DL (7-18); CALCIUM LEVEL 8.6 MG/DL (8.8-10.2); CARBON DIOXIDE LEVEL 31 MEQ/L (21-32); CHLORIDE LEVEL 102 MEQ/L (98-107); CREATININE FOR GFR 0.46 MG/DL (0.55-1.30); GLOMERULAR FILTRATION RATE > 60.0 (>45); GLUCOSE, FASTING 138 MG/DL (70-100); POTASSIUM SERUM 4.3 MEQ/L (3.5-5.1); SODIUM LEVEL 135 MEQ/L (136-145)
[2021-12-12] MEDS: ACETAMINOPHEN TAB 650MG DOSE (2X325MG) PO PRN ×2 (11:42→23:10)
[2021-12-13 05:11] VITALS: BP 130/65
[2021-12-13] MEDS: ENOXAPARIN 40MG/0.4ML SYRINGE (J1650 PER 10MG) SC SCH (08:29)
[2021-12-13] MEDS: oxyCODONE 5MG TAB PO PRN (10:23)
[2021-12-13] MEDS: ACETAMINOPHEN TAB 650MG DOSE (2X325MG) PO PRN ×2 (11:46→21:36)
[2021-12-13] MEDS: OLANZapine ORAL DISINTEGRATING TAB 5MG PO PRN (15:17)
[2021-12-14 05:46] VITALS: BP 130/64
[2021-12-14] MEDS: ENOXAPARIN 40MG/0.4ML SYRINGE (J1650 PER 10MG) SC SCH (08:04)
[2021-12-14 14:00] VITALS: BP 127/64
[2021-12-14] MEDS: LIDOCAINE 5% (LIDODERM) PATCH TD SCH (17:23)
[2021-12-14] MEDS: **NOTE PATIENT COMMENT** MISC XX SCH (20:12)
[2021-12-14] MEDS: oxyCODONE 5MG TAB PO PRN (20:56)
[2021-12-14] MEDS: OLANZapine ORAL DISINTEGRATING TAB 5MG PO PRN (20:56)
[2021-12-15 05:28] VITALS: BP 114/60
[2021-12-15] MEDS: ACETAMINOPHEN TAB 650MG DOSE (2X325MG) PO PRN (08:53)
[2021-12-15] MEDS: ENOXAPARIN 40MG/0.4ML SYRINGE (J1650 PER 10MG) SC SCH (08:53)
[2021-12-15] MEDS: LIDOCAINE 5% (LIDODERM) PATCH TD SCH (08:53)
[2021-12-15] MEDS: **NOTE PATIENT COMMENT** MISC XX SCH (21:26)
[2021-12-16] MEDS: ACETAMINOPHEN TAB 650MG DOSE (2X325MG) PO PRN ×2 (02:21→17:04)
[2021-12-16 05:33] VITALS: BP 156/81
[2021-12-16 06:52] LABS: HEMATOCRIT 30.5 % (36.0-47.0); HEMOGLOBIN 8.9 g/dl (12.0-15.5); MEAN CORPUSCULAR HEMOGLOBIN 25.4 pg (27.0-33.0); MEAN CORPUSCULAR HGB CONC 29.2 g/dl (32.0-36.5); MEAN CORPUSCULAR VOLUME 87.1 fl (80.0-96.0); PLATELET COUNT, AUTOMATED 452 10^3/uL (150-450); WHITE BLOOD COUNT 6.1 10^3/uL (4.0-10.0)
[2021-12-16] MEDS: ENOXAPARIN 40MG/0.4ML SYRINGE (J1650 PER 10MG) SC SCH (09:00)
[2021-12-16] MEDS: LIDOCAINE 5% (LIDODERM) PATCH TD SCH (09:05)
[2021-12-16] MEDS: IBUPROFEN 600MG TAB PO PRN (18:47)
[2021-12-16] MEDS: **NOTE PATIENT COMMENT** MISC XX SCH (20:15)
[2021-12-17 05:19] VITALS: BP 128/69
[2021-12-17] MEDS: ENOXAPARIN 40MG/0.4ML SYRINGE (J1650 PER 10MG) SC SCH (08:05)
[2021-12-17] MEDS: LIDOCAINE 5% (LIDODERM) PATCH TD SCH (09:45)
[2021-12-17] MEDS: ACETAMINOPHEN TAB 650MG DOSE (2X325MG) PO PRN (09:45)
[2021-12-17] MEDS: **NOTE PATIENT COMMENT** MISC XX SCH (21:00)
[2021-12-18 05:39] VITALS: BP 122/62
[2021-12-18] MEDS: ENOXAPARIN 40MG/0.4ML SYRINGE (J1650 PER 10MG) SC SCH (09:00)
[2021-12-18] MEDS: LIDOCAINE 5% (LIDODERM) PATCH TD SCH (09:00)
[2021-12-18] MEDS ORDERED: FLUBLOK(EGG FREE)(QUAD)INFLUENZA VACC 0.5ML SYRINGE 18YRS & OLDER IM.IMMUN ONE (14:00)
[2021-12-18] MEDS: ACETAMINOPHEN TAB 650MG DOSE (2X325MG) PO PRN ×2 (16:12→20:07)
[2021-12-18] MEDS: **NOTE PATIENT COMMENT** MISC XX SCH (21:00)
[2021-12-19] MEDS: LIDOCAINE 5% (LIDODERM) PATCH TD SCH (09:00)
[2021-12-19] MEDS: ENOXAPARIN 40MG/0.4ML SYRINGE (J1650 PER 10MG) SC SCH (09:00)
[2021-12-19] MEDS: **NOTE PATIENT COMMENT** MISC XX SCH (20:51)
[2021-12-20 01:29] VITALS: BP 133/72
[2021-12-20] MEDS: LIDOCAINE 5% (LIDODERM) PATCH TD SCH ×2 (08:46→08:56)
[2021-12-20] MEDS: ENOXAPARIN 40MG/0.4ML SYRINGE (J1650 PER 10MG) SC SCH (08:55)
[2021-12-20] MEDS: **NOTE PATIENT COMMENT** MISC XX SCH (20:50)
[2021-12-21] MEDS: LIDOCAINE 5% (LIDODERM) PATCH TD SCH (08:07)
[2021-12-21] MEDS: ENOXAPARIN 40MG/0.4ML SYRINGE (J1650 PER 10MG) SC SCH (08:07)
[2021-12-21] MEDS: **NOTE PATIENT COMMENT** MISC XX SCH (20:22)
[2021-12-22] MEDS: ENOXAPARIN 40MG/0.4ML SYRINGE (J1650 PER 10MG) SC SCH (09:00)
[2021-12-22] MEDS: LIDOCAINE 5% (LIDODERM) PATCH TD SCH (09:00)
[2021-12-22] MEDS: **NOTE PATIENT COMMENT** MISC XX SCH (20:42)
[2021-12-23 06:00] VITALS: BP 139/76
[2021-12-23] MEDS: oxyCODONE 5MG TAB PO PRN ×2 (08:45→20:47)
[2021-12-23] MEDS: LIDOCAINE 5% (LIDODERM) PATCH TD SCH (08:46)
[2021-12-23] MEDS: ENOXAPARIN 40MG/0.4ML SYRINGE (J1650 PER 10MG) SC SCH (08:46)
[2021-12-23] MEDS: IBUPROFEN 600MG TAB PO PRN (14:52)
[2021-12-23] MEDS: **NOTE PATIENT COMMENT** MISC XX SCH (21:00)
[2021-12-24] MEDS: ENOXAPARIN 40MG/0.4ML SYRINGE (J1650 PER 10MG) SC SCH (08:34)
[2021-12-24] MEDS: LIDOCAINE 5% (LIDODERM) PATCH TD SCH (08:34)
[2021-12-24] MEDS: ACETAMINOPHEN TAB 650MG DOSE (2X325MG) PO PRN (15:03)
[2021-12-24] MEDS: **NOTE PATIENT COMMENT** MISC XX SCH (21:21)
[2021-12-24] MEDS: oxyCODONE 5MG TAB PO PRN (22:17)
[2021-12-25 04:00] VITALS: BP 125/72
[2021-12-25] MEDS: ENOXAPARIN 40MG/0.4ML SYRINGE (J1650 PER 10MG) SC SCH (08:06)
[2021-12-25] MEDS: LIDOCAINE 5% (LIDODERM) PATCH TD SCH (08:06)
[2021-12-25] MEDS: oxyCODONE 5MG TAB PO PRN ×2 (12:59→20:02)
[2021-12-25] MEDS: **NOTE PATIENT COMMENT** MISC XX SCH (21:00)
[2021-12-26] MEDS: ACETAMINOPHEN TAB 650MG DOSE (2X325MG) PO PRN (01:09)
[2021-12-26] MEDS: oxyCODONE 5MG TAB PO PRN (02:08)
[2021-12-26] MEDS: LIDOCAINE 5% (LIDODERM) PATCH TD SCH (09:00)
[2021-12-26] MEDS: ENOXAPARIN 40MG/0.4ML SYRINGE (J1650 PER 10MG) SC SCH (09:00)
[2021-12-26 14:57] VITALS: BP 145/85
[2021-12-26] MEDS: **NOTE PATIENT COMMENT** MISC XX SCH (20:29)
[2021-12-27] MEDS: ENOXAPARIN 40MG/0.4ML SYRINGE (J1650 PER 10MG) SC SCH (09:00)
[2021-12-27] MEDS: LIDOCAINE 5% (LIDODERM) PATCH TD SCH ×2 (09:05→21:30)
[2021-12-27] MEDS: IBUPROFEN 600MG TAB PO PRN (09:06)
[2021-12-27] MEDS: **NOTE PATIENT COMMENT** MISC XX SCH (21:29)
[2021-12-28 06:00] VITALS: BP 132/75
[2021-12-28] MEDS: ENOXAPARIN 40MG/0.4ML SYRINGE (J1650 PER 10MG) SC SCH (08:06)
[2021-12-28] MEDS: **NOTE PATIENT COMMENT** MISC XX SCH (20:14)
[2021-12-29] MEDS: LIDOCAINE 5% (LIDODERM) PATCH TD SCH (09:00)
[2021-12-29] MEDS: ENOXAPARIN 40MG/0.4ML SYRINGE (J1650 PER 10MG) SC SCH (09:00)
[2021-12-29] MEDS: **NOTE PATIENT COMMENT** MISC XX SCH (21:00)
[2021-12-29] MEDS ORDERED: OLANZapine ORAL DISINTEGRATING TAB 5MG PO PRN (22:40)
[2021-12-30] MEDS: ENOXAPARIN 40MG/0.4ML SYRINGE (J1650 PER 10MG) SC SCH (08:12)
[2021-12-30] MEDS: QUEtiapine FUMARATE 12.5 MG HALF-TAB PO SCH ×2 (08:12→21:00)
[2021-12-30] MEDS: LIDOCAINE 5% (LIDODERM) PATCH TD SCH (08:12)
[2021-12-30] MEDS: **NOTE PATIENT COMMENT** MISC XX SCH (21:00)
[2021-12-31] MEDS: IBUPROFEN 600MG TAB PO PRN (09:57)
[2021-12-31] MEDS: QUEtiapine FUMARATE 12.5 MG HALF-TAB PO SCH ×2 (10:06→21:00)
[2021-12-31] MEDS: ENOXAPARIN 40MG/0.4ML SYRINGE (J1650 PER 10MG) SC SCH (10:07)
[2021-12-31] MEDS: LIDOCAINE 5% (LIDODERM) PATCH TD SCH (10:07)
[2021-12-31] MEDS: **NOTE PATIENT COMMENT** MISC XX SCH (21:00)
[2021-12-31] MEDS: ACETAMINOPHEN TAB 650MG DOSE (2X325MG) PO PRN (22:39)
[2022-01-01 06:00] VITALS: BP 137/68
[2022-01-01] MEDS: QUEtiapine FUMARATE 12.5 MG HALF-TAB PO SCH ×2 (10:19→20:34)
[2022-01-01] MEDS: LIDOCAINE 5% (LIDODERM) PATCH TD SCH (10:20)
[2022-01-01] MEDS: ENOXAPARIN 40MG/0.4ML SYRINGE (J1650 PER 10MG) SC SCH (10:20)
[2022-01-01] MEDS: ACETAMINOPHEN TAB 650MG DOSE (2X325MG) PO PRN (13:14)
[2022-01-01] MEDS: **NOTE PATIENT COMMENT** MISC XX SCH (20:34)
[2022-01-02 06:00] VITALS: BP 144/84
[2022-01-02] MEDS: ENOXAPARIN 40MG/0.4ML SYRINGE (J1650 PER 10MG) SC SCH (09:00)
[2022-01-02] MEDS: LIDOCAINE 5% (LIDODERM) PATCH TD SCH (09:00)
[2022-01-02] MEDS: QUEtiapine FUMARATE 12.5 MG HALF-TAB PO SCH ×2 (09:00→21:00)
[2022-01-02] MEDS: **NOTE PATIENT COMMENT** MISC XX SCH (20:09)
[2022-01-03] MEDS: LIDOCAINE 5% (LIDODERM) PATCH TD SCH (09:00)
[2022-01-03] MEDS: QUEtiapine FUMARATE 12.5 MG HALF-TAB PO SCH ×2 (09:00→21:00)
[2022-01-03] MEDS: ENOXAPARIN 40MG/0.4ML SYRINGE (J1650 PER 10MG) SC SCH (09:00)
[2022-01-03] MEDS: **NOTE PATIENT COMMENT** MISC XX SCH (21:00)
[2022-01-04] MEDS: QUEtiapine FUMARATE 12.5 MG HALF-TAB PO SCH ×2 (08:56→20:32)
[2022-01-04] MEDS: ENOXAPARIN 40MG/0.4ML SYRINGE (J1650 PER 10MG) SC SCH (08:56)
[2022-01-04] MEDS: LIDOCAINE 5% (LIDODERM) PATCH TD SCH (08:56)
[2022-01-04] MEDS: **NOTE PATIENT COMMENT** MISC XX SCH (20:33)
[2022-01-05] MEDS: ACETAMINOPHEN TAB 650MG DOSE (2X325MG) PO PRN (07:49)
[2022-01-05] MEDS: ENOXAPARIN 40MG/0.4ML SYRINGE (J1650 PER 10MG) SC SCH (07:55)
[2022-01-05] MEDS: QUEtiapine FUMARATE 12.5 MG HALF-TAB PO SCH ×2 (07:55→21:00)
[2022-01-05] MEDS: LIDOCAINE 5% (LIDODERM) PATCH TD SCH (07:56)
[2022-01-05] MEDS: **NOTE PATIENT COMMENT** MISC XX SCH (21:00)
[2022-01-06] MEDS: ENOXAPARIN 40MG/0.4ML SYRINGE (J1650 PER 10MG) SC SCH (08:20)
[2022-01-06] MEDS: QUEtiapine FUMARATE 12.5 MG HALF-TAB PO SCH ×2 (08:20→20:22)
[2022-01-06] MEDS: LIDOCAINE 5% (LIDODERM) PATCH TD SCH (08:21)
[2022-01-06] MEDS: **NOTE PATIENT COMMENT** MISC XX SCH (20:22)
[2022-01-06] MEDS: ACETAMINOPHEN TAB 650MG DOSE (2X325MG) PO PRN (22:18)
[2022-01-07] MEDS: ACETAMINOPHEN TAB 650MG DOSE (2X325MG) PO PRN (04:24)
[2022-01-07 04:47] VITALS: BP 111/62
[2022-01-07] MEDS: QUEtiapine FUMARATE 12.5 MG HALF-TAB PO SCH ×2 (09:00→21:00)
[2022-01-07] MEDS: LIDOCAINE 5% (LIDODERM) PATCH TD SCH (09:00)
[2022-01-07] MEDS: ENOXAPARIN 40MG/0.4ML SYRINGE (J1650 PER 10MG) SC SCH (09:00)
[2022-01-07] MEDS: **NOTE PATIENT COMMENT** MISC XX SCH (21:00)
[2022-01-08] MEDS: LIDOCAINE 5% (LIDODERM) PATCH TD SCH (09:00)
[2022-01-08] MEDS: ENOXAPARIN 40MG/0.4ML SYRINGE (J1650 PER 10MG) SC SCH (09:00)
[2022-01-08] MEDS: QUEtiapine FUMARATE 12.5 MG HALF-TAB PO SCH ×2 (09:00→21:00)
[2022-01-08] MEDS: **NOTE PATIENT COMMENT** MISC XX SCH (21:00)
[2022-01-09] MEDS: ENOXAPARIN 40MG/0.4ML SYRINGE (J1650 PER 10MG) SC SCH (08:18)
[2022-01-09] MEDS: LIDOCAINE 5% (LIDODERM) PATCH TD SCH (08:18)
[2022-01-09] MEDS: QUEtiapine FUMARATE 12.5 MG HALF-TAB PO SCH ×3 (08:18→19:45)
[2022-01-09] MEDS: ACETAMINOPHEN TAB 650MG DOSE (2X325MG) PO PRN (19:43)
[2022-01-09] MEDS: **NOTE PATIENT COMMENT** MISC XX SCH (19:44)
[2022-01-10 06:00] VITALS: BP 144/79
[2022-01-10] MEDS: LIDOCAINE 5% (LIDODERM) PATCH TD SCH (09:00)
[2022-01-10] MEDS: QUEtiapine FUMARATE 12.5 MG HALF-TAB PO SCH (09:00)
[2022-01-10] MEDS: ENOXAPARIN 40MG/0.4ML SYRINGE (J1650 PER 10MG) SC SCH (09:00)
[2022-01-10] MEDS ORDERED: POLYVINYL ALCOHOL OPHTH SOLN 15 ML(LIQUITEARS) OU PRN (09:45)
[2022-01-10] MEDS ORDERED: POLYOPD OU (11:34)
== END 2022-01-10 15:40 | disposition home health service (06) | DRG 481 ==
LOC: EDBD 08:48 → M ED 08:48 → M ED INP 14:07 → ENRESERV 14:42 → M MS5PR 15:27
PROVIDERS: ADMIT Internal Medicine; ATTEND Internal Medicine
PROC: 0QS606Z Reposition Right Upper Femur with Intramedullary Internal Fixation Device, Open Approach (ICD-10-PCS; principal; 2021-12-07 08:30)
DX: S72.041A Displaced fracture of base of neck of right femur, initial encounter for closed fracture (principal); D62 Acute posthemorrhagic anemia; Z68.1 Body mass index [BMI] 19.9 or less, adult; L97.929 Non-pressure chronic ulcer of unspecified part of left lower leg with unspecified severity; F20.9 Schizophrenia, unspecified; F17.200 Nicotine dependence, unspecified, uncomplicated; V03.00XA Pedestrian on foot injured in collision with car, pick-up truck or van in nontraffic accident, initial encounter; Z20.822 Contact with and (suspected) exposure to COVID-19; Z91.040 Latex allergy status

== ENCOUNTER 2022-02-10 13:39 | Emergency (ER) | payer MEDICARE, OTHER ==
[~2022-02-10] VITALS: Ht 167.6 cm; Wt 51.9 kg
[~2022-02-10 13:39] MED LIST changes: -DOXY-350 PO; +DOXY-444 PO; +POLYOPD OU
[2022-02-10 13:45] VITALS: BP 170/90
== END 2022-02-10 22:39 | disposition left against medical advice (07) ==
LOC: M ED 13:39
DX: Z53.21 Procedure and treatment not carried out due to patient leaving prior to being seen by health care provider (principal)

== ENCOUNTER 2022-02-24 09:20 | Inpatient (IN) | payer OTHER ==
[~2022-02-24] VITALS: Ht 160 cm; Wt 47.7 kg
[2022-02-24 20:48] LABS: HEMATOCRIT 34.2 % (36.0-47.0); HEMOGLOBIN 9.9 g/dl (12.0-15.5); MEAN CORPUSCULAR HEMOGLOBIN 23.2 pg (27.0-33.0); MEAN CORPUSCULAR HGB CONC 28.9 g/dl (32.0-36.5); MEAN CORPUSCULAR VOLUME 80.3 fl (80.0-96.0); PLATELET COUNT, AUTOMATED 382 10^3/uL (150-450); RED BLOOD COUNT 4.26 10^6/uL (4.00-5.40); WHITE BLOOD COUNT 5.8 10^3/uL (4.0-10.0)
[2022-02-24 21:20] LABS: ETHYL ALCOHOL (ETHANOL) 0.003 % (0.000-0.010)
[2022-02-24 21:21] LABS: BILIRUBIN,DIRECT < 0.1 MG/DL (<0.4); SALICYLATE LEVEL < 3.0 MG/DL (<30)
[2022-02-24 21:22] LABS: ACETAMINOPHEN LEVEL < 2.0 UG/ML (10.0-20.0)
[2022-02-24 21:24] LABS: THYROID STIMULATING HORMONE 1.523 uIU/ML (0.55-4.78)
[2022-02-24 21:26] LABS: ALBUMIN 2.6 G/DL (3.2-5.2); ALKALINE PHOSPHATASE 93 U/L (46-116); ALT/SGPT 14 U/L (7.0-40); AST/SGOT 18 U/L (<34); BILIRUBIN,TOTAL 0.2 MG/DL (0.3-1.2); BLOOD UREA NITROGEN 10 MG/DL (9-23); CALCIUM LEVEL 8.6 MG/DL (8.3-10.6); CARBON DIOXIDE LEVEL 28 MMOL/L (20-31); CHLORIDE LEVEL 104 MMOL/L (98-107); CREATININE FOR GFR 0.49 MG/DL (0.55-1.30); GLOMERULAR FILTRATION RATE > 60.0 (>45); GLUCOSE, FASTING 220 MG/DL (74-106); POTASSIUM SERUM 4.7 MMOL/L (3.5-5.1); SODIUM LEVEL 141 MMOL/L (136-145); TOTAL PROTEIN 6.1 G/DL (5.7-8.2)
[2022-02-24 21:30] LABS: RSV AMPLIFICATION NEGATIVE (NEGATIVE)
[2022-02-24] MEDS ORDERED: POLYOPD OU (23:35)
[2022-02-24] MEDS ORDERED: HOME MED LIST COMPLETE! XX SCH (23:40)
[2022-02-25 00:01] LABS: AMPHETAMINES LEVEL URINE NEGATIVE (NEGATIVE); BARBITURATES URINE NEGATIVE (NEGATIVE); BENZODIAZEPINES URINE NEGATIVE (NEGATIVE); COCAINE METABOLITE URINE NEGATIVE (NEGATIVE); METHADONE URINE NEGATIVE (NEGATIVE); OPIATES URINE NEGATIVE (NEGATIVE); PHENCYCLIDINE URINE NEGATIVE (NEGATIVE)
[2022-02-25 00:02] LABS: CANNABINOIDS URINE NEGATIVE (NEGATIVE)
[2022-02-25] MEDS: NICOTINE 14 MG/24 HR TRANSDERMAL TD SCH (09:00)
[2022-02-25] MEDS ORDERED: OLANZapine ORAL DISINTEGRATING TAB 5MG PO PRN (12:05)
[2022-02-25] MEDS ORDERED: POLYVINYL ALCOHOL OPHTH SOLN 15ML (LIQUITEARS) OU PRN (12:05)
[2022-02-25] MEDS ORDERED: MOM 30ML SUSPENSION UDC PO PRN (12:05)
[2022-02-25] MEDS ORDERED: MAALOX 30 ML SUSP *UDC PO PRN (12:05)
[2022-02-25] MEDS ORDERED: traZODone 50 MG TAB PO PRN (12:05)
[2022-02-25] MEDS ORDERED: IBUPROFEN 400MG TAB PO PRN (12:05)
[2022-02-26] MEDS ORDERED: NORCO, ANEXSIA 5/325MG TABLET (HYDROcodone/ACETAMINOPHEN) PO PRN (02:25)
[2022-02-26 04:52] VITALS: BP 162/77
[2022-02-26] MEDS: NICOTINE 14 MG/24 HR TRANSDERMAL TD SCH (09:00)
[2022-02-26] MEDS: risperiDONE 0.5 MG TAB PO SCH ×2 (11:24→21:00)
[2022-02-26] MEDS: amLODIPine 5 MG TAB PO SCH (12:31)
[2022-02-26] MEDS: CARBAMIDE PEROXIDE 6.5% OTIC SOLN 15ML AU SCH ×2 (14:21→21:00)
[2022-02-27] MEDS: NICOTINE 14 MG/24 HR TRANSDERMAL TD SCH (09:00)
[2022-02-27] MEDS: CARBAMIDE PEROXIDE 6.5% OTIC SOLN 15ML AU SCH ×2 (09:00→21:00)
[2022-02-27] MEDS: risperiDONE 0.5 MG TAB PO SCH ×2 (09:00→21:00)
[2022-02-27] MEDS: amLODIPine 5 MG TAB PO SCH (09:00)
[2022-02-28] MEDS: CARBAMIDE PEROXIDE 6.5% OTIC SOLN 15ML AU SCH (08:09)
[2022-02-28] MEDS: amLODIPine 5 MG TAB PO SCH (08:09)
[2022-02-28] MEDS: risperiDONE 0.5 MG TAB PO SCH (08:09)
[2022-02-28] MEDS: NICOTINE 14 MG/24 HR TRANSDERMAL TD SCH (08:10)
[2022-02-28] MEDS ORDERED: AMLO1TAB24 PO (11:09)
== END 2022-02-28 12:45 | disposition home or self-care (01) | DRG 885 ==
LOC: EDBD 09:20 → M ED 09:20 → M ED INP 02-25 12:03 → M PSY 02-25 12:03
PROVIDERS: ADMIT Psychiatry & Neurology Psychiatry; ATTEND Student in an Organized Health Care Education/Training Program
DX: F29 Unspecified psychosis not due to a substance or known physiological condition (principal); L97.929 Non-pressure chronic ulcer of unspecified part of left lower leg with unspecified severity; Z68.1 Body mass index [BMI] 19.9 or less, adult; F22 Delusional disorders; F20.9 Schizophrenia, unspecified; I10 Essential (primary) hypertension; E74.39 Other disorders of intestinal carbohydrate absorption; F42.3 Hoarding disorder; Z79.899 Other long term (current) drug therapy; Z20.822 Contact with and (suspected) exposure to COVID-19; Z91.040 Latex allergy status

== ENCOUNTER 2022-04-03 12:55 | Inpatient (IN) | payer OTHER ==
[~2022-04-03] VITALS: Ht 160 cm; Wt 47.7 kg
[~2022-04-03 12:55] MED LIST changes: +AMLO1TAB24 PO
[2022-04-03 16:10] LABS: AMPHETAMINES LEVEL URINE NEGATIVE (NEGATIVE); BARBITURATES URINE NEGATIVE (NEGATIVE); BENZODIAZEPINES URINE NEGATIVE (NEGATIVE); CANNABINOIDS URINE NEGATIVE (NEGATIVE); COCAINE METABOLITE URINE NEGATIVE (NEGATIVE); METHADONE URINE NEGATIVE (NEGATIVE); OPIATES URINE NEGATIVE (NEGATIVE); PHENCYCLIDINE URINE NEGATIVE (NEGATIVE)
[2022-04-03 16:16] LABS: BASO % 0.5 % (0.0-1.0); EOS % 0.5 % (0.0-3.0); HEMATOCRIT 35.9 % (36.0-47.0); HEMOGLOBIN 10.5 g/dl (12.0-15.5); LYMPH # 0.9 10^3/uL (1.5-5.0); LYMPH % 15.1 % (24.0-44.0); MEAN CORPUSCULAR HEMOGLOBIN 23.8 pg (27.0-33.0); MEAN CORPUSCULAR HGB CONC 29.2 g/dl (32.0-36.5); MEAN CORPUSCULAR VOLUME 81.2 fl (80.0-96.0); MONO # 0.4 10^3/uL (0.0-0.8); MONO % 6.6 % (2.0-8.0); NEUTROPHILS # 4.5 10^3/uL (1.5-8.5); PLATELET COUNT, AUTOMATED 348 10^3/uL (150-450); RED BLOOD COUNT 4.42 10^6/uL (4.00-5.40); WHITE BLOOD COUNT 5.9 10^3/uL (4.0-10.0)
[2022-04-03 16:35] LABS: ERYTHROCYTE SEDIMENTATION RATE 118 mm/hr (0-30)
[2022-04-03 16:37] LABS: BILIRUBIN,DIRECT 0.1 MG/DL (<0.4)
[2022-04-03 16:38] LABS: ALBUMIN 2.7 G/DL (3.2-5.2); ALKALINE PHOSPHATASE 101 U/L (46-116); ALT/SGPT 9 U/L (7.0-40); AST/SGOT 17 U/L (<34); BILIRUBIN,TOTAL 0.4 MG/DL (0.3-1.2); BLOOD UREA NITROGEN 16 MG/DL (9-23); CALCIUM LEVEL 8.1 MG/DL (8.3-10.6); CARBON DIOXIDE LEVEL 27 MMOL/L (20-31); CHLORIDE LEVEL 104 MMOL/L (98-107); CREATININE FOR GFR 0.47 MG/DL (0.55-1.30); GLOMERULAR FILTRATION RATE > 60.0 (>45); GLUCOSE, FASTING 238 MG/DL (74-106); POTASSIUM SERUM 3.5 MMOL/L (3.5-5.1); SODIUM LEVEL 140 MMOL/L (136-145); TOTAL PROTEIN 6.7 G/DL (5.7-8.2)
[2022-04-03 16:40] LABS: ETHYL ALCOHOL (ETHANOL) 0.009 % (0.000-0.010)
[2022-04-03 16:41] LABS: ACETAMINOPHEN LEVEL < 2.0 UG/ML (10.0-20.0)
[2022-04-03 16:42] LABS: SALICYLATE LEVEL < 3.0 MG/DL (<30)
[2022-04-03 16:44] LABS: THYROID STIMULATING HORMONE 1.257 uIU/ML (0.55-4.78)
[2022-04-03] MEDS ORDERED: HOME MED LIST COMPLETE! XX SCH (18:15)
[2022-04-03] MEDS ORDERED: OLANZapine 5 MG TAB PO PRN (18:35)
[2022-04-03] MEDS ORDERED: GLUCAGON INJ 1MG VIAL SC PRN (18:40)
[2022-04-03] MEDS ORDERED: GLUCOSE 4GM CHEW TABLET PO PRN (18:40)
[2022-04-03] MEDS ORDERED: DEXTROSE 50% 50ML SYRINGE IV PRN (18:40)
[2022-04-03] MEDS ORDERED: INSULIN LISPRO (NovoLOG) PER UNIT SC SCH (21:00)
[2022-04-03] MEDS: NYSTATIN 100,000 UNITS/GM TOPICAL PWD 15GM TOP SCH (21:00)
[2022-04-03 21:31] LABS: HEMOGLOBIN A1c 5.6 % (4.0-6.0)
[2022-04-04] MEDS: INSULIN LISPRO (NovoLOG) PER UNIT SC SCH ×2 (07:18→12:00)
[2022-04-04] MEDS: ENOXAPARIN 30MG/0.3ML SYRINGE (J1650 PER 10MG) SC SCH (08:06)
[2022-04-04 08:23] LABS: RSV AMPLIFICATION NEGATIVE (NEGATIVE)
[2022-04-04 08:36] LABS: BASO % 0.7 % (0.0-1.0); EOS # 0.1 10^3/uL (0.0-0.5); EOS % 2.5 % (0.0-3.0); HEMOGLOBIN 9.4 g/dl (12.0-15.5); LYMPH # 1.2 10^3/uL (1.5-5.0); LYMPH % 21.9 % (24.0-44.0); MEAN CORPUSCULAR HEMOGLOBIN 23.9 pg (27.0-33.0); MEAN CORPUSCULAR HGB CONC 29.4 g/dl (32.0-36.5); MEAN CORPUSCULAR VOLUME 81.2 fl (80.0-96.0); MONO # 0.7 10^3/uL (0.0-0.8); MONO % 12.2 % (2.0-8.0); NEUTROPHILS # 3.5 10^3/uL (1.5-8.5); NEUTROPHILS % 62.3 % (36.0-66.0); PLATELET COUNT, AUTOMATED 297 10^3/uL (150-450); RED BLOOD COUNT 3.94 10^6/uL (4.00-5.40); WHITE BLOOD COUNT 5.6 10^3/uL (4.0-10.0)
[2022-04-04 09:08] LABS: ALBUMIN 2.2 G/DL (3.2-5.2); ALKALINE PHOSPHATASE 84 U/L (46-116); ALT/SGPT < 9 U/L (7.0-40); AST/SGOT 13 U/L (<34); BILIRUBIN,TOTAL < 0.2 MG/DL (0.3-1.2); BLOOD UREA NITROGEN 13 MG/DL (9-23); CALCIUM LEVEL 7.9 MG/DL (8.3-10.6); CARBON DIOXIDE LEVEL 27 MMOL/L (20-31); CHLORIDE LEVEL 108 MMOL/L (98-107); CREATININE FOR GFR 0.45 MG/DL (0.55-1.30); GLOMERULAR FILTRATION RATE > 60.0 (>45); GLUCOSE, FASTING 144 MG/DL (74-106); POTASSIUM SERUM 4.2 MMOL/L (3.5-5.1); SODIUM LEVEL 141 MMOL/L (136-145); TOTAL PROTEIN 5.5 G/DL (5.7-8.2)
[2022-04-04] MEDS: NYSTATIN 100,000 UNITS/GM TOPICAL PWD 15GM TOP SCH ×2 (10:00→21:56)
[2022-04-04] MEDS: cefTRIAXone SOD 1 GM in D5W MINI-BAG PLUS 50 ML IV SCH (12:00)
[2022-04-04 12:21] VITALS: BP 136/78
[2022-04-04] MEDS ORDERED: traMADol 50 MG TAB PO PRN (14:05)
[2022-04-04] MEDS ORDERED: IBUPROFEN 400MG TAB PO PRN (14:05)
[2022-04-04] MEDS ORDERED: IBUPROFEN 600MG TAB PO PRN (14:05)
[2022-04-04] MEDS: LIDOCAINE 5% (LIDODERM) PATCH TD SCH (15:00)
[2022-04-04] MEDS: ACETAMINOPHEN 500 MG TAB PO SCH ×3 (18:30→23:58)
[2022-04-04 21:52] VITALS: BP 116/53
[2022-04-05 05:30] VITALS: BP 124/54
[2022-04-05 05:46] LABS: BASO # 0.1 10^3/uL (0.0-0.2); BASO % 1.6 % (0.0-1.0); EOS # 0.3 10^3/uL (0.0-0.5); EOS % 5.6 % (0.0-3.0); HEMATOCRIT 35.5 % (36.0-47.0); LYMPH # 1.7 10^3/uL (1.5-5.0); LYMPH % 38.5 % (24.0-44.0); MEAN CORPUSCULAR HEMOGLOBIN 23.5 pg (27.0-33.0); MEAN CORPUSCULAR HGB CONC 28.2 g/dl (32.0-36.5); MEAN CORPUSCULAR VOLUME 83.5 fl (80.0-96.0); MONO # 0.5 10^3/uL (0.0-0.8); MONO % 10.6 % (2.0-8.0); NEUTROPHILS # 1.9 10^3/uL (1.5-8.5); NEUTROPHILS % 43.2 % (36.0-66.0); PLATELET COUNT, AUTOMATED 306 10^3/uL (150-450); RED BLOOD COUNT 4.25 10^6/uL (4.00-5.40); WHITE BLOOD COUNT 4.4 10^3/uL (4.0-10.0)
[2022-04-05 05:53] LABS: ERYTHROCYTE SEDIMENTATION RATE 92 mm/hr (0-30)
[2022-04-05] MEDS: ACETAMINOPHEN 500 MG TAB PO SCH ×3 (06:00→17:29)
[2022-04-05 06:12] LABS: BLOOD UREA NITROGEN 13 MG/DL (9-23); CALCIUM LEVEL 8.7 MG/DL (8.3-10.6); CARBON DIOXIDE LEVEL 26 MMOL/L (20-31); CHLORIDE LEVEL 112 MMOL/L (98-107); CREATININE FOR GFR 0.43 MG/DL (0.55-1.30); GLOMERULAR FILTRATION RATE > 60.0 (>45); GLUCOSE, FASTING 113 MG/DL (74-106); POTASSIUM SERUM 4.6 MMOL/L (3.5-5.1); SODIUM LEVEL 144 MMOL/L (136-145)
[2022-04-05] MEDS: ASPIRIN 81MG CHEW TABLET PO SCH (08:54)
[2022-04-05] MEDS: LIDOCAINE 5% (LIDODERM) PATCH TD SCH (08:57)
[2022-04-05] MEDS: ENOXAPARIN 30MG/0.3ML SYRINGE (J1650 PER 10MG) SC SCH (08:57)
[2022-04-05] MEDS: NYSTATIN 100,000 UNITS/GM TOPICAL PWD 15GM TOP SCH ×2 (08:58→21:00)
[2022-04-05] MEDS: cefTRIAXone SOD 1 GM in D5W MINI-BAG PLUS 50 ML IV SCH (12:09)
[2022-04-05 14:00] VITALS: BP 123/56
[2022-04-06 05:06] VITALS: BP 133/58
[2022-04-06] MEDS: ACETAMINOPHEN 500 MG TAB PO SCH ×4 (06:00→17:36)
[2022-04-06] MEDS: LIDOCAINE 5% (LIDODERM) PATCH TD SCH (09:00)
[2022-04-06] MEDS: ENOXAPARIN 30MG/0.3ML SYRINGE (J1650 PER 10MG) SC SCH (09:00)
[2022-04-06] MEDS: NYSTATIN 100,000 UNITS/GM TOPICAL PWD 15GM TOP SCH ×2 (09:38→20:47)
[2022-04-06] MEDS: ASPIRIN 81MG CHEW TABLET PO SCH (11:20)
[2022-04-06 14:00] VITALS: BP 114/59
[2022-04-06 22:03] VITALS: BP 124/74
[2022-04-07] MEDS: ACETAMINOPHEN 500 MG TAB PO SCH ×2 (06:00)
[2022-04-07] MEDS ORDERED: IBUPROFEN 800 MG TAB PO PRN (07:25)
[2022-04-07] MEDS ORDERED: ACETAMINOPHEN 500 MG TAB PO PRN (07:25)
[2022-04-07] MEDS: ENOXAPARIN 30MG/0.3ML SYRINGE (J1650 PER 10MG) SC SCH (09:00)
[2022-04-07] MEDS: ASPIRIN 81MG CHEW TABLET PO SCH (09:39)
[2022-04-07] MEDS: LIDOCAINE 5% (LIDODERM) PATCH TD SCH (09:40)
[2022-04-07] MEDS: NYSTATIN 100,000 UNITS/GM TOPICAL PWD 15GM TOP SCH (09:41)
== END 2022-04-07 12:44 | disposition home or self-care (01) | DRG 300 ==
LOC: M ED 12:55 → M ED INP 18:20 → ENRESERV 04-04 10:37 → M MSPAV 04-04 12:23
PROVIDERS: ADMIT Student in an Organized Health Care Education/Training Program; ATTEND Student in an Organized Health Care Education/Training Program
DX: I73.9 Peripheral vascular disease, unspecified (principal); L97.929 Non-pressure chronic ulcer of unspecified part of left lower leg with unspecified severity; Z68.1 Body mass index [BMI] 19.9 or less, adult; E87.20 Acidosis, unspecified; E46 Unspecified protein-calorie malnutrition; M86.9 Osteomyelitis, unspecified; F20.9 Schizophrenia, unspecified; F17.210 Nicotine dependence, cigarettes, uncomplicated; Z20.822 Contact with and (suspected) exposure to COVID-19; Z91.040 Latex allergy status; E74.39 Other disorders of intestinal carbohydrate absorption

== ENCOUNTER 2022-05-23 13:51 | Emergency (ER) | payer OTHER ==
[~2022-05-23] VITALS: Ht 165.1 cm; Wt 49.1 kg
[2022-05-23 13:59] VITALS: BP 154/84
== END 2022-05-23 17:18 | disposition home or self-care (01) ==
LOC: M ED 13:51
DX: F20.9 Schizophrenia, unspecified (principal); S81.802A Unspecified open wound, left lower leg, initial encounter; Z91.199 Patient's noncompliance with other medical treatment and regimen due to unspecified reason; F17.200 Nicotine dependence, unspecified, uncomplicated; Z91.040 Latex allergy status

== ENCOUNTER 2022-07-03 14:09 | Emergency (ER) | payer OTHER ==
[~2022-07-03 14:09] MED LIST changes: +ARTIDRO4 OU; -POLYOPD OU
[2022-07-03 15:22] LABS: HEMATOCRIT 34.9 % (36.0-47.0); HEMOGLOBIN 10.2 g/dl (12.0-15.5); MEAN CORPUSCULAR HEMOGLOBIN 24.5 pg (27.0-33.0); MEAN CORPUSCULAR HGB CONC 29.2 g/dl (32.0-36.5); MEAN CORPUSCULAR VOLUME 83.7 fl (80.0-96.0); PLATELET COUNT, AUTOMATED 386 10^3/uL (150-450); RED BLOOD COUNT 4.17 10^6/uL (4.00-5.40)
[2022-07-03 15:49] LABS: ETHYL ALCOHOL (ETHANOL) < 0.003 % (0.000-0.010)
[2022-07-03 15:51] LABS: ACETAMINOPHEN LEVEL < 2.0 UG/ML (10.0-20.0); ALBUMIN 2.4 G/DL (3.2-5.2); ALKALINE PHOSPHATASE 82 U/L (46-116); ALT/SGPT 11 U/L (7.0-40); AST/SGOT 22 U/L (<34); BILIRUBIN,DIRECT < 0.1 MG/DL (<0.4); BILIRUBIN,TOTAL < 0.2 MG/DL (0.3-1.2); BLOOD UREA NITROGEN 20 MG/DL (9-23); CALCIUM LEVEL 8.2 MG/DL (8.3-10.6); CARBON DIOXIDE LEVEL 29 MMOL/L (20-31); CHLORIDE LEVEL 108 MMOL/L (98-107); CREATININE FOR GFR 0.93 MG/DL (0.55-1.30); GLOMERULAR FILTRATION RATE > 60.0 (>45); GLUCOSE, FASTING 95 MG/DL (74-106); POTASSIUM SERUM 4.5 MMOL/L (3.5-5.1); SALICYLATE LEVEL < 3.0 MG/DL (<30); SODIUM LEVEL 143 MMOL/L (136-145); TOTAL PROTEIN 6.1 G/DL (5.7-8.2)
[2022-07-03 15:53] LABS: THYROID STIMULATING HORMONE 2.017 uIU/ML (0.55-4.78)
[2022-07-03 21:04] VITALS: BP 118/78
== END 2022-07-03 21:21 | disposition home or self-care (01) ==
LOC: EDBD 14:09 → M ED 14:09
DX: Z59.10 Inadequate housing, unspecified (principal); F20.9 Schizophrenia, unspecified; F17.200 Nicotine dependence, unspecified, uncomplicated; Z91.040 Latex allergy status

== ENCOUNTER 2022-07-04 00:34 | Emergency (ER) | payer OTHER ==
[~2022-07-04] VITALS: Ht 167.6 cm; Wt 60.0 kg
[2022-07-04 07:30] VITALS: BP 138/66
== END 2022-07-04 07:49 | disposition home or self-care (01) ==
LOC: M ED 00:34
DX: Z59.10 Inadequate housing, unspecified (principal); F30.9 Manic episode, unspecified; F17.200 Nicotine dependence, unspecified, uncomplicated; Z91.040 Latex allergy status

== ENCOUNTER 2022-07-07 09:55 | Emergency (ER) | payer OTHER ==
[~2022-07-07] VITALS: Ht 162.6 cm; Wt 50.0 kg
[2022-07-07 14:40] VITALS: BP 151/70
== END 2022-07-07 14:56 | disposition home or self-care (01) ==
LOC: EDBD 09:55 → M ED 09:55
DX: F43.9 Reaction to severe stress, unspecified (principal); L97.929 Non-pressure chronic ulcer of unspecified part of left lower leg with unspecified severity; I73.9 Peripheral vascular disease, unspecified; F17.200 Nicotine dependence, unspecified, uncomplicated; Z91.040 Latex allergy status; F20.9 Schizophrenia, unspecified

== ENCOUNTER 2022-08-26 09:42 | Inpatient (IN) | payer OTHER ==
[~2022-08-26] VITALS: Ht 165.1 cm; Wt 49.1 kg
[2022-08-26] MEDS ORDERED: HOME MED LIST COMPLETE! XX SCH (10:30)
[2022-08-26] MEDS ORDERED: LORazepam 2 MG/ML 1ML VIAL IM STA (11:26)
[2022-08-26] MEDS ORDERED: OLANZapine INTRAMUSCULAR 10MG VIAL IM ONE (11:30)
[2022-08-26] MEDS ORDERED: NS 1,470 ML in IV 1 EA IV ONE (12:40)
[2022-08-26 12:41] LABS: ETHYL ALCOHOL (ETHANOL) < 0.003 % (0.000-0.010)
[2022-08-26 12:43] LABS: ACETAMINOPHEN LEVEL < 2.0 UG/ML (10.0-20.0); ALBUMIN 2.7 G/DL (3.2-5.2); ALKALINE PHOSPHATASE 94 U/L (46-116); ALT/SGPT 11 U/L (7.0-40); AST/SGOT 11 U/L (<34); BILIRUBIN,DIRECT < 0.1 MG/DL (<0.4); BILIRUBIN,TOTAL 0.2 MG/DL (0.3-1.2); SALICYLATE LEVEL < 3.0 MG/DL (<30); TOTAL PROTEIN 6.3 G/DL (5.7-8.2)
[2022-08-26 12:47] LABS: THYROID STIMULATING HORMONE 1.865 uIU/ML (0.55-4.78)
[2022-08-26 14:25] LABS: BASO # 0.1 10^3/uL (0.0-0.2); BASO % 0.8 % (0.0-1.0); EOS # 0.1 10^3/uL (0.0-0.5); EOS % 1.5 % (0.0-3.0); HEMATOCRIT 33.1 % (36.0-47.0); HEMOGLOBIN 9.9 g/dl (12.0-15.5); LYMPH # 1.3 10^3/uL (1.5-5.0); LYMPH % 17.1 % (24.0-44.0); MEAN CORPUSCULAR HEMOGLOBIN 24.9 pg (27.0-33.0); MEAN CORPUSCULAR HGB CONC 29.9 g/dl (32.0-36.5); MEAN CORPUSCULAR VOLUME 83.2 fl (80.0-96.0); MONO # 0.8 10^3/uL (0.0-0.8); MONO % 11.2 % (2.0-8.0); NEUTROPHILS % 68.9 % (36.0-66.0); PLATELET COUNT, AUTOMATED 325 10^3/uL (150-450); RED BLOOD COUNT 3.98 10^6/uL (4.00-5.40); WHITE BLOOD COUNT 7.3 10^3/uL (4.0-10.0)
[2022-08-26 16:00] LABS: AMPHETAMINES LEVEL URINE NEGATIVE (NEGATIVE); BARBITURATES URINE NEGATIVE (NEGATIVE); BENZODIAZEPINES URINE NEGATIVE (NEGATIVE); CANNABINOIDS URINE NEGATIVE (NEGATIVE); COCAINE METABOLITE URINE NEGATIVE (NEGATIVE); METHADONE URINE NEGATIVE (NEGATIVE); OPIATES URINE NEGATIVE (NEGATIVE); PHENCYCLIDINE URINE NEGATIVE (NEGATIVE)
[2022-08-26 18:07] LABS: BLOOD UREA NITROGEN 10 MG/DL (9-23); CARBON DIOXIDE LEVEL 30 MMOL/L (20-31); CHLORIDE LEVEL 106 MMOL/L (98-107); GLOMERULAR FILTRATION RATE > 60.0 (>39); GLUCOSE, FASTING 193 MG/DL (74-106); POTASSIUM SERUM 4.1 MMOL/L (3.5-5.1); SODIUM LEVEL 141 MMOL/L (136-145)
[2022-08-26] MEDS ORDERED: ACETAMINOPHEN TAB 650MG DOSE (2X325MG) PO PRN (22:10)
[2022-08-26] MEDS ORDERED: MAALOX 30 ML SUSP *UDC PO PRN (22:10)
[2022-08-26] MEDS ORDERED: traZODone 50 MG TAB PO PRN (22:10)
[2022-08-26] MEDS ORDERED: OLANZapine ORAL DISINTEGRATING TAB 5MG PO PRN (22:10)
[2022-08-26] MEDS ORDERED: MOM 30ML SUSPENSION UDC PO PRN (22:10)
[2022-08-26 23:42] VITALS: BP 155/70; TEMP 98.6; O2SAT 98
[2022-08-27] MEDS ORDERED: GLUCOSE 4GM CHEW TABLET PO PRN (12:40)
[2022-08-27] MEDS ORDERED: GLUCAGON INJ 1MG VIAL SC PRN (12:40)
[2022-08-27] MEDS ORDERED: DEXTROSE 50% 50ML SYRINGE IV PRN (12:40)
[2022-08-27] MEDS: OLANZapine 2.5MG TABLET PO SCH ×2 (13:29→21:02)
[2022-08-27] MEDS: INSULIN LISPRO (NovoLOG) PER UNIT SC SCH ×2 (17:29→21:00)
[2022-08-27 18:09] VITALS: BP 110/59; TEMP 96.9
[2022-08-27 22:00] VITALS: BP 126/69; TEMP 98.6; O2SAT 98
[2022-08-27] MEDS: DOXYCYCLINE HYCLATE 100MG TABLET PO SCH (22:20)
[2022-08-28 06:47] VITALS: BP 128/63; TEMP 97.5; O2SAT 97
[2022-08-28] MEDS: INSULIN LISPRO (NovoLOG) PER UNIT SC SCH ×4 (06:57→21:00)
[2022-08-28] MEDS: OLANZapine 2.5MG TABLET PO SCH ×2 (09:37→21:15)
[2022-08-28] MEDS: DOXYCYCLINE HYCLATE 100MG TABLET PO SCH ×2 (09:37→21:15)
[2022-08-28 10:51] LABS: BASO # 0.1 10^3/uL (0.0-0.2); BASO % 0.8 % (0.0-1.0); EOS # 0.1 10^3/uL (0.0-0.5); HEMATOCRIT 36.9 % (36.0-47.0); HEMOGLOBIN 10.6 g/dl (12.0-15.5); LYMPH # 1.2 10^3/uL (1.5-5.0); LYMPH % 19.3 % (24.0-44.0); MEAN CORPUSCULAR HEMOGLOBIN 24.4 pg (27.0-33.0); MEAN CORPUSCULAR HGB CONC 28.7 g/dl (32.0-36.5); MONO # 0.5 10^3/uL (0.0-0.8); MONO % 8.4 % (2.0-8.0); NEUTROPHILS # 4.1 10^3/uL (1.5-8.5); NEUTROPHILS % 69.2 % (36.0-66.0); PLATELET COUNT, AUTOMATED 390 10^3/uL (150-450); RED BLOOD COUNT 4.34 10^6/uL (4.00-5.40)
[2022-08-28 11:01] LABS: HEMOGLOBIN A1c 5.9 % (4.0-6.0)
[2022-08-28 11:20] LABS: CHOLESTEROL RISK RATIO 2.73 (<5); HDL CHOLESTEROL 70.6 MG/DL (>40); LDL CHOLESTEROL 99.6 MG/DL (<100); NON-HDL-C 122.4 MG/DL
[2022-08-28 11:21] LABS: ALBUMIN 2.9 G/DL (3.2-5.2); ALKALINE PHOSPHATASE 94 U/L (46-116); ALT/SGPT 12 U/L (7.0-40); AST/SGOT 14 U/L (<34); BILIRUBIN,TOTAL 0.2 MG/DL (0.3-1.2); BLOOD UREA NITROGEN 14 MG/DL (9-23); CALCIUM LEVEL 8.4 MG/DL (8.3-10.6); CARBON DIOXIDE LEVEL 29 MMOL/L (20-31); CHLORIDE LEVEL 106 MMOL/L (98-107); GLOMERULAR FILTRATION RATE > 60.0 (>39); GLUCOSE, FASTING 79 MG/DL (74-106); POTASSIUM SERUM 4.2 MMOL/L (3.5-5.1); SODIUM LEVEL 138 MMOL/L (136-145); TOTAL PROTEIN 6.6 G/DL (5.7-8.2)
[2022-08-28 16:47] VITALS: BP 156/76; TEMP 97; O2SAT 95
[2022-08-29 06:34] VITALS: BP 131/63; TEMP 97.6; O2SAT 100
[2022-08-29] MEDS: INSULIN LISPRO (NovoLOG) PER UNIT SC SCH ×2 (06:44→12:00)
[2022-08-29] MEDS: DOXYCYCLINE HYCLATE 100MG TABLET PO SCH ×2 (09:21→21:09)
[2022-08-29] MEDS: OLANZapine 2.5MG TABLET PO SCH ×2 (10:13→21:09)
[2022-08-29 17:57] VITALS: BP 126/50; TEMP 97.5; O2SAT 99
[2022-08-30 06:26] VITALS: BP 126/60; TEMP 97.8; O2SAT 99
[2022-08-30] MEDS: DOXYCYCLINE HYCLATE 100MG TABLET PO SCH (09:38)
[2022-08-30] MEDS: OLANZapine 2.5MG TABLET PO SCH ×2 (09:38→20:26)
[2022-08-30 18:00] VITALS: BP 150/76; TEMP 97.6
[2022-08-31 06:53] VITALS: BP 129/63; TEMP 97.9; O2SAT 100
[2022-08-31] MEDS: OLANZapine 2.5MG TABLET PO SCH ×2 (09:00→20:36)
[2022-08-31 18:00] VITALS: BP 137/65; TEMP 98
[2022-09-01 06:46] VITALS: BP 150/67; TEMP 98.7; O2SAT 99
[2022-09-01] MEDS: OLANZapine 2.5MG TABLET PO SCH ×2 (09:46→21:00)
[2022-09-02 06:58] VITALS: BP_SYST 120; BP_SYST 121; BP_DIAS 62; BP_DIAS 79; TEMP 97.5; TEMP 97.7; O2SAT 94; O2SAT 97
[2022-09-02] MEDS: OLANZapine 2.5MG TABLET PO SCH (09:34)
[2022-09-02] MEDS ORDERED: OLAN5ZYD PO (10:22)
[2022-09-02] MEDS ORDERED: OLAN2.5T25 PO (10:22)
== END 2022-09-02 13:35 | disposition home or self-care (01) | DRG 885 ==
LOC: M ED 09:42 → M ED INP 22:06 → M PSY 23:25
PROVIDERS: ADMIT Student in an Organized Health Care Education/Training Program; ATTEND Student in an Organized Health Care Education/Training Program
DX: F20.9 Schizophrenia, unspecified (principal); L97.229 Non-pressure chronic ulcer of left calf with unspecified severity; Z91.119 Patient's noncompliance with dietary regimen due to unspecified reason; F17.200 Nicotine dependence, unspecified, uncomplicated

== ENCOUNTER 2022-11-01 16:52 | Emergency (ER) | payer OTHER ==
[~2022-11-01] VITALS: Ht 165.1 cm; Wt 46.4 kg
[~2022-11-01 16:52] MED LIST changes: +OLAN2.5T25 PO; +OLAN5ZYD PO
[2022-11-01 16:54] VITALS: BP 158/76; TEMP 98.9; O2SAT 98
== END 2022-11-01 19:16 | disposition home or self-care (01) ==
LOC: M ED 16:52
DX: F20.9 Schizophrenia, unspecified (principal); F17.200 Nicotine dependence, unspecified, uncomplicated

== ENCOUNTER 2022-11-13 14:03 | Emergency (ER) | payer OTHER ==
[~2022-11-13] VITALS: Ht 165.1 cm; Wt 46.1 kg
[2022-11-13 17:57] VITALS: BP 145/70; TEMP 98.6; O2SAT 100
== END 2022-11-13 18:00 | disposition home or self-care (01) ==
LOC: M ED 14:03
DX: L97.929 Non-pressure chronic ulcer of unspecified part of left lower leg with unspecified severity (principal); F41.9 Anxiety disorder, unspecified; F32.A Depression, unspecified; Z86.718 Personal history of other venous thrombosis and embolism; E03.9 Hypothyroidism, unspecified; F17.200 Nicotine dependence, unspecified, uncomplicated

== ENCOUNTER 2023-01-10 15:06 | Emergency (ER) | payer OTHER ==
[~2023-01-10] VITALS: Ht 165.1 cm; Wt 49.6 kg
[2023-01-10] MEDS ORDERED: ACETAMINOPHEN TAB 650MG DOSE (2X325MG) PO ONE (15:35)
[2023-01-10 18:42] VITALS: BP 129/63; TEMP 98.1; O2SAT 97
== END 2023-01-10 19:05 | disposition home or self-care (01) ==
LOC: M ED 15:06 → EDBD 15:06 → M ED 19:05
DX: R51.9 Headache, unspecified (principal); F17.200 Nicotine dependence, unspecified, uncomplicated; K21.9 Gastro-esophageal reflux disease without esophagitis; K57.90 Diverticulosis of intestine, part unspecified, without perforation or abscess without bleeding

== ENCOUNTER 2023-01-20 16:11 | Emergency (ER) | payer OTHER ==
[2023-01-20] MEDS ORDERED: ACETAMINOPHEN TAB 650MG DOSE (2X325MG) PO ONE (18:25)
[2023-01-20 21:15] VITALS: BP 124/61; TEMP 99; O2SAT 96
== END 2023-01-20 21:18 | disposition home or self-care (01) ==
LOC: M ED 16:11 → EDBD 16:11 → M ED 21:18
DX: R51.9 Headache, unspecified (principal); L89.529 Pressure ulcer of left ankle, unspecified stage; Z59.10 Inadequate housing, unspecified

== ENCOUNTER 2023-05-24 12:29 | Emergency (ER) | payer OTHER ==
[~2023-05-24] VITALS: Ht 165.1 cm; Wt 51.3 kg
[2023-05-24 12:30] VITALS: BP 177/82; TEMP 97.9; O2SAT 100
[2023-05-24] MEDS ORDERED: ACETAMINOPHEN TAB 650MG DOSE (2X325MG) PO ONE (13:10)
[2023-05-24] MEDS ORDERED: LIDOCAINE 5% (LIDODERM) PATCH TD ONE (13:10)
[2023-05-24] MEDS ORDERED: LIDO5DIS41 TOP (13:33)
[2023-05-24] MEDS ORDERED: ACET325C5 PO (13:33)
== END 2023-05-24 13:59 | disposition home or self-care (01) ==
LOC: M ED 12:29
DX: I83.029 Varicose veins of left lower extremity with ulcer of unspecified site (principal); M54.50 Low back pain, unspecified; I73.9 Peripheral vascular disease, unspecified; F20.9 Schizophrenia, unspecified; F17.200 Nicotine dependence, unspecified, uncomplicated

== ENCOUNTER 2023-10-26 19:56 | Emergency (ER) | payer OTHER ==
[~2023-10-26 19:56] MED LIST changes: +ACET1TAB55 PO; +ACET325C5 PO; +DOXY-323 PO; +DOXY-440 PO; -DOXY-443 PO; -DOXY-444 PO; +FERR324T21 PO; +LIDO5DIS41 TOP; +MAGN400T2 PO; +OMEP-173 PO; +QUET1TAB17 PO
[2023-10-27 05:56] VITALS: BP 173/75; TEMP 97.8; O2SAT 99
== END 2023-10-27 06:47 | disposition home or self-care (01) ==
LOC: M ED 19:56
DX: S20.224A Contusion of middle back wall of thorax, initial encounter (principal); W01.198A Fall on same level from slipping, tripping and stumbling with subsequent striking against other object, initial encounter; Y92.9 Unspecified place or not applicable; Y93.9 Activity, unspecified; Y99.9 Unspecified external cause status; F20.9 Schizophrenia, unspecified